=== PATIENT | female | born 1975 | race Caucasian/White ===

== ENCOUNTER 2023-05-18 08:47 | Outpatient (OUT) | payer BC, OTHER, SELFPAY ==
--- NOTE | 2023-05-18 08:54 | US_ITS ---
The [address] [address] Patient Name: LESA MCBRIDE MRN: [id number] date: 1975 Sex: F Assigned Patient Location: US Current Patient Location: US Accession/Order Number: [id number] Exam Date: 05/18/2023 08:54 Report Date: 05/18/2023 10:24 At the request of: CHI LYON Procedure: US renal bladder US renal bladder EXAM DATE: 05/18/2023 6:54 AM MDT COMPARISON: CT abdomen with contrast 06/03/2020. CT abdomen and pelvis without contrast 07/31/2020. INDICATION: Right flank pain x1 month. TECHNIQUE: Real-time ultrasound scanning of the kidneys and bladder was performed by the leather heel breaster. Account Resolution Analyst static images are submitted for review. FINDINGS: Right Kidney: The right kidney measures 8.9 x 3.6 x 4.9 cm and has a volume of 82 mL. Normal echogenicity. No hydronephrosis. No shadowing calculi. No obvious contour deforming lesion or solid renal mass. Renal cortex measures 0.8 cm. Left Kidney: The left kidney measures 9.5 x 4.6 x 4 cm and has a volume of 93 mL. Normal echogenicity. No hydronephrosis. No shadowing calculi. No obvious contour deforming lesion or solid renal mass. Renal cortex measures 1.5 cm. Bladder: Bladder volume measures up to 382 mL. No focal or diffuse bladder wall thickening noted. Bilateral ureteral jets are visualized. Heterogeneously echogenic right hepatic lobe lesion measures 2 x 2.4 x 1.6 cm. This finding correlates with previously demonstrated hemangioma. IMPRESSION: 1. No hydronephrosis. Bilateral ureteral jets are visualized. 2. Right hepatic lobe lesion is compatible with previously demonstrated hemangioma. Electronically authenticated by: IDALMIS FAJARDO Date: 05/18/2023 10:24
== END 2023-05-18 08:48 ==
LOC: US 08:49
PROVIDERS: PCP Family Medicine; Visit Provider Family Medicine
DX: R10.9 Unspecified abdominal pain (principal); K76.9 Liver disease, unspecified
CPT/HCPCS: 76770

== ENCOUNTER 2023-08-29 15:46 | Emergency (ER) | payer BC, SELFPAY ==
[2023-08-29 15:52] VITALS: BP 124/80; PULSE 69; RESP 18; TEMP 36.8; O2SAT 97; BMI 19.8
--- NOTE | 2023-08-29 15:55 | ED.HA1 ---
HPI - Headache General Chief Complaint: Headache Stated Complaint: MIGRAINE Time Seen by Provider: 08/29/23 15:50 History of Present Illness HPI Narrative: 47-year-old female presents for headache. She's had it for three days and it's her whole head. No trauma fever or stiff neck. She has a history of migraine headaches and she took some prescription medicine at home for it but it didn't help. Related Data Home Medications Medication Instructions Recorded Confirmed cetirizine 10 mg tablet 10 mg PO DAILY 08/29/23 08/29/23 fluticasone furoate 100 1 inh inhalation Q24H 08/29/23 08/29/23 mcg-vilanterol 25 mcg/dose inhalation powder levothyroxine 100 mcg tablet 50 mcg PO DAILY 08/29/23 08/29/23 liothyronine 5 mcg tablet 5 mcg PO DAILY 08/29/23 08/29/23 lubiprostone 8 mcg capsule 8 mcg PO BID 08/29/23 08/29/23 meloxicam 7.5 mg tablet 7.5 mg PO QAM 08/29/23 08/29/23 metoprolol tartrate 25 mg tablet 25 mg PO BID 08/29/23 08/29/23 pantoprazole 40 mg tablet,delayed 40 mg PO DAILY 08/29/23 08/29/23 release rizatriptan 10 mg disintegrating 10 mg PO Q2H PRN migraine headache 08/29/23 08/29/23 tablet venlafaxine 75 mg capsule,extended 75 mg PO DAILY 08/29/23 08/29/23 release 24 hr Previous Rx's Medication Instructions Recorded eptrrdwwzj-evjoyjnillfdi-vixprjts 1 cap PO Q6H PRN pain #20 caps 08/29/23 50 mg-300 mg-40 mg capsule (Fioricet) Allergies Allergy/AdvReac Type Severity Reaction Status Date / Time ciprofloxacin [From Cipro] Allergy Unknown Vomiting Verified 08/29/23 15:52 diphenhydramine Allergy Unknown Verified 08/29/23 15:52 [From Benadryl] Review of Systems ROS Narrative A ten point review of systems is negative except as noted above. Exam Narrative Exam Narrative: Nurses note and vital signs reviewed and patient is not hypoxic. General: The patient appears well and in no apparent distress. Patient is resting comfortably on cart. Skin: Warm, dry, no pallor noted. There is no rash noted. Head: Normocephalic, atraumatic, neck supple, no nuchal rigidity Eye: Normal conjunctiva, no drainage Ears, Nose, Mouth, and Throat: oral mucosa is moist. Nares patent. Cardiovascular: Regular Rate and Rhythm Respiratory: Patient is in no distress, no accessory muscle use, lungs are clear to auscultation, no wheezing, rales or rhonchi Back: non-tender GI: often nontender Musculoskeletal: The patient has no evidence of calf tenderness, no pitting edema, symmetrical pulses noted bilaterally Neurological: A&O, normal speech, upper and lower extremity strength intact and symmetric Psychiatric: Cooperative Constitutional Vital Signs, click to edit/add: Last Vital Signs Temp 98.3 F 08/29/23 15:52 Pulse 60 08/29/23 17:15 Resp 18 08/29/23 17:15 BP 102/68 08/29/23 17:15 Pulse Ox 100 08/29/23 17:15 O2 Del Method Room Air 08/29/23 15:52 Course Vital Signs Vital signs: Vital Signs Temperature 98.3 F 08/29/23 15:52 Pulse Rate 69 08/29/23 15:52 Respiratory Rate 18 08/29/23 15:52 Blood Pressure 124/80 08/29/23 15:52 Pulse Oximetry 97 08/29/23 15:52 Oxygen Delivery Method Room Air 08/29/23 15:52 Temperature 98.3 F 08/29/23 15:52 Pulse Rate 60 08/29/23 17:15 Respiratory Rate 18 08/29/23 17:15 Blood Pressure 102/68 08/29/23 17:15 Pulse Oximetry 100 08/29/23 17:15 Oxygen Delivery Method Room Air 08/29/23 15:52 MDM - Headache MDM Narrative Medical decision making narrative: the patient was medicated with Toradol, Zofran, and Solu-Medrol and feels improved. She is discharged home with a prescription for Fioricet. I've no clinical suspicion of acute intracranial pathology. Treatment diagnosis and follow-up were discussed with the patient. Differential Diagnosis Differential diagnosis: Likely migraine, tension headache, subarachnoid hemorrhage, headache, meningitis and sinusitis Discharge Plan Discharge Chief Complaint: Headache Clinical Impression: Headache Patient Disposition: Home, Self-Care Time of Disposition Decision: 17:24 Condition: Good Mode of Transportation: Private Vehicle Prescriptions / Home Meds: New kzvxohidxo-kkvhxwecndmub-xixw [Fioricet] 50-300-40 mg capsule 1 cap PO Q6H PRN (Reason: pain) Qty: 20 0RF No Action cetirizine 10 mg tablet 10 mg PO DAILY fluticasone furoate-vilanterol 100-25 mcg/dose blister with device 1 inh INHALATION Q24H levothyroxine 100 mcg tablet 50 mcg PO DAILY liothyronine 5 mcg tablet 5 mcg PO DAILY lubiprostone 8 mcg capsule 8 mcg PO BID meloxicam 7.5 mg tablet 7.5 mg PO QAM metoprolol tartrate 25 mg tablet 25 mg PO BID pantoprazole 40 mg tablet,delayed release (DR/EC) 40 mg PO DAILY venlafaxine 75 mg capsule,extended release 24hr 75 mg PO DAILY rizatriptan 10 mg tablet,disintegrating 10 mg PO Q2H PRN (Reason: migraine headache) Instructions: Acute Headache (ED), General Headache (ED) Stand Alone Forms: Portal Instructions Referrals: Luisito Potter MD [Primary Care Provider] - 1 week
[2023-08-29] MEDS: KETOROLAC TROMETHAMINE 60 MG/2 ML VIAL IM (16:28)
[2023-08-29] MEDS: ONDANSETRON 4 MG RAPDIS TABLET SL (16:29)
[2023-08-29] MEDS: METHYLPREDNISOLONE SOD SUCC PF 125 MG/2 ML VIAL IVP (16:29)
[2023-08-29 17:15] VITALS: BP 102/68; PULSE 60; RESP 18; O2SAT 100
== END 2023-08-29 17:44 | disposition home or self-care (01) ==
PROVIDERS: Emergency Provider Emergency Medicine; PCP Family Medicine
DX: R51.9 Headache, unspecified (principal); Z79.890 Hormone replacement therapy; Z79.899 Other long term (current) drug therapy
CPT/HCPCS: 96372; 96374; 99284; J2930

== ENCOUNTER 2024-01-24 13:19 | Outpatient (OUT) | payer BC, SELFPAY ==
--- NOTE | 2024-01-24 13:48 | MM_ITS ---
Patient Name: LESA MCBRIDE MR#: [id number] : 1975 Exam Date: 01/24/2024 Ordering Doctor: DR Luisito Potter . RADIOLOGY REPORT PROCEDURE: MM TOMOSYNTHESIS SCREENING BI COMPARISON: MG MAMM SCREEN GARY W CAD, 11/23/2019. INDICATIONS: Screening Calculator Name NCI Breast Cancer Risk Assessment Tool 5 Year Breast Cancer Risk 0.60% Lifetime Breast Cancer Risk 6.80% Personal Breast Cancer No Personal Ovarian Cancer No Treatments None Family Cancers Grandmother-maternal with pancreatic cancer at age 55. LOCATION: [facility] BREAST COMPOSITION: Extremely dense, which lowers the sensitivity of mammography. FINDINGS: DIAGNOSTIC CATEGORY 2--BENIGN FINDING: RIGHT BREAST: No significant suspicious finding. No significant change has occurred. LEFT BREAST: No significant suspicious finding. Stable lymph node versus circumscribed nodule within posterior upper inner quadrant. No significant change has occurred. RECOMMENDATIONS: ROUTINE MAMMOGRAM AND CLINICAL EVALUATION IN 12 MONTHS. PLEASE NOTE: A NORMAL MAMMOGRAM DOES NOT EXCLUDE THE POSSIBILITY OF BREAST CANCER. A CLINICALLY SUSPICIOUS PALPABLE LUMP SHOULD BE BIOPSIED. Dictated by: Umesh Strange M.D. on 01/24/2024 at 14:29 Approved by: Umesh Strange M.D. on 01/24/2024 at 14:34
[2024-01-24 14:05] LABS: Basophils Percent Auto 0.6 % (0.2-2.0); Eosinophils Absolute Auto 0.2 10^3/uL (0.0-0.7); Eosinophils Percent Auto 3.1 % (0.9-7.0); Hematocrit 34.1 % (36.0-48.0); Hemoglobin 11.1 g/dL (12.0-16.0); Immature Granulocytes Abs Auto 0.01 10^3/uL (0.00-0.03); Immature Granulocytes Pct Auto 0.1 % (0.0-0.5); Lymphocytes Absolute Auto 2.4 10^3/uL (1.2-3.8); Mean Corpuscular HGB Conc 32.6 g/dL (29.9-35.2); Mean Corpuscular Hemoglobin 31.4 pg (26.7-34.0); Mean Corpuscular Volume 96.6 fL (81.0-99.0); Mean Platelet Volume 10.9 fL (9.5-13.5); Monocytes Absolute Auto 0.6 10^3/uL (0.3-0.8); Monocytes Percent Auto 9.1 % (1.7-12.0); Neutrophils Absolute Auto 3.7 10^3/uL (1.4-6.5); Neutrophils Percent Auto 53.1 % (43.0-75.0); Platelet Count 184 10^3/uL (150-450); Red Blood Count 3.53 10^6/uL (4.20-5.40); Red Cell Distribution Width 12.1 % (11.0-15.0)
[2024-01-24 14:17] LABS: Estimated Average Glucose 97 mg/dL
[2024-01-24 14:54] LABS: Alanine Aminotransferase 9 U/L (14-59); Albumin Globulin Ratio 1.1; Albumin Level 3.8 g/dL (3.4-5.0); Alkaline Phosphatase 56 U/L (46-116); Anion Gap 12.8; Aspartate Amino Transferase 9 U/L (15-37); BUN Creatinine Ratio 19.2; Bilirubin Total 0.5 mg/dL (0.2-1.0); Calcium 9.3 mg/dL (8.5-10.1); Carbon Dioxide 26.4 mmol/L (21.0-32.0); Chloride 105 mmol/L (98-107); Chol HDL Ratio 2.7; Cholesterol 144 mg/dL (<=200); Estimated GFR (African America >60 (>=60); Estimated GFR (Non-African Ame >60 (>=60); Free T3 2.62 pg/mL (2.18-3.98); Globulin 3.6 g/dL; Glucose 75 mg/dL (74-106); HDL Cholesterol 53 mg/dL (40-60); LDL Cholesterol Calculated 70.4 mg/dL; Potassium 3.2 mmol/L (3.5-5.1); Sodium 141 mmol/L (136-145); Thyroid Stimulating Hormone 0.093 uIU/mL (0.358-3.740); Total Protein 7.4 g/dL (6.4-8.2); Triglycerides 103 mg/dL (<=150); VLDL CHOLESTEROL 20.6 mg/dL
== END 2024-01-24 13:20 | disposition home or self-care (01) ==
LOC: MAMMO 13:20 → LAB 13:23
PROVIDERS: PCP Family Medicine; Visit Provider Family Medicine
DX: Z00.00 Encounter for general adult medical examination without abnormal findings (principal); Z12.31 Encounter for screening mammogram for malignant neoplasm of breast; Z80.8 Family history of malignant neoplasm of other organs or systems
CPT/HCPCS: 36415; 77063; 77067; 80053; 80061; 82306; 83036; 83540; 84436; 84443; 84481; 85025

== ENCOUNTER 2024-01-29 18:00 | Outpatient (REF) | payer BC, SELFPAY ==
--- OUTSIDE RECORDS SUMMARY | 2024-01-30 16:48 | XMS_ITS | CCD ---
Author Name Unknown Address [address] [facility] [address] [place] [id number] Organization [facility] Care Team Providers Care Tail Board Man Name Role Phone Chi Potter Primary Care Physician [phone] EBRAHEIM, FELIZ Referring Unavailable EBRAHEIM, FELIZ Referring Unavailable EBRAHEIM, FELIZ Referring Unavailable EBRAHEIM, FELIZ Attending Unavailable EBRAHEIM, FELIZ Attending Unavailable SELF, REFERRED Referring Unavailable SONALI ., DR MIRELES Primary Care Unavailable HOY ., DR MIRELES Admitting Unavailable HOY ., DR MIRELES Attending Unavailable HOY ., DR MIRELES Consulting Unavailable ZIEBER, DR TIMOTHY Jay Consulting Unavailable TERE HART Attending Unavailable SHAUNAY ., DR MIRELES Primary Care Unavailable TERE HART Consulting Unavailable TERE HART Admitting Unavailable MISC, DR FARRELL Consulting Unavailable MISC, DR FARRELL Admitting Unavailable MISC, DR FARRELL Attending Unavailable SONALI ., DR MIRELES Primary Care Unavailable ZIEBER, DR TIMOTHY Jay Consulting Unavailable HOY ., DR MIRELES Primary Care Unavailable HOY ., DR MIRELES Admitting Unavailable HOY ., DR MIRELES Attending Unavailable HOY ., DR MIRELES Consulting Unavailable HOY ., DR MIRELES Primary Care Unavailable HOY ., DR MIRELES Admitting Unavailable HOY ., DR MIRELES Attending Unavailable HOY ., DR MIRELES Consulting Unavailable HOY ., DR MIRELES Admitting Unavailable HOY ., DR MIRELES Attending Unavailable HOY ., DR MIRELES Primary Care Unavailable TREY BRENNAN Attending Unavailable CINDY, DR NELLIE Cintron Consulting Unavailable SONALI ., DR MIRELES Primary Care Unavailable TREY BRNENAN Admitting Unavailable TREY BRENNAN Consulting Unavailable ZITA OCHOA Consulting Unavailable ZITA OCHOA Admitting Unavailable ZITA OCHOA Attending Unavailable SONALI .DR MIRELES Primary Care Unavailable KIMI WELSH Consulting Unavailable Nabil Caldera Attending Unavailable Lopez MARTÍNEZ Attending Unavailable Lopez MARTÍNEZ Attending Unavailable Chi Potter Referring Unavailable Lopez MARTÍNEZ Attending Unavailable Chi Potter Referring Unavailable Allergies Allergy Classification Reported Allergen(s) Allergy Type Date of Onset Reaction(s) Facility (4 sources) Ciprofloxacin; Translations: [ciprofloxacin] Drug Allergy 1 Vomiting (disorder) [facility] (1 source) diphenhydrAMINE; Translations: [DIPHENHYDRAMINE HCL] Drug Allergy 2 [facility] Repository (1 source) Ciprofloxacin Drug Allergy 6 [facility] Repository (1 source) diphenhydrAMINE Drug Allergy 2 [facility] Repository (2 sources) diphenhydrAMINE; Translations: [diphenhydramine] Drug Allergy 2 Unknown [facility] [place] Medications Current Medications Medication Drug Class(es) Dates Sig (Normalized) Sig (Original) cetirizine hydrochloride 10 mg oral tablet (1 source) Histamine-1 Receptor Antagonist Start: 04-01-2023 take 1 tablet by mouth once daily cetirizine 10 mg Tab 10 mg = 1 tab(s), Oral, Daily, Refills(s) 0 Start Date: 04/01/23 Status: Ordered doxepin hydrochloride 10 mg oral capsule (1 source) Tricyclic Antidepressant Start: 04-01-2023 take 1-2 capsules by mouth three times daily as needed for anxiety doxepin 10 mg Cap 1-2 caps, Oral, TID, PRN anxiety, Refills(s) 0 Start Date: 04/01/23 Status: Ordered fluticasone / vilanterol (1 source) Corticosteroid, beta2-Adrenergic Agonist Start: 04-01-2023 take 1 puff(s) by inhalation once daily Breo Ellipta 100 mcg-25 mcg inhalation powder 1 puff(s), Inhalation, Daily, 30 dose unit Start Date: 04/01/23 Status: Ordered levothyroxine sodium 0.1 mg oral tablet (1 source) l-Thyroxine Start: 04-01-2023 take 1 tablet by mouth once daily levothyroxine 100 mcg (0.1 mg) Tab 100 mcg = 1 tab(s), Oral, Daily, Refills(s) 0 Start Date: 04/01/23 Status: Ordered liothyronine sodium 0.005 mg oral tablet (1 source) l-Triiodothyronine Start: 04-01-2023 take 1 tablet by mouth once daily liothyronine 5 mcg Tab 5 mcg = 1 tab(s), Oral, Daily, Refills(s) 0 Start Date: 04/01/23 Status: Ordered lubiprostone 0.008 mg oral capsule (1 source) Chloride Channel Activator Start: 04-01-2023 take 1 capsule by mouth twice daily Amitiza 8 mcg Cap 8 mcg = 1 cap(s), Oral, BID, Refills(s) 0 Start Date: 04/01/23 Status: Ordered meloxicam 7.5 mg oral tablet (1 source) Nonsteroidal Anti-inflammatory Drug Start: 04-03-2023 take 1 tablet by mouth once daily meloxicam 7.5 mg Tab 7.5 mg = 1 tab(s), Oral, Daily, Refills(s) 0 Start Date: 04/03/23 Status: Ordered methocarbamol 750 mg oral tablet (1 source) Muscle Relaxant Start: 06-21-2022 End: 06-24-2022 take 1 tablet by mouth three times daily Robaxin-750 oral tablet 750 mg = 1 tab(s), Oral, TID, X 3 day(s), # 9 tab(s), Refills(s) 0, Pharmacy: [facility]/pharmacy #[id number], 155, cm, 06/21/22 15:51:00 EDT, Height/Length Dosing, 45, kg, 06/21/22 15:51:00 EDT, Weight Dosing Start Date: 06/21/22 Stop Date: 06/24/22 Status: Ordered metoprolol tartrate 25 mg oral tablet (1 source) beta-Adrenergic Reji Start: 04-01-2023 take 1 tablet by mouth twice daily Metoprolol tartrate 25 mg Tab 25 mg = 1 tab(s), Oral, BID, Refills(s) 0 Start Date: 04/01/23 Status: Ordered pantoprazole 40 mg delayed release oral tablet (1 source) Proton Pump Inhibitor Start: 04-01-2023 take 1 tablet by mouth twice daily Pantoprazole [address] Tab 40 mg = 1 tab(s), Oral, BID, Refills(s) 0 Start Date: 04/01/23 Status: Ordered rizatriptan 10 mg disintegrating oral tablet (1 source) Serotonin-1b and Serotonin-1d Receptor Agonist Start: 04-01-2023 take 1 tablet by mouth once Maxalt AUDIO VISUAL ENGINEER 10 mg Tab-Dis 10 mg = 1 tab(s), Oral, Once, Refills(s) 0 Start Date: 04/01/23 Status: Ordered Problems Active Problems Problem Classification Problem Date Documented Da te Episodic/Chronic Acute bronchitis (1 source) Acute bronchitis, unspecified; Translations: [ACUTE BRONCHITIS UNSPECIFIED] Onset: 3 Episodic Allergic reactions (1 source) Eczema 04-01-2023 Episodic Anxiety disorders (1 source) Anxiety disorder, unspecified; Translations: [ANXIETY DISORDER UNSPECIFIED] Onset: 2 Chronic Asthma (2 sources) Unspecified asthma, uncomplicated; Translations: [Asthma] Onset: 2 04-01-2023 Chronic Cardiac dysrhythmias (5 sources) Palpitations; Translations: [Sinus tachycardia] Onset: 2 Episodic Esophageal disorders (1 source) Gastroesophageal reflux disease 04-01-2023 Chronic Headache; including migraine (1 source) Migraine 04-01-2023 Chronic Mood disorders (1 source) Depressive disorder 04-01-2023 Chronic Neoplasms of unspecified nature or uncertain behavior (2 sources) Neoplasm of uncertain behavior of skin; Translations: [Neoplasm of uncertain behavior of skin] Onset: 3 Episodic Other connective tissue disease (2 sources) Other shoulder lesions, left shoulder; Translations: [Other shoulder lesions, left shoulder] Onset: 2 Episodic Other ear and sense organ disorders (1 source) Hearing loss 04-01-2023 Chronic Other gastrointestinal disorders (1 source) Irritable bowel syndrome characterized by constipation 04-01-2023 Chronic Other non-traumatic joint disorders (3 sources) Pain in left shoulder; Translations: [Pain in left shoulder] Onset: 2 Episodic Residual codes; unclassified (1 source) Insomnia 04-01-2023 Episodic Spondylosis; intervertebral disc disorders; other back problems (5 sources) Muscle spasm of back; Translations: [Low back pain] Onset: 2 Episodic Sprains and strains (5 sources) Injury of multiple muscles and tendons at shoulder and upper arm level; Translations: [Strain of other muscles, fascia and tendons at shoulder and upper arm level, left arm, initial encounter] Onset: 2 Episodic Superficial injury; contusion (1 source) Contusion of left shoulder, initial encounter; Translations: [CONTUSION LEFT SHOULDER INITIAL ENC] Onset: 3 Episodic Thyroid disorders (6 sources) Hypothyroidism, unspecified; Translations: [Hypothyroidism] Onset: 2 Chronic Unclassified (3 sources) CONTACT W/AND (SUSP) EXPOS COVID-19; Translations: [CONTACT W/AND (SUSP) EXPOS COVID-19] Onset: 3 Unclassified (1 source) Body mass index 20-24 - normal 04-03-2023 Past or Other Problems Problem Classification Problem Date Documented Da te Episodic/Chronic Abdominal pain (4 sources) Unspecified abdominal pain; Translations: [UNSPECIFIED ABDOMINAL PAIN] Onset: 07-31-2022 Episodic Other aftercare (1 source) Other detention (current) drug therapy; Translations: [OTH ASSISTED CURRENT DRUG THERAPY] Onset: 08-02-2022 Episodic Other connective tissue disease (4 sources) Impingement syndrome of left shoulder; Translations: [IMPINGEMENT SYNDROME LEFT SHOULDER] Onset: 08-29-2022 Episodic Other gastrointestinal disorders (1 source) Constipation, unspecified; Translations: [CONSTIPATION UNSPECIFIED] Onset: 08-02-2022 Episodic Residual codes; unclassified (1 source) Acquired absence of both cervix and uterus; Translations: [ACQUIRED ABSENCE BOTH CERVIX AND UTERUS] Onset: 09-24-2022 Episodic Unclassified (1 source) CONTACT W/AND (SUSP) EXPOS COVID-19; Translations: [CONTACT W/AND (SUSP) EXPOS COVID-19] Onset: 01-16-2023 Results Test Name Value Interpretation Reference Range Facility Facesheeton 04-04-2023 Facesheet [id number] 0CD:127 Normal [facility] Ambulatory Visit Summaryon 0 04-03-2023 Ambulatory Visit Summary STEPHANIE KHOURY :1975 Visit Date:04/03/2023 Ambulatory Visit Instructions Your Diagnosis Neoplasm of uncertain behavior of skin of back Your Care Team Attending Physician - MARY CANTU, Lopez Jay Primary Care Physician - Chi Potter MD Referring Physician - Chi Potter MD This Is Your Medications List Contact prescribing physician if questions or concerns cetirizine (cetirizine 10 mg Tab) doxepin (doxepin 10 mg Cap) fluticasone-vilanterol (Breo Ellipta 100 mcg-25 mcg inhalation powder) levothyroxine (levothyroxine 100 mcg (0.1 mg) Tab) liothyronine (liothyronine 5 mcg Tab) lubiprostone (Amitiza 8 mcg Cap) meloxicam (meloxicam 7.5 mg Tab) metoprolol (Metoprolol tartrate 25 mg Tab) pantoprazole (Pantoprazole [address] Tab) rizatriptan (Maxalt AUDIO VISUAL ENGINEER 10 mg Tab-Dis) Procedures Performed Abdominal hysterectomy, Tubal ligation. Discharge Vitals Heart Rate (Peripheral) 66 Respiratory Rate 16 Blood Pressure 104/66 Height 154.9 cm Height 61 in Weight 50.6 kg Weight 111.32 lb BMI 21.09 What to do next Scheduled Follow-Up Appointments Saturday. 2022 3:20 PM EDT With: Lopez MARTÍNEZ MD Where: General Surgery Mary/Nilson Dumont [facility] Physician Referralon 023 Physician Referral [id number] 0CD:127 Normal [facility] Physician Referralon 023 Physician Referral [id number] 0CD:127 Normal [facility] MRI SHOULDER LT WO CONon MRI SHOULDER LT WO CON EXAMINATION: MRI SHOULDER LT WO CON HISTORY: Strain of rotator cuff of shoulder ; chronic left shoulder pain after falling COMPARISON: MRI shoulder left 08/29/2022 TECHNIQUE: A variety of imaging planes and parameters were utilized for visualization of suspected pathology. Imaging was performed without contrast. FINDINGS: ROTATOR CUFF REGION CUFF TENDONS: Minimal increased signal intensity in the supraspinatus tendon indicates tendon degeneration and/or tendinitis. No molly tear is seen. CUFF MUSCLES: Normal appearing muscles. DELTOID: Normal. No significant atrophy or tear. LONG BICEPS TENDON: Normal. No abnormal signal, attrition, or tear. LABRUM/BICEPS ANCHOR SUPERIOR: Normal. No visible labral tear or biceps anchor pathology. ANTERIOR/INFERIOR: Normal. No visible tear or attrition. POSTERIOR: Normal. No posterior labrum abnormality. CAPSULE Normal. No visible capsular laxity or thickening. AC JOINT REGION AC JOINT: Mild osteoarthropathy with no significant narrowing of the underlying coracoacromial arch. AC LIGAMENTS: Normal acromioclavicular ligament. CC LIGAMENTS: Normal coracoclavicular ligaments. ACROMION: Mild lateral downsloping. SUBACROMIAL BURSA: Normal. No significant effusion. HYALINE CARTILAGE: Normal. No visible cartilage narrowing or focal defect. OTHER BONES: Normal proximal humerus, glenoid, and coracoid. OTHER OBSERVATIONS: Negative. No other significant findings or glenohumeral effusion. IMPRESSION: 1. Mild tendinopathy of the supraspinatus tendon which may account for patient's symptoms. 2. Mild degenerative changes of the acromioclavicular joint and slight developmental lateral downsloping acromion process. Electronically authenticated by: TIMOTHY BRAMBILA Date: 2023-02-26 22:11 Normal [facility]02 SARS-CoV-2 (COVID-19) RNA ALYX+probe Ql (Unsp spec) Not detected Normal NOT DETECTED [facility] Comment on above: Result Comment: When diagnostic testing is negative, the possibility of a false negative should be considered in the context of a patient's recent exposures and the presence of clinical signs and symptoms consistent with SARS-CoV-2. This test is not yet approved or cleared by the [place] FDA. When there are no FDA-approved or cleared tests available, and other criteria are met, FDA can make tests available under an emergency access mechanism called an Emergency Use Authorization (EUA). The EUA for this test is supported by the Information Consultant of Health and Human Service's declaration that circumstances exist to justify the emergency use of in vitro diagnostics for the detection and/or diagnosis of the virus that causes COVID-19. This EUA will remain in effect for the duration of the COVID-19 declaration justifying emergency of IVDs, unless it is terminated or revoked by the FDA (after which the test may no longer be used). Performed By: #### C VDTBH ####[facility] [address] [place], [place] [address]KvDr. Zaynab Wall FREE T3on 10-26-2022 FREE T3 2.94 pg/mlL Normal 2.18-3.98 [facility] Comment on above: Performed By: #### T SH, T4, FT3 #### [facility] [address] [place], [place] [address] Dr. Zaynab Wall T4on 10-26-2022 T4 [Mass/Vol] 6.40 ug/dL Normal 4.80-13.90 [facility] Comment on above: Performed By: #### T SH, T4, FT3 #### [facility] [address] [place], [place] [address] Dr. Zaynab Wall TSHon 10-26-2022 TSH 0.076 uIU/mL Critically low 0.358-3.740 [facility] Comment on above: Performed By: #### T SH, T4, FT3 #### [facility] [address] [place], [place] [address] Dr. Zaynab Wall Orders Onlyon 10-19-2022 Orders Only [id number] Peng,Huber e A 1975 F Date Provider Department Center 10/19/2022 WANG HEREDIA MP ORTHO MPORTHO Family History Family history unknown: Yes Normal [facility] Follow-Upon 10-17-2022 Follow-Up [id number] PengHuber e A 1975 F Date Provider Department Center 10/17/2022 Ruth-FELIZ PATTON MP MPORTHO Chart Close Cosign Required by: Feliz Patton MD[[id number]] Family History Family history unknown: Yes Level of Service:29442 [facility] OFFICE/OUTPATIENT ESTABLISHED LOW MDM 20-29 MIN (GC) Reason for Visit and Comments: Follow-up [633403] Normal [facility] CARDIAC ADRIANA ADMITon 10-21-2 022 CK [Catalytic activity/Vol] 40 U/L Normal 26-192 [facility] Comment on above: Performed By: #### C LIA JHA, TSH ####[facility] [address] [place] [address]Dr. Zaynab Wall CK.MB [Mass/Vol] 0.60 ng/mL Normal <=3.60 [facility] Comment on above: Performed By: #### C LAI JHA, TSH ####[facility] [address] [place] [address]Dr. Zaynab Wall HSTROP 5.2 pg/mL Normal 4.0-51.3 [facility] Comment on above: Result Comment: CUT- OFF POINTS HAVE BEEN ESTABLISHED BASED ON THE FOURTH UNIVERSAL DEFINITIONS OF MYOCARDIAL INFARCTION. THE UPPER REFERENCE LIMIT (URL) OF TROPONIN, DEFINED THE 99TH PERCENTILE OF cTnI DISTRIBUTION IN A REFERENCE POPULATION, HAS BEEN CONFIRMED THE DECISION THRESHOLD FOR [place] DIAGNOSIS. Performed By: #### C LIA JHA, TSH ####[facility] [address] [place] [address]Dr. Zaynab Wall VICK 33 ng/mL Normal 9-82 [facility] Comment on above: Performed By: #### C LAI JHA, TSH ####[facility] [address] [place], [place] [address]Dr. Zaynab Wall CBC AUTO DIFFon 09-21-2022 BASO # 0.0 103/ul Normal 0.0-0.1 [facility] Comment on above: Performed By: #### C BC ####[facility] [address] [place] [address]Dr. Zaynab Wall Basophils/100 WBC (Bld) 0.4 % Normal 0.2-2.0 [facility] Comment on above: Performed By: #### C BC ####[facility] [address] [place], [place] [address]DrRyann Wall EO # 0.0 103/ul Normal 0.0-0.7 [facility] Comment on above: Performed By: #### C BC ####[facility] [address] [place], [place] [address]DrRyann Wall Eosinophils/100 WBC (Bld) 0.5 % Critically low 0.9-7.0 [facility] Comment on above: Performed By: #### C BC ####[facility] [address] [place] [address]Dr. Zaynab Wall Erythrocyte distribution width (RBC) [Ratio] 12.4 % Normal 11.0-15.0 [facility] Comment on above: Performed By: #### C BC ####[facility] [address] [place], [place] [address]Dr. Zaynab Wall Hematocrit (Bld) [Volume fraction] 36.0 % Normal 36.0-48.0 [facility] Comment on above: Performed By: #### C BC ####[facility] [address] [place], [place] [address]Dr. Zaynab Wall Hemoglobin (Bld) [Mass/Vol] 11.5 g/dL Critically low 12.0-16.0 [facility] Comment on above: Performed By: #### C BC ####[facility] [address] [place], [place] [address]Dr. Zaynab Wall IG # 0.02 10e3/ul Normal 0.00-0.03 [facility] Comment on above: Performed By: #### C BC ####[facility] [address] [place], [place] [address]Dr. Zaynab Wall IG % 0.3 % Normal 0.0-0.5 [facility] Comment on above: Performed By: #### C BC ####[facility] [address] [place], [place] [address]Dr. Zaynab Wall LYMPH # 1.5 103/ul Normal 1.2-3.8 [facility] Comment on above: Performed By: #### C BC ####[facility] [address] [place], [place] [address]Dr. Zaynab Wall Lymphocytes/100 WBC (Bld) 19.6 % Critically low 20.5-60.0 [facility] Comment on above: Performed By: #### C BC ####[facility] [address] [place] [address]Dr. Zaynab Duke MANUAL DIFF REQ NO Normal The [facility] Comment on above: Performed By: #### C BC ####[facility] [address] [place] [address]Dr. Zaynab Wall MCH (RBC) [Entitic mass] 30.6 pg Normal 26.7-34.0 [facility] Comment on above: Performed By: #### C BC ####[facility] [address] [place], [place] [address]Dr. Zaynab Duke MCHC (RBC) [Mass/Vol] 31.9 g/dL Normal 29.9-35.2 [facility] Comment on above: Performed By: #### C BC ####[facility] [address] [place], [place] [address]Dr. Zaynab Duke MCV (RBC) [Entitic vol] 95.7 fL Normal 81.0-99.0 [facility] Comment on above: Performed By: #### C BC ####[facility] [address] [place], [place] [address]Dr. Zaynab Duke MONO # 0.6 103/ul Normal 0.3-0.8 [facility] Comment on above: Performed By: #### C BC ####[facility] [address] [place], [place] [address]Dr. Johannaermelinda Wall Monocytes/100 WBC (Bld) 7.7 % Normal 1.7-12.0 [facility] Comment on above: Performed By: #### C BC ####[facility] [address] [place], [place] [address]Dr. Johannaermelinda Duke NEUT # 5.5 103/ul Normal 1.4-6.5 [facility] Comment on above: Performed By: #### C BC ####[facility] [address] [place], [place] [address]Dr. Johannaermelinda Wall Neutrophils/100 WBC (Bld) 71.5 % Normal 43.0-75.0 [facility] Comment on above: Performed By: #### C BC ####[facility] [address] [place], [place] [address]Dr. Zaynab Wall Platelet mean volume (Bld) [Entitic vol] 11.4 fL Normal 9.5-13.5 [facility] Comment on above: Performed By: #### C BC ####[facility] [address] [place] [address]Dr. Zaynab Wall PLT 83 103/ul Critically low 150-450 [facility] Comment on above: Performed By: #### C BC ####[facility] [address] [place] [address]Dr. Zaynab Wall RBC 3.76 106/ul Critically low 4.20-5.40 [facility] Comment on above: Performed By: #### C BC ####[facility] [address] [place] [address]Dr. Zaynab Wall WBC 7.7 103/ul Normal 4.0-11.0 [facility] Comment on above: Performed By: #### C BC ####[facility] [address] [place] [address]DrRyann Wall ER URINE PROFILEon 2 Bilirubin Ql (U) Negative Normal NEGATIVE [facility] Comment on above: Performed By: #### E RUR #### [facility] [address] [place] [address] Dr. Zaynab Wall Clarity (U) CLEAR Normal CLEAR [facility] Comment on above: Performed By: #### E RUR #### [facility] [address] [place] [address] Dr. Zaynab Wall Color (U) LT. YELLOW Normal YELLOW [facility] Comment on above: Performed By: #### E RUR #### [facility] [address] [place] [address] [address] Zaynab KOWALSKI A micrscopic examination will be performed if indicated. Normal [facility] Comment on above: Performed By: #### E RUR #### [facility] [address] [place] [address] Dr. Zaynab Wall Glucose Ql (U) Negative Normal NEGATIVE [facility] Comment on above: Performed By: #### E RUR #### [facility] [address] [place] [address] Dr. Zaynab Wall Hemoglobin Ql (U) Negative Normal NEGATIVE [facility] Comment on above: Performed By: #### E RUR #### [facility] [address] [place] [address] Dr. Zaynab Wall Ketones Ql (U) Negative Normal NEGATIVE [facility] Comment on above: Performed By: #### E RUR #### [facility] [address] [place] [address] Dr. Zaynab Wall LEUKOCYTES Negative Normal NEGATIVE [facility] Comment on above: Performed By: #### E RUR #### [facility] [address] [place] [address] Dr. Zaynab Wall Nitrite Ql (U) Negative Normal NEGATIVE [facility] Comment on above: Performed By: #### E RUR #### [facility] [address] [place] [address] Dr. Zaynab Wall pH (U) 7.0 [pH] Normal 5-9 [facility] Comment on above: Performed By: #### E RUR #### [facility] [address] [place] [address] Dr. Zaynab Wall SPEC GRAVITY 1.015 Normal 1.005-<=1.025 [facility] Comment on above: Performed By: #### E RUR #### [facility] [address] [place] [address] Dr. Zaynab Wall UA PROTEIN Negative Normal NEGATIVE/ TRACE [facility] Comment on above: Performed By: #### E RUR #### [facility] [address] [place] [address] Dr. Zaynab Wall UR MICRO IND NOT INDICATED Normal [facility] Comment on above: Performed By: #### E RUR #### [facility] [address] [place] [address] Dr. Zaynab Wall Urobilinogen Qn (U) 1.0 {Jennifer'U}/dL Normal 0.2 - 1. 0 [facility] Comment on above: Performed By: #### E RUR #### [facility] [address] [address] [address] Zaynab Wall FREE T4on 09-21-2022 Free T4 [Mass/Vol] 0.92 ng/dL Normal 0.76-1.46 [facility] Comment on above: Performed By: #### F T4 ####[facility] [address] [address]DrRyann Wall PROF 14(COMP METB)on 022 Albumin [Mass/Vol] 3.7 g/dL Normal 3.4-5.0 [facility] Comment on above: Performed By: #### C LIA JHA, TSH ####[facility] [address] [address]DrRyann Wall Albumin/Globulin [Mass ratio] 1.2 {ratio} Normal [facility] Comment on above: Performed By: #### C LIA JHA, TSH ####[facility] [address] [address]Dr. Zaynab Wall ALP [Catalytic activity/Vol] 43 U/L Critically low 46-116 [facility] Comment on above: Performed By: #### C LIA JHA, TSH ####[facility] [address] [address]Dr. Zaynab Wall ALT [Catalytic activity/Vol] 14 U/L Normal 14-59 [facility] Comment on above: Performed By: #### C YUDELKA, ANADM, TSH ####[facility] [address] [address]Dr. Zaynab Wall Anion gap [Moles/Vol] 8.0 mmol/L Normal [facility] Comment on above: Performed By: #### C YUDELKA, LIA, TSH ####[facility] [address] [address]Dr. Zaynab Wall AST [Catalytic activity/Vol] 11 U/L Critically low 15-37 [facility] Comment on above: Performed By: #### C YUDELKA, CMADM, TSH ####[facility] [address] [address]Dr. Zaynab Wall Bilirubin [Mass/Vol] 0.5 mg/dL Normal 0.2-1.0 [facility] Comment on above: Performed By: #### C MP, CMADM, TSH ####[facility] [address] [address]Dr. Zaynab Wall Calcium [Mass/Vol] 9.0 mg/dL Normal 8.5-10.1 [facility] Comment on above: Performed By: #### C MP, CMADM, TSH ####[facility] [address] [address]Dr. Zaynab Wall Chloride [Moles/Vol] 104 mmol/L Normal 98-107 [facility] Comment on above: Performed By: #### C MP, CMADM, TSH ####[facility] [address] [address]Dr. Zaynab Wall CO2 [Moles/Vol] 30.8 mmol/L Normal 21.0-32.0 [facility] Comment on above: Performed By: #### C MP, CMADM, TSH ####[facility] [address] [address]Dr. Zaynab Wall Creatinine [Mass/Vol] 0.73 mg/dL Normal 0.55-1.02 [facility] Comment on above: Performed By: #### C MP, CMADM, TSH ####[facility] [address] [address]Dr. Zaynab Wall EGFR-AF SWEDISH >60 Normal >=60 [facility] Comment on above: Performed By: #### C MP, CMADM, TSH ####[facility] [address] [address]Dr. Zaynab Wall EGFR-NON AF SWEDISH >60 Normal >=60 [facility] Comment on above: Performed By: #### C MP, CMADM, TSH ####[facility] [address] [address]Dr. Zaynab Wall Globulin (S) [Mass/Vol] 3.0 g/dL Normal [facility] Comment on above: Performed By: #### C MP, CMADM, TSH ####[facility] [address] [address]Dr. Zaynab Wall Glucose [Mass/Vol] 88 mg/dL Normal 74-106 [facility] Comment on above: Performed By: #### C MP, CMADM, TSH ####[facility] [address] [address]Dr. Zaynab Wall Potassium [Moles/Vol] 4.8 mmol/L Normal 3.5-5.1 [facility] Comment on above: Performed By: #### C MP, CMADM, TSH ####[facility] [address] [address]Dr. Zaynab Wall Protein [Mass/Vol] 6.7 g/dL Normal 6.4-8.2 [facility] Comment on above: Performed By: #### C MP, CMADM, TSH ####[facility] [address] [address]Dr. Zaynab Wall Sodium [Moles/Vol] 138 mmol/L Normal 136-145 [facility] Comment on above: Performed By: #### C MP, CMADM, TSH ####[facility] [address] [address]Dr. Zaynab Wall Urea nitrogen [Mass/Vol] 10.0 mg/dL Normal 7.0-18.0 [facility] Comment on above: Performed By: #### C MP, CMADM, TSH ####[facility] [address] [address]Dr. Zaynab Wall Urea nitrogen/Creatinine [Mass ratio] 13.7 mg/mg Normal [facility] Comment on above: Performed By: #### C MP, CMADM, TSH ####[facility] [address] [address]Dr. Zaynab Wall TSHon 09-21-2022 TSH 0.033 uIU/mL Critically low 0.358-3.740 [facility] Comment on above: Performed By: #### C MP, CMADM, TSH ####[facility] [address] [place], [place] [address]Qn. Zaynab Wall XR CHEST 1 Von 09-21-2022 XR CHEST 1 V EXAMINATION: XR CHES T 1 V HISTORY: Palpitations COMPARISON: 07/31/2022 TECHNIQUE: AP portable erect FINDINGS: LUNGS: No significant pulmonary parenchymal abnormalities. VASCULATURE: No increased pulmonary vasculature. PLEURA: No pneumothorax, effusion, or pleural thickening. CARDIAC: No cardiomegaly or cardiac silhouette abnormality. MEDIASTINUM: No visible mass or adenopathy. BONES: No fracture or visible bone lesion. OTHER: Negative. IMPRESSION: No acute disease. Electronically authenticated by: NELLIE WHITE Date: 2022-09-21 10:31 Normal [facility] Office Visiton 09-05-2022 Follow-up visit [id number] Cecile Khoury 1975 F Date Provider Department Center 09/05/2022 FELIZ ISRAEL MP [facility] Chart Close Cosign Required by: Feliz Patton MD[[id number]] Family History Family history unknown: Yes Level of Service:72591 [facility]IENT [facility] LOW [facility] 30-44 MINUTES (GC) Reason for Visit and Comments: Pain [136] Normal [facility] MRI SHOULDER LT WO CONon MRI SHOULDER LT WO CON EXAMINATION: MRI SHOULDER LT WO CON HISTORY: Impingement syndrome of shoulder region COMPARISON: No relevant comparison available. TECHNIQUE: A variety of imaging planes and parameters were utilized for visualization of suspected pathology. Imaging was performed without contrast. FINDINGS: ROTATOR CUFF REGION CUFF TENDONS: No definite tear, with suspected disruption of the rotator cuff between the supraspinatus and subscapularis since there is direct fluid connection between the joint space and the subacromial/subdeltoid bursa. CUFF MUSCLES: Normal appearing muscles. DELTOID: No significant atrophy or tear. LONG BICEPS TENDON: Normal. No abnormal signal, attrition, or tear. LABRUM/BICEPS ANCHOR SUPERIOR: No visible labral tear or biceps anchor pathology. ANTERIOR/INFERIOR: No visible tear or attrition. POSTERIOR: No posterior labrum abnormality. CAPSULE No visible capsular laxity or thickening. AC JOINT REGION AC JOINT: Mild osteoarthropathy with no significant narrowing of the underlying coracoacromial arch. AC LIGAMENTS: Normal acromioclavicular ligament. CC LIGAMENTS: Normal coracoclavicular ligaments. ACROMION: Normal horizontal (Type I) configuration. SUBACROMIAL BURSA: Contrast injected into the joint space fills the subacromial-subdeltoid bursa indicating direct connection. HYALINE CARTILAGE: Normal. No visible cartilage narrowing or focal defect. OTHER BONES: Normal proximal humerus, glenoid, and coracoid. OTHER OBSERVATIONS: Negative. No other significant findings or glenohumeral effusion. IMPRESSION: 1. Suspect disruption of the anterior superior aspect of the rotator cuff between the supraspinatus and subscapularis. No appreciable direct tendon tear. 2. Mild degenerative changes of the acromioclavicular joint. Electronically authenticated by: TIMOTHY BRAMBILA Date: 2022-08-29 12:09 Normal [facility] XR ARTHRO SHOULDER LTon 08-03 XR ARTHRO SHOULDER LT EXAMINATION: XR ARTHRO SHOULDER LT HISTORY: Impingement syndrome of shoulder region COMPARISON: No relevant comparison available. TECHNIQUE: An arthrogram was performed under fluoroscopic guidance using non-ionic contrast material in the usual sterile manner after obtaining informed consent. Standard level fluoroscopic mode of operation utilized. FINDINGS: JOINT: Left shoulder NEEDLE: 25 gauge, 3.5 spinal needle. MEDICATION: Approximately 9 mL injected into joint space consisting of a mixture of 4 cc Omnipaque-240, 5 cc 1% Xylocaine and 0.2 cc Dotarem. TECHNIQUE: Anterior approach under fluoroscopic guidance. CLINICAL: Slight decrease in pain following the injection. COMPLICATIONS: None. BONES: No fracture, significant osseous degenerative changes, or visible bone lesion. BURSA: No visible extension of contrast into the subacromial-subdeltoid bursa at this time. OTHER: Negative. IMPRESSION: 1. Technically successful arthrogram without complication. 2. Please see separate MRI arthrogram report. Electronically authenticated by: TIMOTHY BRAMBILA Date: 2022-08-29 11:09 Normal [facility] CBC AUTO DIFFon 07-31-2022 BASO # 0.1 103/ul Normal 0.0-0.1 [facility] Comment on above: Performed By: #### C BC ####[facility] [address] [address]DrRyann Zaynab Duke Basophils/100 WBC (Bld) 0.5 % Normal 0.2-2.0 [facility] Comment on above: Performed By: #### C BC ####[facility] [address] [place], [place] [address]Dr. Zaynab Wall EO # 0.2 103/ul Normal 0.0-0.7 [facility] Comment on above: Performed By: #### C BC ####[facility] [address] [place], [place] [address]Dr. Zaynab Wall Eosinophils/100 WBC (Bld) 1.8 % Normal 0.9-7.0 [facility] Comment on above: Performed By: #### C BC ####[facility] [address] [place], [place] [address]Dr. Zaynab Wall Erythrocyte distribution width (RBC) [Ratio] 12.2 % Normal 11.0-15.0 [facility] Comment on above: Performed By: #### C BC ####[facility] [address] [place], [place] [address]Dr. Zaynab Wall Hematocrit (Bld) [Volume fraction] 39.8 % Normal 36.0-48.0 [facility] Comment on above: Performed By: #### C BC ####[facility] [address] [place], [place] [address]Dr. Zaynab Wall Hemoglobin (Bld) [Mass/Vol] 13.0 g/dL Normal 12.0-16.0 [facility] Comment on above: Performed By: #### C BC ####[facility] [address] [place], [place] [address]DrRyann Wall IG # 0.04 10e3/ul Critically high 0.00-0.03 [facility] Comment on above: Performed By: #### C BC ####[facility] [address] [place], [place] [address]Dr. Zaynab Wall IG % 0.4 % Normal 0.0-0.5 [facility] Comment on above: Performed By: #### C BC ####[facility] [address] [place], [place] [address]Dr. Zaynab Wall LYMPH # 2.8 103/ul Normal 1.2-3.8 [facility] Comment on above: Performed By: #### C BC ####[facility] [address] [address]Dr. Zaynab Wall Lymphocytes/100 WBC (Bld) 24.7 % Normal 20.5-60.0 [facility] Comment on above: Performed By: #### C BC ####[facility] [address] [address]Dr. Zaynab Wall MANUAL DIFF REQ NO Normal [facility] Comment on above: Performed By: #### C BC ####[facility] [address] [address]Dr. Zaynab Wall MCH (RBC) [Entitic mass] 31.1 pg Normal 26.7-34.0 [facility] Comment on above: Performed By: #### C BC ####[facility] [address] [place], [place] [address]Dr. Zaynab Wall MCHC (RBC) [Mass/Vol] 32.7 g/dL Normal 29.9-35.2 [facility] Comment on above: Performed By: #### C BC ####[facility] [address] [place], [place] [address]Dr. Zaynab Wall MCV (RBC) [Entitic vol] 95.2 fL Normal 81.0-99.0 [facility] Comment on above: Performed By: #### C BC ####[facility] [address] [place], [place] [address]Dr. Zaynab Wall MONO # 0.9 103/ul Critically high 0.3-0.8 [facility] Comment on above: Performed By: #### C BC ####[facility] [address] [place], [place] [address]Dr. Zaynab Wall Monocytes/100 WBC (Bld) 8.2 % Normal 1.7-12.0 [facility] Comment on above: Performed By: #### C BC ####[facility] [address] [place], [place] [address]Dr. Zaynab Wall NEUT # 7.3 103/ul Critically high 1.4-6.5 [facility] Comment on above: Performed By: #### C BC ####[facility] [address] [address]Dr. Zaynab Wall Neutrophils/100 WBC (Bld) 64.4 % Normal 43.0-75.0 [facility] Comment on above: Performed By: #### C BC ####[facility] [address] [id number]. Zaynab Wall Platelet mean volume (Bld) [Entitic vol] 10.5 fL Normal 9.5-13.5 [facility] Comment on above: Performed By: #### C BC ####[facility] [address] [id number]. Zaynab Wall PLT 237 103/ul Normal 150-450 [facility] Comment on above: Performed By: #### C BC ####[facility] [address] [id number]. Zaynab Wall RBC 4.18 106/ul Critically low 4.20-5.40 [facility] Comment on above: Performed By: #### C BC ####[facility] [address] [id number]. Zaynab Wall WBC 11.4 103/ul Critically high 4.0-11.0 [facility] Comment on above: Performed By: #### C BC ####[facility] [id number]. Zaynab Wall CT ABD/PELVIS WO CONon 07-31 CT ABD/PELVIS WO CON EXAMINATION: CT ABD/PELVIS WO CON, 07/31/2022 1:40 AM EDT HISTORY: CALCULUS OF KIDNEY COMPARISON: CT abdomen 06/03/2020 TECHNIQUE: CT scan of the abdomen and pelvis was performed without IV contrast. CT dose reduction technique was used, including Automated Exposure Control. FINDINGS: Visualized lung bases and cardiac apex are unremarkable. 1.4 cm hypodense right hepatic focus (image 18 series 3), corresponding to the previously seen hemangioma. Gallbladder, pancreas, spleen, adrenal glands, kidneys, urinary bladder, appendix, and other pelvic structures are unremarkable. Bilateral adnexal region clips. Multiple small subcentimeter right renal cysts. Large amount of stool within the right large bowel. No discrete bowel wall thickening or surrounding infarct or stranding/fluid. No evidence for small bowel obstruction, large ascites, or free air. No acute bony abnormality. IMPRESSION: No radiopaque renal or ureteral stone, hydronephrosis, or perinephric fluid collection. Large amount of stool within the right sided colon. No discrete bowel wall thickening or pericolonic inflammatory stranding/free fluid. Appendix is unremarkable. Right hepatic hemangioma, unchanged. Electronically authenticated by: KIMI WELSH Date: 2022-07-31 03:46 Normal [facility] ER URINE PROFILEon 2 Bilirubin Ql (U) Negative Normal NEGATIVE [facility] Comment on above: Performed By: #### E RUR #### [facility] [address] [place] [address] Dr. Zaynab Wall Clarity (U) CLEAR Normal CLEAR [facility] Comment on above: Performed By: #### E RUR #### [facility] [address] [place] [address] Dr. Zaynab Wall Color (U) LT. YELLOW Normal YELLOW [facility] Comment on above: Performed By: #### E RUR #### [facility] [address] [place] [address] Dr. Zaynab Wall ERUAHD A micrscopic examination will be performed if indicated. Normal [facility] Comment on above: Performed By: #### E RUR #### [facility] [address] [place] [address] Dr. Zaynab Wall Glucose Ql (U) Negative Normal NEGATIVE [facility] Comment on above: Performed By: #### E RUR #### [facility] [address] [place] [address] Dr. Zaynab Wall Hemoglobin Ql (U) Negative Normal NEGATIVE [facility] Comment on above: Performed By: #### E RUR #### [facility] [address] [place] [address] Dr. Zaynab Wall Ketones Ql (U) Negative Normal NEGATIVE [facility] Comment on above: Performed By: #### E RUR #### [facility] [address] [place] [address] Dr. Zaynab Wall LEUKOCYTES Negative Normal NEGATIVE [facility] Comment on above: Performed By: #### E RUR #### [facility] [address] [place] [address] Dr. Zaynab Wall Nitrite Ql (U) Negative Normal NEGATIVE [facility] Comment on above: Performed By: #### E RUR #### [facility] [address] [place] [address] Dr. Zaynab Wall pH (U) 6.0 [pH] Normal 5-9 [facility] Comment on above: Performed By: #### E RUR #### [facility] [address] [place] [address] Dr. Zaynab Wall SPEC GRAVITY 1.015 Normal 1.005-<=1.025 [facility] Comment on above: Performed By: #### E RUR #### [facility] [address] [place] [address] Dr. Zaynab Wall UA PROTEIN Negative Normal NEGATIVE/ TRACE [facility] Comment on above: Performed By: #### E RUR #### [facility] [address] [place] [address] Dr. Zaynab Wall UR MICRO IND NOT INDICATED Normal [facility] Comment on above: Performed By: #### E RUR #### [facility] [address] [place] [address] Dr. Zaynab Wall Urobilinogen Qn (U) 0.2 {Jennifer'U}/dL Normal 0.2 - 1. 0 [facility] Comment on above: Performed By: #### E RUR #### [facility] [address] [place] [address] Dr. Zaynab Wall PROF CHEM 8 (BAS METB)on Anion gap [Moles/Vol] 8.2 mmol/L Normal [facility] Comment on above: Performed By: #### B MP #### [facility] [address] [place] [address] Dr. Zaynab Wall Calcium [Mass/Vol] 9.1 mg/dL Normal 8.5-10.1 [facility] Comment on above: Performed By: #### B MP #### [facility] [address] [address] [address] Zaynab Wall Chloride [Moles/Vol] 102 mmol/L Normal 98-107 [facility] Comment on above: Performed By: #### B MP #### [facility] [address] [address] [address] Zaynab Wall CO2 [Moles/Vol] 31.6 mmol/L Normal 21.0-32.0 [facility] Comment on above: Performed By: #### B MP #### [facility] [address] [place] [address] Dr. Zaynab Wall Creatinine [Mass/Vol] 0.84 mg/dL Normal 0.55-1.02 [facility] Comment on above: Performed By: #### B MP #### [facility] [address] [address] [address] Zaynab Wall EGFR-AF SWEDISH >60 Normal >=60 [facility] Comment on above: Performed By: #### B MP #### [facility] [address] [place] [address] Dr. Zaynab Wall EGFR-NON AF SWEDISH >60 Normal >=60 [facility] Comment on above: Performed By: #### B MP #### [facility] [address] [address] [address] Zaynab Wall Glucose [Mass/Vol] 106 mg/dL Normal 74-106 [facility] Comment on above: Performed By: #### B MP #### [facility] [address] [address] [address] Zaynab Wall Potassium [Moles/Vol] 3.8 mmol/L Normal 3.5-5.1 [facility] Comment on above: Performed By: #### B MP #### [facility] [address] [place] [address] Dr. Zaynab Wall Sodium [Moles/Vol] 138 mmol/L Normal 136-145 [facility] Comment on above: Performed By: #### B MP #### [facility] [address] [place], [place] [address] Dr. Zaynab Wall Urea nitrogen [Mass/Vol] 15.0 mg/dL Normal 7.0-18.0 [facility] Comment on above: Performed By: #### B MP #### [facility] [address] [place], [place] [address] Dr. Zaynab Wall Urea nitrogen/Creatinine [Mass ratio] 17.9 mg/mg Normal [facility] Comment on above: Performed By: #### B MP #### [facility] [address] [place], [place] [address] Dr. Zaynab Wall XR CHEST 2 Von 07-31-2022 XR CHEST 2 V EXAM: XR CHEST 2 V HISTORY: Pain COMPARISON: Chest x-ray 07/10/2021 TECHNIQUE: 2 view chest x-ray frontal and lateral FINDINGS: No lobar consolidation, large pleural effusions, pneumothorax, or acute bony abnormality. Cardiac size unremarkable. IMPRESSION: No radiographic evidence for acute chest abnormality. Electronically authenticated by: KIMI WELSH Date: 2022-07-31 03:36 Normal [facility] ED Note-Physicianon 06-23-20 ED Note-Physician Basic Information Time Seen: Robyn [place], Tayla Putnam 06/21/2022 15:54 Chief Complaint Pt presents to ED with complaints of left shoulder pain onset last week, worsens with movement or carrying a backpack . History of Present Illness 46-year-old female presents with left shoulder pain for the past 1.5 weeks without injury. Hurts to move shoulder around. She tried oyme-srm-dmaqawl medications without relief. Denies swelling, temperature or sensation changes. Denies cough. Review of Systems Review of systems negative unless otherwise stated in HPI Physical Exam Vitals & Measurements T: 36.6 ?C(Oral) HR: 80(Peripheral) RR: 18 BP: 138/91 SpO2: 98% HT: 155 cm HT: 155.0 cm WT: 45 kg WT: 45.0 kg BMI: 18.73 PHYSICAL EXAM: GENERAL: ALERT, NO ACUTE DISTRESS SKIN: WARM, DRY, INTACT; NO CYANOSIS, NO RASH, NO ECCHYMOSIS HEAD: NORMOCEPHALIC, ATRAUMATIC NECK: SUPPLE, TRACHEA MIDLINE, FROM CARDIOVASCULAR: RRR, NO MURMUR, +S1, +S2 RESPIRATORY: NON-LABORED RESPIRATIONS, SYMMETRICAL EXPANSION EXTREMITIES: Tender to left trapezius, NO CYANOSIS, NO EDEMA, FROM ALL EXTREMITIES X 4, PULSES INTACT, NORMAL STRENGTH, NO DEFORMITY, CAPILLARY REFILL INTACT NEUROLOGICAL: A&OX3, SENSORY INTACT PSYCHIATRIC: COOPERATIVE, APPROPRIATE MOOD AND AFFECT Medical Decision Making Patient medicated with Toradol. No acute findings on preliminary shoulder x-ray. She will be given a dose of Decadron and prescribed Robaxin and follow-up the family doctor. Afebrile, not tachycardic, tolerating p.o. and ambulating at baseline and hemodynamically stable to be discharged home. Educated side effect of medications. Answered all questions. Patient in agreement with treatment. Assessment/Plan 1. Strain of left trapezius muscle (S46.812A: Strain of other muscles, fascia and tendons at shoulder and upper arm level, left arm, initial encounter) Ordered: methocarbamol, 750 mg = 1 tab(s), Oral, TID, X 3 day(s), # 9 tab(s), Refills(s) 0, Pharmacy: [facility]acy #[id number], 155, cm, 06/21/22 15:51:00 EDT, Height/Length Dosing, 45, kg, 06/21/22 15:51:00 EDT, Weight Dosing Orders: dexamethasone, 10 mg = 2.5 mL, Injection, Oral, Once, Stop date 06/21/22 16:29:00 EDT, STAT, Start date 06/21/22 16:29:00 EDT, 06/21/22 16:29:00 EDT ketorolac, 30 mg = 1 mL, Injection, IntraMuscular, Once, Stop date 06/21/22 16:02:00 EDT, STAT, Start date 06/21/22 16:02:00 EDT, 06/21/22 16:02:00 EDT XR Shoulder Complete Left Medications Administered Given ketorolac 30 mg/mL Inj 1 mL, 30 mg, IntraMuscular Disposition Plan Patient Discharge Condition Stable Discharge Disposition Home Discharge Prescription List Prescriptions Robaxin-750 oral tablet, 750 mg= 1 tab(s), Oral, TID Follow-up With When Contact Information AKIRA ACUNA CNP Within 1 to 2 days [address] [place] [address] Additional Instructions: Patient Education Muscle Strain, Dqvb-kk-Tywz Attestation This visit was performed by both the physician and an APC. I performed all aspects of the MDM as documented. Problem List/Past Medical History Ongoing No qualifying data Historical No qualifying data Medications Inpatient dexamethasone 4 mg/mL Inj 1 mL, 10 mg= 2.5 mL, Oral, Once Home Robaxin-750 oral tablet, 750 mg= 1 tab(s), Oral, TID Allergies ciprofloxacin (Vomiting) Social History Alcohol - Denies Alcohol Use, 06/21/2022 Substance Abuse - Denies Substance Abuse, 06/21/2022 Tobacco - Denies Tobacco Use, 06/21/2022 Lab Results No qualifying data available. Diagnostic Results XR Shoulder Complete Left * Preliminary * 06/21/22 16:29:08 : No fracture, dislocation or other acute abnormality Read By: Tayla Carlson PA-C [facility] Comment on above: Result Comment: Elec tronically Signed By: Tayla Carlson PA-C\.br\Date and Time Signed: 06/21/22 16:34 EDT\.br\Electronically Co-Signed By: Nabil Caldera MD\.br\Date and Time Co-Signed: 06/23/22 07:27 EDT Coding Summary.on 06-22-2022 Coding Summary. CD:[id number] Gh 0bWw+PGhlYWQ+DI2QERGtE 31ukFMnrR3FV2oHFH5ZOXG LARGNKG0YAQ6ljBS7LLajN 2VybiAv IiqqrMMzWK42SGs2KSZ7vJ orUAkjvA5xfYEkG3j7OsKo XF85xE29SZxmQTGvMtG8Ll ZpbjsgbWFy E7nxSaFwjXSsIcb+PHRhYm xlIHdpZHRoPScxMDAlJyBz rRmvBN0mTf2aVEFsFBOruJ xhcHNlOiBj j4saVEWoFUjwUS9zgTqeP6 QvmTG6BKNic8w5Qx76qFE+ ASPzTJW1tAwsPCetz549Ts Cfb5evRUK9 kIWmHNcyQTC2D45bi1V3WY EyYTYmLZT8xPJ4jX0wwXsg ebisU7CmiRMvTxR4VAZ5gX ZwpD2grZqf rowbtH2nHxx+E29WEJ8SMU TYHM3WCjg3Z5PtPwrdsFA+ RZ90GGWeBW97aDEplQYhw6 osmZp0OrAm BFAtAXS2gOosACkhg0ZsBV PwL03bcTJfl0S8ACMlfLob ePIcTqCjsLD6fU5bWGrmvj lgw1lfabgz Adrjl8vpuh16jI28F64mCP maCOGlRIJ2MGKlUGKfuMbb hr3piD9tEq2+MDjva4dga9 egoHc6BbLl FHSzjvHzbXeyQIA3a7PmUj 70F1OkqRzoy5PcNzf1gm81 bRYrk6Y0zUV2MWakMWYzxE 7lHYjkDxR2 MAGvYtVilV95hTNoFYxuWw 2xsBmjzMjhVR3nEZPppgnr AFCctO4pLHNonIWkzBygZR 4wNTBpbjtm e855NkTqEVP4ZNPpoAUzB7 JcqJ6oSlEiRIWlFKHoF0Nd bSSxCUcuR874JSfsTiD4TA SahvNtM9Yn FPAdjAvmOcA2j2L8Gd4Bu0 QkchepLWI3RWtmEIE4IhYn GhVrSyG6Y9CyKcs8BSPehM bxVJ2iQ3Aj EVVdwomihnjpnKF9TBQrSH BjyH25oBOmEHsoIv7dz3N3 z355RMAcSGIjxK02Lk0thS ogMTBwdCBU vE4lnfvrq0yiywviJxBlFX MhBNe2EDl2LBKfyDoiDqAi DMY3IaB8JNT6bMZebW5qeF ryhfqppE8e Oyc+W52zfS6cPGY9HOS4ou riTYWlmdEbFL21LY56Y5Md PjwvdGFibGU+PGRpdiBzdH mtNA2pUnCx p5sla5MyREumB4LjWEOkTL isHno9LNNeLWG9rEW5rE0f LILpGWpkv6Q9xBM6C1Rofe Xnfm8sb7mr RGTpJNoqH01zzPWao8D6PV WbdAY8FXTddGjtQtNtzG68 Oyc+QBBxvUcjw2CbGhbdg8 awp1fxqZw8 AnWrUNYbqsOxpDfnRQN9k3 DlVb64W79vEDhcGWPdOIYq IAQbVPFrqWiqwb0ibW0kBr 8+PGNvbCB3 wJM5yJ9fYNLrGjU2XLbyA3 63EeXboZQeQymlu4gtz2ew lLd2LsFzWVBpybYadOuhXM O3k1CsKq90 A92zEJcvFEDsVAZzVGQxNN GqnAyxsc3ruK2hDh1+PC9j j3mpxf18aX43dER+PHRkIH E5bPbbHYuw CNUfmA7fZYgyYbU4ARJsYy OqqE66fRDjMPgfZy4znVff iVrxZP9mWVNkhllog765Sd Ekv4epSOYx oJZzXFrzSSP0S44pu5B0YN HyBUMsTCL8xDR3cF5cuEsp bjogbGVmdDsgdmVydGljYW kbKRxoQ911 IHRvcDsnPlBhdGllbnQgTm AuKSr1Y5CrNvq6TTIqpSwj NW0dpLNuPIphCh6vuMfjuK vpKD5sGGHi iibbz788BvRxf7yzKDOokZ VlCPrgRAQ4C85tt0O7ZBDz TZSzGVX0bQP7yX1ncQrpee ogbGVmdDsg cuAqpMmlWYuyEGioL731QI RvcDsnPkJpcnRoIERhdGU6 TO47NB92jBBce7I2vDC9Z8 BhZGRpbmct cigxnKY5ZAFxLMDqeW66Hg 1urLpkWe1gHAPxJUR3HRUt cCKqG5EhcM0yVcEgTRYwGF TiE7JbpKNo DSfbL628PIhoUqC1LZQoae ZeR4VoAEHmlSojDsR4j4T1 El7ND3K9HM00YJ69qQHrt1 R7aKG4X5On NQEcdbjisfnleTW4OGGeUQ EqsO16Gi1vyRoaYa2qTUUh PEM5EHXqvLVpY1GqpB2qGf AjMDAwMDAw V9SywNOiLNvoF635XEkdYi J7KPVhhlWhB3QfAEGddXib WzP9k2X7Oo4FCPq1RR89GS 63tJEwm8Q2 hER1C2JdIKKywmlfqkrgjU R9DMAeGGJafH38Rj9cpXvj Ba3eRGFoWIO0YNUwlMYkR3 AhpZ9hDkJo GHIcSGCjJ5VvkGGlSScoJ7 55NJamRmL1ZNNlfrZfL5Mn DLYxcIssNiB5i0B8Zk8DDA WeVT13LHV9 tQS8AF79AP18W5DiOahqjQ FibGU+PHRhYmxlIHdpZHRo WAdvDAXxZqOrrGvzVL7qOc 9yZGVyLWNv uZfmbDYuSgXyp3xaJKWtZJ ctPD2zrWlgT0YvkFS2OMKi q6e1Wp93Q66oT8BclCG+PG KkrLT5hOT2 bI4yIzBzWpB8QRdoB497Wx WglGHyAjyor5xzs0pslKj8 VbN8LJZsdrMgkSbtDPX9k8 RmRv14G85m IHdpZHRoPSIxNSUiIHZhbG asfo3hzS0yJt1+PGNvbCB3 nEJ3vR7bCuUaSbW5XIpzH0 49InRvcCIv Zafer5jyh6fhdPi6AlZzHJ BzezSdlZrbJQV5u4KiSf05 S2YasTobg0CfEdn7lx23sS Bsd9C6xIC7 Q7CpQPUcxsyuiJGdlAupEG 3rEWLitrzmWBCseZ1mFDTt G7g5CgGhPqK6CDtqE3Zeag O6XWZlhDOa TCraLUM0T44sv2X5UFIcVA BcJOP6nNR3rP8tmTfisodx bGVmdDsgdmVydGljYWwtYW rrT154UAMh eCliVOUhpB9rWFXcpIGjiF eiVQ3pXKVefsuiKt9GEAZM Z3ULKQHYHRNyQQsfoEF+PH RkKCU0rBsn NPsxJOLemY3wNSKiI7y6Tg NkDhE7NDkeG2JcPRGkpzwz Ql78hC8oWySqSgU9ZFwpF9 HiwgE8OZYq lDGqAYcjPJZ6F93nk7H2SG OgLSImWAQ2gAY5dI9zfRio bjogbGVmdDsgdmVydGljYW sfIIqkK564 ROEkpUroWfHtTqYkAcI1Iy b2I9QaMiv4JKQldIhuRQ5c gGOxEMttVe2ghKlmhTilPY 4wNTBpbjtw RJIvrO5zQQBicYMvbHmtPZ 5yXNOittwhc535KbSaBEY0 BZYuvBPyS6CjaL5gRwJaZX GdRHWmX7Aw eCHyRQonE894FUpmUoJ8EZ GfznZnL9CwQLSyvKaoEdD5 v9W9Dd45IQHXWNOlbfeopZ Q+PHRkIHN0 pWlcSErgJYQjwB5xZBQlD9 u4LqCuMqK9DPzhG5QmBFRh vdqzFk23lL4lJzRbShL5ZW tgF3UlrhD0 JERmkGMpQCeeJSI2A60sw9 B2GKQaFBLrVWP6rCU0dX3y bGlnbjogbGVmdDsgdmVydG ljYWwtYWxp Q206QDXfvGplCnWibSRoGZ wvdGQ+FYOjMHV8mLztWJru QOPunN8jVHYiQ4g4EzPzEd U9DZxjD2Lv WXCugeqoJo60eT6tAhBvGq W9ZLliB2XzfpM2PAPpfBGh IDtjZGE8L92gf4B6URBjCV QaLEP3xBT1 uG2bcNiwvitctYDfqGmfrz HjdUsnRHevZKzcV082ELEe zCqdPkQsVBVzRW9uxPfjdJ Q+OX05rd92 X8VpDsmcPpv2NVRiGHL9pR I4dI7dJNZhMZdrl6P7pXC2 J6ExtxMdgp7hg3qmQECpOR hgI56mxHFr d2A8VSTmqLK8UGVveNnrPc TnpO97Qgb+KHZniExhy0Cn Pmovg5wtm9qzxVn4OpRpRU IgdmFsaWdu CZG5g4NjDb26Z33bZBypUR YmVXTgNFQjVSKmiShskb9f cH1qAj2+SZHwhOF3gJP8uT 6iVhGdSbB8 VWnbP877WxBtxRClVqyaa0 rmw1xkoMu6NjXvAEWpzyTv bNizAQE9o2EuXo31T7RgxK yrx0JjAqt1 my27aYHpe8J2hBF2G2PrVM RfkyacxECqxCuzVX5vXBMl nhalWBOvfV4tACAqG4m3Qf UwDgQ0VNyb Y2AjlvV5JQKzcSMoXQYlmY JQhJ7mlqwfv7hztfgrEnPl GIImIEu2CHk4OVMgpOwcXr UrUEL2EvU8 ZIO8nOCtrZ5qyFtblhsrvH 9wOyc+FGe8w2byaXMeXZ5w sCP3NQ72HF52iTZae4D2kD A3V5ScTLSp ogqxxzjdeLC1KEEjJNYkrD 71Zz7cwOraMh9jLIMoLIK1 DKLjdAToV8YqcX5vDuZwTH AdTYShA1Jg bHSeQAsgF014TBzcNlT7KC EfnlFaK6FtBLLhtKvaBlX1 z8J8Dk4EDY33TX77JJ18zW Qci1K3jTD4 V1ZeXRQfvmgarpynvFG5TD JoDTNrxH38Hk4yyNedVr2q KOOeIDT2OJPotWUwM8ZfeG 9yOiAjMDAw JLPwP1EivBZrEPtcO988OV cpDqN9PXTcndMhY4GoQONi kSusKmO8x7O1Qg6ELh04VF 90QO45kRXi v7O2gSL1O1YbBNDkxmjjso zlxWI8VPXqESAmgI65Xs9f lDrwFu7bJHXfPDX9SSRkzX IcB0BygR7l HnSlLQCoYJBnH9DrjJRiBN owU671OUwtHhN7MHDlqrVf V5OzQFExgHstAvT3v8R9Xt 8NNAizbyh9 E7YzXqyyaJI+IC80BMPkSN 37dKFzdTEjc8qqeFw3PwSe YLAkRSE8wOndDTwud3GhUC HfF33mdIHv c2U6 (more content not included)... [facility] Consent for Treatmenton 06-02 Consent for Treatment [id number] 0CD:127 [facility] Discharge Instructionson Discharge Instructions [id number] 0CD:127 [facility] ED Clinical Summaryon 2021 ED Clinical Summary [address] [address] ED Clinical Summary Person Information Name: STEPHANIE KHOURY/New_Asael Age: 46 Years : 1975 Sex: Female Language: Latvian PCP: Chi Potter MD Marital Status: Single Phone: [phone] Visit Id: Visit Reason: Shoulder pain-swelling; LEFT SHOULDER PAIN Speciality: Acuity: 4 Enc Type: Emergency Med Service: Emergency Arrival: 06/21/2022 15:32:04 Discharge: 06/21/2022 17:01:14 LOS: 000 01:29 Checkin: 06/21/2022 15:32:04 Checkout: 06/21/2022 17:01:14 Dispo Type: Home (Routine DC) EVENTS: Event Name Event Status Request Date/Time Start Date/Time Complete Date/Time Arrive Complete 06/21/2022 15:32:04 06/21/2022 15:32:04 06/21/2022 15:32:04 Document Home Meds Request 06/21/2022 15:32:04 Triage Complete 06/21/2022 15:32:04 06/21/2022 15:51:44 06/21/2022 15:51:44 Bed Assign Complete 06/21/2022 15:51:51 06/21/2022 15:51:51 06/21/2022 15:51:51 Dr Exam Complete 06/21/2022 15:51:51 06/21/2022 15:54:27 06/21/2022 15:54:27 RN Exam Complete 06/21/2022 15:51:51 06/21/2022 15:54:26 06/21/2022 15:54:26 Registration Complete 06/21/2022 15:54:27 06/21/2022 16:41:13 06/21/2022 16:41:13 X-Ray Complete 06/21/2022 16:01:07 06/21/2022 16:14:05 06/21/2022 16:26:20 Meds Admin Complete 06/21/2022 16:02:17 06/21/2022 16:19:17 Wet Read Request 06/21/2022 16:26:20 Meds Admin Complete 06/21/2022 16:30:04 06/21/2022 16:58:11 Discharge Complete 06/21/2022 16:34:00 06/21/2022 17:01:21 06/21/2022 17:01:21 Reg Complete Request 06/21/2022 16:41:13 Reg Bed Request Complete 06/21/2022 16:41:13 06/21/2022 16:41:13 06/21/2022 16:41:13 Transfer Complete 06/21/2022 17:01:21 06/21/2022 17:01:21 06/21/2022 17:01:21 ADDRESS: [address] [place] [phone] PHYS DOC NOTES: MEDICAL INFORMATION: Prescriptions Given: New Medications [id number], [address], [place] [phone], [phone] methocarbamol (Robaxin-750 oral tablet) 1 Tablets By Mouth 3 times a day for 3 Days. Refills: 0. PATIENT EDUCATION INFORMATION: Instructions: Muscle Strain, Cwvk-sx-Dicl Follow up: With: Address: When: AKIRA ACUNA CNP [address] [place], [place] [id number] Within 1 to 2 days DIAGNOSIS: 1:Strain of left trapezius muscle [facility] ED Patient Education Noteon 06-21-2022 ED Patient Education Note Orthopedics Muscle Strain A muscle strain is an injury that happens when a muscle is stretched longer than normal. This can happen during a fall, sports, or lifting. This can tear some muscle fibers. Usually, recovery from muscle strain takes 1?2 weeks. Complete healing normally takes 5?6 weeks. This condition is first treated with BENAVIDEZ therapy. This involves: ? Protecting your muscle from being injured again. ? Resting your injured muscle. ? Icing your injured muscle. ? Applying pressure (compression) to your injured muscle. This may be done with a splint or elastic bandage. ? Raising (elevating) your injured muscle. Your doctor may also recommend medicine for pain. Follow these instructions at home: If you have a splint: ? Wear the splint as told by your doctor. Take it off only as told by your doctor. ? Loosen the splint if your fingers or toes tingle, get numb, or turn cold and blue. ? Keep the splint clean. ? If the splint is not waterproof: ? Do not let it get wet. ? Cover it with a watertight covering when you take a bath or a shower. Managing pain, stiffness, and swelling ? If directed, put ice on your injured area. ? If you have a removable splint, take it off as told by your doctor. ? Put ice in a plastic bag. ? Place a towel between your skin and the bag. ? Leave the ice on for 20 minutes, 2?3 times a day. ? Move your fingers or toes often. This helps to avoid stiffness and lessen swelling. ? Raise your injured area above the level of your heart while you are sitting or lying down. ? Wear an elastic bandage as told by your doctor. Make sure it is not too tight. General instructions ? Take wrby-mgy-ignswby and prescription medicines only as told by your doctor. ? Limit your activity. Rest your injured muscle as told by your doctor. Your doctor may say that gentle movements are okay. ? If physical therapy was prescribed, do exercises as told by your doctor. ? Do not put pressure on any part of the splint until it is fully hardened. This may take many hours. ? Do not use any products that contain nicotine or tobacco, such as cigarettes and e-cigarettes. These can delay bone healing. If you need help quitting, ask your doctor. ? Warm up before you exercise. This helps to prevent more muscle strains. ? Ask your doctor when it is safe to drive if you have a splint. ? Keep all follow-up visits as told by your doctor. This is important. Contact a doctor if: ? You have more pain or swelling in your injured area. Get help right away if: ? You have any of these problems in your injured area: ? You have numbness. ? You have tingling. ? You lose a lot of strength. Summary ? A muscle strain is an injury that happens when a muscle is stretched longer than normal. ? This condition is first treated with BENAVIDEZ therapy. This includes protecting, resting, icing, adding pressure, and raising your injury. ? Limit your activity. Rest your injured muscle as told by your doctor. Your doctor may say that gentle movements are okay. ? Warm up before you exercise. This helps to prevent more muscle strains. This information is not intended to replace advice given to you by your health care provider. Make sure you discuss any questions you have with your health care provider. Document Released: 08/27/2009 Document Revised: 01/14/2020 Document Reviewed: 12/25/2017 Elsevier Patient Education ? 2019 [employer] [facility] ED Patient Summaryon 022 ED Patient Summary [address] [address] Patient Discharge Instructions Person Information Name: STEPHANIE KHOURY Age: 46 Years Arrival Date: 06/21/2022 15:32:04 Discharge Diagnosis: 1:Strain of left trapezius muscle Primary Care Physician: Chi Potter MD Provider Information Primary Provider: Advanced [employer] Powder Mixer:None The exam and treatment you received in the Emergency Department were for an urgent problem and are not intended as complete care. It is important that you follow up with a doctor, nurse practitioner, or physician?s medical support assistant for ongoing care. If your symptoms become worse or you do not improve as expected and you are unable to reach your usual health care provider, you should return to the Emergency Department. We are available 24 hours a day. STEPHANIE KHOURY has been given the following list of patient education materials, prescriptions and follow-up instructions: Follow-up Instructions: With: Address: When: AKIRA ACUNA CNP [facility], [facility] [address] [place], [place] [id number] Within 1 to 2 days In the event that this physician does not participate in your insurance network, please consult with your insurance company to find a nearby participating provider. Patient Education Materials: Muscle Strain, Bpzk-ww-Nfgz A MESSAGE TO ALL PATIENTS REGARDING OPIOIDS PRESCRIPTION OPIOIDS: WHAT YOU NEED TO KNOW Prescription opioids can be used to help relieve vbpjsbgo-gg-rglqix pain and are often prescribed following a surgery or injury, or for certain health conditions. These medications can be an important part of the treatment but also come with serious risks. It is important to work with your healthcare provider to make sure you are getting the safest, most effective care. WHAT ARE THE RISKS AND SIDE EFFECTS OF OPIOID USE? Prescription opioids carry serious risks of addiction and overdose, especially with prolonged use. An opioid overdose, often marked by slowed breathing, can cause sudden . The use of prescription opioids can have a number of side effects as well, even when taken as directed: ? Tolerance?meaning you might need to take more of the medication for the same pain relief ? Physical dependence?meaning you have symptoms of withdrawal when a medication is stopped ? Increased sensitivity to pain ? Constipation ? Nausea, vomiting, and dry mouth ? Sleepiness and dizziness ? Confusion ? Depression ? Low levels of testosterone that can result in lower sex drive, energy, and strength ? Itching and sweating RISKS ARE GREATER WITH: ? History of drug misuse, substance use disorder, or overdose ? Mental health conditions (such as depression or anxiety) ? Sleep apnea ? Older age (65 years and older) ? Avoid alcohol while taking prescription opioids. Also, unless specifically advised by your health care provider, medications to avoid include: ? Benzodiazepines (such as Xanax or Valium) ? Muscle relaxants (such as Soma or Flexeril) ? Hypnotics (such as Ambien or Lunesta) ? Other prescription opioids KNOW YOUR OPTIONS Talk to your health care provider about ways to manage your pain that don?t involve prescription opioids. Some of these options may actually work better and have fewer risks and side effects. Options may include: ? Pain relievers such as acetaminophen, ibuprofen, and naproxen ? Some medication that are also used for depression or seizures ? Physical therapy and exercise ? Cognitive behavioral therapy, a psychological, goal-directed approach, in which patients learn how to modify physical, behavioral, and emotional triggers of pain and stress. IF YOU ARE PRESCRIBED OPIOIDS FOR PAIN: ? Never take opioids in greater amounts or more often than prescribed. ? Follow up with your primary health care provider. o Work together to create a plan on how to manage your pain. o Talk about ways to help manage your pain that don?t involve prescription opioids. o Talk about any and all concerns and side effects. ? Help prevent misuse and abuse o Never sell or share prescription opioids. o Never use another person?s prescription opioids. ? Store prescription opioids in a secure place and out of reach of others (this may include visitors, children, friends, and family). ? Safely dispose of unused prescription opioids: Find your community drug take-back program or your pharmacy mail-back program, or flush them down the toilet, following guidance from the Food and Drug Administration (www.fda.gov/Drugs/Res ourcesForYou). ? Visit www.cdc.gov/drugoverdo se to learn about the risks of opioids abuse and overdose. ? If you believe you may be struggling with addiction, tell your health spiritual care coordinator and ask for guidance or call [facility]?S National Helpline at 6-742-314-AZNO. i Source: [facility]/[place] (more content not included)... [facility] XR Shoulder Complete Lefton 06-21-2022 XR Shoulder Complete Left Exam Date/Time: 06/21/2022 16:26 EDT Reason for Exam: Pain, Non Traumatic Report IMPRESSION: No acute findings. EXAMINATION/TECHNIQUE: XR Shoulder Complete Left HISTORY: Left shoulder pain. COMPARISON: None RESULT: No acute fracture or dislocation. Glenohumeral joint space maintained. Acromiohumeral interval maintained. Acromioclavicular joint space maintained. No acute rib fracture. Visualized lung clear. No other significant abnormality. FINAL REPORT Dictated: 06/21/2022 4:49 pm Nik Worthy MD Signed (Electronic Signature): 06/21/2022 4:49 pm Signed by: Nik Worthy MD Transcribed by: TIMOTHY Technologist: WADE [facility] PAP ACOG PANEL 3: 30 to 65on 04-26-2022 . . [facility] Comment on above: Result Comment: Perf ormed at: WB Performed By: #### [id number] ####[facility] [id number] [place] [address]Dr. Zaynab Wall Age Gdln ACOG Testing 30-65 [facility] Comment on above: Performed By: #### [id number] ####[facility] [address] [place] [address]DrRyann Wall Chlamydia, Nuc. Acid Amp Negative Normal Negative [facility] Comment on above: Result Comment: Perf ormed at: =G Performed By: #### [id number] ####[facility] [address] [place] [address]Dr. Zaynab Wall DIAGNOSIS: Comment [facility] Comment on above: Result Comment: NEGA TIVE FOR INTRAEPITHELIAL LESION OR MALIGNANCY. Performed at: WB Performed By: #### [id number] ####[facility] [id number] [place] [address]Dr. Zaynab Wall Gonococcus, Nuc. Acid Amp Negative Normal Negative [facility] Comment on above: Result Comment: Perf ormed at: =G Performed By: #### [id number] ####[facility] [address] [place] [address]Dr. Zaynab Wall HPV Aptima Negative Normal Negative [facility] Comment on above: Result Comment: This nucleic acid amplification test detects fourteen high-risk HPV types (16,18,31,33,35,39,45,51,52,56,58,59,66,68) without differentiation. Performed at: =G Performed By: #### [id number] ####[facility] [id number] [place], [place] [address]Dr. Zaynab Wall Methodology: CTIM Normal [facility] Comment on above: Result Comment: The Thin Prep(R) Drum Cleaner was unable to read this specimen. Therefore a manual review was performed. Performed at: WB Performed By: #### [id number] ####[facility] [id number] [place] [address]Dr. Zaynab Wall Note: Comment Normal [facility] Comment on above: Result Comment: The Pap smear is a screening test designed to aid in the detection of premalignant and malignant conditions of the uterine cervix. It is not a diagnostic procedure and should not be used as the sole means of detecting cervical cancer. Both false-positive and false-negative reports do occur. . Performed at: WB Performed By: #### [id number] ####[facility] [id number] [place] [address]Dr. Zaynab Wall Performed by: Comment Normal [facility] Comment on above: Result Comment: Ashvin Beatty [employer] Equipment Mechanic (ASCP) Performed at: WB Performed By: #### [id number] ####[facility] [id number] [place], [place] [address]KdRyann Zaynab Duke Specimen adequacy: Comment Normal [facility] Comment on above: Result Comment: Sati sfactory for evaluation. No endocervical component is identified. Performed at: WB Performed By: #### [id number] ####[facility] [id number] [place] [id number]. Zaynab Duke Vital Signs Date Time Vital Sign Value Performing Clinician Marah cervantes 04-03-2023 15:39-0400 Blood Pressure Location Lopez LANGLEYL [facility] 04-03-2023 15:39-0400 Diastolic blood pressure 66 mm[Hg] Lopez LANGLEYL [facility] 04-03-2023 15:39-0400 Heart rate 66 /min Lopez LANGLEYL [facility] 04-03-2023 15:39-0400 Respiratory rate 16 /min Lopez LANGLEYL [facility] 04-03-2023 15:39-0400 Systolic blood pressure 104 mm[Hg] Lopez LANGLEYL [facility] 06-21-2022 15:49-0400 Body temperature 97.88 [degF] Nabil Caldera [facility] 06-21-2022 15:49-0400 Diastolic blood pressure 91 mm[Hg] Nabil Werner [facility] 06-21-2022 15:49-0400 Heart rate 80 /min Nabil Werner [facility] 06-21-2022 15:49-0400 Respiratory rate 18 /min Nabil Werner [facility] 06-21-2022 15:49-0400 SaO2% (BldA) [Mass fraction] 98 % Nabil Werner [facility] 06-21-2022 15:49-0400 Systolic blood pressure 138 mm[Hg] Nabil Werner [facility] Encounters Encounter Date Encounter Type Care Provider Facility Start: 04-17-2023 ambulatory Lopez R NILL Facility : [facility] Start: 04-03-2023 End: 04-04-2023 ambulatory Lopez R NILL Facility: [facility] Start: 04-03-2023 End: 04-03-2023 Patient encounter procedure Lopez R NILL General Surgery Nill[facility]Said [facility] Start: 03-26-2023 ambulatory Lopez R KORINL Facility : [facility] Start: 02-26-2023 End: 02-27-[address] DOCTOR SULLIVAN Facility:[facility] Start: 01-16-2023 End: 01-16-[address] CHI POTTER . Facility:[facility] Start: 10-26-2022 End: 10-27-[address] CHI POTTER . Facility:[facility] Start: 10-20-2022 End: 10-21-[address] [facility] Start: 10-19-2022 End: 10-20-[address] [facility] Start: 10-17-2022 End: 10-17-[address] [facility] Start: 09-21-2022 End: 09-21-2022 ambulatory TREY MACIEL . Facility:[facility] Start: 09-05-2022 End: 09-06-[address] [facility] Start: 08-29-2022 End: 08-29-[address] CHI POTTER . Facility:[facility] Start: 07-31-2022 End: 07-31-2022 ambulatory ZITA OCHOA Facility:[facility] Start: 07-04-2022 End: 07-28-[address] CHI POTTER . Facility:[facility] Start: 06-21-2022 End: 06-21-2022 Emergency department patient visit Nabil Caldera [place] [place]: 06-21-2022 End: 06-21-2022 Emergency department patient visit Nabil Caldera [facility] Start: 04-26-2022 Encounter for gynecological examination (general) (routine) without abnormal findings TERE HAILEY [facility] Start: 04-20-2022 End: 04-20-2022 ambulatory TERE HART Facility:[facility] Start: 04-20-2022 End: 04-20-2022 Encounter for gynecological examination (general) (routine) without abnormal findings TEREGRACIA STAUFFERMER Facility:[facility] Procedures Date Procedure Procedure Detail Performing Clinician Abdominal hysterectomy Jimmy romeo MARY Ligation of fallopian tube Jordan ferrera MARY Immunizations Immunization Date Immunization Notes Care Provider Fa [facility] 08-27-2022 influenza virus vaccine, unspecified formulation Lopez MARTÍNEZ [facility] 08-27-2022 SARS-CoV-2 (COVID-19 ) [id number] Lopez MARTÍNEZ [facility] 11-17-2021 SARS-CoV-2 (COVID-19 ) mRNA BNT-162b2 vax Lopez LANGLEYL [facility] [place] 03-23-2021 SARS-CoV-2 (COVID-19 ) mRNA BNT-162b2 vax Lopez LANGLEYL [facility] 03-02-2021 SARS-CoV-2 (COVID-19 ) mRNA BNT-162b2 vax Lopez LANGLEYFina [facility] Payers Date Payer Category Payer Unknown [id number] 1975 Unknown [id number] 2.16.84 [id number] 1975 Unknown [id number] 2.16.84 [id number] 1976 Unknown [id number] 2.16.84 [id number] 1976 Unknown [id number] 2.16.84 [id number] 1976 Unknown [id number] 2.16.84 [id number] 1976 Unknown [id number] 2.16.84 [id number] 1976 Unknown [id number] 2.16.84 [id number] 1976 Unknown [id number] 2.16.84 [id number] 1976 Unknown [id number] 2.16.8 [id number] 1976 Unknown [id number] 2.16.8 [id number] 1976 Unknown [id number] 2.16.8 [id number] 1976 Unknown [id number] 2.16.8 [id number] 1958 Medicaid [id number] 1958 Unknown [id number] Social History Date Type Detail Facility Tobacco smoking status No Smokin g Status Entered [facility] Sex Assigned At Female [facility] Start: 04-03-2023 Tobacco smoking status Never s moked tobacco (finding) [facility] Tobacco smoking status Never [facility] Functional Status Date Assessment Result Facility 04-03-2023 Functional Status N/A [facility] 06-21-2022 Functional Status N/A [facility] Clinical Note 04-03-2023 Note Date & Type Note Facility 04-03-2023 Note Chief Complaint consultation for nevus HPI Staff 47 year old female presents on consultation from Dr. Potter for nevus. Reports low back nevus. She is unsure of how long this has been present. One time episode of bleeding. She does not recall any trama at this time. She is unsure if this has changed in size, shape or color. History of Present Illness 47 yo female with h/o asthma, hypothyroidism, migraines, depression, eczema, GERD, referred for irregular nevus on lower back; noticed area several weeks ago do to bleeding, difficult for patient to see lesion, evaluated by Dr Potter; has h/o abnormal moles in past that were removed, no melanoma; on meloxicam daily, no asa; no tobacco use. Review of Systems PHQ Score Initial Depression Screen Score: 0 ROS - Provider Constitutional: no fever, no sweats, no weight loss. Eyes: no glasses, no blurred vision, no visual loss. ENMT: no dentures, no hoarseness, no swallowing difficulties, no hearing loss, no ear infection(s), no nose bleeds. Cardiovascular: normal blood pressure, no chest pain, regular heartbeat, no heart murmur. Respiratory: no shortness of breath, no cough, no asthma, no wheezing. Gastrointestinal: no nausea, no vomiting, no diarrhea, no constipation, no blood in stool, no change in bowel habits, no abdominal pain, no hepatitis. Genitourinary: no kidney stones, no urine infection, no dysuria. Musculoskeletal: no pain, no weakness. Skin: no changing moles, no rash, no skin lumps. Neurologic: no seizures, no epilepsy, no headache. Psychiatric: no emotional or psychiatric problem. Heme/Lymph: no bleeding problems, no anemia, no blood clots, no transfusions. Allergy/Immunologic: no swollen lymph nodes/glands, no IV drug abuse. Other: Additional ROS info: Except as noted in the above Review of Systems and in the History of Present Illness, all other systems have been reviewed and are negative or noncontributory. Physical Exam Vitals & Measurements HR: 66(Peripheral) RR: 16 BP: 104/66 HT: 61 in HT: 154.9 cm WT: 50.6 kg WT: 111.32 lb BMI: 21.09 HEENT: normal conjunctiva, sclera clear, no scleral icterus, EOM intact, PERRLA, oral mucosa moist without lesions. Neck: trachea midline, no mass, symmetric, no thyromegaly or nodules, no adenopathy Lymphatic: no cervical adenopathy, no supraclavicular adenopathy Musculoskeletal: normal gait, digits and nails without infection, nodes, cyanosis, clubbing. Skin: no rashes, lower mid back with 7 mm nevus with irregular border and irregular pigmentation, no ulceration or scab, no ulcers, no subcutaneous nodules, induration. Psychiatric/Neuro: oriented to time, place, person, judgement normal, affect appropriate for age, insight intact, no focal deficits. Tests: , review of old records completed, Discussed surgical options, risks, and possible complications with patient. Assessment/Plan 1. Neoplasm of uncertain behavior of skin of back (D48.5: Neoplasm of uncertain behavior of skin) plan excisional biopsy under local anesthesia in the office for definitive diagnosis and treatment; informed consent obtained. Follow-up No qualifying data available Problem List/Past Medical History Ongoing Asthma BMI 21.0-21.9, adult Depression Eczema GERD (gastroesophageal reflux disease) Hearing loss Hypothyroidism Insomnia Irritable bowel syndrome with constipation Low back pain syndrome Migraine Neoplasm of uncertain behavior of skin of back Sinus tachycardia Historical No qualifying data Procedure/Surgical History Abdominal hysterectomy, Tubal ligation. Medications Amitiza 8 mcg Cap, 8 mcg= 1 cap(s), Oral, BID Breo Ellipta 100 mcg-25 mcg inhalation powder, 1 puff(s), Inhalation, Daily cetirizine 10 mg Tab, 10 mg= 1 tab(s), Oral, Daily doxepin 10 mg Cap, 1-2 caps, Oral, TID, PRN levothyroxine 100 mcg (0.1 mg) Tab, 100 mcg= 1 tab(s), Oral, Daily liothyronine 5 mcg Tab, 5 mcg= 1 tab(s), Oral, Daily Maxalt [employer]UAL [employer]ER 10 mg Tab-Dis, 10 mg= 1 tab(s), Oral, Once meloxicam 7.5 mg Tab, 7.5 mg= 1 tab(s), Oral, Daily Metoprolol tartrate 25 mg Tab, 25 mg= 1 tab(s), Oral, BID Pantoprazole [address] Tab, 40 mg= 1 tab(s), Oral, BID Allergies ciprofloxacin (Vomiting) diphenhydrAMINE (Unknown) Social History Alcohol - Denies Alcohol Use, 06/21/2022 Substance Abuse - Denies Substance Abuse, 06/21/2022 Tobacco - Denies Tobacco Use, 06/21/2022 Never (less than 100 in lifetime) Tobacco Use:. Never Smokeless Tobacco Use:., 04/03/2023 Family History Hypertension: Mother. Immunizations Vaccine Date Status influenza virus vaccine, inactivated 08/27/2022 Recorded SARS-CoV-2 (COVID-19) [id number] 08/27/2022 Recorded SARS-CoV-2 (COVID-19) mRNA BNT-162b2 vax 11/17/2021 Recorded SARS-CoV-2 (COVID-19) mRNA BNT-162b2 vax 03/23/2021 Recorded SARS-CoV-2 (COVID-19) mRNA BNT-162b2 vax 03/02/2021 [address]ed [facility] Comment on above: Result Comment: Elec tronically Signed By: MARY CANTU, Lopez Ruiz\Date and Time Signed: 04/03/23 16:05 EDT Progress note 10-17-2022 Note Date & Type Note Facility 10-17-2022 Note -------- Attestation signed by Feliz Patton MD at 10/17/2022 12:39 PM I personally saw and examined the patient on the same date of service as resident. I discussed the findings and therapeutic plan with the resident. I agree with the documentation, except for any edits/updates below. Teaching Physician's Revisions: None -------- Orthopedic Surgery Subjective Follow-up of the Left Shoulder 10/17/22 Stephanie Khoury is a 46 y.o. year old female presenting for evaluation of L shoulder pain s/p CSI SAS on 09/06. At the time, she had 25% relief and now she states she has 50-100% relief. She states her pain is currently a 0/10, can range to 5/10. She has been taking ibuprofen occasionally for the pain. She denies numbness, tingling, weakness of LLE. She states slight decreased ROM of L shoulder. She is currently on work restrictions of no lifting greater than 5 lbs. She states her work is labor intensive in terms of motion. Patient History Past Surgical History: Procedure Laterality Date HYSTERECTOMY TUBAL LIGATION Past Medical History: Diagnosis Date Asthma Heart disease Osteopenia Thyroid condition Objective General: Body mass index is 18.84 kg/m???. No acute distress, comfortable Respiratory: Unlabored breathing with normal rate, no cough Cardiovascular: Warm well perfused extremities Psych: Appropriate mood behavior Left Shoulder: Inspection- no ecchymosis, no edema, no winging, no atrophy Tender to palpation over posterior shoulder Nontender to palpation over AC joint or biceps tendon Shoulder ROM: Flexion- 180??? Abduction- >90??? External Rotation- 80??? Internal Rotation- >T4 Strength: Flexion 5/5 Abduction 5/5 External Rotation 5/5 Internal Rotation 5/5 Sensation: intact from C4-T1 dermatomes Stability: Stable to anterior and posterior loading Shoulder Special Tests : Bharati's Empty Can - Negative, Internal Rotation Lag - Not Present, and External Rotation Lag - Not Present, Belly press - Negative, Lift off - negative Imaging personally viewed and our interpretation: MRI L shoulder shows partial thickness tear of supraspinatus and subscapularis. Assessment/Plan Stephanie Khoury is a 46 y.o. year old female with L shoulder pain. -MRI L shoulder shows partial thickness tear of supraspinatus and subscapularis. -Mobic 7.5mg for pain control. -WBAT LUE. -Follow up with Dr. Patton as needed. -Referral to PT for ROM and strength. Clovis Kruse MD Orthopaedic Surgery PGY-1 [facility] 10/17/22 10:07 AM [facility] Progress note 09-05-2022 Note Date & Type Note Facility 09-05-2022 Note -------- Attestation signed by Feliz Patton MD at 09/06/2022 9:29 AM I personally saw and examined the patient on the same date of service as resident. I discussed the findings and therapeutic plan with the resident. I agree with the documentation, except for any edits/updates below. Teaching Physician's Revisions: None I personally saw and examined the patient on the same date of service as resident. I discussed the findings and therapeutic plan with the resident. I agree with the documentation, except for any edits/updates below. Teaching Physician's Revisions: None I was present during the entire procedure. I agree with the resident documentation, except for any edits/updates below. -------- Orthopedic Surgery Subjective Chief complaint: Chief Complaint Patient presents with Left Shoulder - Pain 09/05/22 Stephanie Khoury is a 46 y.o. year old female presenting for evaluation of L shoulder pain as a new patient. This has been ongoing for approx 3-4 months. Only inciting trauma she can recall is 2 years ago in a fall. No recent inciting events. She is having difficulty with overhead activity at work as she is unable to forward flex beyond about 100 degrees. She has tried PT with some mild improvement. Had MRI completed at [place] which reportedly demonstrated possible partial thickness tear at the junction of supraspinatus and subscap. She does not have the disc today. Denies numbness, tingling, and weakness. Previous Treatments: physical therapy ROS: Denies fevers, chills, and other constitutional symptoms. Denies shortness of breath. Patient History Past Surgical History: Procedure Laterality Date HYSTERECTOMY TUBAL LIGATION Past Medical History: Diagnosis Date Asthma Osteopenia Thyroid condition Objective General: Body mass index is 19.57 kg/m???. There were no vitals filed for this visit. No acute distress, comfortable Respiratory: Unlabored breathing with normal rate, no cough Cardiovascular: Warm well perfused extremities Psych: Appropriate mood behavior Exam of L shoulder demonstrates TTP over the greater tuberosity and posterior capsule. Active ROM 100 deg FF, 50 deg ER, IR to L5. Passive ROM with FF to 170 deg. 5/5 rotator cuff strength but painful with resisted abduction and external rotation. Belly press test negative. NVI. Imaging: Radiographs of left shoulder taken today 09/05/22 demonstrate(s) no osseous abnormality Report of MRI of left shoulder taken on 08/29/22 reviewed stating possible disruption between subscap and supraspinatus tendons with no discrete tear. This was a MRA study. Assessment/Plan Stephanie Khoury is a 46 y.o. year old female with Rotator cuff tendinitis, left Left shoulder pain, unspecified chronicity Discussed the nature of the disease as well as treatment options including conservative vs surgical interventions -Mobic -Continue home exercise program -L shoulder SAS CSI -RTC 6 weeks w/ MRI on disc Patient ID: Stephanie Khoury is a 46 y.o. female. Large Joint: L subacromial bursa on 09/05/2022 9:42 AM Indications: pain Details: 22 G needle, posterior approach Medications: 5 mL lidocaine 10 mg/mL (1 %); 20 mg triamcinolone acetonide 10 mg/mL Outcome: tolerated well, no immediate complications Procedure Note Consent was obtained from the patient prior to beginning the procedure. The skin was prepped using beetadine, and a 22 gauge needle was then used to inject the SAS with the medications listed below. The needle was removed and a clean bandage was applied. Patient tolerated the procedure well and there were no complications. Procedure, treatment alternatives, risks and benefits explained, specific risks discussed. Consent was given by the patient. Immediately prior to procedure a time out was called to verify the correct patient, procedure, equipment, data support specialist and site/side marked as required. Patient was prepped and draped in the usual sterile fashion. Williams Kowalski MD Orthopedic Surgery, PGY-5 Pager: [phone] 09/05/22 9:33 AM By using the attestations below, the signing clinician agrees that I have read and verify that the documentation has been personally reviewed by me and ensure that the documentation accurately reflects the encounter. GC: I personally saw this patient on the day of the encounter, performed the andrade portion(s) of the service and participated in the management and confirm the resident's documentation. Please note there may be an additional personal documentation from me. [facility] Hospital Discharge instructions 06-21-2022 Note Date & Type Note Facility 06-21-2022 Hospital Discharg e instructions Patient Education 06/21/2022 16:30:19 Muscle Strain, [id number] Muscle Strain A muscle strain is an injury that happens when a muscle is stretched longer than normal. This can happen during a fall, sports, or lifting. This can tear some muscle fibers. Usually, recovery from muscle strain takes 1 2 weeks. Complete healing normally takes 5 6 weeks. This condition is first treated with BENAVIDEZ therapy. This involves: Protecting your muscle from being injured again. Resting your injured muscle. Icing your injured muscle. Applying pressure (compression) to your injured muscle. This may be done with a splint or elastic bandage. Raising (elevating) your injured muscle. Your doctor may also recommend medicine for pain. Follow these instructions at home: If you have a splint: Wear the splint as told by your doctor. Take it off only as told by your doctor. Loosen the splint if your fingers or toes tingle, get numb, or turn cold and blue. Keep the splint clean. If the splint is not waterproof: ?Do not let it get wet. ?Cover it with a watertight covering when you take a bath or a shower. Managing pain, stiffness, and swelling If directed, put ice on your injured area. ?If you have a removable splint, take it off as told by your doctor. ?Put ice in a plastic bag. ?Place a towel between your skin and the bag. ?Leave the ice on for 20 minutes, 2 3 times a day. Move your fingers or toes often. This helps to avoid stiffness and lessen swelling. Raise your injured area above the level of your heart while you are sitting or lying down. Wear an elastic bandage as told by your doctor. Make sure it is not too tight. General instructions Take ztne-[id number] and prescription medicines only as told by your doctor. Limit your activity. Rest your injured muscle as told by your doctor. Your doctor may say that gentle movements are okay. If physical therapy was prescribed, do exercises as told by your doctor. Do not put pressure on any part of the splint until it is fully hardened. This may take many hours. Do not use any products that contain nicotine or tobacco, such as cigarettes and e-cigarettes. These can delay bone healing. If you need help quitting, ask your doctor. Warm up before you exercise. This helps to prevent more muscle strains. Ask your doctor when it is safe to drive if you have a splint. Keep all follow-up visits as told by your doctor. This is important. Contact a doctor if: You have more pain or swelling in your injured area. Get help right away if: You have any of these problems in your injured area: ?You have numbness. ?You have tingling. ?You lose a lot of strength. Summary A muscle strain is an injury that happens when a muscle is stretched longer than normal. This condition is first treated with BENAVIDEZ therapy. This includes protecting, resting, icing, adding pressure, and raising your injury. Limit your activity. Rest your injured muscle as told by your doctor. Your doctor may say that gentle movements are okay. Warm up before you exercise. This helps to prevent more muscle strains. This information is not intended to replace advice given to you by your health care provider. Make sure you discuss any questions you have with your health care provider. Document Released: 08/27/2009 Document Revised: 01/14/2020 Document Reviewed: 12/25/2017 [employer] Patient Education 2020 [employer] Follow Up Care 06/21/2022 15:32:56 With:AKIRA ACUNA CNP Address: [address] [place] [address] [place] [id number] When:1 to 2 days [facility] Evaluation + Plan note Note Date & Type Note Facility Evaluation + Plan note No data available for this section [facility] Evaluation + Plan note Note Date & Type Note Facility Evaluation + Plan note Future Appointments Appointment Date:04/17/2023 03:20:00 PM Scheduled Provider:Lopez MARTÍNEZ MD Location:[facility] Appointment Type: Procedure 30 [facility] Discharge instructions Note Date & Type Note Facility Hospital Discharge instructions No data available for this section [facility] Progress note Note Date & Type Note Facility Progress note No data available for this section [facility] Summary Purpose Family History No Family History Records FoundNo Family History Records FoundNo Family History Records Found Advance Directives No Advanced Directives Records FoundNo Advanced Directives Records FoundNo Advanced Directives Records Found Additional Source Comments Care Team (unrecognized sect ion and content) Personnel Name: Chi Potter MD Address: [address] [place] [address] Personnel Name: Chi Potter MD Address: Address: [address] [place] [address] INFORMATION SOURCE (unrecogn ized section and content) DATE CREATED AUTHOR 10/21/2022 [facility] DATE CREATED AUTHOR AUTHOR'S ORGANIZ ATION 03/16/2023 [facility] DATE CREATED AUTHOR AUTHOR'S ORGANIZ ATION 04/11/2023 [facility] FOR RECORDS PERTAINING TO PATIENTS WHO ARE OR HAVE BEEN ENROLLED IN A CHEMICAL DEPENDENCY/SUBSTANCEABUSE PROGRAM, SOME INFORMATION MAY BE OMITTED. This clinical summary was aggregated from multiple sources. Caution should be exercised in using it in the provision of clinical care. This summary normalizes information from multiple sources, and as a consequence, information in this document may materially change the coding, format and clinical context of patient data. In addition, data may be omitted in some cases. CLINICAL DECISIONS SHOULD BE BASED ON THE PRIMARY CLINICAL RECORDS. [facility]. provides no warranty or guarantee of the accuracy or completeness of information in this document.
[2024-01-30 21:38] LABS: Occult Blood Negative
== END 2024-01-29 18:01 | disposition home or self-care (01) ==
LOC: LAB 18:00
PROVIDERS: PCP Family Medicine; Visit Provider Family Medicine
DX: D64.9 Anemia, unspecified (principal)
CPT/HCPCS: G0328

== ENCOUNTER 2024-02-16 10:12 | Emergency (ER) | payer BC, SELFPAY ==
[2024-02-16 10:15] VITALS: BP 133/80; PULSE 70; RESP 18; TEMP 36.5; O2SAT 98; BMI 20.1
--- NOTE | 2024-02-16 10:20 | ED.EYEPROB1 ---
HPI - Eye Problem General Chief complaint: Eye Problems Stated complaint: RIGHT EYE PAIN Time Seen by Provider: 02/16/24 10:14 Source: patient Mode of arrival: walk-in Limitations: no limitations History of Present Illness HPI Narrative: 48-year-old female presents for right eye itching and slight redness. It started this morning and she thinks she has pinkeye. No trauma or foreign body and no symptoms in the left eye. It has been continuous. Related Data Home Medications Medication Instructions Recorded Confirmed cetirizine 10 mg tablet 10 mg PO DAILY 08/29/23 08/29/23 fluticasone furoate 100 1 inh inhalation Q24H 08/29/23 08/29/23 mcg-vilanterol 25 mcg/dose inhalation powder levothyroxine 100 mcg tablet 50 mcg PO DAILY 08/29/23 08/29/23 liothyronine 5 mcg tablet 5 mcg PO DAILY 08/29/23 08/29/23 lubiprostone 8 mcg capsule 8 mcg PO BID 08/29/23 08/29/23 meloxicam 7.5 mg tablet 7.5 mg PO QAM 08/29/23 08/29/23 metoprolol tartrate 25 mg tablet 25 mg PO BID 08/29/23 08/29/23 pantoprazole 40 mg tablet,delayed 40 mg PO DAILY 08/29/23 08/29/23 release rizatriptan 10 mg disintegrating 10 mg PO Q2H PRN migraine headache 08/29/23 08/29/23 tablet venlafaxine 75 mg capsule,extended 75 mg PO DAILY 08/29/23 08/29/23 release 24 hr Previous Rx's Medication Instructions Recorded [id number]-zqimmjyaeudua-yubnhsbl 1 cap PO Q6H PRN pain #20 caps 08/29/23 50 mg-300 mg-40 mg capsule (Fioricet) sulfacetamide sodium 10 % eye drops 2 drp ophthalmic (eye) Q4H #15 mL 02/16/24 Allergies Allergy/AdvReac Type Severity Reaction Status Date / Time ciprofloxacin [From Cipro] Allergy Unknown Vomiting Verified 08/29/23 15:52 diphenhydramine Allergy Unknown Verified 08/29/23 15:52 [From Benadryl] Review of Systems ROS Narrative A ten point review of systems is negative except as noted above. Exam Narrative Exam Narrative: Nurses note and vital signs reviewed and patient is not hypoxic. General: The patient appears well and in no apparent distress. Patient is resting comfortably on cart. Skin: Warm, dry, no pallor noted. There is no rash noted. Head: Normocephalic, atraumatic Eye: Right conjunctiva is minimally injected. The left is not. No periorbital swelling or erythema Ears, Nose, Mouth, and Throat: oral mucosa is moist. Nares patent. Cardiovascular: Regular Rate and Rhythm Respiratory: Patient is in no distress, no accessory muscle use, lungs are clear to auscultation, no wheezing, rales or rhonchi Back: non-tender GI: Soft and nontender Musculoskeletal: The patient has no evidence of calf tenderness, no pitting edema, symmetrical pulses noted bilaterally Neurological: A&O, normal speech Psychiatric: Cooperative Constitutional Vital Signs, click to edit/add: Last Vital Signs Temp 97.7 F 02/16/24 10:15 Pulse 70 02/16/24 10:15 Resp 18 02/16/24 10:15 BP 133/80 02/16/24 10:15 Pulse Ox 98 02/16/24 10:15 O2 Del Method Room Air 02/16/24 10:15 Course Vital Signs Vital signs: Vital Signs Temperature 97.7 F 02/16/24 10:15 Pulse Rate 70 02/16/24 10:15 Respiratory Rate 18 02/16/24 10:15 Blood Pressure 133/80 02/16/24 10:15 Pulse Oximetry 98 02/16/24 10:15 Oxygen Delivery Method Room Air 02/16/24 10:15 Temperature 97.7 F 02/16/24 10:15 Pulse Rate 70 02/16/24 10:15 Respiratory Rate 18 02/16/24 10:15 Blood Pressure 133/80 02/16/24 10:15 Pulse Oximetry 98 02/16/24 10:15 Oxygen Delivery Method Room Air 02/16/24 10:15 MDM - Eye Problem MDM Narrative Medical decision making narrative: My clinical impression is that she has conjunctivitis. Treatment diagnosis and follow-up were discussed with the patient Differential Diagnosis Differential diagnosis: Likely corneal abrasion, conjunctivitis, periorbital cellulitis and subconjunctival hemorrhage Discharge Plan Discharge Stand Alone Forms: Portal Instructions Chief Complaint: Eye Problems Clinical Impression: Bacterial conjunctivitis Patient Disposition: Home, Self-Care Time of Disposition Decision: 10:19 Condition: Good Mode of Transportation: Private Vehicle Prescriptions / Home Meds: New sulfacetamide sodium 10 % drops 2 drp ophthalmic (eye) Q4H Qty: 15 0RF No Action cetirizine 10 mg tablet 10 mg PO DAILY fluticasone furoate-vilanterol 100-25 mcg/dose blister with device 1 inh INHALATION Q24H levothyroxine 100 mcg tablet 50 mcg PO DAILY liothyronine 5 mcg tablet 5 mcg PO DAILY lubiprostone 8 mcg capsule 8 mcg PO BID meloxicam 7.5 mg tablet 7.5 mg PO QAM metoprolol tartrate 25 mg tablet 25 mg PO BID pantoprazole 40 mg tablet,delayed release (DR/EC) 40 mg PO DAILY venlafaxine 75 mg capsule,extended release 24hr 75 mg PO DAILY rizatriptan 10 mg tablet,disintegrating 10 mg PO Q2H PRN (Reason: migraine headache) [id number] [Fioricet] 50-300-40 mg capsule 1 cap PO Q6H PRN (Reason: pain) Qty: 20 0RF Instructions: Conjunctivitis (ED) Referrals: Luisito Potter MD [Primary Care Provider] - 1 week
--- OUTSIDE RECORDS SUMMARY | 2024-02-16 10:26 | XMS_ITS | CCD ---
Author Name Unknown Address [address] [facility] [address] [place] [id number] Organization [facility] [place] Care Team Providers Care Financial Assistant Name Role Phone Chi Potter Primary Care Physician EBRAHEIM, FELIZ Referring Unavailable EBRAHEIM, FELIZ Referring [...] DR MIRELES Primary Care Unavailable TREY BRENNAN Admitting Unavailable TREY BRENNAN Consulting Unavailable ZITA [...] Translations: [ciprofloxacin] Drug Allergy 1 Vomiting (disorder) [facility] (1 source) diphenhydrAMINE; Translations: [DIPHENHYDRAMINE HCL] Drug Allergy 2 [facility] Repository (1 source) Ciprofloxacin Drug Allergy 6 [facility] Repository (1 source) diphenhydrAMINE Drug Allergy 2 [facility] Repository (2 sources) diphenhydrAMINE; Translations: [diphenhydramine] Drug Allergy 2 Unknown General Surgery [place] Medications Current Medications Medication Drug Class(es) Dates [...] day(s), # 9 tab(s), Refills(s) 0, Pharmacy: [facility]/pharmacy #[id number], 155, cm, 06/21/22 15:51:00 EDT, Height/Length [...] take 1 tablet by mouth once Maxalt TIMBER FALLER 10 mg Tab-Dis 10 mg = 1 [...] 07-31-2022 Episodic Other aftercare (1 source) 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 Discharge Vitals Heart Rate (Peripheral) 66 Respiratory Rate 16 Blood Pressure 104/66 Height 154.9 cm Height 61 in Weight 50.6 kg Weight 111.32 lb BMI 21.09 What to do next Scheduled Follow-Up Appointments Saturday. 2022 3:20 PM EDT With: Lopez MARTÍNEZ MD Where: General Surgery Mary/Nilson Dumont Normal [facility] Physician Referralon 023 Physician Referral [id number] 0CD:127 Normal [facility] Physician Referralon 023 Physician Referral [id number] 0CD:127 Normal [facility] MRI SHOULDER LT WO CONon MRI [...] TIMOTHY BRAMBILA Date: 2023-02-26 22:11 Normal [facility]-02 SARS-CoV-2 (COVID-19) RNA ALYX+probe Ql (Unsp spec) Not detected Normal NOT DETECTED [facility] Comment on above: Result Comment: When diagnostic [...] for this test is supported by the [place] of Health and Human Service's declaration that [...] be used). Performed By: #### C VDTBH ####[facility] [address] [place], [place] [address]VxDr. Zaynab Wall FREE T3on 10-26-2022 FREE T3 2.94 pg/mlL Normal 2.18-3.98 [facility] Comment on above: Performed By: #### T SH, T4, FT3 #### [facility] [address] [place], [place] [address] Dr. Zaynab Wall T4on 10-26-2022 T4 [Mass/Vol] 6.40 ug/dL Normal 4.80-13.90 [facility] Comment on above: Performed By: #### T SH, T4, FT3 #### [facility] [address] [place], [place] [address] Dr. Zaynab Wall TSHon 10-26-2022 TSH 0.076 uIU/mL Critically low 0.358-3.740 [facility] Comment on above: Performed By: #### T SH, T4, FT3 #### [facility] [address] [place], [place] [address] Dr. Zaynab Wall Orders Onlyon 10-19-2022 Orders Only [id number] Peng,Huber e A 1975 F Date Provider Department Center 10/19/2022 WANG HEREDIA MP ORTHO MPORTHO Family History Family history unknown: Yes Normal [facility] Follow-Upon 10-17-2022 Follow-Up [id number] PengHuber e A 1975 F Date Provider Department Center 10/17/2022 Ruth-FELIZ PATTON MP MPORTHO Chart Close Cosign Required by: Feliz Patton MD[[id number]] Family History Family history unknown: Yes Level of Service:46075 [place] OFFICE/OUTPATIENT ESTABLISHED LOW MDM 20-29 MIN (GC) Reason for Visit and Comments: Follow-up [327168] Normal [facility] CARDIAC ADRIANA ADMITon 10-21-2 022 CK [Catalytic activity/Vol] 40 U/L Normal 26-192 [facility] Comment on above: Performed By: #### C LIA JHA, TSH ####[facility] [address] [place] [address]Dr. Zaynab Wall CK.MB [Mass/Vol] 0.60 ng/mL Normal <=3.60 [facility] Comment on above: Performed By: #### C LIA JHA, TSH ####[facility] [address] [place] [address]Dr. Zaynab Wall HSTROP 5.2 pg/mL Normal 4.0-51.3 [facility] Comment on above: Result Comment: CUT- OFF POINTS HAVE BEEN ESTABLISHED BASED ON THE FOURTH UNIVERSAL DEFINITIONS OF MYOCARDIAL INFARCTION. THE UPPER REFERENCE LIMIT (URL) OF TROPONIN, DEFINED THE 99TH PERCENTILE OF cTnI DISTRIBUTION IN A REFERENCE POPULATION, HAS BEEN CONFIRMED THE DECISION THRESHOLD FOR [place] DIAGNOSIS. Performed By: #### C LIA JHA, TSH ####[facility] [address] [place] [address]Dr. Zaynab Wall VICK 33 ng/mL Normal 9-82 [facility] Comment on above: Performed By: #### C LIA JHA, TSH ####[facility] R[address]ve[address] [place], [place] [address]Dr. Zaynab Wall CBC AUTO DIFFon 09-21-2022 BASO # 0.0 103/ul Normal 0.0-0.1 [facility] Comment on above: Performed By: #### C BC ####[facility] [address] [place] [address]Dr. Zaynab Wall Basophils/100 WBC (Bld) 0.4 % Normal 0.2-2.0 [facility] Comment on above: Performed By: #### C BC ####[facility] Subnmw[address] [place], [place] [address]DrRyann Wall EO # 0.0 103/ul Normal 0.0-0.7 [facility] Comment on above: Performed By: #### C BC ####[facility] T[address] [place], [place] [address]DrRyann Wall Eosinophils/100 WBC (Bld) 0.5 % Critically low 0.9-7.0 [facility] Comment on above: Performed By: #### C BC ####[facility] [address] [place] [address]Dr. Zaynab Wall Erythrocyte distribution width (RBC) [Ratio] 12.4 % Normal 11.0-15.0 [facility] Comment on above: Performed By: #### C BC ####[facility] Dxuer[address] [place], [place] [address]Dr. Zaynab Wall Hematocrit (Bld) [Volume fraction] 36.0 % Normal 36.0-48.0 [facility] Comment on above: Performed By: #### C BC ####[facility] Wh[address]cp[address] [place], [place] [address]Dr. Zaynab Wall Hemoglobin (Bld) [Mass/Vol] 11.5 g/dL Critically low 12.0-16.0 [facility] Comment on above: Performed By: #### C BC ####[facility] Bvamti[address] [place], [place] [address]Dr. Zaynab Wall IG # 0.02 10e3/ul Normal 0.00-0.03 [facility] Comment on above: Performed By: #### C BC ####[facility] Gphyscvuds[address] [place], [place] [address]Dr. Zaynab Wall IG % 0.3 % Normal 0.0-0.5 [facility] Comment on above: Performed By: #### C BC ####[facility] Y[address] [place], [place] [address]Dr. Zaynab Wall LYMPH # 1.5 103/ul Normal 1.2-3.8 [facility] Comment on above: Performed By: #### C BC ####[facility] Swbftm[address]pj[address] [place], [place] [address]Dr. Zaynab Wall Lymphocytes/100 WBC (Bld) 19.6 % Critically low 20.5-60.0 [facility] Comment on above: Performed By: #### C BC ####[facility] [address] [place] [address]Dr. Zaynab Duke MANUAL DIFF REQ NO Normal [facility] Comment on above: Performed By: #### C BC ####[facility] [address] [place] [address]Dr. Zaynab Wall MCH (RBC) [Entitic mass] 30.6 pg Normal 26.7-34.0 [facility] Comment on above: Performed By: #### C BC ####[facility] Ribfxoevvc[address] [place], [place] [address]Dr. Zaynab Duke MCHC (RBC) [Mass/Vol] 31.9 g/dL Normal 29.9-35.2 [facility] Comment on above: Performed By: #### C BC ####[facility] V[address] [place], [place] [address]Dr. Zaynab Duke MCV (RBC) [Entitic vol] 95.7 fL Normal 81.0-99.0 [facility] Comment on above: Performed By: #### C BC ####[facility] Xm[address] [place], [place] [address]Dr. Zaynab Duke MONO # 0.6 103/ul Normal 0.3-0.8 [facility] Comment on above: Performed By: #### C BC ####[facility] Hmaedsq[address] [place], [place] [address]Dr. Johannaermelinda Wall Monocytes/100 WBC (Bld) 7.7 % Normal 1.7-12.0 [facility] Comment on above: Performed By: #### C BC ####[facility] Muolch[address] [place], [place] [address]Dr. Johannaermelinda Duke NEUT # 5.5 103/ul Normal 1.4-6.5 [facility] Comment on above: Performed By: #### C BC ####[facility] [address] [place], [place] [address]Dr. Johannaermelinda Wall Neutrophils/100 WBC (Bld) 71.5 % Normal 43.0-75.0 [facility] Comment on above: Performed By: #### C BC ####[facility] [address] [place], [place] [address]Dr. Zaynab Wall Platelet mean volume (Bld) [Entitic vol] 11.4 fL Normal 9.5-13.5 [facility] Comment on above: Performed By: #### C BC ####[facility] [address] [place] [address]Dr. Zaynab Wall PLT 83 103/ul Critically low 150-[address] [facility] Comment on above: Performed By: #### C BC ####[facility] [address] [place] [address]Dr. Zaynab Wall RBC 3.76 106/ul Critically low 4.20-5.40 [facility] Comment on above: Performed By: #### C BC ####[facility] [address] [place] [address]Dr. Zaynab Wall WBC 7.7 103/ul Normal 4.0-11.0 [facility] Comment on above: Performed By: #### C BC ####[facility] [address] [place] [address]DrRyann Wall ER URINE PROFILEon 2 Bilirubin Ql (U) Negative Normal NEGATIVE [facility] Comment on above: Performed By: #### E RUR #### [facility] [address] [place] [address] Dr. Zaynab Wall Clarity (U) CLEAR Normal CLEAR [facility] Comment on above: Performed By: #### E RUR #### [facility] [address] [place] [address] Dr. Zaynab Wall Color (U) LT. YELLOW Normal YELLOW [facility] Comment on above: Performed By: #### E RUR #### [facility] [address] [place] [address] [address] Zaynab KOWALSKI A micrscopic examination will be performed if indicated. Normal [facility] Comment on above: Performed By: #### E RUR #### [facility] [address] [place] [address] Dr. Zaynab Wall Glucose Ql (U) Negative Normal NEGATIVE [facility] Comment on above: Performed By: #### E RUR #### [facility] [address] [place] [address] Dr. Zaynab Wall Hemoglobin Ql (U) Negative Normal NEGATIVE [facility] Comment on above: Performed By: #### E RUR #### [facility] [address] [place] [address] Dr. Zaynab Wall Ketones Ql (U) Negative Normal NEGATIVE [facility] Comment on above: Performed By: #### E RUR #### [facility] [address] [place] [address] Dr. Zaynab Wall LEUKOCYTES Negative Normal NEGATIVE [facility] Comment on above: Performed By: #### E RUR #### [facility] [address] [place] [address] Dr. Zaynab Wall Nitrite Ql (U) Negative Normal NEGATIVE [facility] Comment on above: Performed By: #### E RUR #### [facility] [address] [place] [address] Dr. Zaynab Wall pH (U) 7.0 [pH] Normal 5-9 [facility] Comment on above: Performed By: #### E RUR #### [facility] [address] [place] [address] Dr. Zaynab Wall SPEC GRAVITY 1.015 Normal 1.005-<=1.025 [facility] Comment on above: Performed By: #### E RUR #### [facility] [address] [place] [address] Dr. Zaynab Wall UA PROTEIN Negative Normal NEGATIVE/ TRACE [facility] Comment on above: Performed By: #### E RUR #### [facility] [address] [place] [address] Dr. Zaynab Wall UR MICRO IND NOT INDICATED Normal [facility] Comment on above: Performed By: #### E RUR #### [facility] [address] [place] [address] Dr. Zaynab Wall Urobilinogen Qn (U) 1.0 {Jennifer'U}/dL Normal 0.2 - 1. 0 [facility] Comment on above: Performed By: #### E RUR #### [facility] [address] [place] [address] [address] Zaynab Wall FREE T4on 09-21-2022 Free T4 [Mass/Vol] 0.92 ng/dL Normal 0.76-1.46 [facility] Comment on above: Performed By: #### F T4 ####[facility] [address] [place] [address]DrRyann Wall PROF 14(COMP METB)on 022 Albumin [Mass/Vol] 3.7 g/dL Normal 3.4-5.0 [facility] Comment on above: Performed By: #### C LIA JHA, TSH ####[facility] [address] [place] [address]DrRyann Wall Albumin/Globulin [Mass ratio] 1.2 {ratio} Normal [facility] Comment on above: Performed By: #### C LIA JHA, TSH ####[facility] [address] [place] [address]Dr. Zaynab Wall ALP [Catalytic activity/Vol] 43 U/L Critically low 46-116 [facility] Comment on above: Performed By: #### C LIA JHA, TSH ####[facility] [address] [place] [address]Dr. Zaynab Wall ALT [Catalytic activity/Vol] 14 U/L Normal 14-59 [facility] Comment on above: Performed By: #### C YUDELKA, ANADM, TSH ####[facility] [address] [place] [address]Dr. Zaynab Wall Anion gap [Moles/Vol] 8.0 mmol/L Normal [facility] Comment on above: Performed By: #### C YUDELKA, LIA, TSH ####[facility] [address] [place] [address]Dr. Zaynab Wall AST [Catalytic activity/Vol] 11 U/L Critically low 15-37 [facility] Comment on above: Performed By: #### C YUDELKA, CMADM, TSH ####[facility] [address] [place] [address]Dr. Zaynab Wall Bilirubin [Mass/Vol] 0.5 mg/dL Normal 0.2-1.0 [facility] Comment on above: Performed By: #### C MP, CMADM, TSH ####[facility] [address] [place] [address]Dr. Zaynab Wall Calcium [Mass/Vol] 9.0 mg/dL Normal 8.5-10.1 [facility] Comment on above: Performed By: #### C MP, CMADM, TSH ####[facility] [address] [place] [address]Dr. Zaynab Wall Chloride [Moles/Vol] 104 mmol/L Normal 98-107 [facility] Comment on above: Performed By: #### C MP, CMADM, TSH ####[facility] [address] [place] [address]Dr. Zaynab Wall CO2 [Moles/Vol] 30.8 mmol/L Normal 21.0-32.0 [facility] Comment on above: Performed By: #### C MP, CMADM, TSH ####[facility] [address] [place] [address]Dr. Zaynab Wall Creatinine [Mass/Vol] 0.73 mg/dL Normal 0.55-1.02 [facility] Comment on above: Performed By: #### C MP, CMADM, TSH ####[facility] [address]mr[address] [place] [address]Dr. Zaynab Wall EGFR-AF ANGUILLAN >60 Normal >=60 [facility] Comment on above: Performed By: #### C MP, CMADM, TSH ####[facility] [address]rck[address] [place] [address]Dr. Zaynab Wall EGFR-NON AF ANGUILLAN >60 Normal >=60 [facility] Comment on above: Performed By: #### C MP, CMADM, TSH ####[facility] [address]uif[address] [place] [address]Dr. Zaynab Wall Globulin (S) [Mass/Vol] 3.0 g/dL Normal [facility] Comment on above: Performed By: #### C MP, CMADM, TSH ####[facility] [address]pchgrvnxs[address] [place] [address]Dr. Zaynab Wall Glucose [Mass/Vol] 88 mg/dL Normal 74-106 [facility] Comment on above: Performed By: #### C MP, CMADM, TSH ####[facility] [address] [place] [address]Dr. Zaynab Wall Potassium [Moles/Vol] 4.8 mmol/L Normal 3.5-5.1 [facility] Comment on above: Performed By: #### C MP, CMADM, TSH ####[facility] [address]hs[address] [place] [address]Dr. Zaynab Wall Protein [Mass/Vol] 6.7 g/dL Normal 6.4-8.2 [facility] Comment on above: Performed By: #### C MP, CMADM, TSH ####[facility] [address]ucks[address] [place] [address]Dr. Zaynab Wall Sodium [Moles/Vol] 138 mmol/L Normal 136-145 [facility] Comment on above: Performed By: #### C MP, CMADM, TSH ####[facility] [address]mfyp[address] [place] [address]Dr. Zaynab Wall Urea nitrogen [Mass/Vol] 10.0 mg/dL Normal 7.0-18.0 [facility] Comment on above: Performed By: #### C MP, CMADM, TSH ####[facility] [address]pfy[address] [place] [address]Dr. Zaynab Wall Urea nitrogen/Creatinine [Mass ratio] 13.7 mg/mg Normal [facility] Comment on above: Performed By: #### C MP, CMADM, TSH ####[facility] [address]iv[address] [place] [address]Dr. Zaynab Wall TSHon 09-21-2022 TSH 0.033 uIU/mL Critically low 0.358-3.740 [facility] Comment on above: Performed By: #### C MP, CMADM, TSH ####[facility] [address] [place], [place] [address]Xy. Zaynab Wall XR CHEST 1 Von 09-21-2022 [...] by: NELLIE WHITE Date: 2022-09-21 10:31 Normal [facility] Office Visiton 09-05-2022 Follow-up visit [id number] Cecile Khoury 1975 F Date Provider Department Center 09/05/2022 FELIZ ISRAEL [facility] Chart Close Cosign Required by: Feliz Patton MD[[id number]] Family History Family history unknown: Yes Level of Service:19601 [place] OFFICE/OUTPATIENT [facility] LOW [facility] 30-44 MINUTES (GC) Reason for Visit and Comments: Pain [136] Normal [facility] MRI SHOULDER LT WO CONon MRI SHOULDER [...] by: TIMOTHY BRAMBILA Date: 2022-08-29 12:09 Normal [facility] XR ARTHRO SHOULDER LTon 08-03 XR [...] by: TIMOTHY BRAMBILA Date: 2022-08-29 11:09 Normal [facility] CBC AUTO DIFFon 07-31-2022 BASO # 0.1 103/ul Normal 0.0-0.1 [facility] Comment on above: Performed By: #### C BC ####[facility] Dhbedixyku[address] [place] [address]DrRyann Zaynab Duke Basophils/100 WBC (Bld) 0.5 % Normal 0.2-2.0 [facility] Comment on above: Performed By: #### C BC ####[facility] [address] [place], [place] [address]Dr. Zaynab Wall EO # 0.2 103/ul Normal 0.0-0.7 [facility] Comment on above: Performed By: #### C BC ####[facility] Ox[address]my[address]ks[address] [place], [place] [address]Dr. Zaynab Wall Eosinophils/100 WBC (Bld) 1.8 % Normal 0.9-7.0 [facility] Comment on above: Performed By: #### C BC ####[facility] Ymcupzlhtb[address] [place], [place] [address]Dr. Zaynab Wall Erythrocyte distribution width (RBC) [Ratio] 12.2 % Normal 11.0-15.0 [facility] Comment on above: Performed By: #### C BC ####[facility] Dqrflkecip[address] [place], [place] [address]Dr. Zaynab Wall Hematocrit (Bld) [Volume fraction] 39.8 % Normal 36.0-48.0 [facility] Comment on above: Performed By: #### C BC ####[facility] Xvswe[address]ura[address] [place], [place] [address]Dr. Zaynab Wall Hemoglobin (Bld) [Mass/Vol] 13.0 g/dL Normal 12.0-16.0 [facility] Comment on above: Performed By: #### C BC ####[facility] I[address]cff[address]jm[address] [place], [place] [address]DrRyann Wall IG # 0.04 10e3/ul Critically high 0.00-0.03 [facility] Comment on above: Performed By: #### C BC ####[facility] Izojearogk[address] [place], [place] [address]Dr. Zaynab Wall IG % 0.4 % Normal 0.0-0.5 [facility] Comment on above: Performed By: #### C BC ####[facility] [address]ik[address] [place], [place] [address]Dr. Zaynab Wall LYMPH # 2.8 103/ul Normal 1.2-3.8 [facility] Comment on above: Performed By: #### C BC ####[facility] Reony[address]htzo[address] [place] [address]Dr. Zaynab Wall Lymphocytes/100 WBC (Bld) 24.7 % Normal 20.5-60.0 [facility] Comment on above: Performed By: #### C BC ####[facility] [address]of[address] [place] [address]Dr. Zaynab Wall MANUAL DIFF REQ NO Normal [facility] Comment on above: Performed By: #### C BC ####[facility] [address]uwm[address] [place] [address]Dr. Zaynab Wall MCH (RBC) [Entitic mass] 31.1 pg Normal 26.7-34.0 [facility] Comment on above: Performed By: #### C BC ####[facility] [address]ir[address] [place], [place] [address]Dr. Zaynab Wall MCHC (RBC) [Mass/Vol] 32.7 g/dL Normal 29.9-35.2 [facility] Comment on above: Performed By: #### C BC ####[facility] [address]zme[address]oz[address] [place], [place] [address]Dr. Zaynab Wall MCV (RBC) [Entitic vol] 95.2 fL Normal 81.0-99.0 [facility] Comment on above: Performed By: #### C BC ####[facility] [address]so[address] [place], [place] [address]Dr. Zaynab Wall MONO # 0.9 103/ul Critically high 0.3-0.8 [facility] Comment on above: Performed By: #### C BC ####[facility] [address]eklvdeun[address] [place], [place] [address]Dr. Zaynab Wall Monocytes/100 WBC (Bld) 8.2 % Normal 1.7-12.0 [facility] Comment on above: Performed By: #### C BC ####[facility] Rsntqkmamh[address] [place], [place] [address]Dr. Zaynab Wall NEUT # 7.3 103/ul Critically high 1.4-6.5 [facility] Comment on above: Performed By: #### C BC ####[facility] [address]air[address] [place] [address]Dr. Zaynab Wall Neutrophils/100 WBC (Bld) 64.4 % Normal 43.0-75.0 [facility] Comment on above: Performed By: #### C BC ####[facility] Rmgdujqwmv[address] [place] [id number]. Zaynab Wall Platelet mean volume (Bld) [Entitic vol] 10.5 fL Normal 9.5-13.5 [facility] Comment on above: Performed By: #### C BC ####[facility] [address]eejt[address] [place] [id number]. Zaynab Wall PLT 237 103/ul Normal 150-450 [facility] Comment on above: Performed By: #### C BC ####[facility] [address]wtgsg[address] [place] [id number]. Zaynab Wall RBC 4.18 106/ul Critically low 4.20-5.40 [facility] Comment on above: Performed By: #### C BC ####[facility] [address]qrevnzvuy[address] [place] [id number]. Zaynab Wall WBC 11.4 103/ul Critically high 4.0-11.0 [facility] Comment on above: Performed By: #### C BC ####[facility] Pbfexxpgcr[address] [place] [id number]. Zaynab Wall CT ABD/PELVIS WO CONon 07-31 [...] KIMI WELSH Date: 2022-07-31 03:46 Normal [facility] ER URINE PROFILEon 2 Bilirubin Ql (U) Negative Normal NEGATIVE [facility] Comment on above: Performed By: #### E RUR #### [facility] [address] [place] [address] Dr. Zaynab Wall Clarity (U) CLEAR Normal CLEAR [facility] Comment on above: Performed By: #### E RUR #### [facility] [address] [place] [address] Dr. Zaynab Wall Color (U) LT. YELLOW Normal YELLOW [facility] Comment on above: Performed By: #### E RUR #### [facility] [address] [place] [address] Dr. Zaynab Wall ERUAHD A micrscopic examination will be performed if indicated. Normal [facility] Comment on above: Performed By: #### E RUR #### [facility] [address] [place] [address] Dr. Zaynab Wall Glucose Ql (U) Negative Normal NEGATIVE The [facility] Comment on above: Performed By: #### E RUR #### [facility] [address] [place] [address] Dr. Zaynab Wall Hemoglobin Ql (U) Negative Normal NEGATIVE The [facility] Comment on above: Performed By: #### E RUR #### [facility] [address] [place] [address] Dr. Zaynab Wall Ketones Ql (U) Negative Normal NEGATIVE The [facility] Comment on above: Performed By: #### E RUR #### [facility] [address] [place] [address] Dr. Zaynab Wall LEUKOCYTES Negative Normal NEGATIVE [facility] Comment on above: Performed By: #### E RUR #### [facility] [address] [place] [address] Dr. Zaynab Wall Nitrite Ql (U) Negative Normal NEGATIVE [facility] Comment on above: Performed By: #### E RUR #### [facility] [address] [place] [address] Dr. Zaynab Wall pH (U) 6.0 [pH] Normal 5-9 [facility] Comment on above: Performed By: #### E RUR #### [facility] [address] [place] [address] Dr. Zaynab Wall SPEC GRAVITY 1.015 Normal 1.005-<=1.025 [facility] Comment on above: Performed By: #### E RUR #### [facility] [address] [place] [address] Dr. Zaynab Wall UA PROTEIN Negative Normal NEGATIVE/ TRACE [facility] Comment on above: Performed By: #### E RUR #### [facility] [address] [place] [address] Dr. Zaynab Wall UR MICRO IND NOT INDICATED Normal The [facility] Comment on above: Performed By: #### E RUR #### [facility] [address] [place] [address] Dr. Zaynab Wall Urobilinogen Qn (U) 0.2 {Jennifer'U}/dL Normal 0.2 - 1. 0 [facility] Comment on above: Performed By: #### E RUR #### [facility] [address] [place] [address] Dr. Zaynab Wall PROF CHEM 8 (BAS METB)on Anion gap [Moles/Vol] 8.2 mmol/L Normal [facility] Comment on above: Performed By: #### B MP #### [facility] [address] [place] [address] Dr. Zaynab Wall Calcium [Mass/Vol] 9.1 mg/dL Normal 8.5-10.1 [facility] Comment on above: Performed By: #### B MP #### [facility] [address] [address] [address] Zaynab Wall Chloride [Moles/Vol] 102 mmol/L Normal 98-107 [facility] Comment on above: Performed By: #### B MP #### [facility] [address] [address] [address] Zaynab Wall CO2 [Moles/Vol] 31.6 mmol/L Normal 21.0-32.0 [facility] Comment on above: Performed By: #### B MP #### [facility] [address] [place] [address] Dr. Zaynab Wall Creatinine [Mass/Vol] 0.84 mg/dL Normal 0.55-1.02 [facility] Comment on above: Performed By: #### B MP #### [facility] [address] [address] [address] Zaynab Wall EGFR-AF ANGUILLAN >60 Normal >=60 [facility] Comment on above: Performed By: #### B MP #### [facility] [address] [place] [address] Dr. Zaynab Wall EGFR-NON AF ANGUILLAN >60 Normal >=60 [facility] Comment on above: Performed By: #### B MP #### [facility] [address] [address] [address] Zaynab Wall Glucose [Mass/Vol] 106 mg/dL Normal 74-106 [facility] Comment on above: Performed By: #### B MP #### [facility] [address] [address] [address] Zaynab Wall Potassium [Moles/Vol] 3.8 mmol/L Normal 3.5-5.1 [facility] Comment on above: Performed By: #### B MP #### [facility] [address] [place] [address] Dr. Zaynab Wall Sodium [Moles/Vol] 138 mmol/L Normal 136-145 [facility] Comment on above: Performed By: #### B MP #### [facility] [address] [place], [place] [address] Dr. Zaynab Wall Urea nitrogen [Mass/Vol] 15.0 mg/dL Normal 7.0-18.0 [facility] Comment on above: Performed By: #### B MP #### [facility] [address] [place], [place] [address] Dr. Zaynab Wall Urea nitrogen/Creatinine [Mass ratio] 17.9 mg/mg Normal [facility] Comment on above: Performed By: #### B MP #### [facility] [address] [place], [place] [address] Dr. Zaynab Wall XR CHEST 2 Von 07-31-2022 XR CHEST 2 V EXAM: XR CHEST 2 V HISTORY: Pain COMPARISON: Chest x-ray 07/10/2021 TECHNIQUE: 2 view chest x-ray frontal and lateral FINDINGS: No lobar consolidation, large pleural effusions, pneumothorax, or acute bony abnormality. Cardiac size unremarkable. IMPRESSION: No radiographic evidence for acute chest abnormality. Electronically authenticated by: KIMI WELSH Date: 2022-07-31 03:36 Normal [facility] ED Note-Physicianon 06-23-20 ED Note-Physician Basic [...] Hurts to move shoulder around. She tried ccog-joe-yvewnzv medications without relief. Denies swelling, temperature or [...] day(s), # 9 tab(s), Refills(s) 0, Pharmacy: [facility]/pharmacy #[id number], 155, cm, 06/21/22 15:51:00 EDT, Height/Length [...] 2 days [address] [place] [address] Additional Instructions: Patient Education Muscle Strain, Ghvy-ju-Qjcd Attestation This visit was performed by both [...] acute abnormality Read By: Tayla Carlson PA-C [facility] Comment on above: Result Comment: Elec tronically Signed By: Tayla Carlson PA-C\.br\Date and Time Signed: 06/21/22 16:34 EDT\.br\Electronically Co-Signed By: Nabil Caldera MD\.br\Date and Time Co-Signed: 06/23/22 07:27 EDT Coding Summary.on 06-22-2022 Coding Summary. CD:[id number] Gh 0bWw+PGhlYWQ+YM3KLPNkL 68pcSBdxV0AX6kJAD5TANN BCPJJDC1UYO2luKT6CEegD 2VybiAv UvjpxAWhGX86VYr2WVC8cX heKYcuxM7mdWDdB4k4McWz BX08iO59AYqoPOWxFyO0Lp ZpbjsgbWFy Y3icAaJenWPcNiq+PHRhYm xlIHdpZHRoPScxMDAlJyBz pWzsGT7yMq0eTUReIXOptD xhcHNlOiBj c3nzEQNbTKzcNK7reOtiI4 OtgPY6QFZnm0k4Ty35pYZ+ JDCbTHD2iUwtADyto844Do Zit7atDES8 zPTgZAtfFDL8U00vr7T6VO SjCUPzBAM0rYK7rP4yeNsh wbxtL9TuaPTuDqI9SEF4hV TakS2oaQnd ufmehJ3eNli+X82WNZ6GJO PBIE6JFum9D6MkFdmkaTU+ WQ05QEYlVP99pVSauDAwt7 eqeRi9TaDa IQIgEDH0qBovDPzye0XiSW KdG61hkPSzy8Q3BZJiyPro qCUeOtDmdWD9iY3tBCfuxj fqa7iwypdl Oyrkc7yfnt78eP09W48uZA qiFFHnPXE7YLOrRQVdcDax qa0qgG8qOn7+NQdmh6pcg3 quqCc5FwSb THJwwkJxqXsnLEH4w4CwOc 30D1OzdBzkm5SsNxq7nb99 rTGsf6S1xFK6LCpjXKMknS 9fFMvvLvE8 SXKwFqKywE22aKNdBCmdZd 2cwGxjpPcwHH5dBLMjmzpk DIVwdN6dPEQzkWZojFuqHX 4wNTBpbjtm h382ErZhOXY4OOKrfJHoW1 WtcN2nKgAwUIXqEUSiY3Dl oNBqFMjjZ924TSakQjR0XA TitrRjT5Me CBPimYfyMbI7t5Q4Mn0He3 RclbmdJAM9VCkxUVR8ZbAw FiAfScI0V0JyOwr0UHAsvU vtGL4wN8Kx BYFmfcowedlxdDU9ZEGuNR BmwF44vRPaTTkfOd1zf4L5 o456CBGpVMQwbQ43Bh3iwN ogMTBwdCBU hZ0ucvocq2nmgjstLuZuGD LtTJa7IDv1MJWxwVtrIcNw JSA7OyC9YXB7hOFmvA4csP wbyvldjS7b Oyc+Y43jvC0dOFN5OMD5xn jcCIBxysKpGM61ZQ08D2Yg PjwvdGFibGU+PGRpdiBzdH voRY3zWiJu v3wxe5DrFJnoT9ZnYHStYR hhQbh9PNNhJVH2xMH6nB1t TKFjCRmsv7D7zBJ5O2Uswi Ohdy2yr5dq JPTtRKbaH48wjSVbv8D9CY RcxND2UWBrsImfHdHxcF97 Oyc+JDMjhPqzw0AkUojqx6 ivj9wjhCa4 FkPwEYSsrsBtpDgvQRE2f6 TsVb70T41vVAbrCRPgRCUt MHRwNVSvpXgycz6vaN5wWh 8+PGNvbCB3 wAL7kV0sDYEgBfH8PAjhN0 15VzNwgYEuLnlvr5rmz3cb eRj3IxXcUGDpldKhlSrvHD M0h9PiTt33 R44eDYphWOVkSBPgDTErQW MboFqdih0xzW4jEd3+PC9j r2epbb07dE45iGZ+PHRkIH J9gFlcYYgf JPCsqR2yTUpeZjO3BBDbQs NhlY47mBApBFyyAf7lqFvo yCyxCB4vVUMrgzswx403Gz Uhz3mfCFZq wNBbMFwbSSV7S48fy2M2NH PjUZWiHQK4zPX1uB3skKlf bjogbGVmdDsgdmVydGljYW dtBWxsF796 IHRvcDsnPlBhdGllbnQgTm KfSZb6U5CrUcj8ZMTlhXjx IH3doJFaWHxaPk0rsYmpcI xlHR0uYKQu obbiu904CzUom0vjVXEnoV YcEQcmMJQ7U55pf1E8PHDy KJTdPPH5fRM0qG8hgVuosc ogbGVmdDsg haLqoRakOSxlCOpyD943GM RvcDsnPkJpcnRoIERhdGU6 OK11DV56fBZlr5J0bIC5C0 BhZGRpbmct xbtpaIL7KTBbKZSrfV30Az 9xnAgoUg9vMLWzPBP6CGLs cZDsD6HvkM8gBnZpAACjQQ GdZ0KlwXDz XHrcB567RThdGtW4HZGjah OhZ5OuBWSjeKieQhV6p3K4 Ix5CW7L5II70IM93cPZcn7 L7zTI4B1Aq AUTnezaisvhtpPM5NOFiNH JhwW46Cp0njHmrEj9aJYHs ZPW8ECUeiBErH4IgzU6eBo AjMDAwMDAw K1PluIKxGKwnO454CLyeBm K6FRRjfbIeU6GqOEXslEnb YlV3n6X5Lb9LKOl7KB31QO 14iECtq3U0 xMQ5G0QwRSFrtwfvcyezyG I5PLHpDMQrlZ90Xj4ecHqj Cg6wCQMyHBC4SHOdqGEyR2 EknS2cVnZb HLXvCWClJ4GkaITkSPcvK1 60LAmtKoM4SYViyyZcJ8Cv CVTonVahUaW5y2C9Qf8ULB HjBE97RYJ9 sUC3ND41JC88C5OaRjmiiR FibGU+PHRhYmxlIHdpZHRo XScuGYHbVsKejRlwQX4lXr 9yZGVyLWNv lItswUYcMmZzy3jpAHQdJX gsSK2djDomZ0LcfRK7NMEt g2r5Cl93S87gN5ObuXY+PG GigWR4yUO0 oP7xVrFxLfB7AJnsR598Jb KeoSWiQfpvw6bqm1cytQr4 YhW7CUHjxbJfrSzcYKE6n7 PfSw16P04d IHdpZHRoPSIxNSUiIHZhbG khpx0hvD6oQr4+PGNvbCB3 zKZ0sZ8nCgXdHuB4MQxdL1 49InRvcCIv Iezvb5dxj4iqkEs6BhOnIL SnxaHwbKgvLNE7d9PcIj28 O9EfoOmuj2JtOjm3nx49xA Mzj3X8eVV9 I9VuFFNxtgxhhVOojXebLS 0jSCTelbbzEIEppM7cQIYx C2a6DmEfApG0YBalX6Dqgr B3CJBomDLk PKuvKUH9I71uw3C0KGIuMC EuRLN6nSE2wB4zuVajcxhd bGVmdDsgdmVydGljYWwtYW ecY996NGYn fZceMMMqfS6jALTzoUIioV mqBG9eSIYimilxKs8RWQAA U9PNZZZGMFDvYUytkIT+PH OlPRE9lTmq KNoyBINjxC2uPIHgP0h8Ic ZsBeL9JVedB4OuDFOfnxat Nc67vJ9jZxNkHaH8KKtyB1 OrqaP8QJBq sNBoNLlxGCC0Z11wj5J7MU CsDQDbQBT0nWB7eV3dkLgq bjogbGVmdDsgdmVydGljYW tgQIgbR731 DCTxySdbPrFrGiXlDcN6Ej g9Z5XiGzt6GMLdtEwmZV4y sXYhSLmsLs2giYeujCsiML 4wNTBpbjtw XKDnqG3jKMWpuJGfxFsjTB 4cMTIgedkou754EcIpFJT7 DBIwlEPiF4SkvW7zNmTkGD GzWTSxR3Ss qAKuECmhQ987PWyiFtA5WI KhdxHiV4BuYMHwzXzyKgS7 f1G1Ql87LNMQDTJpvjorrI Q+PHRkIHN0 lAepLRlcNEZmaP1iWAJkF5 d3RwBjChZ4TUyuN3XvQBIg hozzDv96eN2nAyLoZqO4IA xfN7EareX0 ZDGyaJPrMQebKDQ7M03ub7 V5YRYwJTTrSYW5yLO0yU9p bGlnbjogbGVmdDsgdmVydG ljYWwtYWxp X377DWWqdKkmMpKahICuPW wvdGQ+LJLvLCG0fRjdUHzd VUBdwU6sODBuJ2s4SvEtPj I1TVfdY6Jw CCZjrwggBd78hC6lEqGcOf K2OVodG5AfrpQ6KIMicJFx IJsrFOO1B24vt8J1LIXwTK GuLRL5wJU3 xM5xvJwaelrcrMZxpIywrb SgnDsvQIrlMWsnG624CIBt uIgdCxQsGBOmUC2ajTumoY Q+VX49rr64 G5KgPhnvLqa2WHCbDLZ9wZ X0bV2vAQUaSCknk2B4jWG4 C4HlcdCqqk6an1mtVLRuTF dtR29ocLBx k8R5WNGijAM5BRLnvYaaXk NgeO74Zsl+ZUHwzDxeo2Th Lschr1fnd2fzjMj3MjEfPO IgdmFsaWdu IDN8g7DhOr68C76pDIznZR WtJFDuUVHdVCPpxDeyyy6v mL2hTj3+MJEixYE3rUE3kC 4iQaKpEhT1 EOpiE590IhRkaYDhTygzn5 pjm1xezDa5OkXnJZOwwaNj pPslEYZ3s7KdKn02G1QmwH tbq5SsQhr1 bv37uURdt1K0oTH1C2XlTQ XlcvvaxYGzsWyuAL8aHRJi wtszRSLodZ0jOSIjA0l9Sp ViPjD2UIlf T2XrgqP3SXMzeCAmTFTaeZ MByK6ftgvek1aqmfxtGeVo ZNGfTYv0PRk7RMIwzIhcRx VqHKU2PlC8 WBO7mMEsqB9akDlnzpazrJ 9wOyc+HCh8d1jscSXkBD3o lNL3EH61VH24fHCzv5R3dM Y6U0QeINYr hubsbdfwsTH5JAOtZEVjeS 03Ti1heZkrVc4lJQLxZSN6 WJVjjQQjG5BdyU3rXwSqVH EgVLXpX6Wv tBKtPYnpY287ANurGiM5FO JnfpSwH8VvBAKmcIuvOpO2 c1S2Bo5DEE93RJ95BS68eM Ewg9Q2hLT1 K8AlISRnqywdleebcSE0XV WnLDXzaA45Ck0aeZofKy7u AOGsIBC6PNIzqJBlD6ZilN 9yOiAjMDAw PZPcU0GkzCZpDNxcR664BC dbIeC9UBOzcxDtV0FgBAYz dJeuPxL7b5G1Zz8VKf30DO 23RF56iBQp g1T6aWI1W4WkXECkskyjpn yqxHG0GUNwRTJdeA75Un8m nZpzQn3zHVRrGSA2WPYzjC AvZ0UwqP0h BzUvSACyAUAqA8TjeORbVQ lqI051AXzrMpP8NLBmjaJz Q7EtUBIlbIawHxC1n2S1Uv 8EUHiqfnf7 M3AwZvzfeXV+TZ81HAYuKU 91iXHmnSXjz0fmwAr0HvSw VIGzECX6uFfuSNewj5NfMM ShL91fyCEo c2U6 (more content not included)... [facility] Consent for Treatmenton 06-02 Consent for Treatment [id number] 0CD:127 [facility] Discharge Instructionson Discharge Instructions [id number] 0CD:127 [facility] ED Clinical Summaryon 2021 ED Clinical Summary [address] [address] ED Clinical Summary Person Information Name: STEPHANIE KHOURY/New_Asael Age: 46 Years : 1975 Sex: Female Language: Libyan PCP: Chi Potter MD Marital Status: Single Phone: [phone] Visit Id: Visit Reason: Shoulder pain-swelling; LEFT [...] 06/21/2022 17:01:21 06/21/2022 17:01:21 06/21/2022 17:01:21 ADDRESS: [address] [place] [phone] PHYS DOC NOTES: MEDICAL INFORMATION: Prescriptions Given: New Medications [id number], [address] [place], [place] [id number], [phone] methocarbamol (Robaxin-750 oral tablet) 1 Tablets By Mouth 3 times a day for 3 Days. Refills: 0. PATIENT EDUCATION INFORMATION: Instructions: Muscle Strain, Mjwy-yo-Lqpr Follow up: With: Address: When: AKIRA ACUNA CNP [address] [place], [place] [id number] Within 1 to 2 days DIAGNOSIS: 1:Strain of left trapezius muscle Normal [facility] ED Patient Education Noteon 06-21-2022 ED Patient Education Note Orthopedics Muscle Strain A muscle strain is an injury that happens when a muscle is stretched longer than normal. This can happen during a fall, sports, or lifting. This can tear some muscle fibers. Usually, recovery from muscle strain takes 1?2 weeks. Complete healing normally takes 5?6 weeks. This condition is first treated with BENVAIDEZ therapy. This involves: ? Protecting your muscle [...] not too tight. General instructions ? Take ftlf-tnf-jtvzzuo and prescription medicines only as told by [...] Reviewed: 12/25/2017 Elsevier Patient Education ? 2019 [employer] Normal [facility] ED Patient Summaryon 022 ED Patient Summary [address] [address] Patient Discharge Instructions Person Information Name: STEPHANIE KHOURY Age: 46 Years Arrival Date: 06/21/2022 15:32:04 Discharge Diagnosis: 1:Strain of left trapezius muscle Primary Care Physician: Chi Potter MD Provider Information Primary Provider: Advanced Photograph Retoucher:None The exam and treatment you received in the Emergency Department were for an urgent problem and are not intended as complete care. It is important that you follow up with a doctor, nurse practitioner, or physician?s assistant printer floor covering for ongoing care. If your symptoms become [...] Instructions: With: Address: When: AKIRA ACUNA CNP [facility] [place], [place] [id number] Within 1 to 2 days In the event that this physician does not participate in your insurance network, please consult with your insurance company to find a nearby participating provider. Patient Education Materials: Muscle Strain, Ybub-tn-Zyiq A MESSAGE TO ALL PATIENTS REGARDING OPIOIDS PRESCRIPTION OPIOIDS: WHAT YOU NEED TO KNOW Prescription opioids can be used to help relieve xtmkdkoa-qd-ttootf pain and are often prescribed following a [...] be struggling with addiction, tell your health health care marketing manager and ask for guidance or call [facility]?S National Helpline at 6-309-621-CIKC. g Source: [facility] (more content not included)... Normal [facility] XR Shoulder Complete Lefton 06-21-2022 XR Shoulder [...] MD Transcribed by: TIMOTHY Technologist: WADE Hernandez [facility] PAP ACOG PANEL 3: 30 to 65on 04-26-2022 . . Normal [facility] Comment on above: Result Comment: Perf ormed at: WB Performed By: #### [id number] ####[facility] [address] [address]Dr. Zaynab Wall Age Gdln ACOG Testing 30-65 Normal [facility] Comment on above: Performed By: #### 4 [id number] ####[facility] [address] [address]DrRyann Wall Chlamydia, Nuc. Acid Amp Negative Normal Negative [facility] Comment on above: Result Comment: Perf ormed at: =G Performed By: #### 4 [id number] ####[facility] [address] [address]Dr. Zaynab Wall DIAGNOSIS: Comment Normal [facility] Comment on above: Result Comment: NEGA TIVE FOR INTRAEPITHELIAL LESION OR MALIGNANCY. Performed at: WB Performed By: #### 4 [id number] ####[facility] [address] [address]Dr. Zaynab Wall Gonococcus, Nuc. Acid Amp Negative Normal Negative [facility] Comment on above: Result Comment: Perf ormed at: =G Performed By: #### 4 [id number] ####[facility] [address] [address]Dr. Zaynab Wall HPV Aptima Negative Normal Negative [facility] Comment on above: Result Comment: This nucleic acid amplification test detects fourteen high-risk HPV types (16,18,31,33,35,39,45,51,52,56,58,59,66,68) without differentiation. Performed at: =G Performed By: #### 4 [id number] ####[facility] [address] [place], [place] [address]Dr. Zaynab Wall Methodology: CTIM Normal [facility] Comment on above: Result Comment: The Thin Prep(R) Manager Primary was unable to read this specimen. Therefore a manual review was performed. Performed at: WB Performed By: #### 4 [id number] ####[facility] [address] [address]Dr. Zaynab Wall Note: Comment Normal [facility] Comment on above: Result Comment: The Pap smear is a screening test designed to aid in the detection of premalignant and malignant conditions of the uterine cervix. It is not a diagnostic procedure and should not be used as the sole means of detecting cervical cancer. Both false-positive and false-negative reports do occur. . Performed at: WB Performed By: #### 4 [id number] ####[facility] [address] [address]Dr. Zaynab Wall Performed by: Comment Normal [facility] Comment on above: Result Comment: Ashvin Beatty Sales Record Clerk (ASCP) Performed at: WB Performed By: #### 4 [id number] ####[facility] [address] [place], [place] [address]YjRyann Zaynab Duke Specimen adequacy: Comment Normal [facility] Comment on above: Result Comment: Sati sfactory for evaluation. No endocervical component is identified. Performed at: WB Performed By: #### 4 [id number] ####[facility] [address] [id number]. Zaynab Duke Vital Signs Date Time Vital Sign Value Performing Clinician Marah cervantes 04-03-2023 15:39-0400 Blood Pressure Location Lopez LANGLEYL [facility] 04-03-2023 15:39-0400 Diastolic blood pressure 66 mm[Hg] Lopez LANGLEYL [facility] 04-03-2023 15:39-0400 Heart rate 66 /min oLpez LANGLEYL [facility] 04-03-2023 15:39-0400 Respiratory rate 16 /min Lopez LANGLEYL [facility] 04-03-2023 15:39-0400 Systolic blood pressure 104 mm[Hg] Lopez LANGLEYL [facility] 06-21-2022 15:49-0400 Body temperature 97.88 [degF] Nabil Caldera [facility] 06-21-2022 15:49-0400 Diastolic blood pressure 91 mm[Hg] Nabil Werner [facility] 06-21-2022 15:49-0400 Heart rate 80 /min Nabil Werner [facility] 06-21-2022 15:49-0400 Respiratory rate 18 /min Nabil Werner [facility] 06-21-2022 15:49-0400 SaO2% (BldA) [Mass fraction] 98 % Nabil Werner [facility] 06-21-2022 15:49-0400 Systolic blood pressure 138 mm[Hg] Nabil Werner [facility] Encounters Encounter Date Encounter Type Care Provider Facility Start: 04-17-2023 ambulatory Lopez R NILL Facility : [facility] Start: 04-03-2023 End: 04-04-2023 ambulatory Lopez R NILL Facility: [facility] Start: 04-03-2023 End: 04-03-2023 Patient encounter procedure Lopez R NILL General Surgery Nill/Said [facility] Start: 03-26-2023 ambulatory Lopez R KORINL Facility : [facility] Start: 02-26-2023 End: 02-27-[address] DOCTOR SULLIVAN Facility:[facility] Start: 01-16-2023 End: 01-16-[address] CHI POTTER . Facility:[facility] Start: 10-26-2022 End: 10-27-[address] CIH POTTER . Facility:[facility] Start: 10-20-2022 End: 10-21-2022 ambulatory [facility] Start: 10-19-2022 End: 10-20-2022 ambulatory [facility] Start: 10-17-2022 End: 10-17-2022 ambulatory [facility] Start: 09-21-2022 End: 09-21-2022 ambulatory TREY MACIEL . Facility:[facility] Start: 09-05-2022 End: 09-06-2022 ambulatory [facility] Start: 08-29-2022 End: 08-29-[address] CHI POTTER . Facility:[facility] Start: 07-31-2022 End: 07-31-2022 ambulatory ZITA OCHOA Facility:[facility] Start: 07-04-2022 End: 07-28-[address] CHI POTTER . Facility:[facility] Start: 06-21-2022 End: 06-21-2022 Emergency department patient visit Nabil Caldera [place] [place]: 06-21-2022 End: 06-21-2022 Emergency department patient visit Nabil Caldera [facility] Start: 04-26-2022 Encounter for gynecological examination (general) (routine) without abnormal findings TERE HAILEY [facility] Start: 04-20-2022 End: 04-20-2022 ambulatory TERE HART Facility:[facility] Start: 04-20-2022 End: 04-20-2022 Encounter for gynecological examination (general) (routine) without abnormal findings TEREGRACIA STAUFFERMER Facility:[facility] Procedures Date Procedure Procedure Detail Performing Clinician Abdominal hysterectomy Jimmy romeo MARY Ligation of fallopian tube Jordan ferrera MARY Immunizations Immunization Date Immunization Notes Care Provider [facility] 08-27-2022 influenza virus vaccine, unspecified formulation Lopez MARTÍNEZ [facility] 08-27-2022 SARS-CoV-2 (COVID-19 ) mRNAMUL.ORD![id number] Lopez MARTÍNEZ [facility] 11-17-2021 SARS-CoV-2 (COVID-19 ) mRNA BNT-162b2 vax Lopez LANGLEYL [facility] 03-23-2021 SARS-CoV-2 (COVID-19 ) mRNA BNT-162b2 vax Lopez LANGLEYL [facility] 03-02-2021 SARS-CoV-2 (COVID-19 ) mRNA BNT-162b2 vax Lopez LANGLEYFina [facility] Payers Date Payer Category Payer Unknown [id number] 1975 Unknown [id number] 2.16.84 [id number] 1975 Unknown [id number] 2.16.84 0.1.348078.3.579.2.593 1976 Unknown [id number] 2.16.84 0.1.708921.3.579.2.593 1976 Unknown [id number] 2.16.84 0.1.723903.3.579.2.593 1976 Unknown [id number] 2.16.84 0.1.051310.3.579.2.593 1976 Unknown [id number] 2.16.84 0.1.172398.3.579.2.593 1976 Unknown [id number] 2.16.84 0.1.571886.3.579.2.593 1976 Unknown [id number] 2.16.84 0.1.837236.3.579.2.593 1976 Unknown [id number] 2.16.8 40.1.557948.3.579.2.727 1976 Unknown [id number] 2.16.8 40.1.340150.3.579.2.727 1976 Unknown [id number] 2.16.8 40.1.465522.3.579.2.727 1976 Unknown [id number] 2.16.8 40.1.366551.3.579.2.727 1958 Medicaid [id number] 1958 Unknown [id number] Social History Date Type Detail Facility Tobacco smoking status No Smokin g Status Entered [facility] Sex Assigned At Female [facility] Start: 04-03-2023 Tobacco smoking status Never s moked tobacco (finding) [facility] Tobacco smoking status Never Gener al [facility] Tim Functional Status Date Assessment Result Facility 04-03-2023 Functional Status N/A [facility] 06-21-2022 Functional Status N/A [facility] Clinical Note 04-03-2023 Note Date & Type [...] 5 mcg= 1 tab(s), Oral, Daily Maxalt TIMBER FALLER 10 mg Tab-Dis, 10 mg= 1 tab(s), [...] virus vaccine, inactivated 08/27/2022 Recorded SARS-CoV-2 (COVID-19) mRNAMUL.ORD![id number] 08/27/2022 Recorded SARS-CoV-2 (COVID-19) mRNA BNT-162b2 vax 11/17/2021 Recorded SARS-CoV-2 (COVID-19) mRNA BNT-162b2 vax 03/23/2021 Recorded SARS-CoV-2 (COVID-19) mRNA [id number] vax 03/02/2021 Recorded [facility] Comment on above: Result Comment: Elec [...] strength. Clovis Kruse MD Orthopaedic Surgery PGY-1 [facility] 10/17/22 10:07 AM [facility] Progress note 09-05-2022 Note Date & Type [...] some mild improvement. Had MRI completed at [facility] which reportedly demonstrated possible partial thickness tear [...] to verify the correct patient, procedure, equipment, technician support association and site/side marked as required. Patient was prepped and draped in the usual sterile fashion. Williams Kowalski MD Orthopedic Surgery, PGY-5 Pager: [phone] 09/05/22 9:33 AM By using the attestations [...] be an additional personal documentation from me. [facility] Hospital Discharge instructions 06-21-2022 Note Date & Type Note Facility 06-21-2022 Hospital Discharg e instructions Patient Education 06/21/2022 16:30:19 Muscle Strain, Zjan-sm-Repw Muscle Strain A muscle strain is an [...] is not too tight. General instructions Take xhgm-inu-wnmeuua and prescription medicines only as told by [...] 08/27/2009 Document Revised: 01/14/2020 Document Reviewed: 12/25/2017 [employer] Patient Education 2020 [employer] Follow Up Care 06/21/2022 15:32:56 With:AKIRA ACUNA CNP Address: [address] [place] [address] [place] [id number] When:1 to 2 days [facility] Evaluation + Plan note Note Date & Type Note Facility Evaluation + Plan note No data available for this section [facility] Evaluation + Plan note Note Date & Type Note Facility Evaluation + Plan note Future Appointments Appointment Date:04/17/2023 03:20:00 PM Scheduled Provider:Lopez MARTÍNEZ MD Location:[facility] Appointment Type: Procedure 30 [facility] Discharge instructions Note Date & Type Note Facility Hospital Discharge instructions No data available for this section [facility] note Note Date & Type Note Facility Progress note No data available for this section [facility] Summary Purpose Family History No Family History Records FoundNo Family History Records FoundNo Family History Records Found Advance Directives No Advanced Directives Records FoundNo Advanced Directives Records FoundNo Advanced Directives Records Found Additional Source Comments Care Team (unrecognized sect ion and content) Personnel Name: Chi Potter MD Address: [address] [place] [address] Personnel Name: Chi Potter MD Address: Address: [address] [place] [address] INFORMATION SOURCE (unrecogn ized section and content) DATE CREATED AUTHOR 10/21/2022 [facility] DATE CREATED AUTHOR AUTHOR'S ORGANIZ ATION 03/16/2023 [facility] DATE CREATED AUTHOR AUTHOR'S ORGANIZ ATION 04/11/2023 [facility] FOR RECORDS PERTAINING TO PATIENTS WHO [...] BE BASED ON THE PRIMARY CLINICAL RECORDS. [facility] Night Up [facility]. provides no warranty or guarantee of the accuracy or completeness of information in this document.
== END 2024-02-16 10:27 | disposition home or self-care (01) ==
LOC: ER 10:23
PROVIDERS: Emergency Provider Emergency Medicine; PCP Family Medicine
DX: H10.9 Unspecified conjunctivitis (principal); Z79.899 Other long term (current) drug therapy; Z79.890 Hormone replacement therapy
CPT/HCPCS: 99283

== ENCOUNTER 2024-07-01 13:49 | Outpatient (RCR) | payer BC, SELFPAY | END 2024-07-16 11:28 | disposition home or self-care (01) | LOC: PT 13:49 | PROVIDERS: PCP Family Medicine; Visit Provider Family Medicine | DX: R42 Dizziness and giddiness (principal) | CPT/HCPCS: 95992; 97161 ==

== ENCOUNTER 2024-11-14 20:26 | Emergency (ER) | payer BC, SELFPAY ==
--- OUTSIDE RECORDS SUMMARY | 2024-11-14 20:31 | XMS_ITS | CCD ---
Author Organization [facility] Care Team Providers Care Power Barker Name Role Phone Chi Potter Primary Care Physician EBRAHEIM, FELIZ Referring Unavailable EBRAHEIM, FELIZ Referring Unavailable EBRAHEIM, FELIZ Referring Unavailable EBRAHEIM, FELIZ Attending Unavailable EBRAHEIM, FELIZ Attending Unavailable SELF, REFERRED Referring Unavailable HOY ., DR MIRELES Primary Care Unavailable HOY ., DR MIRELES Admitting Unavailable HOY ., DR MIRELES Attending Unavailable HOY ., DR MIRELES Consulting Unavailable ZIEBER, DR TIMOTHY Jay Consulting Unavailable TERE HART Attending Unavailable HOY ., DR MIRELES Primary Care Unavailable TERE HART Consulting Unavailable TERE HART Admitting Unavailable MISC, DR FARRELL Consulting Unavailable MISC, DR FARRELL Admitting Unavailable MISC, DR FARRELL Attending Unavailable HOY ., DR MIRELES Primary Care Unavailable ZIEBER, [...] Unavailable CINDY, DR NELLIE Cintron Consulting Unavailable HOY ., DR MIRELES Primary Care Unavailable JANELL ., TREY Admitting Unavailable JANELL ., TREY Consulting Unavailable ZITA OCHOA Consulting Unavailable ZITA OCHOA Admitting Unavailable ZITA OCHOA Attending Unavailable HOY ., DR MIRELES Primary Care Unavailable KIMI WELSH Consulting Unavailable Nabil Caldera Attending Unavailable KORINLLopez Attending Unavailable NILLLopez Attending Unavailable HoyChi Referring Unavailable NILLLopez R Attending Unavailable Chi Potter Referring Unavailable MD Chi Potter Primary Care Provider [phone] DO Stanley Martinez Emergency Provider [phone] Chi Potter Primary Care Unavailable Stanley Martinez Attending Unavailable Stanley Martinez Admitting Unavailable Allergies Allergy Classification Reported Allergen(s) Allergy Type Date of Onset Reaction(s) Facility (5 sources) Ciprofloxacin; Translations: [ciprofloxacin] Drug Allergy 1 Vomiting (disorder) [facility] (1 source) diphenhydrAMINE; Translations: [DIPHENHYDRAMINE HCL] Drug Allergy 2 [facility] Repository (1 source) Ciprofloxacin Drug Allergy 6 [facility] Repository (1 source) diphenhydrAMINE Drug Allergy 2 [facility] Repository (2 sources) diphenhydrAMINE; Translations: [diphenhydramine] Drug Allergy 2 Unknown [facility] [place] (1 source) Ciprofloxacin Drug Allergy 4 [facility] Repository Medications Current Medications Medication Drug Class(es) Dates [...] day(s), # 9 tab(s), Refills(s) 0, Pharmacy: [facility]/pharmacy #[id number], 155, cm, 06/21/22 15:51:00 EDT, Height/Length [...] take 1 tablet by mouth once 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 10 mg Tab-Dis 10 mg = 1 [...] [Asthma] Onset: 2 04-01-2023 Chronic Cardiac dysrhythmias (6 sources) Palpitations; Translations: [Sinus tachycardia] Onset: 2 [...] 07-31-2022 Episodic Other aftercare (1 source) 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; 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 Rate : 73 BPM Atrial Rate : 73 BPM P-R Int : 140 ms QRS Dur : 82 ms QT Int : 390 ms P-R-T Axes : 65 93 10 degrees QTcB Int : 429 ms Normal sinus rhythm Rightward axis Nonspecific ST abnormality Abnormal ECG No previous ECGs available Confirmed by FAB PARK MD ([id number]) on 07/15/2024 12:25:41 AM Referred By: Electronically Signed By: FAB PARK MD Transcribed By: MUS Signed By Fab Park Jr, MD 0025 Normal [facility] Facesheeton 04-04-2023 Facesheet [id number] 0CD:127 Normal [facility] Ambulatory Visit Summaryon 0 04-03-2023 Ambulatory Visit Summary STEPHANIE KHOURY :1975 Visit Date:04/03/2023 Ambulatory Visit Instructions Your Diagnosis 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 Discharge Vitals Heart Rate (Peripheral) 66 Respiratory Rate 16 Blood Pressure 104/66 Height 154.9 cm Height 61 in Weight 50.6 kg Weight 111.32 lb BMI 21.09 What to do next Scheduled Follow-Up Appointments Saturday. 2022 3:20 PM EDT With: MARY CANTU, Lopez Jay Where: General Surgery Mary/Nilson Dumont Normal [facility] Physician Referralon 023 Physician Referral [id number] 0CD:127 Normal [facility] Physician Referralon 023 Physician Referral [id number]#[id number] 0CD:127 Normal [facility] MRI SHOULDER LT WO CONon MRI SHOULDER [...] TIMOTHY BRAMBILA Date: 2023-02-26 22:11 Normal [facility] SARS-CoV-2 (COVID-19) RNA ALYX+probe Ql (Unsp spec) Not detected Normal NOT DETECTED [facility] Comment on above: Result Comment: When diagnostic [...] for this test is supported by the [place] of [employer] and Human Service's declaration that [...] be used). Performed By: #### C VDTBH ####[facility] [address] [place], [place] [address]RwDr. Zaynab Wall FREE T3on 10-26-2022 FREE T3 2.94 pg/mlL Normal 2.18-3.98 [facility] Comment on above: Performed By: #### T SH, T4, FT3 #### [facility] Laboratory [address], [place] [address] Dr. Zaynab Wall T4on 10-26-2022 T4 [Mass/Vol] 6.40 ug/dL Normal 4.80-13.[address] [facility] Comment on above: Performed By: #### T MELODIE, T4, FT3 #### [facility] Laboratory [address], [place] [address] Dr. Zaynab Wall TSHon 10-26-2022 TSH 0.076 uIU/mL Critically low 0.358-3.740 [facility] Comment on above: Performed By: #### T SH, T4, FT3 #### [facility] Laboratory [address], [place] [address] Dr. Zaynab Wall Orders Onlyon 10-19-2022 Orders Only [id number] Peng,Huber e A 1975 F Date Provider Department Center 10/19/2022 WANG HEREDIA MP ORTHO MPORTHO Family History Family history unknown: Yes Normal [facility] Follow-Upon 10-17-2022 Follow-Up [id number] Peng,Huber e A 1975 F Date Provider Department Center 10/17/2022 FELIZ ISRAEL MP MPORTHO Chart Close Cosign Required by: Feliz Patton MD[[id number]] Family History Family history unknown: Yes Level of Service:57589 [place] OFFICE/OUTPATIENT ESTABLISHED LOW MDM 20-29 MIN () Reason for Visit and Comments: Follow-up [709499] Normal [facility] CARDIAC ADRIANA ADMITon 022 CK [Catalytic activity/Vol] 40 U/L Normal 26-192 [facility] Comment on above: Performed By: #### C MP, CMADM, TSH ####[facility] [address] [place], [place] [address]AgDr. Zaynab Wall CK.MB [Mass/Vol] 0.60 ng/mL Normal <=3.60 [facility] Comment on above: Performed By: #### C MP, CMADM, TSH ####[facility] [address] [place], [place] [address]CzDr. Zaynab Wall HSTROP 5.2 pg/mL Normal 4.0-51.3 [facility] Comment on above: Result Comment: CUT- OFF POINTS HAVE BEEN ESTABLISHED BASED ON THE FOURTH UNIVERSAL DEFINITIONS OF MYOCARDIAL INFARCTION. THE UPPER REFERENCE LIMIT (URL) OF TROPONIN, DEFINED THE 99TH PERCENTILE OF cTnI DISTRIBUTION IN A REFERENCE POPULATION, HAS BEEN CONFIRMED THE DECISION THRESHOLD FOR UT DIAGNOSIS. Performed By: #### C YUDELKA, LIA, TSH ####[facility] [address] [place] [address]Dr. Zaynab Wall VICK 33 ng/mL Normal 9-82 [facility] Comment on above: Performed By: #### C MP, CMADM, TSH ####[facility] [address] [place] [address]Dr. Zaynab Wall CBC AUTO DIFFon 09-21-2022 BASO # 0.0 103/ul Normal 0.0-0.1 [facility] Comment on above: Performed By: #### C BC ####[facility] [address] [place], [place] [address]Dr. Zaynab Wall Basophils/100 WBC (Bld) 0.4 % Normal 0.2-2.0 [facility] Comment on above: Performed By: #### C BC ####[facility] [address] [place], [place] [address]Dr. Zaynab Wall EO # 0.0 103/ul Normal 0.0-0.7 [facility] Comment on above: Performed By: #### C BC ####[facility] [address] [place], [place] [address]Dr. Zaynab Wall Eosinophils/100 WBC (Bld) 0.5 % Critically low 0.9-7.0 [facility] Comment on above: Performed By: #### C BC ####[facility] W[address] [place], [place] [address]Dr. Zaynab Wall Erythrocyte distribution width (RBC) [Ratio] 12.4 % Normal 11.0-15.0 [facility] Comment on above: Performed By: #### C BC ####[facility] [address] [place], [place] [address]DrRyann Wall Hematocrit (Bld) [Volume fraction] 36.0 % Normal 36.0-48.0 [facility] Comment on above: Performed By: #### C BC ####[facility] He[address] [place], [place] [address]DrRyann Wall Hemoglobin (Bld) [Mass/Vol] 11.5 g/dL Critically low 12.0-16.0 [facility] Comment on above: Performed By: #### C BC ####[facility] [address] [place] [address]DrRyann Wall IG # 0.02 10e3/ul Normal 0.00-0.03 [facility] Comment on above: Performed By: #### C BC ####[facility] [address] [place], [place] [address]Dr. Zaynab Wall IG % 0.3 % Normal 0.0-0.5 [facility] Comment on above: Performed By: #### C BC ####[facility] [address] [place], [place] [address]DrRyann Wall LYMPH # 1.5 103/ul Normal 1.2-3.8 [facility] Comment on above: Performed By: #### C BC ####[facility] Us[address] [place], [place] [address]DrRyann Wall Lymphocytes/100 WBC (Bld) 19.6 % Critically low 20.5-60.0 [facility] Comment on above: Performed By: #### C BC ####[facility] [address] [place], [place] [address]DrRyann Wall MANUAL DIFF REQ NO Normal [facility] Comment on above: Performed By: #### C BC ####[facility] [address]cc[address] [place], [place] [address]DrRyann Wall MCH (RBC) [Entitic mass] 30.6 pg Normal 26.7-34.0 [facility] Comment on above: Performed By: #### C BC ####[facility] [address] [place], [place] [address]DrRyann Wall MCHC (RBC) [Mass/Vol] 31.9 g/dL Normal 29.9-35.2 [facility] Comment on above: Performed By: #### C BC ####[facility] [address] [place], [place] [address]DrRyann Wall MCV (RBC) [Entitic vol] 95.7 fL Normal 81.0-99.0 [facility] Comment on above: Performed By: #### C BC ####[facility] [address] [place], [place] [address]DrRyann Wall MONO # 0.6 103/ul Normal 0.3-0.8 [facility] Comment on above: Performed By: #### C BC ####[facility] [address] [place], [place] [address]DrRyann Zaynab Wall Monocytes/100 WBC (Bld) 7.7 % Normal 1.7-12.0 [facility] Comment on above: Performed By: #### C BC ####[facility] [address] [place], [place] [address]DrRyann Zaynab Wall NEUT # 5.5 103/ul Normal 1.4-6.5 [facility] Comment on above: Performed By: #### C BC ####[facility] [address] [place], [place] [address]DrRyann Zaynab Wall Neutrophils/100 WBC (Bld) 71.5 % Normal 43.0-75.0 [facility] Comment on above: Performed By: #### C BC ####[facility] [address] [place], [place] [address]DrRyann Zaynab Wall Platelet mean volume (Bld) [Entitic vol] 11.4 fL Normal 9.5-13.5 [facility] Comment on above: Performed By: #### C BC ####[facility] [address] [place], [place] [address]DrRyann Zaynab Wall PLT 83 103/ul Critically low 150-450 [facility] Comment on above: Performed By: #### C BC ####[facility] [address] [place], [place] [address]DrRyann Zaynab Duke RBC 3.76 106/ul Critically low 4.20-5.40 [facility] Comment on above: Performed By: #### C BC ####[facility] [address] [place], [place] [address]DrRyann Wall WBC 7.7 103/ul Normal 4.0-11.0 [facility] Comment on above: Performed By: #### C BC ####[facility] [address] [place] [address]Dr. Zaynab Wall ER URINE PROFILEon 2 Bilirubin Ql (U) Negative Normal NEGATIVE The [facility] Comment on above: Performed By: #### E RUR #### [facility] Laboratory [address] [place] [address] Dr. Zaynab Wall Clarity (U) CLEAR Normal CLEAR [facility] Comment on above: Performed By: #### E RUR #### [facility] Laboratory [address] [place] [address] Dr. Zaynab Wall Color (U) LT. YELLOW Normal YELLOW [facility] Comment on above: Performed By: #### E RUR #### [facility] Laboratory [address] [place] [address] Dr. Zaynab KOWALSKI A micrscopic examination will be performed if indicated. Normal [facility] Comment on above: Performed By: #### E RUR #### [facility] Laboratory [address] [place] [address] Dr. Zaynab Wall Glucose Ql (U) Negative Normal NEGATIVE [facility] Comment on above: Performed By: #### E RUR #### [facility] Laboratory [address] [place] [address] Dr. Zaynab Wall Hemoglobin Ql (U) Negative Normal NEGATIVE [facility] Comment on above: Performed By: #### E RUR #### [facility] Laboratory [address] [place] [address] Dr. Zaynab Wall Ketones Ql (U) Negative Normal NEGATIVE [facility] Comment on above: Performed By: #### E RUR #### [facility] Laboratory [address] [place] [address] Dr. Zaynab Wall LEUKOCYTES Negative Normal NEGATIVE [facility] Comment on above: Performed By: #### E RUR #### [facility] Laboratory [address] [place] [address] Dr. Zaynab Wall Nitrite Ql (U) Negative Normal NEGATIVE [facility] Comment on above: Performed By: #### E RUR #### [facility] Laboratory [address] [place] [address] [address] Zaynab Wall pH (U) 7.0 [pH] Normal 5-9 [facility] Comment on above: Performed By: #### E RUR #### [facility] Laboratory [address] [place] [address] [address] Zaynab Wall SPEC GRAVITY 1.015 Normal 1.005-<=1.025 [facility] Comment on above: Performed By: #### E RUR #### [facility] Laboratory [address] [place] [address] Dr. Zaynab Wall UA PROTEIN Negative Normal NEGATIVE/ TRACE [facility] Comment on above: Performed By: #### E RUR #### [facility] Laboratory [address] [place] [address] Dr. Zaynab Wall UR MICRO IND NOT INDICATED Normal [facility] Comment on above: Performed By: #### E RUR #### [facility] Laboratory [address] [place] [address] Dr. Zaynab Wall Urobilinogen Qn (U) 1.0 {Jennifer'U}/dL Normal 0.2 - 1. 0 [facility] Comment on above: Performed By: #### E RUR #### [facility] Laboratory [address] [place] [address] Dr. Zaynab Wall FREE T4on 09-21-2022 Free T4 [Mass/Vol] 0.92 ng/dL Normal 0.76-1.46 [facility] Comment on above: Performed By: #### F T4 ####[facility] [address] [place] [address]Dr. Zaynab Wall PROF 14(COMP METB)on 022 Albumin [Mass/Vol] 3.7 g/dL Normal 3.4-5.0 [facility] Comment on above: Performed By: #### C MP, CMADM, TSH ####[facility] [address] [place] [address]Dr. Zaynab Wall Albumin/Globulin [Mass ratio] 1.2 {ratio} Normal [facility] Comment on above: Performed By: #### C MP, CMADM, TSH ####[facility] [address] [place] [address]Dr. Zaynab Wall ALP [Catalytic activity/Vol] 43 U/L Critically low 46-116 [facility] Comment on above: Performed By: #### C MP, CMADM, TSH ####[facility] [address] [place] [address]Dr. Johannaermelinda Duke ALT [Catalytic activity/Vol] 14 U/L Normal 14-59 [facility] Comment on above: Performed By: #### C YUDELKA, CMADM, TSH ####[facility] [address] [place] [address]Dr. Johannaermelinda Wall Anion gap [Moles/Vol] 8.0 mmol/L Normal [facility] Comment on above: Performed By: #### C YUDELKA, CMADM, TSH ####[facility] [address] [place], [place] [address]Dr. Zaynab Wall AST [Catalytic activity/Vol] 11 U/L Critically low 15-37 [facility] Comment on above: Performed By: #### C YUDEKLA CMADM, TSH ####[facility] [address] [place] [address]Dr. Zaynab Wall Bilirubin [Mass/Vol] 0.5 mg/dL Normal 0.2-1.0 [facility] Comment on above: Performed By: #### C YUDELKA, CMADM, TSH ####[facility] [address] [place] [address]Dr. Zaynab Wall Calcium [Mass/Vol] 9.0 mg/dL Normal 8.5-10.1 [facility] Comment on above: Performed By: #### C MP, CMADM, TSH ####[facility] [address] [place] [address]Dr. Zaynab Wall Chloride [Moles/Vol] 104 mmol/L Normal 98-107 [facility] Comment on above: Performed By: #### C MP, CMADM, TSH ####[facility] [address] [place] [address]Dr. Zaynab Wall CO2 [Moles/Vol] 30.8 mmol/L Normal 21.0-32.0 [facility] Comment on above: Performed By: #### C MP, CMADM, TSH ####[facility] [address] [place] [address]Dr. Zaynab Wall Creatinine [Mass/Vol] 0.73 mg/dL Normal 0.55-1.02 [facility] Comment on above: Performed By: #### C MP, CMADM, TSH ####[facility] [address] [place] [address]Dr. Zaynab Wall EGFR-AF EMIRATI >60 Normal >=60 [facility] Comment on above: Performed By: #### C MP, CMADM, TSH ####[facility] [address] [place] [address]Dr. Johannaermelinda Duke EGFR-NON AF EMIRATI >60 Normal >=60 [facility] Comment on above: Performed By: #### C MP, CMADM, TSH ####[facility] [address] [place] [address]Dr. Zaynab Wall Globulin (S) [Mass/Vol] 3.0 g/dL Normal [facility] Comment on above: Performed By: #### C MP, CMADM, TSH ####[facility] [address] [place] [address]Dr. Johannaermelinda Wall Glucose [Mass/Vol] 88 mg/dL Normal 74-106 [facility] Comment on above: Performed By: #### C MP, CMADM, TSH ####[facility] [address] [place] [address]Dr. Zaynab Wall Potassium [Moles/Vol] 4.8 mmol/L Normal 3.5-5.1 [facility] Comment on above: Performed By: #### C MP, CMADM, TSH ####[facility] [address] [place] [address]Dr. Johannaermelinda Wall Protein [Mass/Vol] 6.7 g/dL Normal 6.4-8.2 [facility] Comment on above: Performed By: #### C MP, CMADM, TSH ####[facility] [address] [place] [address]Dr. Zaynab Wall Sodium [Moles/Vol] 138 mmol/L Normal 136-145 [facility] Comment on above: Performed By: #### C MP, CMADM, TSH ####[facility] [address] [place] [address]Dr. Zaynab Wall Urea nitrogen [Mass/Vol] 10.0 mg/dL Normal 7.0-18.0 [facility] Comment on above: Performed By: #### C MP, CMADM, TSH ####[facility] [address] [place] [address]Dr. Zaynab Wall Urea nitrogen/Creatinine [Mass ratio] 13.7 mg/mg Normal [facility] Comment on above: Performed By: #### C MP, CMADM, TSH ####[facility] [address] [place] [address]Dr. Zaynab Wall TSHon 09-21-2022 TSH 0.033 uIU/mL Critically low 0.358-3.740 [facility] Comment on above: Performed By: #### C MP, CMADM, TSH ####[facility] [address] [place] [address]Dr. Zaynab Wall XR CHEST 1 Von 09-21-2022 [...] by: NELLIE WHITE Date: 2022-09-21 10:31 Normal [facility] Office Visiton 09-05-2022 Follow-up visit [id number] Cecile Khoury 1975 F Date Provider Department Center 09/05/2022 FELIZ ISRAEL MP [facility] Chart Close Cosign Required by: Feliz Patton MD[[id number]] Family History Family history unknown: Yes Level of Service:16648 AR OFFICE/OUTPATIENT [facility] 30-44 MINUTES (GC) Reason for Visit and Comments: Pain [136] Normal [facility] MRI SHOULDER LT WO CONon MRI [...] by: TIMOTHY BRAMBILA Date: 2022-08-29 12:09 Normal [facility] XR ARTHRO SHOULDER LTon 08-03 XR ARTHRO [...] by: TIMOTHY BRAMBILA Date: 2022-08-29 11:09 Normal [facility] CBC AUTO DIFFon 07-31-2022 BASO # 0.1 103/ul Normal 0.0-0.1 [facility] Comment on above: Performed By: #### C BC ####[facility] [address] [place] [address]Dr. Zaynab Wall Basophils/100 WBC (Bld) 0.5 % Normal 0.2-2.0 [facility] Comment on above: Performed By: #### C BC ####[facility] [address] [place] [address]Dr. Zaynab Wall EO # 0.2 103/ul Normal 0.0-0.7 [facility] Comment on above: Performed By: #### C BC ####[facility] [address] [place] [id number] Wall Eosinophils/100 WBC (Bld) 1.8 % Normal 0.9-7.0 [facility] Comment on above: Performed By: #### C BC ####[facility] [address] [place] [id number] Wall Erythrocyte distribution width (RBC) [Ratio] 12.2 % Normal 11.0-15.0 [facility] Comment on above: Performed By: #### C BC ####[facility] [address] [place] [address]Dr. Zaynab Wall Hematocrit (Bld) [Volume fraction] 39.8 % Normal 36.0-48.0 [facility] Comment on above: Performed By: #### C BC ####[facility] [address] [place] [address]Dr. Johannaermelinda Duke Hemoglobin (Bld) [Mass/Vol] 13.0 g/dL Normal 12.0-16.0 [facility] Comment on above: Performed By: #### C BC ####[facility] [address] [place], [place] [address]Dr. Zaynab Wall IG # 0.04 10e3/ul Critically high 0.00-0.03 [facility] Comment on above: Performed By: #### C BC ####[facility] [address] [place], [place] [address]Dr. Zaynab Wall IG % 0.4 % Normal 0.0-0.5 [facility] Comment on above: Performed By: #### C BC ####[facility] Z[address] [place], [place] [address]Dr. Zaynab Wall LYMPH # 2.8 103/ul Normal 1.2-3.8 [facility] Comment on above: Performed By: #### C BC ####[facility] [address] [place], [place] [address]Dr. Zaynab Wall Lymphocytes/100 WBC (Bld) 24.7 % Normal 20.5-60.0 [facility] Comment on above: Performed By: #### C BC ####[facility] Nszuebeg[address] [place], [place] [address]Dr. Zaynab Wall MANUAL DIFF REQ NO Normal [facility] Comment on above: Performed By: #### C BC ####[facility] [address] [place] [address]Dr. Zaynab Wall MCH (RBC) [Entitic mass] 31.1 pg Normal 26.7-34.0 [facility] Comment on above: Performed By: #### C BC ####[facility] [address] [place] [id number]. Zaynab Duke MCHC (RBC) [Mass/Vol] 32.7 g/dL Normal 29.9-35.2 [facility] Comment on above: Performed By: #### C BC ####[facility] [address] [place] [address]Dr. Zaynab Wall MCV (RBC) [Entitic vol] 95.2 fL Normal 81.0-99.0 [facility] Comment on above: Performed By: #### C BC ####[facility] [address] [place] [address]DrRyann Wall MONO # 0.9 103/ul Critically high 0.3-0.8 [facility] Comment on above: Performed By: #### C BC ####[facility] Q[address]slbov[address] [place], [place] [address]Dr. Zaynab Wall Monocytes/100 WBC (Bld) 8.2 % Normal 1.7-12.0 [facility] Comment on above: Performed By: #### C BC ####[facility] D[address]ldplxflo[address] [place], [place] [address]Dr. Zaynab Wall NEUT # 7.3 103/ul Critically high 1.4-6.5 [facility] Comment on above: Performed By: #### C BC ####[facility] [address]kb[address] [place], [place] [address]Dr. Zaynab Wall Neutrophils/100 WBC (Bld) 64.4 % Normal 43.0-75.0 [facility] Comment on above: Performed By: #### C BC ####[facility] [address]isd[address]lbk[address] [place], [place] [address]Dr. Zaynab Wall Platelet mean volume (Bld) [Entitic vol] 10.5 fL Normal 9.5-13.5 [facility] Comment on above: Performed By: #### C BC ####[facility] Hbkwmv[address]hs[address] [place], [place] [address]Dr. Zaynab Wall PLT 237 103/ul Normal 150-450 [facility] Comment on above: Performed By: #### C BC ####[facility] [address] [place], [place] [address]Zs. Zaynab Wall RBC 4.18 106/ul Critically low 4.20-5.40 [facility] Comment on above: Performed By: #### C BC ####[facility] [address] [place], [place] [address]Wu. Zaynab Wall WBC 11.4 103/ul Critically high 4.0-11.0 The [facility] Comment on above: Performed By: #### C BC ####[facility] [address] [place], [place] [address]Cw. Z[address] Wall CT ABD/PELVIS WO CONon 07-31 [...] KIMI WELSH Date: 2022-07-31 03:46 Normal [facility] ER URINE PROFILEon 2 Bilirubin Ql (U) Negative Normal NEGATIVE The [facility] Comment on above: Performed By: #### E RUR #### [facility] Laboratory [address] [place] [address] Dr. Zaynab Wall Clarity (U) CLEAR Normal CLEAR [facility] Comment on above: Performed By: #### E RUR #### [facility] Laboratory [address] [place] [address] Dr. Zaynab Wall Color (U) LT. YELLOW Normal YELLOW [facility] Comment on above: Performed By: #### E RUR #### [facility] Laboratory [address] [place] [address] Dr. Zaynab Wall ERUAHKirill A micrscopic examination will be performed if indicated. Normal [facility] Comment on above: Performed By: #### E RUR #### [facility] Laboratory [address] [place] [address] Dr. Zaynab Wall Glucose Ql (U) Negative Normal NEGATIVE [facility] Comment on above: Performed By: #### E RUR #### [facility] Laboratory [address] [place] [address] Dr. Zaynab Wall Hemoglobin Ql (U) Negative Normal NEGATIVE [facility] Comment on above: Performed By: #### E RUR #### [facility] Laboratory [address] [place] [address] Dr. Zaynab Wall Ketones Ql (U) Negative Normal NEGATIVE [facility] Comment on above: Performed By: #### E RUR #### [facility] Laboratory [address] [place] [address] Dr. Zaynab Wall LEUKOCYTES Negative Normal NEGATIVE [facility] Comment on above: Performed By: #### E RUR #### [facility] Laboratory [address] [place] [address] Dr. aZynab Wall Nitrite Ql (U) Negative Normal NEGATIVE [facility] Comment on above: Performed By: #### E RUR #### [facility] [address] [place] [address] Dr. Zaynab Wall pH (U) 6.0 [pH] Normal 5-9 [facility] Comment on above: Performed By: #### E RUR #### [facility] Laboratory [address] [place] [address] Dr. Zaynab Wall SPEC GRAVITY 1.015 Normal 1.005-<=1.025 [facility] Comment on above: Performed By: #### E RUR #### [facility] Laboratory [address] [place] [address] Dr. Zaynab Wall UA PROTEIN Negative Normal NEGATIVE/ TRACE [facility] Comment on above: Performed By: #### E RUR #### [facility] Laboratory [address] [place] [address] Dr. Zaynab Wall UR MICRO IND NOT INDICATED Normal [facility] Comment on above: Performed By: #### E RUR #### [facility] Laboratory [address] [place] [address] Dr. Zaynab Wall Urobilinogen Qn (U) 0.2 {Jennifer'U}/dL Normal 0.2 - 1. 0 [facility] Comment on above: Performed By: #### E RUR #### [facility] Laboratory [address] [place] [address] Dr. Zaynab Wall PROF CHEM 8 (BAS METB)on Anion gap [Moles/Vol] 8.2 mmol/L Normal [facility] Comment on above: Performed By: #### B MP #### [facility] Laboratory [address] [place] [address] Dr. Zaynab Wall Calcium [Mass/Vol] 9.1 mg/dL Normal 8.5-10.1 [facility] Comment on above: Performed By: #### B MP #### [facility] Laboratory [address] [place] [address] Dr. Zaynab Wall Chloride [Moles/Vol] 102 mmol/L Normal 98-107 [facility] Comment on above: Performed By: #### B MP #### [facility] [address] [place] [address] Dr. Zaynab Wall CO2 [Moles/Vol] 31.6 mmol/L Normal 21.0-32.0 [facility] Comment on above: Performed By: #### B MP #### [facility] Laboratory [address] [place] [address] Dr. Zaynab Wall Creatinine [Mass/Vol] 0.84 mg/dL Normal 0.55-1.02 [facility] Comment on above: Performed By: #### B MP #### [facility] Laboratory [address] [address] [address] Zaynab Wall EGFR-AF EMIRATI >60 Normal >=60 [facility] Comment on above: Performed By: #### B MP #### [facility] Laboratory [address] [address] [address] Zaynab Wall EGFR-NON AF EMIRATI >60 Normal >=60 [facility] Comment on above: Performed By: #### B MP #### [facility] Laboratory [address] [place] [address] [address] Zaynab Wall Glucose [Mass/Vol] 106 mg/dL Normal 74-106 [facility] Comment on above: Performed By: #### B MP #### [facility] Laboratory [address] [place] [address] Dr. Zaynab Wall Potassium [Moles/Vol] 3.8 mmol/L Normal 3.5-5.1 [facility] Comment on above: Performed By: #### B MP #### [facility] Laboratory [address] [address] [address] Zaynab Wall Sodium [Moles/Vol] 138 mmol/L Normal 136-145 [facility] Comment on above: Performed By: #### B MP #### [facility] Laboratory [address] [address] [address] Zaynab Wall Urea nitrogen [Mass/Vol] 15.0 mg/dL Normal 7.0-18.0 [facility] Comment on above: Performed By: #### B MP #### [facility] Laboratory [address] [address] [address] Zaynab Wall Urea nitrogen/Creatinine [Mass ratio] 17.9 mg/mg Normal [facility] Comment on above: Performed By: #### B MP #### [facility] Laboratory [address] [address] [address] Zaynab Wall XR CHEST 2 Von 07-31-2022 XR CHEST 2 V EXAM: XR CHEST 2 V HISTORY: Pain COMPARISON: Chest x-ray 07/10/2021 TECHNIQUE: 2 view chest x-ray frontal and lateral FINDINGS: No lobar consolidation, large pleural effusions, pneumothorax, or acute bony abnormality. Cardiac size unremarkable. IMPRESSION: No radiographic evidence for acute chest abnormality. Electronically authenticated by: KIMI WELSH Date: 2022-07-31 03:36 Normal [facility] ED Note-Physicianon 06-23-20 ED Note-Physician Basic Information Time Seen: Tayla Carlson PA-C 06/21/2022 15:54 Chief Complaint Pt presents to ED with complaints of left shoulder pain onset last week, worsens with movement or carrying a backpack . History of Present Illness 46-year-old female presents with left shoulder pain for the past 1.5 weeks without injury. Hurts to move shoulder around. She tried nzwn-xvv-yhlkvaf medications without relief. Denies swelling, temperature or [...] day(s), # 9 tab(s), Refills(s) 0, Pharmacy: [facility]/pharmacy #[id number], 155, cm, 06/21/22 15:51:00 EDT, Height/Length [...] 2 days [address] [place] [address] Additional Instructions: Patient Education Muscle Strain, Ovpo-ld-Ntba Attestation This visit was performed by both [...] acute abnormality Read By: Tayla Carlson PA-C [facility] Comment on above: Result Comment: Elec tronically Signed By: Tayla Carlson PA-C\.br\Date and Time Signed: 06/21/22 16:34 EDT\.br\Electronically Co-Signed By: Nabil Caldera MD\.br\Date and Time Co-Signed: 06/23/22 07:27 EDT Coding Summary.on 06-22-2022 Coding Summary. CD:[id number] Gh 0bWw+PGhlYWQ+ZR6GJATuS 97jkMRibJ3RG2rSZB6WKZU KKLUIVL7TFD8qrSD7RXfnV 2VybiAv GgonjNQgLU69URe2SBO0qD wcGIzqaY3rhKPrH4m3BvWs SW64dT69PDnyREPbTpX1Wo ZpbjsgbWFy D6inWnLtlRBqLgb+PHRhYm xlIHdpZHRoPScxMDAlJyBz hHmjZG1yOo3yPGRzXNTdvC xhcHNlOiBj q3ndDYAfUPdbZV6kkXidB3 QbqEW2SHGxb4l8Hk42qDG+ BWSsQIH3cBpnYJwsq708Fl Zar0dbENH6 uSRuBEosOJR3Q56ax5A8OQ IwUDVlHNT0xJX4lJ8lvCrs ugxoS4WdaIAeTcQ5NFB3nR KyiP2mrCit abpjmE7sJjm+N73VSL1FMG KBGD0DGsb4J2ToHhugpBU+ LA48XHKyUW42qMFbiDHip4 hccOs1OiKk GWNvWLS5dHjjJTmft9JnMI StN52psJMxw6X0YFHjpInb nVGbDcMfkYE5yJ5tIUilnl mtv2gbmkwx Pcttj5rasg45rQ99V41yVM arBRGeSTT7TISgNVQlzDxv tc4gaJ5uLt6+UOzgr2vwd4 vxvJm9ZdAc MUEtkiIeqXrvDET8q4LkEp 38I3PskHbfp2WrWdh2yx55 yLGrq1K6dFX5HArgVZOrgR 0mNLihZfT2 HLQmLsSenM12gIKzECzgOz 4ktXvypGktCC6sVYKnttdl XLRzhR5tMFVnmSCkgOmeUR 4wNTBpbjtm m332DnQpJGO2VHPybFTpM3 CsdP1hBpJtKCFwVCXlC8Bu eJZkSAdhG499TNthOiU3LP VswvRtK9Jc FTOllJotEsP2q3B5Cj0Lv0 KbskukPMC1XGamUDO8DjMg ToNwSzN9V9RlNxx0GEZuyK qoYW9qY4Ji LKDyjbkrcfxzrWG0JLWhKC EjuH60pPKxFGskGl9ct1N8 i815NWXqJYUflN66Vx1mmO ogMTBwdCBU rU8sbkkxw5ltuevhCtGvTU BcGLl7BOr3HXVgfSxnVmSh ISJ6AzW0XVD4wKLyxX1mzW lzycfnbK6g Oyc+Y48yhW7kKFV4JOQ5hd rpAWJroqQtPX32JE17B7Oo PjwvdGFibGU+PGRpdiBzdH omUK3lSbCq a6fer8IgQLyeN6TlDHDkBJ gtIww6XEFlLLN3nPC5qE3a PAQkWNgxt4L2nNF4B4Kldq Iclq8wl8fz EBIcSLcvD24ssMWnt8S0VJ IgjDS6TVBcyQlkAtNofA24 Oyc+VTNxfNbiu6ZrMcweq1 chf4lfcIn3 LsWlUUJhsfQndLvdOCZ8v5 LsRm92N72sBHvyUFAkWEGv VFQeQDKayPfbxk7uiY6lFw 8+PGNvbCB3 sSE0rB6zGRNtYyJ5LTyaS4 99GcZpzEYrSulxf2ges2nt mHv8WpJgZLVdjdJjlLcpPX T4u9PtTf48 A01bJZsqNEWrBWYcTJLuIP JkiJipsy2uuW8aKi8+PC9j c2fysu73zF90jLO+PHRkIH X9uRtrNNgz KSQfiZ8aMIyjQgV6YEYxGl YleF60yMAuURjfSx3euGuh xDgkEE3vZXZcjzrtv893Eq Icl0owFKMf rQVkUPkhBXZ5N55hp3A3PK OyVGLxXZB1eAX6dO6nmWdz bjogbGVmdDsgdmVydGljYW qyCTlgN714 IHRvcDsnPlBhdGllbnQgTm IyQGv2K7AuWbr6SOKbwXem CQ7xiLJiRYjwEl3znYfafO pvYV0zNDQs xlohp979ViFhh2dtLNRhbY UwUXmtKAA1U82yo5E6FIVc PHKdEKT6cYK7wJ5mqWtoyd ogbGVmdDsg zrVruZxgLFgzCOdbC261IA RvcDsnPkJpcnRoIERhdGU6 KM96RR99tZKrj2L6qFF1D5 BhZGRpbmct ytgjkXK7XMTjQPFleG78Jy 8nwRghEf4nCUBmUWU8VWHi wKMrJ1AhqU3fMeXdLRRmBB HpZ4WnsBVo IGjiJ902BLzzZiW4PSKjhw VlD9UxXWCgbYshVmZ2t1E1 Nf1CY7P9LI42WR40fKNhl8 P2gLG4F7Mf KZJdyaklocqpaVC7OEEaPC KlfG51Tg2hzOnfVz2wVDKq UTF5WVTpaIAjW6CxiI6dAh AjMDAwMDAw A7EscIKzHOlaP561BDbcTx H0SRFgraMtP9GcHEWifYzj RuE7d0X8Eh7DCMd4JU21EW 75kLZzv6Y8 uFZ6H5RxDMRuonvksgckrG U7IJCxBNRstJ91Pu4mcLsi Oc5bPBToYVY7IQAfhHDrB9 UgwM9iMpLy NGEnAWDnD7GmrNXzEBzxR9 51UPerCxC5FDOxknTxH5Xk JMZzbHouThY4i9A7Jf5LIF YxBO73FND2 vEE0FC53ZP89S0SbJmihoL FibGU+PHRhYmxlIHdpZHRo ETedETTgNiFptNozZS9gYl 9yZGVyLWNv oSixgPBpWbQak8xxFGGzNS otSK1ohVdtM7BswWK3KMEl y5k6Ys31K72hU4RtbVT+PG KydTN2vBJ5 cB3pCeWyVzI2HRmcB878To QvpOZdJvoef6eqb3yanJn4 FlN5XLEugnWpqXqqAED9x1 MkDz02D87a IHdpZHRoPSIxNSUiIHZhbG bjjn5ncH8cXg9+PGNvbCB3 gXV3pB6rAdViUkW1LOjsB9 49InRvcCIv Afqvj4wbr8mcvAm2IgRjDG EygcRtpLyxCNV5q8BvXt90 J6OceZgxe7QgMki3mt57cP Eiz8T6eMO0 P7NyAKGbsuuylQJkyNphTS 1pESDxekveVRDriC6tQOQb O0r6MfHiHqN9GFhhG5Nyyl X7EVUlcVQp MOouNSM3V73gq7M7KNVoRQ UcENJ3kBT4iH9vnPlgxryw bGVmdDsgdmVydGljYWwtYW xkJ167SMQg zJlqFJXyiX8tSLOggKRpxX osKM4lOLAhokykTc2ATQVC S0XFVXJNNRLkHNedlRS+PH TxEKJ1zLhe QOxgKWVdnD5fTLJqA2g0Hz XiWoP4XQjdY9ZbLMYlvtnf Hl49jH0nAtQpZzI0VGkoD2 VmvxS6LEEl gWNkEGomCGG2X26fq2B7PP EhWUAoVOT3jUJ5gK9hdTiy bjogbGVmdDsgdmVydGljYW xnFVqaN349 TZCinFztSaNpJfXkXnO9Zj b8S5AzRlp5BTMitVhpVO1e rTHjQWcjVi1suVrjbCwuKV 4wNTBpbjtw FXWllL2qUOLqnTPbkOfsFO 0dOTElpjsdf563DtOiAUC0 FHWxsNRcD2WwpN2pZiWhBO WhWSBuP3Fk bQSeFQhmQ208FDgoSxF7ST UhstTiF7HdVRKmyVnlPxU9 v9Q2Vk52SIADHDWylaugeP Q+PHRkIHN0 eXkcPNfeWGOfpH2yDLApQ0 z7HvEbBsE1ITcrL9MmDLAo gbmuBg00oJ2zHmIbCxI6OV pgQ1WihrN3 FFUjlKUhPMrpGMU7N38kv6 A4SUXaNHRbRII3oKH6tG5v bGlnbjogbGVmdDsgdmVydG ljYWwtYWxp P438GYWbqRwbKoJetLEnFZ wvdGQ+BNLsGLT6zZwaVMzg BMTnkR7bCPFoZ8b7AvVzRr E2ZRpxS9Ir EJIueywcRs17vI4fCiYgTp D0GFkgS5TflaB4OFRriHSm KKjhVGA5X21js3Y4KNPeFZ NmVAZ1fII2 pI4hbXxvylqhrHEpfTtcjv CucAwhOUldFCrtF088CZUr nQcpHwGjZPHvJJ5xgTrvyG Q+LC09ls66 E2KxCxsgKbs0QUHdVUJ9xG N2cW3vGHSaWJyms5T9yNG1 R0HknnBwbg5ux9xyDOUkRC hbR41ujKDb r6N0PSPgzIM1EKJqwIlyAj EhiL10Wfn+ULNnvMhlp1Me Tbjna8xyx9pcfHw2UjSmKJ IgdmFsaWdu OUB3z6DlRc02D80pLBglGW GkJIAlUTXrUMKliZlwfo3j tN6bCk9+IPLydJB8vOI2hS 9bCtHhApF5 BPqkG096UrEdkXKsDhraq6 mtw6lqwEg4EoXrDAOaboEc dCnyYNF8b3CnCz86H5FsrK ycq3VrSfy3 jz07gEKze4S8nDE9E8YwIE RusshkyUPmyYwdTA4mJUNq akayMQYgiV1yHNRiI2q5Mv QzWxU9KCix A6EadeO5ZRKaiJOoGJUcpQ BMrU1kveaay4mizsayLgYa ETHaZTm5BTl0USCknSnsGh ZoLJA3GfB5 DGI9hMGctA8zrQuccrkdfX 9wOyc+ZUw1x2upbUHwOO6e oQE5IT23QW66bXWbr5Z9tL Y7N3IcNOXw oqkollawmRJ7UPWlYFSyvR 41Yh5hbDimEb7kEVJzPZZ6 KMKsbHPwM9TloO7fQeJtJS XtNTBzI0Zx bWGiJKlrH704CLdrQsU1EZ LvmqBqO5MyPZJroNqeNbU6 j5B4Dm7PVC33BO41LF22gG Zwc9S9kEX1 O0JkKKCldntimitefAY6JW RdGNUopB50Kf8yyVvwBu1p XGFvDAD0KIOxiNFmE5QtsV 9yOiAjMDAw OLEhG1BacBXyMSjpG751XA xtOoD7HGEudaDfS3QpPFDd uQksFbB9q6V2Xm8TLu06FB 88BB42oQJh w1P2wHY5X3KdBRIauxatcm ogbFI3QRGhLGKsyR37Sz7h hKqxEd0uBBTgACK1OZJwkB AdJ5UoeM7t MwAkVNQbFSEuZ3OdcQKgPQ psK022WIgmGgC2QTXpovTn S8IpPZGhkMmsWrZ5k2I7Xf 4DDNnfspd8 C1FfFlyskRN+EO25SZFwTA 02uUXyvJSfz2zkmZb5UjMf ELLoCBU6cDmhEFgpz6IiRA DgM70jmGRi c2U6 (more content not included)... Normal [facility] Consent for Treatmenton 06-02 Consent for Treatment [id number] 0CD:127 Normal [facility] Discharge Instructionson Discharge Instructions [id number] 0CD:127 Normal [facility] ED Clinical Summaryon 2021 ED Clinical Summary [place] [id number] ED Clinical Summary Person Information Name: STEPHANIE KHOURY [facility] Age: 46 Years : 1975 Sex: Female Language: Kinyarwanda PCP: Chi Potter MD Marital Status: Single Phone: [phone] Visit Id: Visit Reason: Shoulder pain-swelling; LEFT [...] 06/21/2022 17:01:21 06/21/2022 17:01:21 06/21/2022 17:01:21 ADDRESS: [address] [place] [id number] [facility] DOC NOTES: MEDICAL INFORMATION: Prescriptions Given: New Medications [id number], [address], [place] [id number], [phone] methocarbamol (Robaxin-750 oral tablet) 1 Tablets By Mouth 3 times a day for 3 Days. Refills: 0. PATIENT EDUCATION INFORMATION: Instructions: Muscle Strain, Fgdu-oc-Vwaa Follow up: With: Address: When: AKIRA ACUNA CNP [address] [place], [place] [id number] Within 1 to 2 days DIAGNOSIS: 1:Strain of left trapezius muscle Normal [facility] ED Patient Education Noteon 06-21-2022 ED Patient [...] not too tight. General instructions ? Take nqrj-myd-zkaxtbp and prescription medicines only as told by [...] Reviewed: 12/25/2017 Elsevier Patient Education ? 2019 [employer] Normal [facility] ED Patient Summaryon 022 ED Patient Summary [address] [address] Patient Discharge Instructions Person Information Name: STEPHANIE KHOURY Age: 46 Years Arrival Date: 06/21/2022 15:32:04 Discharge Diagnosis: 1:Strain of left trapezius muscle Primary Care Physician: Chi Potter MD Provider Information Primary Provider: Advanced Speech Teacher:None The exam and treatment you received in the Emergency Department were for an urgent problem and are not intended as complete care. It is important that you follow up with a doctor, nurse practitioner, or physician?s assistant merchandise manager for ongoing care. If your symptoms become worse or you do not improve as expected and you are unable to reach your usual health care provider, you should return to the Emergency Department. We are available 24 hours a day. PENG STEPHANIE Larkin has been given the following list of patient education materials, prescriptions and follow-up instructions: Follow-up Instructions: With: Address: When: AKIRA ACUNA CNP [address] [place], [place] [id number] Within 1 to 2 days In the event that this physician does not participate in your insurance network, please consult with your insurance company to find a nearby participating provider. Patient Education Materials: Muscle Strain, Lwne-rz-Hvxt A MESSAGE TO ALL PATIENTS REGARDING OPIOIDS PRESCRIPTION OPIOIDS: WHAT YOU NEED TO KNOW Prescription opioids can be used to help relieve uosvtyqr-pl-axnexz pain and are often prescribed following a [...] be struggling with addiction, tell your health healthcare administration intern and ask for guidance or call [employer]?S National Helpline at 8-470-720-ECVK. k Source: [place] Department of Health and Human Services/[place] (more content not included)... Normal [facility] XR Shoulder Complete Lefton 06-21-2022 XR Shoulder [...] MD Transcribed by: TIMOTHY Technologist: WADE Hernandez [facility] PAP ACOG PANEL 3: 30 to 65on 04-26-2022 . . Normal [facility] Comment on above: Result Comment: Perf ormed at: WB Performed By: #### [id number] ####[facility] [address] [place] [address]Dr. Zaynab Wall Age Gdln ACOG Testing 30-65 Normal [facility] Comment on above: Performed By: #### [id number] ####[facility] [address] [place] [address]Dr. Zaynab Wall Chlamydia, Nuc. Acid Amp Negative Normal Negative [facility] Comment on above: Result Comment: Perf ormed at: =G Performed By: #### [id number] ####[facility] [address] [place] [address]Dr. Zaynab Wall DIAGNOSIS: Comment Normal [facility] Comment on above: Result Comment: NEGA TIVE FOR INTRAEPITHELIAL LESION OR MALIGNANCY. Performed at: WB Performed By: #### [id number] ####[facility] [address] [place] [address]Dr. Zaynab Wall Gonococcus, Nuc. Acid Amp Negative Normal Negative [facility] Comment on above: Result Comment: Perf ormed at: =G Performed By: #### [id number] ####[facility] [address] [place] [address]Dr. Zaynab Wall HPV Aptima Negative Normal Negative [facility] Comment on above: Result Comment: This nucleic acid amplification test detects fourteen high-risk HPV types (16,18,31,33,35,39,45,51,52,56,58,59,66,68) without differentiation. Performed at: =G Performed By: #### [id number] ####[facility] [address] [place] [address]DrRyann Wall Methodology: CTIM Normal [facility] Comment on above: Result Comment: The Thin Prep(R) Business Advisor was unable to read this specimen. Therefore a manual review was performed. Performed at: WB Performed By: #### [id number] ####[facility] [address] [place], [place] [address]DrRyann Wall Note: Comment Normal [facility] Comment on above: Result Comment: The Pap smear is a screening test designed to aid in the detection of premalignant and malignant conditions of the uterine cervix. It is not a diagnostic procedure and should not be used as the sole means of detecting cervical cancer. Both false-positive and false-negative reports do occur. . Performed at: WB Performed By: #### [id number] ####[facility] [address] [place], [place] [address]DrRyann Wall Performed by: Comment Normal [facility] Comment on above: Result Comment: Ashvin Beatty Spin Tank Tender (ASCP) Performed at: WB Performed By: #### [id number] ####[facility] [id number] [place], [place] [address]DrRyann Wall Specimen adequacy: Comment Normal [facility] Comment on above: Result Comment: Sati sfactory for evaluation. No endocervical component is identified. Performed at: [facility] Performed By: #### [id number] ####[facility] [id number] [place], [place] [address]DrRyann Wall Vital Signs Date Time Vital Sign Value Performing Clinician Facility 07-13-2024 23:40-0400 Body height 157.48 cm MD Chi Potter Work Phone: [facility] 07-13-2024 23:40-0400 Body temperature 97.7 [degF] MD Chi Potter Work Phone: [facility] 07-13-2024 23:40-0400 Body weight 49.1 kg MD Chi Potter Work Phone: [facility] 07-13-2024 23:40-0400 Diastolic blood pressure 75 mm[Hg] MD Chi Potter Work Phone: [facility] 07-13-2024 23:40-0400 Heart rate 81 /min MD Chi Potter Work Phone: [facility] 07-13-2024 23:40-0400 Respiratory rate 16 /min MD Chi Potter Work Phone: [facility] 07-13-2024 23:40-0400 SaO2% (BldA) [Mass fraction] 100 % MD Chi Potter Work Phone: [facility] 07-13-2024 23:40-0400 Systolic blood pressure 134 mm[Hg] MD Chi Potter Work Phone: [facility] 04-03-2023 15:39-0400 Blood Pressure Location Lopez LANGLEYL [facility] [place] 04-03-2023 15:39-0400 Diastolic blood pressure 66 mm[Hg] Lopez LANGLEYL [facility] [place] 04-03-2023 15:39-0400 Heart rate 66 /min Lopez NILL [facility] [place] 04-03-2023 15:39-0400 Respiratory rate 16 /min Lopez NILL [facility] [place] 04-03-2023 15:39-0400 Systolic blood pressure 104 mm[Hg] Lopez NILL [facility] [place] 06-21-2022 15:49-0400 Body temperature 97.88 [degF] Nabil Caldera [facility] 06-21-2022 15:49-0400 Diastolic blood pressure 91 mm[Hg] Nabil Caldera [facility] 06-21-2022 15:49-0400 Heart rate 80 /min Nabil Caldera [facility] 06-21-2022 15:49-0400 Respiratory rate 18 /min Nabil Caldera [facility] 06-21-2022 15:49-0400 SaO2% (BldA) [Mass fraction] 98 % Nabil Caldera [facility] 06-21-2022 15:49-0400 Systolic blood pressure 138 mm[Hg] Nabil Caldera [facility] Encounters Encounter Date Encounter Type Care Provider Facility Start: 07-13-2024 End: 07-14-2024 Emergency department patient visit MD Chi Potter Work Phone: [facility] Work Phone: Start: 04-17-2023 ambulatory Lopez R KORINL Facility : [facility] Start: 04-03-2023 End: 04-04-2023 ambulatory Lopez R MARY Facility: [facility] Start: 04-03-2023 End: 04-03-2023 Patient encounter procedure Lopez R KORINL [facility]aid [facility] Start: 03-26-2023 ambulatory Lopez R KORINL Facility : [facility] Start: 02-26-2023 End: 02-27-[address] DOCTOR SULLIVAN Facility:[facility] Start: 01-16-2023 End: 01-16-[address] CHI POTTER . Facility:[facility] Start: 10-26-2022 End: 10-27-[address] CHI POTTER . Facility:[facility] Start: 10-20-2022 End: 10-21-2022 ambulatory [facility] Start: 10-19-2022 End: 10-20-2022 ambulatory [facility] Start: 10-17-2022 End: 10-17-2022 ambulatory [facility] Start: 09-21-2022 End: 09-21-2022 ambulatory TREY MACIEL . Facility:[facility] Start: 09-05-2022 End: 09-06-2022 ambulatory FELIZ [facility] Start: 08-29-2022 End: 08-29-[address] CHI POTTER . Facility:[facility] Start: 07-31-2022 End: 07-31-2022 ambulatory ZITA OCHOA Facility:[facility] Start: 07-04-2022 End: 07-28-[address] CHI POTTER . Facility: Start: 06-21-2022 End: 06-21-2022 Emergency department patient visit Nabil Caldera Facility:[facility] Start: 06-21-2022 End: 06-21-2022 Emergency department patient visit Nabil Caldera [facility] Start: 04-26-2022 Encounter for gynecological examination (general) (routine) without abnormal findings TERE HART [facility] Start: 04-20-2022 End: 04-20-2022 ambulatory TERE HART Facility:[facility] Start: 04-20-2022 End: 04-20-2022 Encounter for gynecological examination (general) (routine) without abnormal findings TERE HART Facility: Procedures Date Procedure Procedure Detail Performing Clinician Abdominal hysterectomy Jimmy MARTÍNEZ Ligation of fallopian tube Jordan iban MARTÍNEZ Plan of Treatment Date Care Activity Detail Author Start: 07-13-2024 [facility] Albumin/Globulin ratio [facility] Anion gap measurement [facility] Basophils [#/volume] in Blood by Automated count [facility] Basophils/100 leukoc ytes in Blood by Automated count [facility] Eosinophils/100 leuk ocytes in Blood by Automated count [facility] Erythrocyte distribu tion width [Ratio] by Automated count [facility] Erythrocytes [#/volume] in Blood [facility] Globulin [Mass/volume] in Serum [facility] Hematocrit [Volume F raction] of Blood [facility] Hemoglobin [Mass/vol ume] in Blood [facility] Leukocytes [#/volume ] corrected for nucleated erythrocytes in Blood by Automated coun [facility] Leukocytes [#/volume] in Blood [facility] Lymphocytes [#/volum e] in Blood by Automated count [facility] Lymphocytes/100 leuk ocytes in Blood by Automated count [facility] MCH [Entitic mass] b y Automated count [facility] MCHC [Mass/volume] b y Automated count [facility] MCV [Entitic volume] by Automated count [facility] Monocytes [#/volume] in Blood by Automated count [facility] Monocytes/100 leukoc ytes in Blood by Automated count [facility] Neutrophils [#/volum e] in Blood by Automated count [facility] Neutrophils/100 leuk ocytes in Blood by Automated count [facility] Nucleated erythrocyt es [Presence] in Blood by Automated count [facility] Patient referral [facility] Work Phone: Platelet mean volume [Entitic volume] in Blood by Automated count [facility] Platelets [#/volume] in Blood [facility] Immunizations Immunization Date Immunization Notes Care Provider [facility] 08-27-2022 influenza virus vaccine, unspecified formulation Lopez MARTÍNEZ [facility] [place] 08-27-2022 SARS-CoV-2 (COVID-19 ) [id number] Lopez MARTÍNEZ [facility] [place] 11-17-2021 SARS-CoV-2 (COVID-19 ) mRNA BNT-162b2 vax Lopez MARTÍNEZ [facility] [place] 03-23-2021 SARS-CoV-2 (COVID-19 ) mRNA BNT-162b2 vax Lopez MARTÍNEZ [facility] [place] 03-02-2021 SARS-CoV-2 (COVID-19 ) mRNA BNT-162b2 vax Lopez MARTÍNEZ [facility] Payers Date Payer Category Payer Self-pay 2023 Unknown [id number] 1975 Unknown [id number] 2.16.84 [id number] 1975 Unknown [id number] 2.16.84 [id number] 1975 Unknown [id number] 2.16.84 [id number] 1975 Unknown [id number] 2.16.84 [id number] 1975 Unknown [id number] 2.16.84 [id number] 1975 Unknown [id number] 2.16.84 [id number] 1975 Unknown [id number] 2.16.84 [id number] 1975 Unknown [id number] 2.16.84 [id number] 1975 Unknown [id number] 2.16.8 [id number] 1975 Unknown [id number] 2.16.8 [id number] 1975 Unknown [id number] 2.16.8 [id number] 1975 Unknown [id number] 2.16.8 [id number] 1958 Medicaid [id number] 1958 Unknown [id number] Unknown [employer] [id number] Unknown [id number] 2.16.8 [id number] Social History Date Type Detail Facility Tobacco smoking status No Smoking Status Entered [facility] Sex Assigned At Female [facility] Start: 04-03-2023 End: 07-13-2024 Tobacco smoking status Never smoked tobacco (finding) [facility] [place] Tobacco smoking status Never [facility] [place] Start: 1975 Sex Assigned At Female [facility] NEGATED: Highlighted row Fir [facility] Functional Status Date Assessment Result Facility 04-03-2023 Functional Status N/A [facility] 06-21-2022 Functional Status N/A [facility] Clinical Note 04-03-2023 Note Date & Type [...] 5 mcg= 1 tab(s), Oral, Daily 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 10 mg Tab-Dis, 10 mg= 1 tab(s), [...] virus vaccine, inactivated 08/27/2022 Recorded SARS-CoV-2 (COVID-19) [id number] 08/27/2022 Recorded SARS-CoV-2 (COVID-19) mRNA BNT-162b2 vax 11/17/2021 Recorded SARS-CoV-2 (COVID-19) mRNA BNT-162b2 vax 03/23/2021 Recorded SARS-CoV-2 (COVID-19) mRNA BNT-162b2 vax 03/02/2021 Recorded [facility] Comment on above: Result Comment: Elec tronically [...] strength. Clovis Kruse MD Orthopaedic Surgery PGY-1 [facility] 10/17/22 10:[address] [facility] Progress note 09-05-2022 Note Date & [...] some mild improvement. Had MRI completed at [place] which reportedly demonstrated possible partial thickness tear [...] -Mobic -Continue home exercise program -L shoulder [facility] CSI -RTC 6 weeks w/ MRI on [...] to verify the correct patient, procedure, equipment, windows desktop support and site/side marked as required. Patient was prepped and draped in the usual sterile fashion. Williams Kowalski MD Orthopedic Surgery, PGY-5 Pager: [phone] 09/05/22 9:33 AM By using the attestations [...] be an additional personal documentation from me. [facility] Hospital Discharge instructions 06-21-2022 Note Date & Type Note Facility 06-21-2022 Hospital Discharg e instructions Patient Education 06/21/2022 16:30:19 Muscle Strain, [id number]-Nmjp Muscle Strain A muscle strain is an [...] is not too tight. General instructions Take ncvp-dge-xwbxgxa and prescription medicines only as told by [...] 01/14/2020 Document Reviewed: 12/25/2017 Elsevier Patient Education 2020 [employer] Follow Up Care 06/21/2022 15:32:56 With:KALPANA BELLAKIRA Address: [address] [place] [address] When:1 to 2 days [facility] Evaluation + Plan note Note Date & Type Note Facility Evaluation + Plan note No data available for this section [facility] Evaluation + Plan note Note Date & Type Note Facility Evaluation + Plan note Future Appointments Appointment Date:04/17/2023 03:20:00 PM Scheduled Provider:Lopez MARTÍNEZ MD Location:[facility] Appointment Type: Procedure 30 [facility] [place] Evaluation note Note Date & Type Note Facility Evaluation note No [facility] Hospital Discharge instructions Note Date & Type Note Facility Hospital Discharge instructions No data available for this section [facility] [place] Progress note Note Date & Type Note Facility Progress note No data available for this section [facility] Summary Purpose Family History No Family History Records Found Relationship Condition Age at Onset Recorded Date/T sania family member Unknown mother Hypertension Unknown Advance Directives No Advanced Directives Records Found Advance Directive Response Recorded Date/ Time Advance Directives No July 14, 2024 1:38am Chief Complaint and Reason for Visit Chief Complaint palpitations; weak Additional Source Comments Care Team (unrecognized sect ion and content) Team Status: Active Member Role Status Dates Chi Potter MD Primary Care Provider Active Team Status: Inactive Member Role Status Dates Chi Potter MD Primary Care Provider Active Start: July 13, 2024 End: July 14, 2024 Stanley Martinez DO Emergency Provider Active St art: July 13, 2024 End: July 14, 2024 INFORMATION SOURCE (unrecogn ized section and content) DATE CREATED AUTHOR 10/21/2022 [facility] DATE CREATED AUTHOR AUTHOR'S ORGANIZ ATION 03/16/2023 [facility] DATE CREATED AUTHOR AUTHOR'S ORGANIZ ATION 04/11/2023 [facility] DATE CREATED AUTHOR AUTHOR'S ORGANIZ ATION 08/18/2024 [facility] Goals (unrecognized section and content) Goals may be documented in a n alternate section FOR RECORDS PERTAINING TO PATIENTS WHO ARE [...] BE BASED ON THE PRIMARY CLINICAL RECORDS. [facility] [employer] [facility]. provides no warranty or guarantee of the accuracy or completeness of information in this document.
[2024-11-14 21:33] VITALS: BP 104/69; PULSE 67; TEMP 36.6; O2SAT 99; BMI 19.2
--- NOTE | 2024-11-14 21:45 | ECG_ITS ---
[facility] Test Date: 2024-11-14 Pat Name: LESA MCBRIDE Department: Room: - Gender: Female [employer]: : 1975 Requested By: CHI LYON Order Number: [id number] Reading MD: CHI LYON Measurements Intervals Wister Rate: 63 P: 74 SD: 150 QRS: 88 QRSD: 82 T: 59 QT: 388 QTc: 396 Interpretive Statements 1100 Sinus rhythm 9110 normal ECG Compared to ECG 09/21/2022 09:24:54 No significant changes Electronically Signed On 11-17-2024 6:58:02 EST by CHI LYON
--- NOTE | 2024-11-14 21:45 | XR_ITS ---
[address] [address] Patient Name: LESA MCBRIDE MRN: [id number] date: 1975 Sex: F Assigned Patient Location: ER Current Patient Location: Accession/Order Number: [id number] Exam Date: 11/14/2024 22:56 Report Date: 11/15/2024 01:28 At the request of: NAVNEET MORRISSEY Procedure: XR chest 1V EXAMINATION: XR chest 1V, , 11/14/2024 10:56 PM EST INDICATION: cp HISTORY: Ordering Provider Reason for Exam: cp Technologist Note: Additional: COMPARISON: None. TECHNIQUE: Chest x-ray: One view. FINDINGS: No pneumothorax, pleural effusion or focal airspace consolidation. Heart is normal in size. Bony thorax is unremarkable. XR/XR chest 1V IMPRESSION: No acute cardiopulmonary process. Electronically authenticated by: TRACE SIMPSON Date: 11/15/2024 01:28
[2024-11-14 22:21] LABS: Basophils Absolute Auto 0.1 10^3/uL (0.0-0.1); Basophils Percent Auto 0.8 % (0.2-2.0); Eosinophils Absolute Auto 0.1 10^3/uL (0.0-0.7); Eosinophils Percent Auto 1.4 % (0.9-7.0); Hematocrit 40.9 % (36.0-48.0); Hemoglobin 13.3 g/dL (12.0-16.0); Lymphocytes Absolute Auto 2.5 10^3/uL (1.2-3.8); Mean Corpuscular HGB Conc 32.5 g/dL (29.9-35.2); Mean Corpuscular Hemoglobin 31.9 pg (26.7-34.0); Mean Corpuscular Volume 98.1 fL (81.0-99.0); Mean Platelet Volume 11.2 fL (9.5-13.5); Monocytes Absolute Auto 0.7 10^3/uL (0.3-0.8); Monocytes Percent Auto 9.7 % (1.7-12.0); Neutrophils Percent Auto 54.1 % (43.0-75.0); Platelet Count 193 10^3/uL (150-450); Red Blood Count 4.17 10^6/uL (4.20-5.40); Red Cell Distribution Width 11.9 % (11.0-15.0); White Blood Count 7.3 10^3/uL (4.0-11.0)
[2024-11-14 22:26] LABS: HCG Qualitative NEGATIVE (NEGATIVE); Internal Control Within Normal Limits
[2024-11-14 22:37] LABS: Alanine Aminotransferase 17 U/L (14-59); Albumin Level 4.3 g/dL (3.4-5.0); Alkaline Phosphatase 59 U/L (46-116); Anion Gap 8.1; Aspartate Amino Transferase 12 U/L (15-37); BUN Creatinine Ratio 12.9; Bilirubin Total 0.3 mg/dL (0.2-1.0); Calcium 9.8 mg/dL (8.5-10.1); Carbon Dioxide 31.9 mmol/L (21.0-32.0); Chloride 105 mmol/L (98-107); Estimated GFR (African America >60 (>=60 mL/min/1.73m^2); Estimated GFR (Non-African Ame 59 (>=60 mL/min/1.73m^2); Globulin 3.4 g/dL; Glucose 90 mg/dL (74-106); Sodium 141 mmol/L (136-145); Total Protein 7.7 g/dL (6.4-8.2); Troponin I High Sensitivity <4.0 pg/mL (4.0-51.3)
[2024-11-14 22:38] LABS: Albumin Globulin Ratio 1.3
[2024-11-14 23:55] LABS: Troponin I High Sensitivity <4.0 pg/mL (4.0-51.3)
[2024-11-15 00:28] VITALS: BP 104/65; PULSE 63; O2SAT 99
--- NOTE | 2024-11-15 01:46 | ED.CHESTPAI1 ---
HPI - Chest Pain General Chief Complaint: Chest Pain Stated Complaint: Back Pain Time Seen by Provider: 11/14/24 21:44 Source: patient Mode of arrival: walk-in Limitations: no limitations History of Present Illness HPI narrative: The patient is coming to us with left-sided chest pain mostly at the left midaxillary line, the patient mentioned that the pain goes to her back although she mentioned that this pain only was there for few seconds when she was doing some physical work at her job. The patient mentioned that there was nothing that she did today was out of her ordinary work She was not carrying anything heavy The patient does not have any pain at the moment the pain was disappeared before the patient arrival There was no difficulty breathing or any sweating with the pain there was no nausea vomiting or any dizziness The pain only came upon movement at that time Patient is not a smoker of cigarettes Related Data Home Medications ?Medication ?Instructions ?Recorded ?Confirmed cetirizine 10 mg tablet 10 mg PO DAILY 08/29/23 11/14/24 fluticasone furoate 100 1 inh inhalation Q24H 08/29/23 11/14/24 mcg-vilanterol 25 mcg/dose inhalation powder levothyroxine 100 mcg tablet 50 mcg PO DAILY 08/29/23 11/14/24 liothyronine 5 mcg tablet 5 mcg PO DAILY 08/29/23 11/14/24 lubiprostone 8 mcg capsule 8 mcg PO BID 08/29/23 08/29/23 metoprolol tartrate 25 mg tablet 25 mg PO BID 08/29/23 11/14/24 pantoprazole 40 mg tablet,delayed 40 mg PO DAILY 08/29/23 11/14/24 release rizatriptan 10 mg disintegrating 10 mg PO Q2H PRN migraine headache 08/29/23 11/14/24 tablet venlafaxine 75 mg capsule,extended 75 mg PO DAILY 08/29/23 08/29/23 release 24 hr albuterol 90 mcg/actuation aerosol mcg inhalation 11/14/24 inhaler Previous Rx's ?Medication ?Instructions ?Recorded uyotwsohbl-klucyijppwfhc-izyupnhp 1 cap PO Q6H PRN pain #20 caps 08/29/23 50 mg-300 mg-40 mg capsule (Fioricet) sulfacetamide sodium 10 % eye drops 2 drp ophthalmic (eye) Q4H #15 mL 02/16/24 Allergies Allergy/AdvReac Type Severity Reaction Status Date / Time ciprofloxacin (From Cipro) Allergy Unknown Vomiting Verified 11/14/24 21:36 diphenhydramine (From AdvReac Unknown Drowsy Verified 11/14/24 21:36 Benadryl) Review of Systems ROS Status of ROS 10 or more systems reviewed and unremarkable except as noted in history and below PFSH PFSH Social History Little interest or pleasure in doing things: not at all Feeling down, depressed, or hopeless: not at all Exam Narrative Exam Narrative: Nurses notes and vital signs reviewed and patient is not hypoxic. General: Well-appearing and in no apparent distress. Skin: Warm, dry, no pallor noted. No rash. Head: Normocephalic, atraumatic. Neck: Supple, non-tender. Eye: Pupils are equal, round and EOMI. No scleral icterus. Ears, Nose, Mouth, and Throat: TM are clear, no nasal mucosal hypertrophy. Oral mucosa is moist, no posterior oropharynx erythema, uvula is mid-line Cardiovascular: Regular Rate and Rhythm without murmur, gallop or rub. Respiratory: No accessory muscle use or respiratory distress. Lungs are clear to auscultation, no wheezing, rales or rhonchi Chest Wall: no tenderness Back: No midline thoracic or lumbar vertebral tenderness. No CVA tenderness Musculoskeletal: normal ROM, no calf or popliteal tenderness, no lower extremity edema/swelling GI: Abdomen is soft, non-distended. Normal bowel sounds. No masses appreciated. No tenderness to palpation. No rebound, guarding, or rigidity noted. Neurological: A&O x4. No cranial nerve dysfunction observed. No truncal ataxia. Moves all extremities. Sensation intact. Psychiatric: Cooperative and interactive. Normal mood and affect. Constitutional Vital Signs, click to edit/add: Last Vital Signs Temp 98 F 11/14/24 21:33 Pulse 63 11/15/24 00:28 Resp 17 11/15/24 00:28 BP 104/65 11/15/24 00:28 Pulse Ox 99 11/15/24 00:28 O2 Del Method Room Air 11/15/24 00:28 Course Vital Signs Vital signs: Vital Signs Temperature 98 F 11/14/24 21:33 Pulse Rate 67 11/14/24 21:33 Respiratory Rate 16 11/14/24 21:33 Blood Pressure 104/69 11/14/24 21:33 Pulse Oximetry 99 11/14/24 21:33 Oxygen Delivery Method Room Air 11/14/24 21:33 Temperature 98 F 11/14/24 21:33 Pulse Rate 63 11/15/24 00:28 Respiratory Rate 17 11/15/24 00:28 Blood Pressure 104/65 11/15/24 00:28 Pulse Oximetry 99 11/15/24 00:28 Oxygen Delivery Method Room Air 11/15/24 00:28 MDM - Chest Pain MDM Narrative Medical decision making narrative: The patient EKG showing sinus rhythm with a heart rate of [address] elevation or depression The patient CBC and chemistry showed no acute pathology Troponin was repeated twice showing no acute pathology as well with a negative chest x-ray The patient presenting to us with possibly atypical chest pain mostly that resolved before arrival The patient does not have any risk factor for coronary artery disease but at this moment the patient was instructed to rest The patient is to follow up with primary care physician in next 2-3 days or to return to the emergency department should any of the signs or symptoms worsen or new symptoms develop. The patient agrees with the following Diagnosis and Treatment plan and the patient will be discharged home. Lab Data Labs: Lab Results 11/14/24 11/14/24 Range/Units 22:10 23:22 WBC 7.3 (4.0-11.0) 10^3/uL RBC 4.17 L (4.20-5.40) 10^6/uL Hgb 13.3 (12.0-16.0) g/dL Hct 40.9 (36.0-48.0) % MCV 98.1 (81.0-99.0) fL MCH 31.9 (26.7-34.0) pg MCHC 32.5 (29.9-35.2) g/dL RDW 11.9 (11.0-15.0) % Plt Count 193 (150-450) 10^3/uL MPV 11.2 (9.5-13.5) fL Neut % (Auto) 54.1 (43.0-75.0) % Lymph % (Auto) 34.0 (20.5-60.0) % [place] % (Auto) 9.7 (1.7-12.0) % Eos % (Auto) 1.4 (0.9-7.0) % Baso % (Auto) 0.8 (0.2-2.0) % Neut # (Auto) 4.0 (1.4-6.5) 10^3/uL Lymph # (Auto) 2.5 (1.2-3.8) 10^3/uL [place] # (Auto) 0.7 (0.3-0.8) 10^3/uL Eos # (Auto) 0.1 (0.0-0.7) 10^3/uL Baso # (Auto) 0.1 (0.0-0.1) 10^3/uL Abs Immat Gran (auto) 0.00 (0.00-0.03) 10^3/uL Imm/Tot Granulo (auto) 0.0 (0.0-0.5) % Sodium 141 (136-145) mmol/L Potassium 4.0 (3.5-5.1) mmol/L Chloride 105 (98-107) mmol/L Carbon Dioxide 31.9 (21.0-32.0) mmol/L Anion Gap 8.1 BUN 13.0 (7.0-18.0) mg/dL Creatinine 1.01 (0.55-1.02) mg/dL Est GFR ( Amer) >60 (>=60 mL/min/1.73m^2) Est GFR (Non-Af Amer) 59 L (>=60 mL/min/1.73m^2) BUN/Creatinine Ratio 12.9 Glucose 90 (74-106) mg/dL Calcium 9.8 (8.5-10.1) mg/dL Total Bilirubin 0.3 (0.2-1.0) mg/dL AST 12 L (15-37) U/L ALT 17 (14-59) U/L Alkaline Phosphatase 59 (46-116) U/L Troponin I High Sens <4.0 L <4.0 L (4.0-51.3) pg/mL Total Protein 7.7 (6.4-8.2) g/dL Albumin 4.3 (3.4-5.0) g/dL Globulin 3.4 g/dL Albumin/Globulin Ratio 1.3 Serum HCG, Qual Negative (NEGATIVE) Discharge Plan Discharge Chief Complaint: Chest Pain Clinical Impression: Chest pain Patient Disposition: Home, Self-Care Time of Disposition Decision: 00:19 Condition: Good Prescriptions / Home Meds: No Action cetirizine 10 mg tablet 10 mg PO DAILY fluticasone furoate-vilanterol 100-25 mcg/dose blister with device 1 inh INHALATION Q24H levothyroxine 100 mcg tablet 50 mcg PO DAILY liothyronine 5 mcg tablet 5 mcg PO DAILY lubiprostone 8 mcg capsule 8 mcg PO BID metoprolol tartrate 25 mg tablet 25 mg PO BID pantoprazole 40 mg tablet,delayed release (DR/EC) 40 mg PO DAILY venlafaxine 75 mg capsule,extended release 24hr 75 mg PO DAILY rizatriptan 10 mg tablet,disintegrating 10 mg PO Q2H PRN (Reason: migraine headache) tokyhdwyoc-smjetaonjwwlh-jahz [Fioricet] 50-300-40 mg capsule 1 cap PO Q6H PRN (Reason: pain) Qty: 20 0RF albuterol 90 mcg/actuation aerosol inhalation sulfacetamide sodium 10 % drops 2 drp ophthalmic (eye) Q4H Qty: 15 0RF Print Language: Turkmen Instructions: Chest Pain (DC) Referrals: Luisito Potter MD [Primary Care Provider] - 1 week Discharge Date/Time: 11/15/24 00:31
== END 2024-11-15 00:31 | disposition home or self-care (01) ==
PROVIDERS: Emergency Provider Emergency Medicine; PCP Family Medicine
DX: R07.9 Chest pain, unspecified (principal)
CPT/HCPCS: 36415; 71045; 80053; 84484; 84703; 85025; 93005; 99285

== ENCOUNTER 2025-07-21 15:06 | Outpatient (OUT) | payer BC, SELFPAY ==
--- OUTSIDE RECORDS SUMMARY | 2025-01-26 04:30 | XMS_ITS ---
Author Organization The [facility] in [place] Address [address] [place] [address] Care Team Providers Care Gusset Stitcher Name Role Phone Flaco Potter Primary Care Provider Allergies Allergen (clinical drug ingredient) Drug/Non Drug Allergy documented on EMR Reaction Allergy Type Onset Date Status diphenhydramine Benadryl excessive sleepiness Drug Allergy Active ciprofloxacin Cipro nausea Drug Allergy Act eleni REASON FOR VISIT sweet taste in mouth, migraine started last night Medications Medication SIG (Take, Route, Frequency, Duration) Notes Start Date End Date Status Pantoprazole Sodium 40 MG take 1 tablet by mouth twice a day for 30 Active tiZANidine HCl 4 MG 2 tablets Orally at bedtime 10/09/2023 Active Metoprolol Tartrate 25 MG 1 tablet with food Orally Twice a day for 30 days Active Diclofenac Sodium 75 MG 1 tablet as need ed Orally Twice a day 02/19/2024 Active Iron (Ferrous Sulfate) 325 (65 Fe) MG 1 tablet Orally bid for 30 days 01/27/2024 Active Levothyroxine Sodium 100 MCG 1/2 tablet in the morning on an empty stomach Orally Once a day for 30 days Active Liothyronine Sodium 5 MCG TAKE ONE TABLE T BY MOUTH DAILY ON AN EMPTY STOMACH for 30 Active Maxalt-WELDER REPAIR 10 MG 1 tablet Orally Once a day for 30 days PRN Active Albuterol Sulfate HFA 108 (90 Base) MCG/ACT 1 puff as needed Inhalation every 4 hrs PRN Active Breo Ellipta 100-25 MCG/ACT 1 puff Inhal ation Once a day Active Hjgladqibd-CTAP-Syveelxd 50-300-40 MG 1 capsule as needed Orally every 6 hrs for 30 days PRN Active Nystatin 671994 UNIT/ML 5 ml Mouth/Throa t Four times a day for 14 days 01/26/2025 Active Cetirizine HCl 10 MG 1 tablet Orally Onc e a day for 90 days Active Social History Tobacco Use: Social History Observation Description Date Details (start date - stop date) Never Smoker NA - NA Tobacco Use/Smoking Question Answer Notes Patient is a nonsmoker AUDIT-C (Standard) Question Answer Notes Did you have a drink containing alcohol in the p ast year? No Points 0 Interpretation Negative Problems Problem Type SNOMED Code ICD Code Onset Dates Problem Status W/U Status Risk Notes Problem Thrush (53720166) Thrush (B37.0) Active confirmed Vital Signs Weight 103.8 lbs 01/26/2025 Height 61 in 01/26/2025 Blood pressure systolic 118 mm Hg 01/26/20 25 Blood pressure diastolic 70 mm Hg 025 BMI 19.61 kg/m2 01/26/2025 Encounters Encounter Location Date Provider Diagnosis [facility] [address] [place] [address] 01/26/2025 Flaco Hoy Migraine G43.909 and Thrush B37.0 Assessments Encounter Date Diagnosis (ICD Code) Assessment Notes Treatment Notes Treatment Clinical Notes Section Notes 01/26/2025 Migraine (ICD-10 - G43.909) injections -off work today 01/26/2025 Thrush (ICD-10 - B37.0) nystatin Plan Of Treatment Medication Medication Name Sig Start Date Stop Date Notes Nystatin 301321 UNIT/ML 5 ml Mouth/Throa t Four times a day for 14 days 01/26/2025 Treatment Notes Assessment Notes Migraine injections -off work today Thrush nystatin Medications Administered Medication Instructions Date of Administration Dosage Notes Ketorolac Tromethamine 01/26/2025 60 mg Phenergan 01/26/2025 25 mg Progress Notes * Stephanie KHOURY ADOB: 7 (49 yo F)Acc No.[id number]:01/26/2025 Progress Note Patient: Stephanie GLEZ Provider: Kirill Potter ([facility])MD :1975 A ge:49 Y S ex:Female Date:01/26/2025 Address:[place], [id number] Check In:08:18 AM ESTCheck O ut:09:04 AM EST Subjective: * Chief Complaints: * S weet taste in mouthMigraine started last night * HPI: G eneral: migine acting up - needs to got o work. D epression Screening: PHQ-2 (2015 Edition) L ittle interest or pleasure in doing things??Not at all F eeling down, depressed, or hopeless? N ot at all T otal Score 0 * ROS: E ENT: hearing changes d enies. v isual changes d enies.?non-healing mouth sores d enies. s wollen glands or neck lumps d enies. h oarseness d enies. s ore throat d enies. d ifficulty swallowing d enies. n ose bleeds d enies. n pedro congestion d enies. e ar ache d enies. e ar discharge?denies. r inging in ears d enies. l ight sensitivity d enies. e ye pain d enies. b lurring d enies. e ye irritation d enies. d ouble vision d enies.?vision loss d enies. G eneral/Constitutional: Sweats: D enies. F atigue d enies. S leep problems d enies. A norexia d enies. M alaise d enies. W eight loss d enies.?Fatigue or Weakness d enies. F ever or Chills d enies. C ardiovascular: Shortness of Breath w/lying flat d enies. L ightheadedness/dizziness d enies. C hest tightness/ heavy pressure d enies. S welling of legs, ankles, or feet d enies. W aking up with shortness of breath d enies. C hest pain denies. P alpitations d enies. W eight gain d enies. R espiratory: Chronic or frequent cough d enies. C oughing up blood?denies. D ifficulty breathing d enies. P roductive cough d enies. S noring?denies. S hortness of breath that awakens from sleep (PND) d enies. C hest pain d enies. S putum production d enies. W heezing d enies. M usculoskeletal: Joint pain d enies. J oint Fluid d enies. B ack pain d enies. K nee pain d enies. N velia pain d enies. J oint Stiffness d enies. M uscle cramps d enies. W eakness of muscles d enies. A rthritis d enies. M uscle aches d enies. P ain in shoulder(s) d enies. S wollen joints d enies. * Active Problem List J01.11 Acute recurrent fron mini sinusitis Modified On:03/22/2023 Status:confirmed R00.2 Palpitations Modified On:03/22/2023 Status:confirmed R19.01 Right upper quadrant abdominal swelling, mass and lump Modified On:03/22/2023 Status:confirmed J45.909 Asthma Modified On:03/22/2023 Status:confirmed E03.9 Hypothyroidism Modified On:03/22/2023 Status:confirmed F41.9 Anxiety Modified On:03/22/2023 Status:confirmed F32.9 Depression Modified On:03/22/2023 Status:confirmed G47.00 Insomnia Modified On:03/22/2023 Status:confirmed L30.9 Eczema Modified On:03/22/2023 Status:confirmed G43.909 Migraine Modified On:09/06/2023 Status:confirmed R00.0 Sinus tachycardia Modified On:03/22/2023 Status:confirmed H91.90 Hearing loss Modified On:03/22/2023 Status:confirmed K59.00 Constipation Modified On:03/22/2023 Status:confirmed J02.9 Acute pharyngitis Modified On:03/22/2023 Status:confirmed M75.91 Supraspinatus tendin itis, right Modified On:03/22/2023 Status:confirmed R13.10 Dysphagia Modified On:03/22/2023 Status:confirmed M62.830 Back muscle spasm Modified On:03/22/2023 Status:confirmed M70.60 Trochanteric bursiti s Modified On:03/22/2023 Status:confirmed M77.40 Metatarsalgia Modified On:03/22/2023 Status:confirmed B02.9 Herpes zoster Modified On:03/22/2023 Status:confirmed Z01.419 Encounter for gyneco logical examination Modified On:03/22/2023 Status:confirmed M75.40 Shoulder impingement syndrome Modified On:03/22/2023 Status:confirmed K58.1 Irritable bowel synd linwood with constipation Modified On:03/22/2023 Status:confirmed M54.50 Low back pain, unspe cified Modified On:03/22/2023 Status:confirmed D22.9 Melanocytic nevi, un specified Modified On:03/25/2023 Status:confirmed K21.9 Gastro-esophageal re flux disease without esophagitis Modified On:03/25/2023 Status:confirmed M67.814 Other specified diso rders of tendon, left shoulder Modified On:04/15/2023 Status:confirmed M47.812 Spondylosis without myelopathy or radiculopathy, cervical region Modified On:04/15/2023 Status:confirmed R10.9 Right flank discomfo rt Modified On:05/06/2023 Status:confirmed R20.2 Paresthesia of skin Modified On:08/01/2023 Status:confirmed M62.838 Trapezius muscle spa sm Modified On:10/09/2023 Status:confirmed 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, right shoulder Modified On:12/16/2023 Status:confirmed N39.0 Acute UTI Modified On:05/07/2024 Status:confirmed R42 Vertigo Modified On:06/25/2024 Status:confirmed B37.0 Thrush Modified On:01/26/2025 Status:confirmed * Medical History: * Surgical History: H ysterectomy/Tubal * Hospitalization/Major Diagno stic Procedure: s ee above * Family History: F ather: alive 78 yrs. M other: alive 70 yrs. B rother(s): alive 47 yrs. D aughter(s): attention deficit disorder, OCD. 1 brother(s) - healthy. 3 daughter(s) - healthy. . * Social History: T obacco Use: T obacco Use/Smoking P atient is a n onsmoker D rug/Alcohol: A MORA-C (Standard) D id you have a drink containing alcohol in the past year? N o P oints 0 I nterpretation N egative * Medications: T akingAlbuterol Sulfate HFA 108 (90 Base) MCG/ACT Aerosol Solution 1 puff as needed Inhalation every 4 hrs , Notes to Pharmacist: PRNBreo Ellipta(Fluticasone Furoate-Vilanterol) 100-25 MCG/ACT Aerosol Powder Breath Activated 1 puff Inhalation Once a day Kmqlfehryq-OBPS-Kledyeov 50-300-40 MG Capsule 1 capsule as needed Orally every 6 hrs , Notes to Pharmacist: PRNCetirizine HCl 10 MG Tablet 1 tablet Orally Once a day Diclofenac Sodium 75 MG Tablet Delayed Release 1 tablet as needed Orally Twice a day Iron (Ferrous Sulfate) 325 (65 Fe) MG Tablet 1 tablet Orally bid Levothyroxine Sodium 100 MCG Tablet 1/2 tablet in the morning on an empty stomach Orally Once a day Liothyronine Sodium 5 MCG Tablet TAKE ONE TABLET BY MOUTH DAILY ON AN EMPTY STOMACH Maxalt-WELDER REPAIR(Rizatriptan Benzoate) 10 MG Tablet Disintegrating 1 tablet Orally Once a day , Notes to Pharmacist: PRNMetoprolol Tartrate 25 MG Tablet 1 tablet with food Orally Twice a day Pantoprazole Sodium 40 MG Tablet Delayed Release take 1 tablet by mouth twice a day tiZANidine HCl 4 MG Tablet 2 tablets Orally at bedtime Taking Albuterol Sulfate HFA 108 (90 Base) MCG/ACT Aerosol Solution 1 puff as needed Inhalation every 4 hrs , Notes to Pharmacist: PRNTaking Breo Ellipta(Fluticasone Furoate-Vilanterol) 100-25 MCG/ACT Aerosol Powder Breath Activated 1 puff Inhalation Once a day Taking Pcbqinwzkp-QJBS-Vtrtcxin 50-300-40 MG Capsule 1 capsule as needed Orally every 6 hrs , Notes to Pharmacist: PRNTaking Cetirizine HCl 10 MG Tablet 1 tablet Orally Once a day Taking Diclofenac Sodium 75 MG Tablet Delayed Release 1 tablet as needed Orally Twice a day Taking Iron (Ferrous Sulfate) 325 (65 Fe) MG Tablet 1 tablet Orally bid Taking Levothyroxine Sodium 100 MCG Tablet 1/2 tablet in the morning on an empty stomach Orally Once a day Taking Liothyronine Sodium 5 MCG Tablet TAKE ONE TABLET BY MOUTH DAILY ON AN EMPTY STOMACH Taking Maxalt-WELDER REPAIR(Rizatriptan Benzoate) 10 MG Tablet Disintegrating 1 tablet Orally Once a day , Notes to Pharmacist: PRNTaking Metoprolol Tartrate 25 MG Tablet 1 tablet with food Orally Twice a day Taking Pantoprazole Sodium 40 MG Tablet Delayed Release take 1 tablet by mouth twice a day Taking tiZANidine HCl 4 MG Tablet 2 tablets Orally at bedtime DiscontinuedAzithromycin 250 MG Tablet 2 tabs today then 1 tab Orally daily Cefdinir 300 MG Capsule 2 capsule Orally once a day dexAMETHasone 6 MG Tablet 1 tablet Orally daily Paxlovid (300/100)(Nirmatrelvir&Ritonavir 300/100) 20 x 150 MG & 10 x 100MG Tablet Therapy Pack 3 tablets Orally Twice a day predniSONE 20 MG Tablet 2 tablet Orally Once a day Pyridium(Phenazopyridine HCl) 200 MG Tablet 1 tablet after meals Orally Three times a day Medication List reviewed and reconciled with the patientDiscontinued Azithromycin 250 MG Tablet 2 tabs today then 1 tab Orally daily Discontinued Cefdinir 300 MG Capsule 2 capsule Orally once a day Discontinued dexAMETHasone 6 MG Tablet 1 tablet Orally daily Discontinued Paxlovid (300/100)(Nirmatrelvir&Ritonavir 300/100) 20 x 150 MG & 10 x 100MG Tablet Therapy Pack 3 tablets Orally Twice a day Discontinued predniSONE 20 MG Tablet 2 tablet Orally Once a day Discontinued Pyridium(Phenazopyridine HCl) 200 MG Tablet 1 tablet after meals Orally Three times a day Medication List reviewed and reconciled with the patient * Allergies: B enadryl: excessive sleepiness - Side EffectsCipro: nausea - Criticality Highno[Allergies Verified] Objective: * Vitals: W t:103.8lbs, Ht: 61 in, BP:118/70mm Hg, BMI:19.61Index, Ht-cm: 154.94 cm, Wt-k.08 kg. * Examination: P hysical Exam: GENERAL: w ell developed, well nourished, in no acute distress. HEAD: n ormocephalic/atraumatic. EYES: p upils equal, round and reactive to light, conjunctivae and sclerae normal. EARS: n o deformity or lesion of external ear, canals and TM appear normal bilaterally, TM's intact, not inflamed with normal light reflex, hearing grossly normal to conversational speech. NOSE: n o deformity, discharge, inflammation, or lesions.? MOUTH: m ucous membranes moist, normal oropharynx and posterior pharynx without lesions or exudates, tongue normal, dentition normal. NECK: n velia supple, no masses or palpable cervical nodes, trachea midline, thyroid without nodules, masses, tenderness, or enlargement. CHEST: n o chest wall deformity, no chest wall tenderness.? LUNGS: n ormal respiratory effort and clear to auscultation, no wheezes, rales, or rhonchi, good air exchange. CARDIO: r egular rate and rhythm, normal S1 and S2, nor murmur, rub, or gallop. PULSES: n ormal capillary refill. ABDOMEN: s oft, non-distended, non-tender, no masses. MUSCULOSKELETAL: n o deformity or scoliosis noted, normal range of motion, joints normal, no erythema, edema, effusion, or ecchymosis. EXTREMITY: n o clubbing, cyanosis, edema, or deformity with normal ROM in both upper and lower bilateral extremities. NEUROLOGIC: g rossly normal. SKIN: n o rashes, ulcerations, or suspicious lesions. LYMPH NODES: n o cervical adenopathy, nodes normal. MENTAL STATUS: a lert and oriented x3, normal mood and affect. Assessment: * Assessment: 1. M igraine - G43.909 (Primary) 2 . T hrush - B37.0 Plan: * [facility]: [facility] * Therapeutic Injections: Phenergan 25mg : 25 mg (Route: Intramuscular) given by PARESH Scanlon on left gluteus (Migraine) Ketorolac Tromethamine : 60 mg (Route: Intramuscular) given by PARESH Scanlon on right gluteus (Migraine) * Procedure Codes: 9 6372 THERAP.INJ. OF MED. INTRAMUSCULAR OR [id number] TORADOL, PER 15 MG, Units: 4.00 J2550 PHENERGAN 25MG * * Sign off status: Completed Visit Status: C HK (Check Out) true * Provider: Kirill Potter ([facility])MD Date: 0 01/26/2025 Generated for Printi ng/Faxing/eTransmitting on: 0 07/21/2025 03:09 PM EDT History and Physical Notes * HPI (History of Present Illness) Category Sub-Category Detail Notes Category Not es General migine acting up - needs to got o work Depression Screening PHQ-2 (2015 Edition) Little interest or pleasure in doing things?: Not at all Feeling down, depressed, or hopeless?: N ot at all Total Score: 0 Examination Category Sub-Category Detail Notes Category Not es Physical Exam GENERAL: well developed, well nourished, in no acute distress HEAD: normocephalic/atraum atic EYES: pupils equal, round and reactive to light, conjunctivae and sclerae normal EARS: no deformity or lesi on of external ear, canals and TM appear normal bilaterally, TM's intact, not inflamed with normal light reflex, hearing grossly normal to conversational speech NOSE: no deformity, discha rge, inflammation, or lesions MOUTH: mucous membranes alfredo st, normal oropharynx and posterior pharynx without lesions or exudates, tongue normal, dentition normal NECK: neck supple, no mass es or palpable cervical nodes, trachea midline, thyroid without nodules, masses, tenderness, or enlargement CHEST: no chest wall deform ity, no chest wall tenderness LUNGS: normal respiratory e ffort and clear to auscultation, no wheezes, rales, or rhonchi, good air exchange CARDIO: regular rate and rhy thm, normal S1 and S2, nor murmur, rub, or gallop PULSES: normal capillary ref ill ABDOMEN: soft, non-distended, non-tender, no masses RECTAL: MUSCULOSKELETAL: no deformity or scol iosis noted, normal range of motion, joints normal, no erythema, edema, effusion, or ecchymosis EXTREMITY: no clubbing, cyanosi s, edema, or deformity with normal ROM in both upper and lower bilateral extremities NEUROLOGIC: grossly normal SKIN: no rashes, ulceratio ns, or suspicious lesions LYMPH NODES: no cervical adenopat hy, nodes normal MENTAL STATUS: alert and oriented x 3, normal mood and affect
--- OUTSIDE RECORDS SUMMARY | 2025-06-16 11:45 | XMS_ITS ---
Author Organization The [facility] in [place] Address [address] [place] [address] Care Team Providers Care Signals Intelligence Analysis Manager Name Role Phone Abbey Flaco Primary Care Provider [phone] Allergies Allergen (clinical drug ingredient) Drug/Non Drug Allergy documented on EMR Reaction Allergy Type Onset Date Status diphenhydramine Benadryl excessive sleepiness Drug Allergy Active ciprofloxacin Cipro nausea Drug Allergy Act eleni Reason For Referral Diagnosis 1 Nevus (D22.9) Referral Organization [facility] Medicine Referring Provider First Name Flaco Referring Provider Last Name Abbey Referring Provider Speciality Family Med gaudencio Referred Provider Lopez Hernandez Referred Provider Specialty General Surg cayden Referral Priority Routine REASON FOR VISIT Spot on Right Ankle- Needs looked at per patient and Migraine Medications Medication SIG (Take, Route, Frequency, Duration) Notes Start Date End Date Status Pantoprazole Sodium 40 mg TAKE ONE TABLE T BY MOUTH TWICE A DAY for 30 Active Nystatin 060398 UNIT/ML 5 ml Mouth/Throa t Four times a day for 14 days 01/26/2025 Active Metoprolol Tartrate 25 MG 1 tablet with food Orally Twice a day for 30 days Active Cephalexin 500 MG 2 tabs Orally bid fo r 10 days 06/16/2025 Active tiZANidine HCl 4 MG 2 tablets Orally at bedtime 10/09/2023 Active Diclofenac Sodium 75 MG 1 tablet as need ed Orally Twice a day 02/19/2024 Active Maxalt-DRY PAN FEEDER 10 MG 1 tablet Orally Once a day for 30 days PRN Active Liothyronine Sodium 5 MCG TAKE ONE TABLE T BY MOUTH DAILY ON AN EMPTY STOMACH for 30 Active Iron (Ferrous Sulfate) 325 (65 Fe) MG 1 tablet Orally bid for 30 days 01/27/2024 Active Levothyroxine Sodium 100 MCG 1/2 tablet in the morning on an empty stomach Orally Once a day for 30 days Active Cetirizine HCl 10 MG 1 tablet Orally Onc e a day for 90 days Active Breo Ellipta 100-25 MCG/ACT 1 puff Inhal ation Once a day Active Rlhmmotijb-GHZX-Ywwwsykr 50-300-40 MG 1 capsule as needed Orally every 6 hrs for 30 days PRN Active Albuterol Sulfate HFA 108 (90 Base) MCG/ACT INHALE 1 PUFF EVERY 4 HOURS NEEDED for 33 Active Social History Tobacco Use: Social History [...] Problem Status W/U Status Risk Notes Problem Nevus (0905640775) Nevus (D22.9) Active confirmed Vital Signs Weight 102 lbs 06/16/2025 Height 61 in 06/16/2025 Blood pressure systolic 110 mm Hg 06/16/20 25 Blood pressure diastolic 72 mm Hg 025 BMI 19.27 kg/m2 06/16/2025 Encounters Encounter Location Date Provider Diagnosis [facility] [address] [place] [address] 06/16/2025 Flaco Hoy Nevus D22.9 and Migraine G43.909 Assessments Encounter Date Diagnosis (ICD Code) Assessment Notes Treatment Notes Treatment Clinical Notes Section Notes 06/16/2025 Nevus (ICD-10 - D22.9) 06/16/2025 Migraine (ICD-10 - G43.909) jerrys sofie leo - Plan Of Treatment Medication Medication Name Sig Start Date Stop Date Notes Cephalexin 500 MG 2 tabs Orally bid for 10 days 06/16/2025 Treatment Notes Assessment Notes Migraine jerrys sofie zavalaal - Referrals Referral Date Details 06/16/2025 06/16/2025Lopez Medications Administered Medication Instructions Date of Administration Dosage Notes Promethazine 25mg 06/16/2025 25 mg Ketorolac Tromethamine 06/16/2025 60 mg Progress Notes * Stephanie KHOURY ADOB: 7 (49 yo F)Acc No.[id number]:06/16/2025 Progress Note Patient: Stephanie GLEZ Provider: Kirill Potter ([facility])MD :1975 A ge:49 Y S ex:Female Date:06/16/2025 Address:[address] [place] [address] [id number] Check In:03:35 PM ESTCheck O ut:04:12 PM EST Subjective: * Chief Complaints: * S pot on Right Ankle- Needs looked at per patient and Migraine * Active Problem List J01.11 Acute recurrent [...] Status:confirmed R10.9 Right flank discomfo rt Modified On:05/06/2023U Status:confirmed R20.2 Paresthesia of skin Modified On:08/01/2023U Status:confirmed M62.838 Trapezius muscle spa sm Modified On:10/09/2023 Status:confirmed 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, right shoulder Modified On:12/16/2023U Status:confirmed N39.0 Acute UTI Modified On:05/07/2024U Status:confirmed R42 Vertigo Modified On:06/25/2024U Status:confirmed B37.0 Thrush Modified On:02/25/2025W/U Status:confirmed D22.9 Nevus Modified On:06/16/2025W/U Status:confirmed * Medical History: * Surgical History: [...] HFA 108 (90 Base) MCG/ACT Aerosol Solution INHALE 1 PUFF EVERY 4 HOURS NEEDED Breo Ellipta(Fluticasone Furoate-Vilanterol) 100-25 MCG/ACT Aerosol Powder Breath Activated 1 puff Inhalation Once a day Ecbqfoilxw-RCLO-Ugrmqyia 50-300-40 MG Capsule 1 capsule as needed [...] BY MOUTH DAILY ON AN EMPTY STOMACH Maxalt-DRY PAN FEEDER(Rizatriptan Benzoate) 10 MG Tablet Disintegrating 1 tablet Orally Once a day , Notes to Pharmacist: PRNMetoprolol Tartrate 25 MG Tablet 1 tablet with food Orally Twice a day Nystatin 044692 UNIT/ML Suspension 5 ml Mouth/Throat Four times a day Pantoprazole Sodium 40 mg Tablet Delayed Release TAKE ONE TABLET BY MOUTH TWICE A DAY tiZANidine HCl 4 MG Tablet 2 tablets Orally at bedtime Medication List reviewed and reconciled with the patientTaking Albuterol Sulfate HFA 108 (90 Base) MCG/ACT Aerosol Solution INHALE 1 PUFF EVERY 4 HOURS NEEDED Taking Breo Ellipta(Fluticasone Furoate-Vilanterol) 100-25 MCG/ACT Aerosol Powder Breath Activated 1 puff Inhalation Once a day Taking Jpmuszepks-EAER-Xdqsqrzn 50-300-40 MG Capsule 1 capsule as needed [...] MOUTH DAILY ON AN EMPTY STOMACH Taking Maxalt-DRY PAN FEEDER(Rizatriptan Benzoate) 10 MG Tablet Disintegrating 1 tablet Orally Once a day , Notes to Pharmacist: PRNTaking Metoprolol Tartrate 25 MG Tablet 1 tablet with food Orally Twice a day Taking Nystatin 659911 UNIT/ML Suspension 5 ml Mouth/Throat Four times a day Taking Pantoprazole Sodium 40 mg Tablet Delayed Release TAKE ONE TABLET BY MOUTH TWICE A DAY Taking tiZANidine HCl 4 MG Tablet 2 tablets Orally at bedtime Medication List reviewed and reconciled with the patient * Allergies: B enadryl: excessive sleepiness - Side EffectsCipro: nausea - Criticality Highno[Allergies Verified] Objective: * Vitals: W t:102lbs, Ht: 61 in, BP:110/72mm Hg, BMI:19.27Index, Ht-cm: 154.94 cm, Wt-k.27 kg. * Examination: A bdomen Exam:: R ight lateral ankle - small rhiannon cyst vs basal cell. Assessment: * Assessment: 1. N evus - D22.9 (Primary) 2 . M igraine - G43.909 Plan: * Treatment: 2. M igraine Notes: jose leo - * Therapeutic Injections: Ketorolac Tromethamine : 60 mg (Route: Intramuscular) given by DAIANA Mckeon on left gluteus (Migraine) Promethazine 25mg : 25 mg (Route: Intramuscular) given by DAIANA Mckeon on right gluteus (Migraine) * Procedure Codes: 9 6372 THERAP.INJ. OF MED. INTRAMUSCULAR OR [id number] PHENERGAN [id number] TORADOL, PER 15 MG, Units: 4.00 * * Sign off status: Completed Visit Status: C HK (Check Out) true * Provider: Kirill Potter ([facility])MD Date: 0 06/16/2025 Generated for Printi ng/Fadagmarg/eTransmitting on: 0 07/21/2025 03:09 PM EDT History and Physical Notes * Examination Category Sub-Category Detail Notes Category Not es Abdomen Exam: Right lateral ankle - small rhiannon cyst vs basal cell Consultation Request Notes Referral Date Referring Provider Referred Provider Not es 06/16/2025 Flaco Potter Michael
--- OUTSIDE RECORDS SUMMARY | 2025-07-21 04:09 | XMS_ITS ---
Author Organization [facility] in [place] Address [address] [place] [address] Care Team Providers Care Bonderizer Operator Name Role Phone Flaco Potter Primary Care Provider [phone] REASON FOR VISIT yearly labs Encounters Encounter Location Date Provider Diagnosis [facility] [address] [place] [address] 07/21/2025 Flaco Potter Hypothyroidism E03.9 ; Fatigue R53.83 ; Screening for colon cancer Z12.11 and Wellness examination Z01.89 Assessments Encounter Date Diagnosis (ICD Code) Assessment Notes Treatment Notes Treatment Clinical Notes Section Notes 07/21/2025 Hypothyroidism (ICD-10 - E03.9) 07/21/2025 Fatigue (ICD-10 - R53.83) 07/21/2025 Screening for colon cancer (ICD-10 - Z12.11) 07/21/2025 Wellness examination (ICD-10 - Z01.89) Plan Of Treatment Pending Test Test Name Order Date FECAL OCCULT BLOOD 07/21/2025 CBC AUTO DIFF 07/21/2025 GLYCOHEMOGLOBIN A1C 07/21/2025 LIPID PROFILE 07/21/2025 PROF 14(COMP METB) 07/21/2025 THYROID PANEL (T4/TSH/FREE T3) Progress Notes * Stephanie KHOURY ADOB: 7 (49 yo F)Acc No.[id number]:07/21/2025 Patient: Jordan Stephanie CLEMENT :1975 A ge:49 Y S ex:Female Address:[address] [place] [address], [address] Subjective: * Chief Complaints: * Y early labs * Medical History: * Surgical History: * Hospitalization/Major Diagno stic Procedure: * Medications: Objective: * Vitals: * Physical Examination: Assessment: * Assessment: 1. H ypothyroidism - E03.9 (Primary) 2 . F atigue - R53.83 3 . S creening for colon cancer - Z12.11 4 . W ellness examination - Z01.89? Plan: * Treatment: 2. F atigue L AB: CBC AUTO DIFF L AB: PROF 14(COMP METB) 3. S creening for colon cancer L AB: FECAL OCCULT BLOOD 4. W ellness examination L AB: CBC AUTO DIFF L AB: GLYCOHEMOGLOBIN A1C L AB: LIPID PROFILE L AB: PROF 14(COMP METB) * Procedure Codes: * true * Date: Generated for Estela da silva/Kimberley/Audraitting on: 0 07/21/2025 03:10 PM EDT
--- OUTSIDE RECORDS SUMMARY | 2025-07-21 15:09 | XMS_ITS | Clinical Summary ---
Author Organization [facility] Address [address], [address] [place] [address] Care Team Providers Care Massage Coordinator Name Role Phone Unavailable Primary Care Provider Unavailabl e Allergies Active Allergy Reactions Criticality Noted Date Comments Ciprofloxacin 01/18/2021 Medications albuterol sulfate HFA (PROVENTIL;RAYMUNDO KARLOS;PROAIR) 108 (90 Base) MCG/ACT inhaler Inhale 2 puffs into the lungs every 6 hours as needed Active levothyroxine (SYNTHROID) 100 MCG tablet Take 1 tablet by mouth daily Active pantoprazole (PROTONIX) 40 MG tablet Take 1 tablet by mouth daily Active liothyronine (CYTOMEL) 5 MCG tablet Take 1 tablet by mouth daily Active cyclobenzaprine (FLEXERIL) 10 MG tablet Take 1 tablet by mouth 2 times daily as needed 02/12/2023 Active metoprolol tartrate (LOPRESSOR) 25 MG tablet Take 1 tablet by mouth 2 times daily Active cetirizine (ZYRTEC) 10 MG tablet Take 1 tablet by mouth daily Active Social History Tobacco Use Types Packs/Day Years Used Date Smoking Tobacco: Never Smokeless Tobacco: Never Tobacco Cessation:Counseling Given: Not Answered Alcohol Use Standard Drinks/Week Comments Not Currently 0 (1 standard drink = 0.6 oz pur e alcohol) Comments No Sex and Gender Information Value Date Recorded Sex Assigned at Not on file Legal Sex Female 9:01 AM EST Gender Identity Not on file Sexual Orientation Not on file Last Filed Vital Signs Vital Sign Reading Time Taken Comments Blood Pressure 120/71 04/22/2023 5:58 PM EDT Pulse 67 04/22/2023 5:00 PM EDT Temperature 36.6 C (97.9 F) 04/22/2023 5:00 PM EDT Respiratory Rate 18 04/22/2023 5:00 PM EDT Oxygen Saturation 100% 04/22/2023 5:58 PM EDT Inhaled Oxygen Concentration - - Weight - - Height - - Body Mass Index - - Plan of Treatment Health Maintenance Due Date Last Done Comments COVID-19 Vaccine ( season) 2024 08/27/2022, 11/17/2021, 03/23/2021, Additional history exists Flu vaccine (#1) 07/02/2025 08/27/2022 DTaP/Tdap/Td vaccine (2 - Td or Tdap) 01/18/2031 01/18/2021 Polio vaccine Aged Out No longer elig ible based on patient's age to complete this topic Insurance [facility]
--- OUTSIDE RECORDS SUMMARY | 2025-07-21 15:10 | XMS_ITS | Patient Health Record ---
Author Organization [facility] in [place] Address [address] [place] [address] Care Team Providers Care Ring Packer Name Role Phone Flaco Lyon Primary Care Provider Allergies Allergen (clinical drug ingredient) Drug/Non Drug Allergy documented on EMR Reaction Allergy Type Onset Date Status diphenhydramine Benadryl excessive sleepiness Drug Allergy Active ciprofloxacin Cipro nausea Drug Allergy Act eleni Results Component Value Reference Range Notes XR chest 1V Reviewed date:11/15/2024 08:11:50 PM Interpretation: Performing Lab: Notes/Report: Source Facility: [place] [address] XRay Report Signed Patient: STEPHANIE KHOURY MR#: [id number] : 1975 Acct:[id number] Age/Sex: 48 / F ADM Date: 11/14/24 Loc: ER Attending Dr: Ordering Physician: Anali Morrissey Date of Service: 11/14/24 Procedure(s): XR chest 1V Accession Number(s): [id number] cc: Chi Lyon M.D.; Anali Morrissey [place] [id number] Patient Name: STEPHANIE KHOURY MRN: [id number] date: 1975 Sex: F Assigned Patient Location: ER Current Patient Location: Accession/Order Number: [id number] Exam Date: 11/14/2024 22:56 Report Date: 11/15/2024 01:28 At the request of: ANALI MORRISSEY Procedure: XR chest 1V EXAMINATION: XR chest 1V, , 11/14/2024 10:56 PM EST INDICATION: cp HISTORY: Ordering Provider Reason for Exam: cp Technologist Note: Additional: COMPARISON: None. TECHNIQUE: Chest x-ray: One view. FINDINGS: No pneumothorax, pleural effusion or focal airspace consolidation. Heart is normal in size. Bony thorax is unremarkable. XR/XR chest 1V IMPRESSION: No acute cardiopulmonary process. Electronically authenticated by: TANIA WALSH Date: 11/15/2024 01:28 Dictated By: Tania Walsh M.D. Signed By: 11/15/241 DD/ 7 TD/TT: Hose Coupling Joiner: [place] [address] XRay Report Signed Patient: EDGAR KHOURY MR#: [id number] : 1975 Acct:[id number] Age/Sex: 48 / F ADM Date: 11/14/24 Loc: ER Attending Dr: Ordering Physician: Anali Morrissey Date of Service: 11/14/24 Procedure(s): XR chest 1V Accession Number(s): [id number] cc: Chi Lyon M.D. ; Anali Morrissey [address] [address] Patient Name: STEPHANIE KHOURY MRN: [id number] date: 1975 Sex: F Assigned Patient Loc ation: ER Current Patient Location: Accession/Order Numb er: [id number] Exam Date: 22:56 Report Date: 11/15/2024 01:28 At the request of: ANALI MORRISSEY Procedure: XR chest 1V EXAMINATION: XR ches t 1V, , 11/14/2024 10:56 PM EST INDICATION: cp HISTORY: Ordering Provider Re ason for Exam: cp Technologist Note: Additional: COMPARISON: None. TECHNIQUE: Chest x-r ay: One view. FINDINGS: No pneumothorax, ple ural effusion or focal airspace consolidation. Heart is normal in size. Bony thorax is unremarkable. X R/XR chest 1V IMPRESSION: No acute cardiopulmo nary process. Electronically authenticated by: TANIA WALSH Date: 11/15/2024 01:28 Dictated By: Tania Walsh M.D. Signed By: 11/15/24 0131 DD/ 0128 TD/TT: Hose Coupling Joiner: Troponin I High Sensitivity Reviewed date:11/15/2024 08:11:50 PM Interpretation: Performing Lab: Notes/Report: [facility] , Troponin I High Sensitivity <4.0 4.0-51.3 pg/mL USED IN ISOLATION BUT SHOULD BE INTERPRETED IN CONJUNCTION UNIVERSAL DEFINITION OF MYOCARDIAL INFARCTION. THE UPPER 99TH PERCENTILE = 51.4 PG/ML HAS BEEN CONFIRMED THE DECISION THRESHOLD FOR VT PERCENTILE OF cTnI DISTRIBUTION IN A REFERENCE POPULATION, NOTE: HIGH-SENSITIVITY TROPONIN ASSAY IS NOT INTENDED TO BE WITH OTHER DIAGNOSTIC AND CLINICAL INFORMATION. DIAGNOSIS. REFERENCE LIMIT (URL) OF TROPONIN, DEFINED THE 99TH CUT-OFF POINTS HAVE BEEN ESTABLISHED BASED ON THE FOURTH Performing Lab: see note ML - [facility] LB ECG 12 lead Reviewed date:11/17/2024 12:20:35 PM Interpretation: Performing Lab: Notes/Report: Source Facility: [facility]-[address] [place] [address] Electrocardiograph Report Signed Patient: STEPHANIE KHOURY MR#: [id number] : 1975 Acct:[id number] Age/Sex: 48 / F ADM Date: 11/14/24 Loc: ER Attending Dr: Ordering Physician: Anali Morrissey Date of Service: 11/14/24 Procedure(s): ECG 12 lead Accession Number(s): [id number] cc: [facility] Test Date: 2024-11-14 Pat Name: STEPHANIE KHOURY Department: Room: - Gender: Female Demand Manager: : 1975 Requested By: CHI LYON Order Number: [id number] Reading MD: CHI LYON Measurements Intervals [place] Rate: 63 P: 74 ID: 150 QRS: 88 QRSD: 82 T: 59 QT: 388 QTc: 396 Interpretive Statements 1100 Sinus rhythm 9110 normal ECG Compared to ECG 09/21/2022 09:24:54 No significant changes Electronically Signed On 11-17-2024 6:58:02 EST by CHI LYON Dictated By: Chi Lyon M.D. Signed By: 11/17/2458 DD/ 30 TD/TT: Hose Coupling Joiner: [place] [address] Electrocardiograph Report Signed Patient: EDGAR KHOURY MR#: [id number] : 1975 Acct:[id number] Age/Sex: 48 / F ADM Date: 11/14/24 Loc: ER Attending Dr: Ordering Physician: Anali Morrissey Date of Service: 11/14/24 Procedure(s): ECG 12 lead Accession Number(s): [id number] cc: [facility] Test Date: 2024-11-14 Pat Name: STEPHANIE GUERRERO Department: 99 Room: - Gender: Female Demand Manager: : 1975 Requ ested By: CHI LYON Order Number: [id number] Reading MD: CHI LYON Measurements Intervals [place] Rate: 63 P: 74 ID: 150 QRS: 88 QRSD: 82 T: 59 QT: 388 QTc: 396 Interpretive Statements 1100 Sinus rhythm 9110 normal ECG Compared to ECG 09/02 09:24:54 No significant changes Electronically Valorie d On 11-17-2024 6:58:02 EST by CHI LYON Dictated By: An Lyon M.D. Signed By: 11/17/2458 DD/ 30 TD/TT: Hose Coupling Joiner: HCG Qualitative* Reviewed date:11/15/2024 08:11:50 PM Interpretation: Performing Lab: Notes/Report: [facility] , HCG Qualitative NEGATIVE NEGATIVE Performing Lab: see note ML - [facility] LB Troponin I High Sensitivity Reviewed date:11/15/2024 08:11:50 PM Interpretation: Performing Lab: Notes/Report: [facility] , Troponin I High Sensitivity <4.0 4.0-51.3 pg/mL HAS BEEN CONFIRMED THE DECISION THRESHOLD FOR VT NOTE: HIGH-SENSITIVITY TROPONIN ASSAY IS NOT INTENDED TO BE 99TH PERCENTILE = 51.4 PG/ML USED IN ISOLATION BUT SHOULD BE INTERPRETED IN CONJUNCTION DIAGNOSIS. REFERENCE LIMIT (URL) OF TROPONIN, DEFINED THE 99TH PERCENTILE OF cTnI DISTRIBUTION IN A REFERENCE POPULATION, UNIVERSAL DEFINITION OF MYOCARDIAL INFARCTION. THE UPPER WITH OTHER DIAGNOSTIC AND CLINICAL INFORMATION. CUT-OFF POINTS HAVE BEEN ESTABLISHED BASED ON THE FOURTH Performing Lab: see note ML - [facility] LB PROF 14(COMP METB) Reviewed date:11/15/2024 08:11:50 PM Interpretation: Performing Lab: Notes/Report: [facility] , Sodium 141 136-145 mmol/L Potassium 4.0 3.5-5.1 mmol/L Chloride 105 98-107 mmol/L Carbon Dioxide 31.9 21.0-32.0 mmol/L Anion Gap 8.1 Glucose 90 74-106 mg/dL Blood Urea Nitrogen 13.0 7.0-18.0 mg/dL Creatinine 1.01 0.55-1.02 mg/dL Estimated GFR ( Yenny >60 >=60 mL/min/1.73m 2 Estimated GFR (Non- Tessa 59 >=60 mL/min/1.73m 2 BUN Creatinine Ratio 12.9 Calcium 9.8 8.5-10.1 mg/dL Bilirubin Total 0.3 0.2-1.0 mg/dL Aspartate Amino Transferase 12 15-37 U/L Alanine Aminotransferase 17 14-59 U/L Alkaline Phosphatase 59 46-116 U/L Total Protein 7.7 6.4-8.2 g/dL Albumin Level 4.3 3.4-5.0 g/dL Globulin 3.4 Albumin Globulin Ratio 1.3 Performing Lab: see note ML - [facility] LB CBC AUTO DIFF Reviewed date:11/15/2024 08:11:50 PM Interpretation: Performing Lab: Notes/Report: [facility] , White Blood Count 7.3 4.0-11.0 10 3/uL Red Blood Count 4.17 4.20-5.40 10 6/uL Hemoglobin 13.3 12.0-16.0 g/dL Hematocrit 40.9 36.0-48.0 % Mean Corpuscular Volume 98.1 81.0-99.0 fL Mean Corpuscular Hemoglobin 31.9 26.7-34.0 pg Mean Corpuscular HGB Conc 32.5 29.9-35.2 g/dL Red Cell Distribution Width 11.9 11.0-15.0 % Platelet Count 193 150-450 10 3/uL Mean Platelet Volume 11.2 9.5-13.5 fL Neutrophils Percent Auto 54.1 43.0-75.0 % Lymphocytes Percent Auto 34.0 20.5-60.0 % Monocytes Percent Auto 9.7 1.7-12.0 % Eosinophils Percent Auto 1.4 0.9-7.0 % Basophils Percent Auto 0.8 0.2-2.0 % Immature Granulocytes Pct Auto 0.0 0.0-0.5 % Neutrophils Absolute Auto 4.0 1.4-6.5 10 3/uL Lymphocytes Absolute Auto 2.5 1.2-3.8 10 3/uL Monocytes Absolute Auto 0.7 0.3-0.8 10 3/uL Eosinophils Absolute Auto 0.1 0.0-0.7 10 3/uL Basophils Absolute Auto 0.1 0.0-0.1 10 3/uL Immature Granulocytes Abs Auto 0.00 0.00-0.03 10 3/uL Performing Lab: see note ML - [facility] LB Reason For Referral Diagnosis 1 Nevus (D22.9) Referral Organization [facility] Referring Provider First Name Flaco Referring Provider Last Name Jorgekaron Referring Provider Speciality Family [facility] gaudencio Referred Provider Lopez Hernandez Referred Provider Specialty General Surg cayden Referral Priority Routine Medications Medication SIG (Take, Route, Frequency, Duration) Notes Start Date End Date Status Diclofenac Sodium 75 MG 1 tablet as need ed Orally Twice a day 02/19/2024 Active Cetirizine HCl 10 MG 1 tablet Orally Onc e a day for 90 days Active Pantoprazole Sodium 40 mg TAKE ONE TABLE T BY MOUTH TWICE A DAY for 30 Active Breo Ellipta 100-25 MCG/ACT 1 puff Inhal ation Once a day Active Jifjumjous-ULLA-Cokyytib 50-300-40 MG 1 capsule as needed Orally every 6 hrs for 30 days PRN Active Nystatin 592629 UNIT/ML 5 ml Mouth/Throa t Four times a day for 14 days 01/26/2025 Active Maxalt-MANAGER PLACEMENT 10 MG 1 tablet Orally Once a day for 30 days PRN Active Albuterol Sulfate HFA 108 (90 Base) MCG/ACT INHALE 1 PUFF EVERY 4 HOURS NEEDED for 33 Active Metoprolol Tartrate 25 MG 1 tablet with food Orally Twice a day for 30 days Active Levothyroxine Sodium 100 MCG TAKE 1/2 TA BLET BY MOUTH ONCE DAILY IN THE MORNING ON AN EMPTY STOMACH FOR 30 DAYS for 30 Active Liothyronine Sodium 5 MCG TAKE ONE TABLE T BY MOUTH DAILY ON AN EMPTY STOMACH for 30 Active Cephalexin 500 MG 2 tabs Orally bid fo r 10 days 06/16/2025 Active Iron (Ferrous Sulfate) 325 (65 Fe) MG 1 tablet Orally bid for 30 days 01/27/2024 Active tiZANidine HCl 4 MG 2 tablets Orally at bedtime 10/09/2023 Active Immunizations Vaccine Route Administration Date Status Comme nts Flu, Flucelvax (5196-0787) (86119) 6 mos +, single-dose syringe IM Intramuscular 09/06/2023 Administered Social History Tobacco Use: Social History Observation Description Date Details (start date - stop date) Never Smoker NA - NA Tobacco Use/Smoking Question Answer Notes Patient is a nonsmoker Alcohol Screen (Audit-C) Question Answer Notes Did you have a drink containing alcohol in the p ast year? No Points 0 Interpretation Negative AUDIT-C (Standard) Question Answer Notes Did you have a drink containing alcohol in the p ast year? No Points 0 Interpretation Negative Problems Problem Type SNOMED Code ICD Code Onset Dates Problem Status W/U Status Risk Notes Problem 382413565052940 Primary osteoarthritis, right shoulder (M19.011) Active confirmed Problem 861601587 Gastro-esophagea l reflux disease without esophagitis (K21.9) Active confirmed Problem 76860685 Melanocytic nevi , unspecified (D22.9) Active confirmed Problem Acute frontal sinusitis (21857692) Acute recurrent frontal sinusitis (J01.11) Active confirmed Problem 532517162 Spondylosis without myelopathy or radiculopathy, cervical region (M47.812) Active confirmed Problem 39940324 Other specified disorders of tendon, left shoulder (M67.814) Active confirmed Problem Palpitations (91987051) Palpitations (R00.2) Active confirmed Problem Right upper quadrant abdominal mass (29176217315257874) Right upper quadrant abdominal swelling, mass and lump (R19.01) Active confirmed Problem 58666245715975632 Paresthesia of skin (R20.2) Active confirmed Problem Asthma (642491349) Asthma (J45.909) Active conf irmed Problem Hypothyroidism (99286788) Hypothyroidism (E03.9) Active confirmed Problem Anxiety (15641884) Anxiety (F41.9) Active confi rmed Problem Depression (335382740) Depression (F32.9) Active confirmed Problem Vertigo (458613956) Vertigo (R42) Active confir med Problem Insomnia (392670408) Insomnia (G47.00) Active c onfirmed Problem Eczema (47411987) Eczema (L30.9) Active confirm ed Problem Migraine (78123485) Migraine (G43.909) Active confirmed Problem Sinus tachycardia (90330870) Sinus tachycardia (R00.0) Active confirmed Problem Hearing loss (28862880) Hearing loss (H91.90) Active confirmed Problem Constipation (71973020) Constipation (K59.00) Active confirmed Problem Acute pharyngitis (946960521) Acute pharyngitis (J02.9) Active confirmed Problem Supraspinatus tendinitis (493309128) Supraspinatus tendinitis, right (M75.91) Active confirmed Problem Dysphagia (50748225) Dysphagia (R13.10) Active confirmed Problem Spasm of back muscles (951186136) Back muscle spasm (M62.830) Active confirmed Problem Trochanteric bursitis (0944151) Trochanteric bursitis (M70.60) Active confirmed Problem Metatarsalgia (71093664) Metatarsalgia (M77.40) Active confirmed Problem Thrush (34516688) Thrush (B37.0) Active confirm ed Problem Herpes zoster (9051647) Herpes zoster (B02.9) Active confirmed Problem Gynecologic examination (76621378) Encounter for gynecological examination (Z01.419) Active confirmed Problem Nevus (6447649066) Nevus (D22.9) Active confirm ed Problem Abdominal pain (73208640) Right flank discomfort (R10.9) Active confirmed Problem Acute urinary tract infection (094831054) Acute UTI (N39.0) Active confirmed Problem Spasm (68027443) Trapezius muscl e spasm (M62.838) Active confirmed Problem Shoulder impingement syndrome (963242181) Shoulder impingement syndrome (M75.40) Active confirmed Problem Irritable bowel syndrome characterized by constipation (770127919) Irritable bowel syndrome with constipation (K58.1) Active confirmed Problem Low back pain (229198396) Low back pain, unspecified (M54.50) Active confirmed Vital Signs Blood pressure diastolic 72 mm Hg 06/16/2025 Height 61 in 06/16/2025 Blood pressure systolic 110 mm Hg 06/16/2025 Weight 102 lbs 06/16/2025 BMI 19.27 kg/m2 06/16/2025 Encounters Encounter Location Date Provider Diagnosis [facility] [address] [place] [address] 08/31/2024 [facility] [address] [place] [address] 09/09/[address] [address] 09/09/2024 [facility] [address] [place] [address] 10/02/[address] [address] 10/28/2024 Flaco [facility] [address] [place] [facility] [address] 11/27/2024 Flaco Hoy Migraine G43.[address] [address] 07/21/2025 Flaco Hoy Hypothyroidism E03.9 ; Fatigue R53.83 ; Screening for colon cancer Z12.11 and Wellness examination Z01.[address] [address] 09/09/2024 Flaco Hoy Acute bronchitis, unspecified organism J20.9 [address] [place] [address] 01/26/2025 Flaco Hoy Migraine G43.909 and Thrush B37.0 [facility] [address] [place] [address] 06/16/2025 Flaco Hoy Nevus D22.9 and Migr santos G43.909 Assessments Encounter Date Diagnosis (ICD Code) Assessment Notes Treatment Notes Treatment Clinical Notes Section Notes 09/09/2024 Acute bronchitis, unspecified organism (ICD-10 - J20.9) Rest and drink more liquids, especially water. You may use a humidifier or vaporizer to help keep the drainage moist. Asej-khc-fvtzglv Nasal Saline may help the stuffy and runny nose. Use Ibuprofen and or Tylenol as needed for fever, chills, body aches or pain. Children 5 years old should not be given udws-owz-gvfanbs cough and cold medications such as guaifenesin and dextromethorphan. If you're over age 5, you may try tjiy-ora-fpoajcv cold medications such as guaifenesin and dextromethorphan, or multi-symptom cold reliever such as Dayquil to help reduce the symptoms. Antibiotics have been prescribed. You should take these until completed and follow the directions. Antibiotics can sometimes cause upset stomach, and in rare cases, serious allergic reactions or serious gastrointestinal problems. If you start having severe abdominal pain, severe vomiting, or bloody diarrhea, you should be reevaluated by your physician or urgent care immediately. Follow up with your Primary Care Provider or return to clinic if symptoms do not improve within 3-5 days. If you develop severe symptoms such as shortness of breath, repeated vomiting, coughing up blood, or chest pain you should go to the emergency room or call 911 01/26/2025 Migraine (ICD-10 - G43.909) injections -off work today 01/26/2025 Thrush (ICD-10 - B37.0) nystatin 06/16/2025 Nevus (ICD-10 - D22.9) 06/16/2025 Migraine (ICD-10 - G43.909) feels lkie tyoical - 11/27/2024 Migraine (ICD-10 - G43.909) 07/21/2025 Hypothyroidism (ICD-10 - E03.9) 07/21/2025 Fatigue (ICD-10 - R53.83) 07/21/2025 Screening for colon cancer (ICD-10 - Z12.11) 07/21/2025 Wellness examination (ICD-10 - Z01.89) Plan Of Treatment Pending Test Test Name Order Date CMP (COMPLETE METABOLIC PANEL) 4 HEMOGLOBIN A1C (GLYCO) 01/16/2024 IRON, TOTAL 01/16/2024 LIPID PANEL (CHOL/TRIG/HDL/LDL) 01/16/20 24 CBC WITH DIFF 01/16/2024 VITAMIN D, 25 LEVEL (TOTAL) 01/16/2024 MAMM Mammograms CAD 01/16/2024 US Renals and Bladder 05/06/2023 FECAL OCCULT BLOOD 07/21/2025 CBC AUTO DIFF 07/21/2025 GLYCOHEMOGLOBIN A1C 07/21/2025 LIPID PROFILE 07/21/2025 PROF 14(COMP METB) 07/21/2025 THYROID PANEL (T4/TSH/FREE T3) 4 THYROID PANEL (T4/TSH/FREE T3) 5 OCCULT BLOOD X 1, STOOL 01/27/2024 Insurance Providers Payer Name Payer Address Payer Phone Subscriber Number Group Number Insured Name Patient Relationship to Insured Coverage Start Date Coverage End Date [employer] [address] [place] [address] [id number] Stephanie Khoury Self - patient is the insured Medications Administered Medication Instructions Date of Administration Dosage Notes Kenalog-40 06/25/2024 80 mg 80 Ketorolac Tromethamine 01/26/2025 60 mg Ketorolac Tromethamine 06/16/2025 60 mg Phenergan 01/26/2025 25 mg Promethazine 25mg 06/16/2025 25 mg Medical (General) History Medical History History ICD Code Supraspinatus tendinitis, right M75.91 Acute bronchitis J20.9 Irritable bowel syndrome with constipati on K58.1 Herpes zoster B02.9 Shoulder impingement syndrome M75.40 Constipation K59.00 Back muscle spasm M62.830 Eczema L30.9 Insomnia G47.00 Encounter for gynecological examination Z01.419 Palpitations R00.2 Acute pharyngitis J02.9 Trochanteric bursitis M70.60 Right upper quadrant abdominal swelling, mass and lump R19.01 Asthma J45.909 Acute recurrent frontal sinusitis J01.11 Migraine G43.909 Low back pain, unspecified M54.50 Depression F32.9 Sinus tachycardia R00.0 Metatarsalgia M77.40 Dysphagia R13.10 Hearing loss H91.90 Insomnia G47.00 Anxiety F41.9 Hypothyroidism E03.9 Surgical History Surgery Date(Month/Year) Hysterectomy/Tubal Hospitalization History Reason Date(Month/Year) see above
--- OUTSIDE RECORDS SUMMARY | 2025-07-21 15:10 | XMS_ITS | Clinical Summary ---
Author Organization [employer] tem Address [id number] [address] [place] [address] Care Team Providers Care Alternative Medicine Practitioner Name Role Phone Luisito Potter MD Primary Care Provider [phone] Allergies Active Allergy Reactions Criticality Noted Date Comments Ciprofloxacin 01/18/2021 Medications * This document contains information received from the source organization and may not represent a complete record from that organization. ALBUTEROL, BULK, MISC by miscellaneous route. Active levothyroxine (SYNTHROID, LEVOTHROID) 100 MCG tablet Take 100 mcg by mouth daily. Active liothyronine (CYTOMEL) 5 MCG tablet Take 10 mcg by mouth daily. Active pantoprazole (PROTONIX) 40 mg EC tablet Take 40 mg by mouth daily. Active albuterol (PROVENTIL HFA;VENTOLIN HFA) 90 mcg/actuation inhaler Inhale 2 puffs every 6 (six) hours as needed for wheezing. Active ibuprofen (MOTRIN) 800 mg tablet Take 1 tablet (800 mg total) by mouth 3 (three) times a day. 21 tablet 2 Active cyclobenzaprin e (FLEXERIL) 10 mg tablet Take 1 tablet (10 mg total) by mouth 2 (two) times a day as needed for muscle spasms. 10 tablet 3 Active Active Problems Problem Noted Date Diagnosed Date Major depressive disorder, single episode, mild 07/25/2017 Immunizations Immunization Administration Dates Next Due Tdap 01/18/2021 Family History Medical History Relation Name Comments Depression Mother Relation Name Status Comments Mother Social History Tobacco Use Types Packs/Day Years Used Date Smoking Tobacco: Never Smokeless Tobacco: Never Alcohol Use Standard Drinks/Week Comments No 0 (1 standard drink = 0.6 oz pur e alcohol) Childcare Answer Date Recorded Childcare Unknown 05/13/2019 Employment Answer Date Recorded Employment Unknown 05/13/2019 Hunger Screening Answer Date Recorded Within the past 12 months we worried whether our food would run out before we got money to buy more. Never True 11/11/2022 Within the past 12 months th e food we bought just didn't last and we didn't have money to get more. Never True 11/11/2022 Purpose - Life Answer Date Recorded Purpose and direction in life Unknown Comments No Sex and Gender Information Value Date Recorded Sex Assigned at Not on file Legal Sex Female 12:07 PM EDT Gender Identity Not on file Sexual Orientation Not on file Last Filed Vital Signs Vital Sign Reading Time Taken Comments Blood Pressure 102/64 02/12/2023 3:20 PM EDT Pulse 62 02/12/2023 3:20 PM EDT Temperature 36.9 C (98.4 F) 02/12/2023 1:57 PM EDT Respiratory Rate 18 02/12/2023 3:20 PM EDT Oxygen Saturation 98% 02/12/2023 3:20 PM EDT Inhaled Oxygen Concentration - - Weight 46.7 kg (103 lb) 02/12/2023 1:57 PM EDT Height 154.9 cm (5' 1 ) 02/12/2023 1:57 PM EDT Body Mass Index 19.46 02/12/2023 1:57 PM EDT Plan of Treatment Health Maintenance Due Date Last Done Comments Depression Screening 1988 Tobacco Screening 1988 Adult BMI Screening 02/13/2024 02/12/2023 COVID-19 Vaccine (5 - 2023-2 5 season) 2024 08/27/2022, 11/17/2021, 03/23/2021, Additional history exists Influenza Vaccine 08/02/2025 08/27/2022, , 09/28/2020, Additional history exists DTaP,Tdap and Td Vaccines (4 - Td or Tdap) 01/18/2031 01/18/2021, 08/11/2015, 07/01/2007 Medical Devices Not on file Insurance [employer] Care Teams Alternative Medicine Practitioner Relationship Specialty Start Date End Date Luisito Potter MD PCP - General 06/19/17
[2025-07-21 15:32] LABS: Hematocrit 38.1 % (36.0-48.0); Hemoglobin 12.8 g/dL (12.0-16.0); Immature Granulocytes Abs Auto 0.01 10^3/uL (0.00-0.03); Immature Granulocytes Pct Auto 0.2 % (0.0-0.5); Lymphocytes Absolute Auto 2.7 10^3/uL (1.2-3.8); Mean Corpuscular HGB Conc 33.6 g/dL (29.9-35.2); Mean Corpuscular Hemoglobin 30.9 pg (26.7-34.0); Mean Corpuscular Volume 92.0 fL (81.0-99.0); Platelet Count 210 10^3/uL (150-450); Red Blood Count 4.14 10^6/uL (4.20-5.40); White Blood Count 5.8 10^3/uL (4.0-11.0)
--- OUTSIDE RECORDS SUMMARY | 2025-07-21 15:53 | XMS_ITS | CCD ---
Author Organization [facility] Care Team Providers Care Hospice Clinical Manager Name Role Phone Chi Potter Primary Care [...] OCHOA Admitting Unavailable ZITA OCHOA Attending Unavailable ABBEY ., DR MIRELES Primary Care Unavailable KIMI WELSH Consulting Unavailable MD Chi Potter Primary Care Provider [phone] DO Stanley Martinez Emergency Provider Chi Potter Primary Care Unavailable Stanley Martinez Attending Unavailable Stanley Martinez Admitting Unavailable Lopez MARTÍNEZ Attending Unavailable Chi Potter Referring Unavailable Lopez MARTÍNEZ Attending Unavailable Allergies Allergy Classification Reported Allergen(s) Allergy Type Date of Onset Reaction(s) Facility (6 sources) Ciprofloxacin; Translations: [ciprofloxacin] Drug Allergy 1 Vomiting (disorder) [facility] (1 source) diphenhydrAMINE; Translations: [DIPHENHYDRAMINE HCL] Drug Allergy 2 [facility] Repository (1 source) Ciprofloxacin Drug Allergy 6 [facility] Repository (2 sources) diphenhydrAMINE; Translations: [Benadryl] Drug Allergy 2 [facility] Repository (3 sources) diphenhydrAMINE; Translations: [diphenhydramine] Drug Allergy 2 [facility] [place] (1 source) Ciprofloxacin Drug Allergy 4 [facility] Repository Medications Current Medications Medication Drug Class(es) Dates Sig (Normalized) Sig (Original) Fioricet (1 source) Barbiturate, Central Nervous System Stimulant, Methylxanthine Start: 06-21-2025 take 1 capsule by mouth every four hours Fioricet 1 cap(s), Oral, q4hr Migraine headache, Refill(s) 0 Start Date: 06/21/25 Status: Ordered Repeat number: 1 Albuterol (1 source) beta2-Adrenergic Agonist Start: 06-21-2025 take 1 puff(s) by inhalation every four hours Albuterol (Eqv-ProAir HFA) 1 puff, Inhalation, q4hr Shortness of breath or wheezing, Refill(s) 0 Start Date: 06/21/25 Status: Ordered Repeat number: 1 cetirizine hydrochloride 10 mg oral tablet (1 source) Histamine-1 Receptor Antagonist Start: 04-01-2023 take 1 tablet by mouth once daily cetirizine 10 mg Tab 10 mg = 1 tab(s), Oral, Daily, Refills(s) 0 Start Date: 04/01/23 Status: Ordered diclofenac sodium 75 mg delayed release oral tablet (1 source) Nonsteroidal Anti-inflammatory Drug Start: 06-21-2025 take 1 tablet by mouth twice daily as needed for pain diclofenac sodium 75 mg Oral EC Tab 75 mg = 1 tab(s), Oral, BID, PRN as needed for pain, Refills(s) 0 Start Date: 06/21/25 Status: Ordered Repeat number: 1 doxepin hydrochloride 10 mg oral capsule (1 source) Tricyclic Antidepressant Start: 04-01-2023 take 1-2 capsules by mouth three times daily as needed for anxiety doxepin 10 mg Cap 1-2 caps, Oral, TID, PRN anxiety, Refills(s) 0 Start Date: 04/01/23 Status: Ordered fluticasone / vilanterol (2 sources) Corticosteroid, beta2-Adrenergic Agonist Start: 04-01-2023 take 1 puff(s) by inhalation once daily Breo Ellipta 100 mcg-25 mcg inhalation powder 1 puff(s), Inhalation, Daily, 30 dose unit Start Date: 04/01/23 Status: Ordered Repeat number: 1 Start: 04-01-2023 take 1 puff(s) by in halation once daily Breo Ellipta 100 mcg-25 mcg inhalation powder 1 puff(s), Inhalation, Daily, 30 dose unit Start Date: 04/01/23 Status: Ordered levothyroxine sodium 0.1 mg oral tablet (2 sources) l-Thyroxine Start: 04-01-2023 take 1 tablet by mouth once daily levothyroxine 100 mcg (0.1 mg) Tab 50 mcg = 0.5 tab(s), Oral, Daily, Refills(s) 0 Start Date: 04/01/23 Status: Ordered Repeat number: 1 liothyronine sodium 0.005 mg oral tablet (2 sources) l-Triiodothyronine Start: 04-01-2023 take 1 tablet by mouth once daily liothyronine 5 mcg Tab 5 mcg = 1 tab(s), Oral, Daily, Refills(s) 0 Start Date: 04/01/23 Status: Ordered Repeat number: 1 lubiprostone 0.008 mg oral capsule (1 source) [...] day(s), # 9 tab(s), Refills(s) 0, Pharmacy: [facility]/pharmacy #[id number], 155, cm, 06/21/22 15:51:00 EDT, Height/Length Dosing, 45, kg, 06/21/22 15:51:00 EDT, Weight Dosing Start Date: 06/21/22 Stop Date: 06/24/22 Status: Ordered metoprolol tartrate 25 mg oral tablet (2 sources) beta-Adrenergic Reji Start: 04-01-2023 take 1 tablet by mouth twice daily Metoprolol tartrate 25 mg Tab 25 mg = 1 tab(s), Oral, BID, Refills(s) 0 Start Date: 04/01/23 Status: Ordered Repeat number: 1 pantoprazole 40 mg delayed release oral tablet (2 sources) Proton Pump Inhibitor Start: 04-01-2023 take 1 tablet by mouth twice daily Pantoprazole [address] Tab 40 mg = 1 tab(s), Oral, BID, Refills(s) 0 Start Date: 04/01/23 Status: Ordered Repeat number: 1 rizatriptan 10 mg disintegrating oral tablet (2 sources) Serotonin-1b and Serotonin-1d Receptor Agonist Start: 04-01-2023 take 1 tablet by mouth once Maxalt CURB BUILDER 10 mg Tab-Dis 10 mg = 1 tab(s), Oral, Once, Refills(s) 0 Start Date: 04/01/23 Status: Ordered Repeat number: 1 tiZANidine 4 mg oral tablet (1 source) Central alpha-2 Adrenergic Agonist Start: 06-21-2025 take 2 tablets by mouth at bedtime tiZANidine 4 mg Tab 8 mg = 2 tab(s), Oral, Bedtime, Refills(s) 0 Start Date: 06/21/25 Status: Ordered Repeat number: 1 Problems Active Problems Problem Classification Problem Date Documented Da te Episodic/Chronic Acute bronchitis (1 source) Acute bronchitis, unspecified; Translations: [ACUTE BRONCHITIS UNSPECIFIED] Onset: 3 Episodic Allergic reactions (2 sources) Eczema 04-01-2023 Episodic Anxiety disorders (2 sources) Anxiety disorder, unspecified; Translations: [Anxiety] Onset: 2 06-21-2025 Chronic Asthma (3 sources) Unspecified asthma, uncomplicated; Translations: [Asthma] Onset: 2 04-01-2023 Chronic Cardiac dysrhythmias (7 sources) Palpitations; Translations: [Sinus tachycardia] Onset: 2 Episodic Esophageal disorders (2 sources) Gastroesophageal reflux disease 04-01-2023 Chronic Headache; including migraine (2 sources) Migraine 04-01-2023 Chronic Mood disorders (2 sources) Depressive disorder 04-01-2023 Chronic Neoplasms of unspecified nature or uncertain behavior (4 sources) Neoplasm of uncertain behavior of skin; Translations: [Neoplasm of uncertain behavior of skin] Onset: 3 Episodic Other connective tissue disease (2 sources) Other shoulder lesions, left shoulder; Translations: [Other shoulder lesions, left shoulder] Onset: 2 Episodic Other ear and sense organ disorders (2 sources) Hearing loss 04-01-2023 Chronic Other gastrointestinal disorders (2 sources) Irritable bowel syndrome characterized by constipation 04-01-2023 Chronic Other non-traumatic joint disorders (3 sources) Pain in left shoulder; Translations: [Pain in left shoulder] Onset: 2 Episodic Residual codes; unclassified (1 source) Insomnia 04-01-2023 Episodic Spondylosis; intervertebral disc disorders; other back problems (6 sources) Muscle spasm of back; Translations: [Low [...] INITIAL ENC] Onset: 3 Episodic Thyroid disorders (7 sources) Hypothyroidism, unspecified; Translations: [Hypothyroidism] Onset: 2 [...] 07-31-2022 Episodic Other aftercare (1 source) Other half-way (current) drug therapy; Translations: [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 DRUG THERAPY] Onset: 08-02-2022 Episodic Other [...] Test Name Value Interpretation Reference Range Facility Ambulatory Visit Summaryon 0 06-30-2025 Ambulatory Visit Summary Ambulatory Visit Summary STEPHANIE KHOURY :1975 Visit Date:06/30/2025 Ambulatory Visit Instructions Your Care Team Attending Physician - TANYA CANTU, Lopez Jay Primary Care Physician - Abbey CANTU, Chi Referring Physician - Chi Potter MD This Is Your Medications List Contact prescribing physician if questions or concerns APAP/butalbital/caffei ne (Fioricet) albuterol (Albuterol (Eqv-ProAir HFA)) diclofenac (diclofenac sodium 75 mg Oral EC Tab) fluticasone-vilanterol (Breo Ellipta 100 mcg-25 mcg inhalation powder) levothyroxine (levothyroxine 100 mcg (0.1 mg) Tab) liothyronine (liothyronine 5 mcg Tab) metoprolol (Metoprolol tartrate 25 mg Tab) pantoprazole (Pantoprazole [address] Tab) rizatriptan (Maxalt CURB BUILDER 10 mg Tab-Dis) tizanidine (tiZANidine 4 mg Tab) Procedures Performed Excision of intradermal nevus (04/17/2023), Abdominal hysterectomy, Tubal ligation. Discharge Vitals Heart Rate (Peripheral) 72 Respiratory Rate 16 Blood Pressure 104/72 Height 154.9 cm Height 61 in Weight 46.8 kg Weight 103.176 lb BMI 19.5 Medications What How Much When Instructions Unchanged albuterol (Albuterol (Eqv-ProAir HFA)) 1 puff Inhalation Every 4 hours as needed for Shortness of breath or wheezing Contact prescribing physician if questions or concerns Unchanged APAP/ butalbital/ caffeine (Fioricet) 1 Capsules By Mouth Every 4 hours as needed for Migraine headache Contact prescribing physician if questions or concerns Unchanged diclofenac (diclofenac sodium 75 mg Oral EC Tab) 1 Tablets By Mouth 2 times a day as needed for as needed for pain Contact prescribing physician if questions or concerns Unchanged fluticasone-vilanterol (Breo Ellipta 100 mcg-25 mcg inhalation powder) 1 Puffs Inhalation Every day 30 dose unit Contact prescribing physician if questions or concerns Unchanged levothyroxine (levothyroxine 100 mcg (0.1 mg) Tab) 0.5 Tablets By Mouth Every day Contact prescribing physician if questions or concerns Unchanged liothyronine (liothyronine 5 mcg Tab) 1 Tablets By Mouth Every day Contact prescribing physician if questions or concerns Unchanged metoprolol (Metoprolol tartrate 25 mg Tab) 1 Tablets By Mouth 2 times a day Contact prescribing physician if questions or concerns Unchanged pantoprazole (Pantoprazole [address] Tab) 1 Tablets By Mouth 2 times a day Contact prescribing physician if questions or concerns Unchanged rizatriptan (Maxalt CURB BUILDER 10 mg Tab-Dis) 1 Tablets By Mouth Once Contact prescribing physician if questions or concerns Unchanged tizanidine (tiZANidine 4 mg Tab) 2 Tablets By Mouth At bedtime Contact prescribing physician if questions or concerns Allergies Benadryl (unknown) ciprofloxacin (Vomiting) Problems Ongoing - Any problem that you are currently receiving treatment for. Anxiety Asthma Depression Eczema GERD (gastroesophageal reflux disease) Hearing loss Hypothyroidism Irritable bowel syndrome with constipation Low back pain syndrome Migraine Sinus tachycardia Patient Survey You may receive a survey via text or e-mail asking about your office visit. Please share your experience with us by completing your survey. We appreciate your feedback and thank you for choosing us for your care. Patient Portal You may access all of your results and other medical record information on our secure patient portal. If you are not signed up for this yet, please contact [facility] at [phone] to get signed up today. Language Information Language assistance services are available as needed. Normal [facility] ECG 12 lead ECGon 07-13-2024 ECG 12 lead ECG [facility] [place] [address] [place] [address] Electrocardiograph Report Signed Patient: Stephanie Khoury MR#: [id number] : 1975 Acct:[id number] Age/Sex: 48 / F ADM Date: 07/13/24 Loc: ER Room: Type: [facility] ER Attending Dr: Ordering Provider: Stanley Martinez [...] ECGs available Confirmed by FAB PARK MD ([id number]) on 07/15/2024 12:25:41 AM Referred By: Electronically Signed By: FAB PARK MD Transcribed By: MUS Signed By Fab Park Jr, MD 0025 Normal [facility] MRI SHOULDER LT WO CONon MRI SHOULDER [...] TIMOTHY BRAMBILA Date: 2023-02-26 22:11 Normal [facility]-02 SARS-CoV-2 (COVID-19) RNA ALYX+probe Ql (Unsp spec) Not detected Normal NOT DETECTED [facility] Comment on above: Result Comment: When [...] for this test is supported by the Consulting Sales Manager of Health and Human Service's declaration that [...] be used). Performed By: #### C VDTBH ####[facility] [address] [place], [place] [address]TnDr. Zaynab Wall FREE T3on 10-26-2022 FREE T3 2.94 pg/mlL Normal 2.18-3.98 [facility] Comment on above: Performed By: #### T SH, T4, FT3 #### [facility] [address] [address] [address] Zaynab Wall T4on 10-26-2022 T4 [Mass/Vol] 6.40 ug/dL Normal 4.80-13.90 [facility] Comment on above: Performed By: #### T SH, T4, FT3 #### [facility] [address] [address] [address] Zaynab Wall TSHon 10-26-2022 TSH 0.076 uIU/mL Critically low 0.358-3.740 [facility] Comment on above: Performed By: #### T SH, T4, FT3 #### [facility] [address] [address] [address] Zaynab Wall Orders Onlyon 10-19-2022 Orders Only [id number] Cecile Khoury A 1975 Date Provider Department Center 10/19/2022 WANG HREEDIA MP ORTHO MPORTHO Family History Family history unknown: Yes Normal [facility] Follow-Upon 10-17-2022 Follow-Up [id number] Cecile Khoury A 1975 Date Provider Department Center 10/17/2022 FELIZ ISRAEL MP ORTHO MPORTHO Chart Close Cosign Required by: Feliz Patton MD[[id number]] Family History Family history unknown: Yes Level of Service:99450 DC OFFICE/OUTPATIENT ESTABLISHED LOW MDM 20-29 MIN (GC) Reason for Visit and Comments: Follow-up [995914] Normal [facility] CARDIAC ADRIANA ADMITon 022 CK [Catalytic activity/Vol] 40 U/L Normal 26-192 [facility] Comment on above: Performed By: #### C LIA JHA, TSH ####[facility] [address] [id number]. Zaynab Wall CK.MB [Mass/Vol] 0.60 ng/mL Normal <=3.60 [facility] Comment on above: Performed By: #### C LIA JHA, TSH ####[facility] [address] [address]Dr. Zaynab Wall HSTROP 5.2 pg/mL Normal 4.0-51.3 [facility] Comment on above: Result Comment: CUT- OFF POINTS HAVE BEEN ESTABLISHED BASED ON THE FOURTH UNIVERSAL DEFINITIONS OF MYOCARDIAL INFARCTION. THE UPPER REFERENCE LIMIT (URL) OF TROPONIN, DEFINED THE 99TH PERCENTILE OF cTnI DISTRIBUTION IN A REFERENCE POPULATION, HAS BEEN CONFIRMED THE DECISION THRESHOLD FOR [place] DIAGNOSIS. Performed By: #### C LIA JHA, TSH ####[facility] [address] [address]Dr. Zaynab Wall VICK 33 ng/mL Normal 9-82 [facility] Comment on above: Performed By: #### C LIA JHA, TSH ####[facility] [address] [id number]. Zaynab Wall CBC AUTO DIFFon 09-21-2022 BASO # 0.0 103/ul Normal 0.0-0.1 [facility] Comment on above: Performed By: #### C BC ####[facility] [address] [address]Dr. Zaynab Wall Basophils/100 WBC (Bld) 0.4 % Normal 0.2-2.0 [facility] Comment on above: Performed By: #### C BC ####[facility] [address] [address]Dr. Zaynab Wall EO # 0.0 103/ul Normal 0.0-0.7 [facility] Comment on above: Performed By: #### C BC ####[facility] [address] [address]Dr. Zaynab Wall Eosinophils/100 WBC (Bld) 0.5 % Critically low 0.9-7.0 [facility] Comment on above: Performed By: #### C BC ####[facility] [address] [place], [place] [address]Dr. Zaynab Wall Erythrocyte distribution width (RBC) [Ratio] 12.4 % Normal 11.0-15.0 [facility] Comment on above: Performed By: #### C BC ####[facility] [address] [place], [place] [address]Dr. Zaynab Wall Hematocrit (Bld) [Volume fraction] 36.0 % Normal 36.0-48.0 [facility] Comment on above: Performed By: #### C BC ####[facility] [address] [place], [place] [address]Dr. Zaynab Wall Hemoglobin (Bld) [Mass/Vol] 11.5 g/dL Critically low 12.0-16.0 [facility] Comment on above: Performed By: #### C BC ####[facility] [address] [place], [place] [address]Dr. Zaynab Wall IG # 0.02 10e3/ul Normal 0.00-0.03 [facility] Comment on above: Performed By: #### C BC ####[facility] [address] [place], [place] [address]Dr. Zaynab Wall IG % 0.3 % Normal 0.0-0.5 [facility] Comment on above: Performed By: #### C BC ####[facility] [address] [place], [place] [address]Dr. Zaynab Wall LYMPH # 1.5 103/ul Normal 1.2-3.8 [facility] Comment on above: Performed By: #### C BC ####[facility] [address] [place], [place] [address]Dr. Zaynab Wall Lymphocytes/100 WBC (Bld) 19.6 % Critically low 20.5-60.0 [facility] Comment on above: Performed By: #### C BC ####[facility] [address] [id number]. Zaynab Wall MANUAL DIFF REQ NO Normal [facility] Comment on above: Performed By: #### C BC ####[facility] [address] [address]Dr. Zaynab Wall MCH (RBC) [Entitic mass] 30.6 pg Normal 26.7-34.0 [facility] Comment on above: Performed By: #### C BC ####[facility] [address] [address]Dr. Zaynab Wall MCHC (RBC) [Mass/Vol] 31.9 g/dL Normal 29.9-35.2 [facility] Comment on above: Performed By: #### C BC ####[facility] [address] [place], [place] [address]Dr. Zaynab Wall MCV (RBC) [Entitic vol] 95.7 fL Normal 81.0-99.0 [facility] Comment on above: Performed By: #### C BC ####[facility] [address] [place], [place] [address]Dr. Zaynab Wall MONO # 0.6 103/ul Normal 0.3-0.8 [facility] Comment on above: Performed By: #### C BC ####[facility] [address] [place], [place] [address]Dr. Zaynab Wall Monocytes/100 WBC (Bld) 7.7 % Normal 1.7-12.0 [facility] Comment on above: Performed By: #### C BC ####[facility] [address] [place], [place] [address]Dr. Zaynab Wall NEUT # 5.5 103/ul Normal 1.4-6.5 [facility] Comment on above: Performed By: #### C BC ####[facility] [address] [place], [place] [address]Dr. Zaynab Wall Neutrophils/100 WBC (Bld) 71.5 % Normal 43.0-75.0 [facility] Comment on above: Performed By: #### C BC ####[facility] [address] [address]DrRyann Wall Platelet mean volume (Bld) [Entitic vol] 11.4 fL Normal 9.5-13.5 [facility] Comment on above: Performed By: #### C BC ####[facility] [address] [address]Dr. Zaynab Wall PLT 83 103/ul Critically low 150-450 [facility] Comment on above: Performed By: #### C BC ####[facility] [address] [address]Dr. Zaynab Wall RBC 3.76 106/ul Critically low 4.20-5.40 [facility] Comment on above: Performed By: #### C BC ####[facility] [address] [address]DrRyann Wall WBC 7.7 103/ul Normal 4.0-11.0 [facility] Comment on above: Performed By: #### C BC ####[facility] [address] [address]DrRyann Wall ER URINE PROFILEon 2 Bilirubin Ql (U) Negative Normal NEGATIVE [facility] Comment on above: Performed By: #### E RUR #### [facility] [address] [place] [address] Dr. Zaynab Wall Clarity (U) CLEAR Normal CLEAR [facility] Comment on above: Performed By: #### E RUR #### [facility] [address] [place] [address] Dr. Zaynab Wall Color (U) LT. YELLOW Normal YELLOW [facility] Comment on above: Performed By: #### E RUR #### [facility] [address] [place] [address] Dr. Zaynab KOWALSKI A micrscopic examination will be performed if indicated. Normal [facility] Comment on above: Performed By: #### E RUR #### [facility] [address] [place] [address] Dr. Zaynab Wall Glucose Ql (U) Negative Normal NEGATIVE [facility] Comment on above: Performed By: #### E RUR #### [facility] [address] [place] [address] Dr. Zaynab Wall Hemoglobin Ql (U) Negative Normal NEGATIVE [facility] Comment on above: Performed By: #### E RUR #### [facility] [address] [place] [address] Dr. Zaynab Wall Ketones Ql (U) Negative Normal NEGATIVE [facility] Comment on above: Performed By: #### E RUR #### [facility] [address] [place] [address] Dr. Zaynab Wall LEUKOCYTES Negative Normal NEGATIVE [facility] Comment on above: Performed By: #### E RUR #### [facility] [address] [place] [address] Dr. Zaynab Wall Nitrite Ql (U) Negative Normal NEGATIVE [facility] Comment on above: Performed By: #### E RUR #### [facility] [address] [place] [address] Dr. Zaynab Wall pH (U) 7.0 [pH] Normal 5-9 [facility] Comment on above: Performed By: #### E RUR #### [facility] [address] [place] [address] Dr. Zaynab Wall SPEC GRAVITY 1.015 Normal 1.005-<=1.025 [facility] Comment on above: Performed By: #### E RUR #### [facility] [address] [place] [address] Dr. Zaynab Wall UA PROTEIN Negative Normal NEGATIVE/ TRACE [facility] Comment on above: Performed By: #### E RUR #### [facility] [address] [place] [address] Dr. Zaynab Wall UR MICRO IND NOT INDICATED Normal [facility] Comment on above: Performed By: #### E RUR #### [facility] [address] [place] [address] Dr. Zaynab Wall Urobilinogen Qn (U) 1.0 {Jennifer'U}/dL Normal 0.2 - 1.0 [facility] Comment on above: Performed By: #### E RUR #### [facility] [address] [address] [address] Zaynab Wall FREE T4on 09-21-2022 Free T4 [Mass/Vol] 0.92 ng/dL Normal 0.76-1.46 [facility] Comment on above: Performed By: #### F T4 ####[facility] [address] [address]DrRyann Wall PROF 14(COMP METB)on 022 Albumin [Mass/Vol] 3.7 g/dL Normal 3.4-5.0 [facility] Comment on above: Performed By: #### C YUDELKA, CMADM, TSH ####[facility] [address] [address]Dr. Zaynab Wall Albumin/Globulin [Mass ratio] 1.2 {ratio} Normal [facility] Comment on above: Performed By: #### C YUDELKA, CMADM, TSH ####[facility] [address] [address]Dr. Zaynab Wall ALP [Catalytic activity/Vol] 43 U/L Critically low 46-116 [facility] Comment on above: Performed By: #### C YUDELKA, CMADM, TSH ####[facility] [address] [address]Dr. Zaynab Wall ALT [Catalytic activity/Vol] 14 U/L Normal 14-59 [facility] Comment on above: Performed By: #### C MP, CMADM, TSH ####[facility] [address] [address]Dr. Zaynab Wall Anion gap [Moles/Vol] 8.0 mmol/L Normal [facility] Comment on above: Performed By: #### C MP, CMADM, TSH ####[facility] [address] [address]Dr. Zaynab Wall AST [Catalytic activity/Vol] 11 U/L Critically low 15-37 [facility] Comment on above: Performed By: #### C MP, CMADM, TSH ####[facility] [address] [address]Dr. Zaynab Wall Bilirubin [Mass/Vol] 0.5 mg/dL Normal 0.2-1.0 [facility] Comment on above: Performed By: #### C MP, CMADM, TSH ####[facility] [address] [address]Dr. Zaynab Wall Calcium [Mass/Vol] 9.0 mg/dL Normal 8.5-10.1 [facility] Comment on above: Performed By: #### C MP, CMADM, TSH ####[facility] [address] [place] [address]Dr. Zaynab Wall Chloride [Moles/Vol] 104 mmol/L Normal 98-107 [facility] Comment on above: Performed By: #### C MP, CMADM, TSH ####[facility] Cl[address]orn[address] [place] [address]Dr. Zaynab Wall CO2 [Moles/Vol] 30.8 mmol/L Normal 21.0-32.0 [facility] Comment on above: Performed By: #### C MP, CMADM, TSH ####[facility] [address] [place], [place] [address]Dr. Zaynab Wall Creatinine [Mass/Vol] 0.73 mg/dL Normal 0.55-1.02 [facility] Comment on above: Performed By: #### C MP, CMADM, TSH ####[facility] [address] [place] [address]Dr. Zaynab Wall EGFR-AF SINGAPOREAN >60 Normal >=60 [facility] Comment on above: Performed By: #### C MP, CMADM, TSH ####[facility] [address] [place] [address]Dr. Zaynab Wall EGFR-NON AF SINGAPOREAN >60 Normal >=60 [facility] Comment on above: Performed By: #### C MP, CMADM, TSH ####[facility] [address] [place] [address]Dr. Zaynab Wall Globulin (S) [Mass/Vol] 3.0 g/dL Normal [facility] Comment on above: Performed By: #### C LIA JHA, TSH ####[facility] [address] [place] [address]Dr. Zaynab Wall Glucose [Mass/Vol] 88 mg/dL Normal 74-106 [facility] Comment on above: Performed By: #### C YUDELKA CMADM, TSH ####[facility] [address] [place] [address]Dr. Zaynab Wall Potassium [Moles/Vol] 4.8 mmol/L Normal 3.5-5.1 [facility] Comment on above: Performed By: #### C LIA JHA, TSH ####[facility] [address] [place] [address]Dr. Zaynab Wall Protein [Mass/Vol] 6.7 g/dL Normal 6.4-8.2 [facility] Comment on above: Performed By: #### C YUDELKA CMADM, TSH ####[facility] [address] [place] [address]Dr. Zaynab Wall Sodium [Moles/Vol] 138 mmol/L Normal 136-145 [facility] Comment on above: Performed By: #### C YUDELKA CMADM, TSH ####[facility] [address] [place] [address]Dr. Zaynab Wall Urea nitrogen [Mass/Vol] 10.0 mg/dL Normal 7.0-18.0 [facility] Comment on above: Performed By: #### C YUDELKA CMADM, TSH ####[facility] [address]ks[address] [place] [address]Dr. Zaynab Wall Urea nitrogen/Creatinin e [Mass ratio] 13.7 mg/mg Normal [facility] Comment on above: Performed By: #### C YUDELKA CMADM, TSH ####[facility] [address] [place] [address]Dr. Zaynab Wall TSHon 09-21-2022 TSH 0.033 uIU/mL Critically low 0.358-3.740 [facility] Comment on above: Performed By: #### C MP, CMADM, TSH ####[facility] [address] [place], [place] [address]QiRyann Wall XR CHEST 1 Von 09-21-2022 XR [...] by: NELLIE WHITE Date: 2022-09-21 10:31 Normal [facility] Office Visiton 09-05-2022 Follow-up visit [id number] Cecile Khoury Chaya 1975 F Date Provider Department Center 09/05/2022 FELIZ [place]RAEL [facility] [place] Close Cosign Required by: Feliz Patton MD[[id number]] Family History Family history unknown: Yes Level of Service:30489 DC OFFICE/OUTPATIENT NEW LOW [facility] 30-44 MINUTES (GC) Reason for Visit and Comments: Pain [136] Normal [facility] MRI SHOULDER LT WO CONon MRI SHOULDER [...] by: TIMOTHY BRAMBILA Date: 2022-08-29 12:09 Normal [facility] XR ARTHRO SHOULDER LTon 08-03 XR [...] by: TIMOTHY BRAMBILA Date: 2022-08-29 11:09 Normal [facility] CBC AUTO DIFFon 07-31-2022 BASO # 0.1 103/ul Normal 0.0-0.1 [facility] Comment on above: Performed By: #### C BC ####[facility] [address] [place] [phone]. Zaynab Wall Basophils/100 WBC (Bld) 0.5 % Normal 0.2-2.0 [facility] Comment on above: Performed By: #### C BC ####[facility] [address] [place] [address]Dr. Zaynab Wall EO # 0.2 103/ul Normal 0.0-0.7 [facility] Comment on above: Performed By: #### C BC ####[facility] [address] [place] [address]Dr. Zaynab Wall Eosinophils/100 WBC (Bld) 1.8 % Normal 0.9-7.0 [facility] Comment on above: Performed By: #### C BC ####[facility] [address] [place] [address]Dr. Zaynab Wall Erythrocyte distribution width (RBC) [Ratio] 12.2 % Normal 11.0-15.0 [facility] Comment on above: Performed By: #### C BC ####[facility] [address] [place] [address]Dr. Zaynab Wall Hematocrit (Bld) [Volume fraction] 39.8 % Normal 36.0-48.0 [facility] Comment on above: Performed By: #### C BC ####[facility] [address] [place] [address]Dr. Zaynab Wall Hemoglobin (Bld) [Mass/Vol] 13.0 g/dL Normal 12.0-16.0 [facility] Comment on above: Performed By: #### C BC ####[facility] [address] [place] [address]Dr. Zaynab Wall IG # 0.04 10e3/ul Critically high 0.00-0.03 [facility] Comment on above: Performed By: #### C BC ####[facility] [address] [place] [address]Dr. Zaynab Wall IG % 0.4 % Normal 0.0-0.5 [facility] Comment on above: Performed By: #### C BC ####[facility] [address] [place] [address]Dr. Zaynab Wall LYMPH # 2.8 103/ul Normal 1.2-3.8 [facility] Comment on above: Performed By: #### C BC ####[facility] [address] [place], [place] [address]Mz. Zaynab Wall Lymphocytes/100 WBC (Bld) 24.7 % Normal 20.5-60.0 [facility] Comment on above: Performed By: #### C BC ####[facility] [address] [place] [address]Dr. Zaynab Duke MANUAL DIFF REQ NO Normal [facility] Comment on above: Performed By: #### C BC ####[facility] [address] [place] [address]Dr. Zaynab Wall MCH (RBC) [Entitic mass] 31.1 pg Normal 26.7-34.0 [facility] Comment on above: Performed By: #### C BC ####[facility] [address] [place] [address]Dr. Zaynab Wall MCHC (RBC) [Mass/Vol] 32.7 g/dL Normal 29.9-35.2 [facility] Comment on above: Performed By: #### C BC ####[facility] [address] [place] [address]Dr. Zaynab Wall MCV (RBC) [Entitic vol] 95.2 fL Normal 81.0-99.0 [facility] Comment on above: Performed By: #### C BC ####[facility] [address] [place] [address]Dr. Zaynab Wall MONO # 0.9 103/ul Critically high 0.3-0.8 [facility] Comment on above: Performed By: #### C BC ####[facility] [address] [place] [address]Dr. Zaynab Duke Monocytes/100 WBC (Bld) 8.2 % Normal 1.7-12.0 [facility] Comment on above: Performed By: #### C BC ####[facility] [address]ush[address] [place], [place] [address]Ib. Zaynab Wall NEUT # 7.3 103/ul Critically high 1.4-6.5 [facility] Comment on above: Performed By: #### C BC ####[facility] [address] [place], [place] [address]Oc. Zaynab Wall Neutrophils/100 WBC (Bld) 64.4 % Normal 43.0-75.0 [facility] Comment on above: Performed By: #### C BC ####[facility] [address] [place], [place] [address]Go. Zaynab Wall Platelet mean volume (Bld) [Entitic vol] 10.5 fL Normal 9.5-13.5 [facility] Comment on above: Performed By: #### C BC ####[facility] [address] [place], [place] [address]Ru. Zaynab Wall PLT 237 103/ul Normal 150-450 [facility] Comment on above: Performed By: #### C BC ####[facility] [address]xslz32[address] [place], [place] [address]Rk. Zaynab Wall RBC 4.18 106/ul Critically low 4.20-5.40 [facility] Comment on above: Performed By: #### C BC ####[facility] [address] [place], [place] [address]Gr. Zaynab Wall WBC 11.4 103/ul Critically high 4.0-11.0 [facility] Comment on above: Performed By: #### C BC ####[facility] [address] [place] [phone]. Zaynab Wall CT ABD/PELVIS WO CONon 07-31 [...] KIMI WELSH Date: 2022-07-31 03:46 Normal [facility] ER URINE PROFILEon 2 Bilirubin Ql (U) Negative Normal NEGATIVE [facility] Comment on above: Performed By: #### E RUR #### [facility] [address] [place] [address] Dr. Zaynab Wall Clarity (U) CLEAR Normal CLEAR [facility] Comment on above: Performed By: #### E RUR #### [facility] [address] [place] [address] Dr. Zaynab Wall Color (U) LT. YELLOW Normal YELLOW [facility] Comment on above: Performed By: #### E RUR #### [facility] [address] [place] [address] Dr. Zaynab Wall ERUAHD A micrscopic examination will be performed if indicated. Normal [facility] Comment on above: Performed By: #### E RUR #### [facility] [address] [place] [address] Dr. Zaynab Wall Glucose Ql (U) Negative Normal NEGATIVE [facility] Comment on above: Performed By: #### E RUR #### [facility] [address] [place] [address] Dr. Zaynab Wall Hemoglobin Ql (U) Negative Normal NEGATIVE [facility] Comment on above: Performed By: #### E RUR #### [facility] [address] [place] [address] Dr. Zaynab Wall Ketones Ql (U) Negative Normal NEGATIVE [facility] Comment on above: Performed By: #### E RUR #### [facility] [address] [place] [address] Dr. Zaynab Wall LEUKOCYTES Negative Normal NEGATIVE [facility] Comment on above: Performed By: #### E RUR #### [facility] [address] [place] [address] Dr. Zaynab Wall Nitrite Ql (U) Negative Normal NEGATIVE [facility] Comment on above: Performed By: #### E RUR #### [facility] [address] [place] [address] Dr. Zaynab Wall pH (U) 6.0 [pH] Normal 5-9 [facility] Comment on above: Performed By: #### E RUR #### [facility] [address] [place] [address] Dr. Zaynab Wall SPEC GRAVITY 1.015 Normal 1.005-<=1.025 [facility] Comment on above: Performed By: #### E RUR #### [facility] [address] [place] [address] Dr. Zaynab Wall UA PROTEIN Negative Normal NEGATIVE/ TRACE [facility] Comment on above: Performed By: #### E RUR #### [facility] [address] [place] [address] Dr. Zaynab Wall UR MICRO IND NOT INDICATED Normal [facility] Comment on above: Performed By: #### E RUR #### [facility] [address] [place] [address] Dr. Zaynab Wall Urobilinogen Qn (U) 0.2 {Jennifer'U}/dL Normal 0.2 - 1.0 [facility] Comment on above: Performed By: #### E RUR #### [facility] [address] [place] [address] Dr. Zaynab Wall PROF CHEM 8 (BAS METB)on Anion gap [Moles/Vol] 8.2 mmol/L Normal [facility] Comment on above: Performed By: #### B MP #### [facility] [address] [place] [address] [address] Zaynab Wall Calcium [Mass/Vol] 9.1 mg/dL Normal 8.5-10.1 [facility] Comment on above: Performed By: #### B MP #### [facility] [address] [place] [address] [address] Zaynab Wall Chloride [Moles/Vol] 102 mmol/L Normal 98-107 [facility] Comment on above: Performed By: #### B MP #### [facility] [address] [place] [address] [address] Zaynab Wall CO2 [Moles/Vol] 31.6 mmol/L Normal 21.0-32.0 [facility] Comment on above: Performed By: #### B MP #### [facility] [address] [place] [address] [address] Zaynab Wall Creatinine [Mass/Vol] 0.84 mg/dL Normal 0.55-1.02 [facility] Comment on above: Performed By: #### B MP #### [facility] [address] [place] [address] [address] Zaynab Wall EGFR-AF SINGAPOREAN >60 Normal >=60 [facility] Comment on above: Performed By: #### B MP #### [facility] [address] [place] [address] [address] Zaynab Wall EGFR-NON AF SINGAPOREAN >60 Normal >=60 [facility] Comment on above: Performed By: #### B MP #### [facility] [address] [place] [address] [address] Zaynab Wall Glucose [Mass/Vol] 106 mg/dL Normal 74-106 [facility] Comment on above: Performed By: #### B MP #### [facility] [address] [address] [address] Zaynab Wall Potassium [Moles/Vol] 3.8 mmol/L Normal 3.5-5.1 [facility] Comment on above: Performed By: #### B MP #### [facility] [address] [address] [address] Zaynab Wall Sodium [Moles/Vol] 138 mmol/L Normal 136-145 [facility] Comment on above: Performed By: #### B MP #### [facility] [address] [address] [address] Zaynab Wall Urea nitrogen [Mass/Vol] 15.0 mg/dL Normal 7.0-18.0 [facility] Comment on above: Performed By: #### B MP #### [facility] [address] [address] [address] Zaynab Wall Urea nitrogen/Creatinin e [Mass ratio] 17.9 mg/mg Normal [facility] Comment on above: Performed By: #### B MP #### [facility] [address] [address] [address] Zaynab Wall XR CHEST 2 Von 07-31-2022 XR CHEST 2 V EXAM: XR CHEST 2 V HISTORY: Pain COMPARISON: Chest x-ray 07/10/2021 TECHNIQUE: 2 view chest x-ray frontal and lateral FINDINGS: No lobar consolidation, large pleural effusions, pneumothorax, or acute bony abnormality. Cardiac size unremarkable. IMPRESSION: No radiographic evidence for acute chest abnormality. Electronically authenticated by: KIMI WELSH Date: 2022-07-31 03:36 Normal [facility] PAP ACOG PANEL 3: 30 to 65on 04-26-2022 . . Normal [facility] Comment on above: Result Comment: Perf ormed at: WB Performed By: #### [id number] ####[facility] [address] [place] [address]Dr. Zaynab Wall Age Gdln ACOG Testing 30-65 Normal [facility] Comment on above: Performed By: #### 4 [id number] ####[facility] [address] [place] [address]Dr. Zaynab Wall Chlamydia, Nuc. Acid Amp Negative Normal Negative [facility] Comment on above: Result Comment: Perf ormed at: =G Performed By: #### 4 [id number] ####[facility] [address] [place] [address]Dr. Zaynab Wall DIAGNOSIS: Comment Normal [facility] Comment on above: Result Comment: NEGA TIVE FOR INTRAEPITHELIAL LESION OR MALIGNANCY. Performed at: WB Performed By: #### [id number] ####[facility] [address]us[address] [place] [address]DrRyann Wall Gonococcus, Nuc. Acid Amp Negative Normal Negative [facility] Comment on above: Result Comment: Perf ormed at: =G Performed By: #### [id number] ####[facility] [address] [place], [place] [address]DrRyann Wall HPV Aptima Negative Normal Negative [facility] Comment on above: Result Comment: This nucleic acid amplification test detects fourteen high-risk HPV types (16,18,31,33,35,39,45,51,52,56,58,59,66,68) without differentiation. Performed at: =G Performed By: #### [id number] ####[facility] [address] [place], [place] [address]DrRyann Wall Methodology: CTIM Normal [facility] Comment on above: Result Comment: The Thin Prep(R) Speech Language Assistant was unable to read this specimen. Therefore a manual review was performed. Performed at: WB Performed By: #### [id number] ####[facility] [address] [place], [place] [address]DrRyann Wall Note: Comment Normal [facility] Comment on above: Result Comment: The Pap smear is a screening test designed to aid in the detection of premalignant and malignant conditions of the uterine cervix. It is not a diagnostic procedure and should not be used as the sole means of detecting cervical cancer. Both false-positive and false-negative reports do occur. . Performed at: WB Performed By: #### [id number] ####[facility] [address] [place], [place] [address]DrRyann Wall Performed by: Comment Normal [facility] Comment on above: Result Comment: Ashvin Beatty Traffic Safety Administrator (ASCP) Performed at: WB Performed By: #### [id number] ####[facility] [address] [place], [place] [address]DrRyann Wall Specimen adequacy: Comment Normal [facility] Comment on above: Result Comment: Sati sfactory for evaluation. No endocervical component is identified. Performed at: WB Performed By: #### [id number] ####[facility] [address] [place], [place] [address]SmRyann Wall Vital Signs Date Time Vital Sign Value Performing Clinician Facility 07-13-2024 23:40-0400 Body height 157.48 cm MD Chi Potter Work Phone: [facility] 07-13-2024 23:40-0400 Body temperature 97.7 [degF] MD Chi Potter Work Phone: [facility] 07-13-2024 23:40-0400 Body weight 49.1 kg MD Chi Potter Work Phone: [facility] 07-13-2024 23:40-0400 Diastolic blood pressure 75 mm[Hg] MD Chi Potter Work Phone: [facility] 07-13-2024 23:40-0400 Heart rate 81 /min MD Chi Potter Work Phone: [facility] 07-13-2024 23:40-0400 Respiratory rate 16 /min MD Chi Potter Work Phone: [facility] 07-13-2024 23:40-0400 SaO2% (BldA) [Mass fraction] 100 % MD Chi Potter Work Phone: [facility] 07-13-2024 23:40-0400 Systolic blood pressure 134 mm[Hg] MD Chi Potter Work Phone: [facility] 04-03-2023 15:39-0400 Blood Pressure Location Lopez MARTÍNEZ [facility] 04-03-2023 15:39-0400 Diastolic blood pressure 66 mm[Hg] Lopez MARTÍNEZ [facility] 04-03-2023 15:39-0400 Heart rate 66 /min Lopez MARTÍNEZ [facility] 04-03-2023 15:39-0400 Respiratory rate 16 /min Lopez MARTÍNEZ [facility] [place] 04-03-2023 15:39-0400 Systolic blood pressure 104 mm[Hg] Lopez MARTÍNEZ [facility] [place] 06-21-2022 15:49-0400 Body temperature 97.88 [degF] Nabil Caldera [facility] 06-21-2022 15:49-0400 Diastolic blood pressure 91 mm[Hg] Nabil Caldera [facility] 06-21-2022 15:49-0400 Heart rate 80 /min Nabil Caldera [facility] 06-21-2022 15:49-0400 Respiratory rate 18 /min Nabil Caldera [facility] 06-21-2022 15:49-0400 SaO2% (BldA) [Mass fraction] 98 % Nabil Caldera [facility] 06-21-2022 15:49-0400 Systolic blood pressure 138 mm[Hg] Nabil Caldera [facility] Encounters Encounter Date Encounter Type Care Provider Facility Start: 07-28-2025 ambulatory Lopez MARTÍNEZ Facility :[facility] Start: 06-30-2025 End: 06-30-2025 ambulatory Chi Potter Facility:[facility] Start: 06-30-2025 End: 06-30-2025 Patient encounter procedure Lopez MARTÍNEZ [facility] [place] Start: 07-13-2024 End: 07-14-2024 Emergency department patient visit MD Chi Potter Work Phone: [facility] Work Phone: Start: 04-03-2023 End: 04-03-2023 Patient encounter procedure Lopez R NILL General Surgery Nill/S[facility] [place] Start: 02-26-2023 End: 02-27-[address] DOCTOR SULLIVAN Facility:[facility] Start: 01-16-2023 End: 01-16-[address] CHI POTTER . Facility:[facility] Start: 10-26-2022 End: 10-27-[address] CHI POTTER . Facility:[facility] Start: 10-20-2022 End: 10-21-2022 ambulatory [facility] Start: 10-19-2022 End: 10-20-2022 ambulatory [facility] Start: 10-17-2022 End: 10-17-2022 ambulatory [facility] Start: 09-21-2022 End: 09-21-2022 ambulatory TREY MACIEL . Facility:[facility] Start: 09-05-2022 End: 09-06-2022 ambulatory [facility] Start: 08-29-2022 End: 08-29-[address] CHI POTTER . Facility:[facility] Start: 07-31-2022 End: 07-31-2022 ambulatory ZITA OCHOA Facility:[facility] Start: 07-04-2022 End: 07-28-[address] CHI POTTER . Facility:[facility] Start: 06-21-2022 End: 06-21-2022 Emergency department patient visit Nabil Caldera [facility] Start: 04-26-2022 Encounter for gynecological examination (general) (routine) without abnormal findings TERE HART [facility] Start: 04-20-2022 End: 04-20-2022 ambulatory TERE HART Facility:[facility] Start: 04-20-2022 End: 04-20-2022 Encounter for gynecological examination (general) (routine) without abnormal findings TERE HART Facility:[facility] Procedures Date Procedure Procedure Detail Performing Clinician Start: 04-17-2023 Excision of intrader mal nevus Lopez MARTÍNEZ Abdominal hysterectomy Jimmy MARTÍNEZ Ligation of fallopian tube Jordan LANGLEYFina Plan of Treatment Date Care Activity Detail Author Start: 07-13-2024 [facility] Albumin/Globulin ratio [facility] Anion gap measurement [facility] Basophils [#/volume] in Blood by Automated count [facility] Basophils/100 leukoc ytes in Blood by Automated count [facility] Eosinophils/100 leuk ocytes in Blood by Automated count [facility] Erythrocyte distribu tion width [Ratio] by Automated count [facility] Erythrocytes [#/volume] in Blood [facility] Globulin [Mass/volume] in Serum [facility] Hematocrit [Volume F raction] of Blood [facility] Hemoglobin [Mass/vol ume] in Blood [facility] Leukocytes [#/volume ] corrected for nucleated erythrocytes in Blood by Automated coun [facility] Leukocytes [#/volume] in Blood [facility] Lymphocytes [#/volum e] in Blood by Automated count [facility] Lymphocytes/100 leuk ocytes in Blood by Automated count [facility] MCH [Entitic mass] b y Automated count [facility] MCHC [Mass/volume] b y Automated count [facility] MCV [Entitic volume] by Automated count [facility] Monocytes [#/volume] in Blood by Automated count [facility] Monocytes/100 leukoc ytes in Blood by Automated count [facility] Neutrophils [#/volum e] in Blood by Automated count [facility] Neutrophils/100 leuk ocytes in Blood by Automated count [facility] Nucleated erythrocyt es [Presence] in Blood by Automated count [facility] Patient referral [facility] Work Phone: Platelet mean volume [Entitic volume] in Blood by Automated count [facility] Platelets [#/volume] in Blood [facility] Immunizations Immunization Date Immunization Notes Care Provider Fa [facility] 08-27-2022 influenza virus vaccine, unspecified formulation Lopez MARTÍNEZ [facility] [place] 08-27-2022 SARS-CoV-2 (COVID-19 ) [id number] Lopez MARTÍNEZ [facility] [place] 11-17-2021 SARS-CoV-2 (COVID-19 ) mRNA BNT-162b2 vax Lopez LANGLEYL [facility] [place] 03-23-2021 SARS-CoV-2 (COVID-19 ) mRNA BNT-162b2 vax Lopez LANGLEYL [facility] [place] 03-02-2021 SARS-CoV-2 (COVID-19 ) mRNA BNT-162b2 vax Lopez LANGLEYL [facility] [place] Payers Date Payer Category Payer Private Health Insurance [id number] 2025 Unknown [id number] 2024 Self-pay 1976 Unknown [id number] 1976 Unknown [id number] 1976 Unknown [id number] 1976 Unknown [id number] 2.16.840.1.390470.3.579.2.593 1976 Unknown [id number] 2.16.840.1.749286.3.579.2.593 1976 Unknown [id number] 2.16.840.1.363519.3.579.2.593 1976 Unknown [id number] 2.16.840.1.856416.3.579.2.593 1976 Unknown [id number] 2.16.840.1.070927.3.579.2.593 1976 Unknown [id number] [id number] 1976 Unknown [id number] [id number] 1959 Medicaid [id number] 1959 Unknown [id number] Medicaid Medicaid [id number] Unknown [employer] [id number] Unknown [id number] Social History Date Type Detail Facility Tobacco smoking status No Smokin g Status Entered [facility] Sex Assigned At Female [facility] Start: 04-03-2023 End: 06-30-2025 Tobacco smoking status Never smoked tobacco (finding) [facility] [place] Tobacco smoking status Never [facility] [place] Start: 1975 Sex Assigned At Female [facility] Sexual Orientation [facility] [place] Start: 02-20-2019 Sex Female (finding) [facility] NEGATED: Highlighted row [facility] Functional Status Date Assessment Result Facility 04-03-2023 Functional Status N/A [facility] 06-21-2022 Functional Status N/A [facility] Clinical Note 06-30-2025 Note Date & Type Note Facility 06-30-2025 Note General Surgery Offi ce/Clinic Note Chief Complaint consultation for skin lesion HPI Staff 49 year old female presents on consultation from Dr. Potter for right lateral ankle nodule. Reports nodule has been present for several years. Recently the nodule changed from flesh colored to white. Denies change in size. Denies soreness. Denies this has ever drained. History of Present Illness 49 yo female with h/o hypothyroidism, migraines, asthma, depression/anxiety, low back pain, referred for skin lesion right lateral ankle; present for several years, no pain or bleeding, no increase in size; recent change in pigmentation, darker edge with white center; no h/o other similar lesions; on diclofenac daily, no asa; no tobacco use. Review of Systems PHQ Score Initial Depression Screen Score: 0 SCORE ROS - Provider Constitutional: no fever, no sweats, no weight loss. Eyes: yes glasses, no blurred vision, no visual loss. [...] noncontributory. Physical Exam Vitals & Measurements HR: 72(Peripheral) RR: 16 BP: 104/72 HT: 154.9 cm HT: 61 in WT: 46.8 kg WT: 103.176 lb BMI: 19.5 Musculoskeletal: normal gait, digits and nails without infection, nodes, cyanosis, clubbing. 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 Psychiatric/Neuro: oriented to time, place, person, judgement normal, affect appropriate for age, insight intact, no focal deficits. Tests: , review of old records completed , Discussed surgical options, risks, and possible complications with patient. Assessment/Plan 1. Neoplasm of uncertain behavior of skin of lower leg (D48.5: Neoplasm of uncertain behavior of skin) plan excisional biopsy under local anesthesia, in the office, for definitive diagnosis and treatment, informed consent obtained. Follow-up No qualifying data available Problem List/Past Medical History Ongoing Anxiety Asthma Depression Eczema GERD (gastroesophageal reflux disease) Hearing loss Hypothyroidism Irritable bowel syndrome with constipation Low back pain syndrome Migraine Neoplasm of uncertain behavior of skin of lower leg Sinus tachycardia Historical No qualifying data Procedure/Surgical History Excision of intradermal nevus (04/17/2023), Abdominal hysterectomy, Tubal ligation. Medications Albuterol (Eqv-ProAir HFA), 1 puff, Inhalation, q4hr, PRN Breo Ellipta 100 mcg-25 mcg inhalation powder, 1 puff(s), Inhalation, Daily diclofenac sodium 75 mg Oral EC Tab, 75 mg= 1 tab(s), Oral, BID, PRN Fioricet, 1 cap(s), Oral, q4hr, PRN levothyroxine 100 mcg (0.1 mg) Tab, 50 mcg= 0.5 tab(s), Oral, Daily liothyronine 5 mcg Tab, 5 mcg= 1 tab(s), Oral, Daily Maxalt [employer] 10 mg Tab-Dis, 10 mg= 1 tab(s), Oral, Once Metoprolol tartrate 25 mg Tab, 25 mg= 1 tab(s), Oral, BID Pantoprazole [address] Tab, 40 mg= 1 tab(s), Oral, BID tiZANidine 4 mg Tab, 8 mg= 2 tab(s), Oral, Bedtime Allergies Benadryl (unknown) ciprofloxacin (Vomiting) Social History Alcohol - Denies Alcohol Use, 06/21/2022 Never., 06/25/2025 Substance Abuse - Denies Substance Abuse, 06/21/2022 Never., 06/25/2025 Tobacco - Denies Tobacco Use, 06/21/2022 Never (less than 100 in lifetime) Tobacco Use:. Never Smokeless Tobacco Use:., 06/30/2025 Family History Hypertension: Mother. Immunizations Vaccine Date Status influenza virus vaccine, inactivated 08/27/2022 Recorded SARS-CoV-2 (COVID-19) [id number] 08/27/2022 Recorded SARS-CoV-2 (COVID-19) mRNA BNT-162b2 vax 11/17/2021 Recorded SARS-CoV-2 (COVID-19) mRNA BNT-162b2 vax 03/23/2021 Recorded SARS-CoV-2 (COVID-19) mRNA BNT-162b2 vax 03/02/[address] [facility] Comment on above: Result Comment: Elec jarek Signed By: TANYA CANTU, Lopez Ruiz\Date and Time Signed: 06/30/25 15:30 EDT Progress note 10-17-2022 Note Date & [...] strength. Clovis Kruse MD Orthopaedic Surgery PGY-1 [facility] 10/17/22 10:07 AM [facility] Progress note 09-05-2022 Note Date & Type [...] some mild improvement. Had MRI completed at [facility] which reportedly demonstrated possible partial thickness tear [...] to verify the correct patient, procedure, equipment, bioinformatics support specialist and site/side marked as required. Patient was prepped and draped in the usual sterile fashion. Williams Kowalski MD Orthopedic Surgery, PGY-5 Pager: [phone] 09/05/22 9:33 AM By using the attestations [...] be an additional personal documentation from me. [facility] Hospital Discharge instructions 06-21-2022 Note Date & Type Note Facility 06-21-2022 Hospital Discharg e instructions Patient Education 06/21/2022 16:30:19 Muscle Strain, Qgrb-qo-Wyrm Muscle Strain A muscle strain is an [...] is not too tight. General instructions Take novo-yfa-qrbgbhl and prescription medicines only as told by [...] 08/27/2009 Document Revised: 01/14/2020 Document Reviewed: 12/25/2017 [employer] Patient Education 2020 [employer]. Follow Up Care 06/21/2022 15:32:56 With:AKIRA ACUNA CNP Address: [address] [place] [phone] When:1 to 2 days [facility] Evaluation + Plan note Note Date & Type Note Facility Evaluation + Plan note No data available for this section [facility] Evaluation + Plan note Note Date & Type Note Facility Evaluation + Plan note Future Appointments Appointment Date:04/17/2023 03:20:00 PM Scheduled Provider:Lopez MARTÍNEZ MD Location:[facility] Appointment Type: Procedure 30 [facility] [place] Evaluation + Plan note Note Date & Type Note Facility Evaluation + Plan note Future Appointments Appointment Date:07/28/2025 03:20:00 PM Scheduled Provider:Lopez MARTÍNEZ MD Location:[facility] [place] Appointment Type: Procedure 30 [facility] [place] Evaluation note Note Date & Type Note Facility Evaluation note No assessment information availa [facility] Work Phone: Hospital Discharge instructions Note Date & Type Note Facility Hospital Discharge instructions No data available for this section [facility] [place] Progress note Note Date & Type Note Facility Progress note No data available for this section [facility] Summary Purpose Family History No Family History [...] section and content) DATE CREATED AUTHOR 10/21/2022 [facility] DATE CREATED AUTHOR AUTHOR'S ORGANIZ ATION 03/16/2023 [facility] [place] [facility] DATE CREATED AUTHOR AUTHOR'S ORGANIZ ATION 08/18/2024 [facility] DATE CREATED AUTHOR AUTHOR'S ORGANIZ ATION 07/02/2025 [facility] Goals (unrecognized section and content) Goals may [...] BE BASED ON THE PRIMARY CLINICAL RECORDS. [facility] [employer] provides no warranty or guarantee of the accuracy or completeness of information in this document.
[2025-07-21 16:28] LABS: Alanine Aminotransferase 37 U/L (14-59); Albumin Globulin Ratio 1.3; Albumin Level 4.4 g/dL (3.4-5.0); Alkaline Phosphatase 75 U/L (46-116); Anion Gap 14.0; Aspartate Amino Transferase 18 U/L (15-37); Blood Urea Nitrogen 6.0 mg/dL (7.0-18.0); Calcium 9.7 mg/dL (8.5-10.1); Carbon Dioxide 31.0 mmol/L (21.0-32.0); Chloride 103 mmol/L (98-107); Cholesterol 178 mg/dL (<=200); Estimated GFR (African America >60 (>=60 mL/min/1.73m^2); Estimated GFR (Non-African Ame >60 (>=60 mL/min/1.73m^2); Free T3 1.73 pg/mL (2.18-3.98); Globulin 3.4 g/dL; Glucose 88 mg/dL (74-106); HDL Cholesterol 60 mg/dL (40-60); Potassium 4.0 mmol/L (3.5-5.1); Sodium 144 mmol/L (136-145); Thyroid Stimulating Hormone 2.018 uIU/mL (0.358-3.740); Total Protein 7.8 g/dL (6.4-8.2); Triglycerides 116 mg/dL (<=150); VLDL CHOLESTEROL 23.2 mg/dL
== END 2025-07-21 15:07 | disposition home or self-care (01) ==
LOC: LAB 15:07
PROVIDERS: PCP Family Medicine; Visit Provider Family Medicine
DX: Z00.00 Encounter for general adult medical examination without abnormal findings (principal); R53.83 Other fatigue; Z12.11 Encounter for screening for malignant neoplasm of colon; E03.9 Hypothyroidism, unspecified
CPT/HCPCS: 36415; 80053; 80061; 83036; 84436; 84443; 84481; 85025

== ENCOUNTER 2025-07-26 19:40 | Outpatient (REF) | payer BC, SELFPAY ==
--- OUTSIDE RECORDS SUMMARY | 2025-07-26 19:46 | XMS_ITS | CCD ---
Author Organization [facility] Care Team Providers Care Registered Nurse Midwife Name Role Phone Chi Potter Primary Care [...] Unavailable MD Chi Potter Primary Care Provider [phone] DO Stanley Martinez Emergency Provider Chi Potter Primary Care Unavailable Stanley Martinez Attending Unavailable Stanley Martinez Admitting Unavailable Lopez MARTÍNEZ Attending Unavailable Chi Potter Referring Unavailable Lopez MARTÍNEZ Attending Unavailable Allergies Allergy Classification Reported Allergen(s) Allergy Type Date of Onset Reaction(s) Facility (6 sources) Ciprofloxacin; Translations: [ciprofloxacin] Drug Allergy 1 [facility]disorder[facility] (1 source) diphenhydrAMINE; Translations: [DIPHENHYDRAMINE HCL] Drug Allergy 2 [facility] Repository (1 source) Ciprofloxacin Drug Allergy 6 [facility] Repository (2 sources) diphenhydrAMINE; Translations: [Benadryl] Drug Allergy 2 [facility] Repository (3 sources) diphenhydrAMINE; Translations: [diphenhydramine] Drug Allergy 2 [facility] [place] (1 source) Ciprofloxacin Drug Allergy 4 [facility] Repository Medications Current Medications Medication Drug Class(es) [...] day(s), # 9 tab(s), Refills(s) 0, Pharmacy: [facility]/pharmacy #[id number], 155, cm, 06/21/22 15:51:00 EDT, Height/Length [...] take 1 tablet by mouth once 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 Language Information Language assistance services are available as needed. Normal [facility] ECG 12 lead ECGon 07-13-2024 ECG 12 lead ECG [facility] Main [place] [address] [place] [address] Electrocardiograph Report Signed Patient: Stephanie Khoury MR#: [id number] : 1975 Acct:[id number] Age/Sex: 48 / F ADM Date: 07/13/24 Loc: ER Room: Type: [facility] ER Attending Dr: Ordering Provider: Stanley Martinez [...] ECGs available Confirmed by FAB PARK MD ([id number]) on 07/15/2024 12:25:41 AM Referred By: Electronically Signed By: FAB PARK MD Transcribed By: MUS Signed By Fab Park Jr, MD [id number] Normal [facility] MRI SHOULDER LT WO CONon [...] Date: 2023-02-26 22:11 Normal [facility]-02 SARS-CoV-2 (COVID-19) RNA ALYX+probe Ql (Unsp spec) Not detected Normal NOT DETECTED [facility] Comment on above: Result Comment: When [...] for this test is supported by the Gasateria Attendant of Health and Human Service's declaration that [...] Performed By: #### C VDTBH ####[facility] Kyvy[address]crfp264[address] [place], [place] [address]ZeDr. Zaynab Wall FREE T3on 10-26-2022 FREE T3 2.94 pg/mlL Normal 2.18-3.98 [facility] Comment on above: Performed By: #### T SH, T4, FT3 #### [facility] [address] [address] [address] Zaynab Wall T4on 10-26-2022 T4 [Mass/Vol] 6.40 ug/dL Normal 4.80-13.90 [facility] Comment on above: Performed By: #### T SH, T4, FT3 #### [facility] [address] [address] [address] Zaynab Wall TSHon 10-26-2022 TSH 0.076 uIU/mL Critically low 0.358-3.740 [facility] Comment on above: Performed By: #### T SH, T4, FT3 #### [facility] [address] [address] [address] Zaynab Wall Orders Onlyon 10-19-2022 Orders Only [id number] Cecile Khoury A 1975 Date Provider Department Center 10/19/2022 WANG HEREDIA MP ORTHO MPORTHO Family History Family history unknown: Yes Normal [facility] Follow-Upon 10-17-2022 Follow-Up [id number] Cecile Khoury A 1975 Date Provider Department Center 10/17/2022 FELIZ ISRAEL MP ORTHO MPORTHO Chart Close Cosign Required by: Feliz Patton MD[[id number]] Family History Family history unknown: Yes Level of Service:37449 [place] OFFICE/OUTPATIENT ESTABLISHED LOW MDM 20-29 MIN (GC) Reason for Visit and Comments: Follow-up [456865] Normal [facility] CARDIAC ADRIANA ADMITon 022 CK [Catalytic activity/Vol] 40 U/L Normal 26-192 [facility] Comment on above: Performed By: #### C LIA JHA, TSH ####[facility] [address] [id number]. Zaynab Wall CK.MB [Mass/Vol] 0.60 ng/mL Normal <=3.60 [facility] Comment on above: Performed By: #### C LIA JHA, TSH ####[facility] [address] [address]Dr. Zaynab Wall HSTROP 5.2 pg/mL Normal 4.0-51.3 [facility] Comment on above: Result Comment: CUT- OFF POINTS HAVE BEEN ESTABLISHED BASED ON THE FOURTH UNIVERSAL DEFINITIONS OF MYOCARDIAL INFARCTION. THE UPPER REFERENCE LIMIT (URL) OF TROPONIN, DEFINED THE 99TH PERCENTILE OF cTnI DISTRIBUTION IN A REFERENCE POPULATION, HAS BEEN CONFIRMED THE DECISION THRESHOLD FOR PA DIAGNOSIS. Performed By: #### C LIA JHA, TSH ####[facility] [address] [address]Dr. Zaynab Wall VICK 33 ng/mL Normal 9-82 [facility] Comment on above: Performed By: #### C LAI JHA, TSH ####[facility] [address] [address]Dr. Zaynab Wall CBC AUTO DIFFon 09-21-2022 BASO # 0.0 103/ul Normal 0.0-0.1 [facility] Comment on above: Performed By: #### C BC ####[facility] [address] [address]Dr. Zaynab Wall Basophils/100 WBC (Bld) 0.4 % Normal 0.2-2.0 [facility] Comment on above: Performed By: #### C BC ####[facility] [address] [id number]. Zaynab Wall EO # 0.0 103/ul Normal 0.0-0.7 [facility] Comment on above: Performed By: #### C BC ####[facility] [address] [address]Dr. Zaynab Wall Eosinophils/100 WBC (Bld) 0.5 % Critically low 0.9-7.0 [facility] Comment on above: Performed By: #### C BC ####[facility] [address] [place], [place] [address]Dr. Zaynab Wall Erythrocyte distribution width (RBC) [Ratio] 12.4 % Normal 11.0-15.0 [facility] Comment on above: Performed By: #### C BC ####[facility] [address] [place], [place] [address]Dr. Zaynab Wall Hematocrit (Bld) [Volume fraction] 36.0 % Normal 36.0-48.0 [facility] Comment on above: Performed By: #### C BC ####[facility] [address] [place], [place] [address]Dr. Zaynab Wall Hemoglobin (Bld) [Mass/Vol] 11.5 g/dL Critically low 12.0-16.0 [facility] Comment on above: Performed By: #### C BC ####[facility] T[address]ogr[address] [place], [place] [address]Dr. Zaynab Wall IG # 0.02 10e3/ul Normal 0.00-0.03 [facility] Comment on above: Performed By: #### C BC ####[facility] Hbioltsq[address] [place], [place] [address]Dr. Zaynab Wall IG % 0.3 % Normal 0.0-0.5 [facility] Comment on above: Performed By: #### C BC ####[facility] I[address] [place], [place] [address]Dr. Zaynab Wall LYMPH # 1.5 103/ul Normal 1.2-3.8 [facility] Comment on above: Performed By: #### C BC ####[facility] [address] [place], [place] [address]Dr. Zaynab Wall Lymphocytes/100 WBC (Bld) 19.6 % Critically low 20.5-60.0 [facility] Comment on above: Performed By: #### C BC ####[facility] [address] [phone]. Zaynab Wall MANUAL DIFF REQ NO Normal [facility] Comment on above: Performed By: #### C BC ####[facility] [address] [phone]. Zaynab Wall MCH (RBC) [Entitic mass] 30.6 pg Normal 26.7-34.0 [facility] Comment on above: Performed By: #### C BC ####[facility] [address] [id number]. Zaynab Wall MCHC (RBC) [Mass/Vol] 31.9 g/dL Normal 29.9-35.2 [facility] Comment on above: Performed By: #### C BC ####[facility] [address] [place], [place] [address]Dr. Zaynab Wall MCV (RBC) [Entitic vol] 95.7 fL Normal 81.0-99.0 [facility] Comment on above: Performed By: #### C BC ####[facility] Wntwygfq[address] [place], [place] [address]Dr. Zaynab Wall MONO # 0.6 103/ul Normal 0.3-0.8 [facility] Comment on above: Performed By: #### C BC ####[facility] [address] [place], [place] [address]Dr. Zaynab Wall Monocytes/100 WBC (Bld) 7.7 % Normal 1.7-12.0 [facility] Comment on above: Performed By: #### C BC ####[facility] [address] [place], [place] [address]Dr. Zaynab Wall NEUT # 5.5 103/ul Normal 1.4-6.5 [facility] Comment on above: Performed By: #### C BC ####[facility] [address] [place], [place] [address]Dr. Zaynab Wall Neutrophils/100 WBC (Bld) 71.5 % Normal 43.0-75.0 [facility] Comment on above: Performed By: #### C BC ####[facility] [address] [address]DrRyann Wall Platelet mean volume (Bld) [Entitic vol] 11.4 fL Normal 9.5-13.5 [facility] Comment on above: Performed By: #### C BC ####[facility] [address] [address]Dr. Zaynab Wall PLT 83 103/ul Critically low 150-450 [facility] Comment on above: Performed By: #### C BC ####[facility] [address] [address]Dr. Zaynab Wall RBC 3.76 106/ul Critically low 4.20-5.40 [facility] Comment on above: Performed By: #### C BC ####[facility] [address] [address]DrRyann Wall WBC 7.7 103/ul Normal 4.0-11.0 [facility] Comment on above: Performed By: #### C BC ####[facility] [address] [address]DrRyann Wall ER URINE PROFILEon 2 Bilirubin Ql (U) Negative Normal NEGATIVE [facility] Comment on above: Performed By: #### E RUR #### [facility] [address] [place] [address] Dr. Zaynab Wall Clarity (U) CLEAR Normal CLEAR [facility] Comment on above: Performed By: #### E RUR #### [facility] [address] [place] [address] Dr. Zaynab Wall Color (U) LT. YELLOW Normal YELLOW [facility] Comment on above: Performed By: #### E RUR #### [facility] [address] [place] [address] Dr. Zaynab KOWALSKI A micrscopic examination will be performed if indicated. Normal [facility] Comment on above: Performed By: #### E RUR #### [facility] [address] [place] [address] Dr. Zaynab Wall Glucose Ql (U) Negative Normal NEGATIVE [facility] Comment on above: Performed By: #### E RUR #### [facility] [address] [place] [address] Dr. Zaynab Wall Hemoglobin Ql (U) Negative Normal NEGATIVE [facility] Comment on above: Performed By: #### E RUR #### [facility] [address] [place] [address] Dr. Zaynab Wall Ketones Ql (U) Negative Normal NEGATIVE [facility] Comment on above: Performed By: #### E RUR #### [facility] [address] [place] [address] Dr. Zaynab Wall LEUKOCYTES Negative Normal NEGATIVE [facility] Comment on above: Performed By: #### E RUR #### [facility] [address] [place] [address] Dr. Zaynab Wall Nitrite Ql (U) Negative Normal NEGATIVE [facility] Comment on above: Performed By: #### E RUR #### [facility] [address] [place] [address] Dr. Zaynab Wall pH (U) 7.0 [pH] Normal 5-9 [facility] Comment on above: Performed By: #### E RUR #### [facility] [address] [place] [address] Dr. Zaynab Wall SPEC GRAVITY 1.015 Normal 1.005-<=1.025 [facility] Comment on above: Performed By: #### E RUR #### [facility] [address] [place] [address] Dr. Zaynab Wall UA PROTEIN Negative Normal NEGATIVE/ TRACE [facility] Comment on above: Performed By: #### E RUR #### [facility] [address] [place] [address] Dr. Zaynab Wall UR MICRO IND NOT INDICATED Normal [facility] Comment on above: Performed By: #### E RUR #### [facility] [address] [place] [address] Dr. Zaynab Wall Urobilinogen Qn (U) 1.0 {Jennifer'U}/dL Normal 0.2 - 1.0 [facility] Comment on above: Performed By: #### E RUR #### [facility] [address] [address] [address] Zaynab Wall FREE T4on 09-21-2022 Free T4 [Mass/Vol] 0.92 ng/dL Normal 0.76-1.46 [facility] Comment on above: Performed By: #### F T4 ####[facility] [address] [address]DrRyann Wall PROF 14(COMP METB)on 022 Albumin [Mass/Vol] 3.7 g/dL Normal 3.4-5.0 [facility] Comment on above: Performed By: #### C YUDELKA, CMADM, TSH ####[facility] [address] [address]Dr. Zaynab Wall Albumin/Globulin [Mass ratio] 1.2 {ratio} Normal [facility] Comment on above: Performed By: #### C YUDELKA, CMADM, TSH ####[facility] [address] [address]Dr. Zaynab Wall ALP [Catalytic activity/Vol] 43 U/L Critically low 46-116 [facility] Comment on above: Performed By: #### C YUDELKA, CMADM, TSH ####[facility] [address] [address]Dr. Zaynab Wall ALT [Catalytic activity/Vol] 14 U/L Normal 14-59 [facility] Comment on above: Performed By: #### C MP, CMADM, TSH ####[facility] [address] [address]Dr. Zaynab Wall Anion gap [Moles/Vol] 8.0 mmol/L Normal [facility] Comment on above: Performed By: #### C MP, CMADM, TSH ####[facility] [address] [address]Dr. Zaynab Wall AST [Catalytic activity/Vol] 11 U/L Critically low 15-37 [facility] Comment on above: Performed By: #### C MP, CMADM, TSH ####[facility] [address] [address]Dr. Zaynab Wall Bilirubin [Mass/Vol] 0.5 mg/dL Normal 0.2-1.0 [facility] Comment on above: Performed By: #### C MP, CMADM, TSH ####[facility] [address] [address]Dr. Zaynab Wall Calcium [Mass/Vol] 9.0 mg/dL Normal 8.5-10.[address] [facility] Comment on above: Performed By: #### C MP, CMADM, TSH ####[facility] [address] [address]Dr. Zaynab Wall Chloride [Moles/Vol] 104 mmol/L Normal 98-107 [facility] Comment on above: Performed By: #### C MP, CMADM, TSH ####[facility] [address] [address]Dr. Zaynab Wall CO2 [Moles/Vol] 30.8 mmol/L Normal 21.0-32.0 [facility] Comment on above: Performed By: #### C MP, CMADM, TSH ####[facility] [address] [place], [place] [address]Dr. Zaynab Wall Creatinine [Mass/Vol] 0.73 mg/dL Normal 0.55-1.02 [facility] Comment on above: Performed By: #### C MP, CMADM, TSH ####[facility] [address] [address]Dr. Zaynab Wall EGFR-AF KENYAN >60 Normal >=60 [facility] Comment on above: Performed By: #### C MP, CMADM, TSH ####[facility] [address] [address]Dr. Zaynab Wall EGFR-NON AF KENYAN >60 Normal >=60 [facility] Comment on above: Performed By: #### C MP, CMADM, TSH ####[facility] [address] [address]Dr. Zaynab Wall Globulin (S) [Mass/Vol] 3.0 g/dL Normal [facility] Comment on above: Performed By: #### C LIA JAH, TSH ####[facility] [address] [address]Dr. Zaynab Wall Glucose [Mass/Vol] 88 mg/dL Normal 74-[address] [facility] Comment on above: Performed By: #### C YUDELKA CMADM, TSH ####[facility] [address] [address]Dr. Zaynab Wall Potassium [Moles/Vol] 4.8 mmol/L Normal 3.5-5.1 [facility] Comment on above: Performed By: #### C LIA JHA, TSH ####[facility] [address] [address]Dr. Zaynab Wall Protein [Mass/Vol] 6.7 g/dL Normal 6.4-8.2 [facility] Comment on above: Performed By: #### C YUDELKA CMADM, TSH ####[facility] [address] [address]Dr. Zaynab Wall Sodium [Moles/Vol] 138 mmol/L Normal 136-145 [facility] Comment on above: Performed By: #### C YUDELKA CMADM, TSH ####[facility] [address] [address]Dr. Zaynab Wall Urea nitrogen [Mass/Vol] 10.0 mg/dL Normal 7.0-18.0 [facility] Comment on above: Performed By: #### C YUDELKA CMADM, TSH ####[facility] [address] [address]Dr. Zaynab Wall Urea nitrogen/Creatinin e [Mass ratio] 13.7 mg/mg Normal [facility] Comment on above: Performed By: #### C YUDELKA CMADM, TSH ####[facility] [address] [address]Dr. Zaynab Wall TSHon 09-21-2022 TSH 0.033 uIU/mL Critically low 0.358-3.740 [facility] Comment on above: Performed By: #### C MP, CMADM, TSH ####[facility] [address] [place], [place] [address]HjRyann Wall XR CHEST 1 Von 09-21-2022 XR [...] by: NELLIE WHITE Date: 2022-09-21 10:31 Normal [facility] Office Visiton 09-05-2022 Follow-up visit [id number] Cecile Khoury hCaya 1975 F Date Provider Department Center 09/05/2022 FELIZ ISRAEL [facility] Chart Close Cosign Required by: Feliz Patton MD[[id number]] Family History Family history unknown: Yes Level of Service:85282 [place] OFFICE/OUTPATIENT NEW LOW [facility] 30-44 MINUTES (GC) Reason for Visit and Comments: Pain [136] Normal [facility] MRI SHOULDER LT WO CONon MRI SHOULDER [...] by: TIMOTHY BRAMBILA Date: 2022-08-29 12:09 Normal [facility] XR ARTHRO SHOULDER LTon 08-03 XR ARTHRO [...] by: TIMOTHY BRAMBILA Date: 2022-08-29 11:09 Normal [facility] CBC AUTO DIFFon 07-31-2022 BASO # 0.1 103/ul Normal 0.0-0.1 [facility] Comment on above: Performed By: #### C BC ####[facility] [address] [id number]. Zaynab Wall Basophils/100 WBC (Bld) 0.5 % Normal 0.2-2.0 [facility] Comment on above: Performed By: #### C BC ####[facility] [address] [id number]. Zaynab Wall EO # 0.2 103/ul Normal 0.0-0.7 [facility] Comment on above: Performed By: #### C BC ####[facility] [address] [address]Dr. Zaynab Wall Eosinophils/100 WBC (Bld) 1.8 % Normal 0.9-7.0 [facility] Comment on above: Performed By: #### C BC ####[facility] [address] [address]Dr. Zaynab Wall Erythrocyte distribution width (RBC) [Ratio] 12.2 % Normal 11.0-15.0 [facility] Comment on above: Performed By: #### C BC ####[facility] [address] [address]Dr. Zaynab Wall Hematocrit (Bld) [Volume fraction] 39.8 % Normal 36.0-48.0 [facility] Comment on above: Performed By: #### C BC ####[facility] [address] [address]Dr. Zaynab Wall Hemoglobin (Bld) [Mass/Vol] 13.0 g/dL Normal 12.0-16.0 [facility] Comment on above: Performed By: #### C BC ####[facility] [address] [address]Dr. Zaynab Wall IG # 0.04 10e3/ul Critically high 0.00-0.03 [facility] Comment on above: Performed By: #### C BC ####[facility] [address] [address]Dr. Zaynab Wall IG % 0.4 % Normal 0.0-0.5 [facility] Comment on above: Performed By: #### C BC ####[facility] [address] [address]Dr. Zaynab Wall LYMPH # 2.8 103/ul Normal 1.2-3.8 [facility] Comment on above: Performed By: #### C BC ####[facility] [address]xlka[address] [place], [place] [address]Ce. Zaynab Wall Lymphocytes/100 WBC (Bld) 24.7 % Normal 20.5-60.0 [facility] Comment on above: Performed By: #### C BC ####[facility] [address] [address]Dr. Zyanab Duke MANUAL DIFF REQ NO Normal [facility] Comment on above: Performed By: #### C BC ####[facility] [address] [address]Dr. Zaynab Wall MCH (RBC) [Entitic mass] 31.1 pg Normal 26.7-34.0 [facility] Comment on above: Performed By: #### C BC ####[facility] [address] [address]Dr. Zaynab Wall MCHC (RBC) [Mass/Vol] 32.7 g/dL Normal 29.9-35.2 [facility] Comment on above: Performed By: #### C BC ####[facility] [address] [address]Dr. Zaynab Wall MCV (RBC) [Entitic vol] 95.2 fL Normal 81.0-99.0 [facility] Comment on above: Performed By: #### C BC ####[facility] [address] [address]Dr. Zaynab Wall MONO # 0.9 103/ul Critically high 0.3-0.8 [facility] Comment on above: Performed By: #### C BC ####[facility] [address] [address]Dr. Zaynab Duke Monocytes/100 WBC (Bld) 8.2 % Normal 1.7-12.0 [facility] Comment on above: Performed By: #### C BC ####[facility] [address]vs[address] [place], [place] [address]Fg. Zaynab Wall NEUT # 7.3 103/ul Critically high 1.4-6.5 [facility] Comment on above: Performed By: #### C BC ####[facility] C[address]yg[address] [place], [place] [address]Zy. Zaynab Wall Neutrophils/100 WBC (Bld) 64.4 % Normal 43.0-75.0 [facility] Comment on above: Performed By: #### C BC ####[facility] [address]yrudc[address] [place], [place] [address]Vz. Zaynab Wall Platelet mean volume (Bld) [Entitic vol] 10.5 fL Normal 9.5-13.5 [facility] Comment on above: Performed By: #### C BC ####[facility] [address] [place], [place] [address]Hq. Zaynab Wall PLT 237 103/ul Normal 150-450 [facility] Comment on above: Performed By: #### C BC ####[facility] [address] [place], [place] [address]Fq. Zaynab Wall RBC 4.18 106/ul Critically low 4.20-5.40 [facility] Comment on above: Performed By: #### C BC ####[facility] [address] [place], [place] [address]Wu. Zaynab Wall WBC 11.4 103/ul Critically high 4.0-11.0 [facility] [place] [facility] Comment on above: Performed By: #### C BC ####[facility] [address] [place] [id number]. Zaynab Wall CT ABD/PELVIS WO CONon 07-31 [...] Date: 2022-07-31 03:46 Normal [facility] ER URINE PROFILEon 2 Bilirubin Ql (U) Negative Normal NEGATIVE [facility] [place] [facility] Comment on above: Performed By: #### E RUR #### [facility] [address] [place] [address] Dr. Zaynab Wall Clarity (U) CLEAR Normal CLEAR [facility] Comment on above: Performed By: #### E RUR #### [facility] [address] [place] [address] Dr. Zaynab Wall Color (U) LT. YELLOW Normal YELLOW [facility] Comment on above: Performed By: #### E RUR #### [facility] [address] [place] [address] Dr. Zaynab Wall ERUAHD A micrscopic examination will be performed if indicated. Normal [facility] Comment on above: Performed By: #### E RUR #### [facility] [address] [place] [address] Dr. Zaynab Wall Glucose Ql (U) Negative Normal NEGATIVE [facility] Comment on above: Performed By: #### E RUR #### [facility] [address] [place] [address] Dr. Zaynab Wall Hemoglobin Ql (U) Negative Normal NEGATIVE [facility] Comment on above: Performed By: #### E RUR #### [facility] [address] [place] [address] Dr. Zaynab Wall Ketones Ql (U) Negative Normal NEGATIVE [facility] Comment on above: Performed By: #### E RUR #### [facility] [address] [place] [address] Dr. Zaynab Wall LEUKOCYTES Negative Normal NEGATIVE [facility] Comment on above: Performed By: #### E RUR #### [facility] [address] [place] [address] Dr. Zaynab Wall Nitrite Ql (U) Negative Normal NEGATIVE [facility] Comment on above: Performed By: #### E RUR #### [facility] [address] [place] [address] Dr. Zaynab Wall pH (U) 6.0 [pH] Normal 5-9 [facility] Comment on above: Performed By: #### E RUR #### [facility] [address] [place] [address] Dr. Zaynab Wall SPEC GRAVITY 1.015 Normal 1.005-<=1.025 [facility] Comment on above: Performed By: #### E RUR #### [facility] [address] [place] [address] Dr. Zaynab Wall UA PROTEIN Negative Normal NEGATIVE/ TRACE [facility] Comment on above: Performed By: #### E RUR #### [facility] [address] [place] [address] Dr. Zaynab Wall UR MICRO IND NOT INDICATED Normal [facility] Comment on above: Performed By: #### E RUR #### [facility] [address] [place] [address] Dr. Zaynab Wall Urobilinogen Qn (U) 0.2 {Jennifer'U}/dL Normal 0.2 - 1.0 [facility] Comment on above: Performed By: #### E RUR #### [facility] [address] [place] [address] Dr. Zaynab Wall PROF CHEM 8 (BAS METB)on Anion gap [Moles/Vol] 8.2 mmol/L Normal [facility] Comment on above: Performed By: #### B MP #### [facility] [address] [address] [address] Zaynab Wall Calcium [Mass/Vol] 9.1 mg/dL Normal 8.5-10.1 [facility] Comment on above: Performed By: #### B MP #### [facility] [address] [address] [address] Zaynab Wall Chloride [Moles/Vol] 102 mmol/L Normal 98-107 [facility] Comment on above: Performed By: #### B MP #### [facility] [address] [address] [address] Zaynab Wall CO2 [Moles/Vol] 31.6 mmol/L Normal 21.0-32.0 [facility] [place] [facility] Comment on above: Performed By: #### B MP #### [facility] [address] [address] [address] Zaynab Wall Creatinine [Mass/Vol] 0.84 mg/dL Normal 0.55-1.02 [facility] Comment on above: Performed By: #### B MP #### [facility] [address] [place] [address] [address] Zaynab Wall EGFR-AF KENYAN >60 Normal >=60 [facility] Comment on above: Performed By: #### B MP #### [facility] [address] [place] [address] [address] Zaynab Wall EGFR-NON AF KENYAN >60 Normal >=60 [facility] Comment on above: Performed By: #### B MP #### [facility] [address] [address] [address] Zaynab Wall Glucose [Mass/Vol] 106 mg/dL Normal 74-106 The [facility] Comment on above: Performed By: #### B MP #### [facility] [address] [place] [address] [address] Zaynab Wall Potassium [Moles/Vol] 3.8 mmol/L Normal 3.5-5.1 [facility] Comment on above: Performed By: #### B MP #### [facility] [address] [place] [address] [address] Zaynab Wall Sodium [Moles/Vol] 138 mmol/L Normal 136-[address] [facility] Comment on above: Performed By: #### B MP #### [facility] [address] [address] [address] Zaynab Wall Urea nitrogen [Mass/Vol] 15.0 mg/dL Normal 7.0-18.0 [facility] Comment on above: Performed By: #### B MP #### [facility] [address] [place] [address] [address] Zaynab Wall Urea nitrogen/Creatinin e [Mass ratio] 17.9 mg/mg Normal [facility] Comment on above: Performed By: #### B MP #### [facility] [address] [place] [address] [address] Zaynab Wall XR CHEST 2 Von 07-31-2022 XR CHEST 2 V EXAM: XR CHEST 2 V HISTORY: Pain COMPARISON: Chest x-ray 07/10/2021 TECHNIQUE: 2 view chest x-ray frontal and lateral FINDINGS: No lobar consolidation, large pleural effusions, pneumothorax, or acute bony abnormality. Cardiac size unremarkable. IMPRESSION: No radiographic evidence for acute chest abnormality. Electronically authenticated by: KIMI WELSH Date: 2022-07-31 03:36 Normal [facility] PAP ACOG PANEL 3: 30 to 65on 04-26-2022 . . Normal [facility] Comment on above: Result Comment: Perf ormed at: WB Performed By: #### [id number] ####[facility] [address] [place] [address]Dr. Zaynab Wall Age Gdln ACOG Testing 30-65 Normal [facility] Comment on above: Performed By: #### 4 [id number] ####[facility] [address] [place] [id number]. Zaynab Wall Chlamydia, Nuc. Acid Amp Negative Normal Negative [facility] Comment on above: Result Comment: Perf ormed at: =G Performed By: #### [id number] ####[facility] [address] [place] [id number]. Zaynab Wall DIAGNOSIS: Comment Normal [facility] Comment on above: Result Comment: NEGA TIVE FOR INTRAEPITHELIAL LESION OR MALIGNANCY. Performed at: WB Performed By: #### [id number] ####[facility] [address] [place] [address]DrRyann Wall Gonococcus, Nuc. Acid Amp Negative Normal Negative [facility] Comment on above: Result Comment: Perf ormed at: =G Performed By: #### [id number] ####[facility] [address] [place], [place] [address]DrRyann Wall HPV Aptima Negative Normal Negative [facility] Comment on above: Result Comment: This nucleic acid amplification test detects fourteen high-risk HPV types (16,18,31,33,35,39,45,51,52,56,58,59,66,68) without differentiation. Performed at: =G Performed By: #### [id number] ####[facility] [address] [place], [place] [address]DrRyann Wall Methodology: CTIM Normal [facility] Comment on above: Result Comment: The Thin Prep(R) Driveway Sealer was unable to read this specimen. Therefore a manual review was performed. Performed at: WB Performed By: #### [id number] ####[facility] [address] [place], [place] [address]DrRyann Wall Note: Comment Normal [facility] Comment on above: Result Comment: The Pap smear is a screening test designed to aid in the detection of premalignant and malignant conditions of the uterine cervix. It is not a diagnostic procedure and should not be used as the sole means of detecting cervical cancer. Both false-positive and false-negative reports do occur. . Performed at: WB Performed By: #### [id number] ####[facility] [address] [place], [place] [address]DrRyann Wall Performed by: Comment Normal [facility] Comment on above: Result Comment: Ashvin Beatty Commercial Stripper (ASCP) Performed at: WB Performed By: #### [id number] ####[facility] [address] [place], [place] [address]DrRyann Wall Specimen adequacy: Comment Normal [facility] Comment on above: Result Comment: Sati sfactory for evaluation. No endocervical component is identified. Performed at: WB Performed By: #### [id number] ####[facility] [address] [place], [place] [address]ZbRyann Wall Vital Signs Date Time Vital Sign Value Performing Clinician Facility 07-13-2024 23:40-0400 Body height 157.48 cm MD Chi Potter Work Phone: [facility] 07-13-2024 23:40-0400 Body temperature 97.7 [degF] MD Chi Potter Work Phone: [facility] 07-13-2024 23:40-0400 Body weight 49.1 kg MD Chi Potter Work Phone: [facility] 07-13-2024 23:40-0400 Diastolic blood pressure 75 mm[Hg] MD Chi Potter Work Phone: [facility] 07-13-2024 23:40-0400 Heart rate 81 /min MD Chi Potter Work Phone: [facility] 07-13-2024 23:40-0400 Respiratory rate 16 /min MD Chi Potter Work Phone: [facility] 07-13-2024 23:40-0400 SaO2% (BldA) [Mass fraction] 100 % MD Chi Potter Work Phone: [facility] 07-13-2024 23:40-0400 Systolic blood pressure 134 mm[Hg] MD Chi Potter Work Phone: [facility] 04-03-2023 15:39-0400 Blood Pressure Location Lopez MARTÍNEZ [facility] 04-03-2023 15:39-0400 Diastolic blood pressure 66 mm[Hg] Lopez MARTÍNEZ [facility] 04-03-2023 15:39-0400 Heart rate 66 /min Lopez MARTÍNEZ [facility] 04-03-2023 15:39-0400 Respiratory rate 16 /min Lopez MARTÍNEZ [facility] [place] 04-03-2023 15:39-0400 Systolic blood pressure 104 mm[Hg] Lopez MARTÍNEZ [facility] [place] 06-21-2022 15:49-0400 Body temperature 97.88 [degF] [facility] 06-21-2022 15:49-0400 Diastolic blood pressure 91 mm[Hg] [facility] 06-21-2022 15:49-0400 Heart rate 80 /min [facility] 06-21-2022 15:49-0400 Respiratory rate 18 /min [facility] 06-21-2022 15:49-0400 SaO2% (BldA) [Mass fraction] 98 % [facility] 06-21-2022 15:49-0400 Systolic blood pressure 138 mm[Hg] [facility] Encounters Encounter Date Encounter Type Care Provider Facility Start: 07-28-2025 ambulatory Lopez MARTÍNEZ Facility :[facility] Start: 06-30-2025 End: 06-30-2025 ambulatory Chi Potter Facility:[facility] Start: 06-30-2025 End: 06-30-2025 Patient encounter procedure Lopez MARTÍNEZ [facility] [place] Start: 07-13-2024 End: 07-14-2024 Emergency department patient visit MD Chi Potter Work Phone: [facility] Work Phone: Start: 04-03-2023 End: 04-03-2023 Patient encounter procedure Lopez R NILL [facility] [place] Start: 02-26-2023 End: 02-27-[address] DOCTOR SULLIVAN Facility:[facility] Start: 01-16-2023 End: 01-16-[address] CHI POTTER . Facility:[facility] Start: 10-26-2022 End: 10-27-[address] CHI POTTER . Facility:[facility] Start: 10-20-2022 End: 10-21-2022 ambulatory [facility] Start: 10-19-2022 End: 10-20-2022 ambulatory [facility] Start: 10-17-2022 End: 10-17-2022 ambulatory [facility] Start: 09-21-2022 End: 09-21-2022 ambulatory TREY MACIEL . Facility:[facility] Start: 09-05-2022 End: 09-06-2022 ambulatory [facility] Start: 08-29-2022 End: 08-29-[address] CHI POTTER . Facility:[facility] Start: 07-31-2022 End: 07-31-2022 ambulatory ZITA OCHOA Facility:[facility] Start: 07-04-2022 End: 07-28-[address] CHI POTTER . Facility:[facility] Start: 06-21-2022 End: 06-21-2022 Emergency department patient visit [facility] Start: 04-26-2022 Encounter for gynecological examination (general) (routine) without abnormal findings TERE HART [facility] Start: 04-20-2022 End: 04-20-2022 ambulatory TERE HART Facility:[facility] Start: 04-20-2022 End: 04-20-2022 Encounter for gynecological examination (general) (routine) without abnormal findings TERE HART Facility:[facility] Procedures Date Procedure Procedure Detail Performing Clinician Start: 04-17-2023 Excision of intrader mal nevus Lopez MARTÍNEZ Abdominal hysterectomy Jimmy MARTÍNEZ Ligation of fallopian tube Jordan LANGLEYFina Plan of Treatment Date Care Activity Detail Author Start: 07-13-2024 [facility] Albumin/Globulin ratio [facility] Anion gap measurement [facility] Basophils [#/volume] in Blood by Automated count [facility] Basophils/100 leukoc ytes in Blood by Automated count [facility] Eosinophils/100 leuk ocytes in Blood by Automated count [facility] Erythrocyte distribu tion width [Ratio] by Automated count [facility] Erythrocytes [#/volume] in Blood [facility] Globulin [Mass/volume] in Serum [facility] Hematocrit [Volume F raction] of Blood [facility] Hemoglobin [Mass/vol ume] in Blood [facility] Leukocytes [#/volume ] corrected for nucleated erythrocytes in Blood by Automated coun [facility] Leukocytes [#/volume] in Blood [facility] Lymphocytes [#/volum e] in Blood by Automated count [facility] Lymphocytes/100 leuk ocytes in Blood by Automated count [facility] MCH [Entitic mass] b y Automated count [facility] MCHC [Mass/volume] b y Automated count [facility] MCV [Entitic volume] by Automated count [facility] Monocytes [#/volume] in Blood by Automated count [facility] Monocytes/100 leukoc ytes in Blood by Automated count [facility] Neutrophils [#/volum e] in Blood by Automated count [facility] Neutrophils/100 leuk ocytes in Blood by Automated count [facility] Nucleated erythrocyt es [Presence] in Blood by Automated count [facility] Patient referral [facility] Work Phone: Platelet mean volume [Entitic volume] in Blood by Automated count [facility] Platelets [#/volume] in Blood [facility] Immunizations Immunization Date Immunization Notes Care Provider [facility] 08-27-2022 influenza virus vaccine, unspecified formulation Lopez MARTÍNEZ [facility] 08-27-2022 SARS-CoV-2 (COVID-19 ) [id number] Lopez MARTÍNEZ [facility] [place] 11-17-2021 SARS-CoV-2 (COVID-19 ) mRNA BNT-162b2 vax Lopez LANGLEYL [facility] [place] 03-23-2021 SARS-CoV-2 (COVID-19 ) mRNA BNT-162b2 vax Lopez LANGLEYL [facility] [place] 03-02-2021 SARS-CoV-2 (COVID-19 ) mRNA BNT-162b2 vax Lopez LANGLEYL [facility] [place] Payers Date Payer Category Payer Private Health Insurance [id number] [id number] Unknown [id number] 2024 Self-pay 1976 Unknown [id number] 1976 Unknown [id number] 1976 Unknown [id number] 1976 Unknown [id number] 1976 Unknown [id number] 1976 Unknown [id number] [id number] 1976 Unknown [id number] 1976 Unknown [id number] [id number] 1976 Unknown [id number] 1976 Unknown [id number] 1958 Medicaid [id number] 1958 Unknown [id number] Medicaid Medicaid [id number] Unknown [employer] [id number] Unknown [id number] Social History Date Type Detail Facility Tobacco smoking status No Smokin g Status Entered [facility] Sex Assigned At Female [facility] Start: 04-03-2023 End: 06-30-2025 Tobacco smoking status Never smoked tobacco (finding) [facility] [place] Tobacco smoking status Never [facility] [place] Start: 1975 Sex Assigned At Female [facility] Sexual Orientation [facility] Start: 02-20-2019 Sex Female (finding) [facility] NEGATED: Highlighted row [facility] Functional Status Date Assessment Result Facility 04-03-2023 Functional Status N/A [facility] 06-21-2022 Functional Status N/A [facility] Clinical Note 06-30-2025 Note Date & Type [...] 5 mm raised, ugalde lesion with irregular cost control analyst surface, no ulceration or scab; nontender; no [...] 5 mcg= 1 tab(s), Oral, Daily Maxalt BOILER CONTROL TECHNICIAN 10 mg Tab-Dis, 10 mg= 1 [...] virus vaccine, inactivated 08/27/2022 Recorded SARS-CoV-2 (COVID-19) [id number] 08/27/2022 Recorded SARS-CoV-2 (COVID-19) mRNA BNT-162b2 vax 11/17/2021 Recorded SARS-CoV-2 (COVID-19) mRNA BNT-162b2 vax 03/23/2021 Recorded SARS-CoV-2 (COVID-19) mRNA BNT-162b2 vax 03/02/2021 Recorded [facility] Comment on above: Result Comment: Elec jarek [...] strength. Clovis Kruse MD Orthopaedic Surgery PGY-1 [facility] 10/17/22 10:07 AM [facility] Progress note 09-05-2022 Note Date & Type [...] some mild improvement. Had MRI completed at [place] which reportedly demonstrated possible partial thickness tear [...] to verify the correct patient, procedure, equipment, residential support specialist and site/side marked as required. Patient was prepped and draped in the usual sterile fashion. Williams Kowalski MD Orthopedic Surgery, PGY-5 Pager: [phone] 09/05/22 9:33 AM By using the attestations [...] be an additional personal documentation from me. [facility] Discharge instructions 06-21-2022 Note Date & Type Note Facility 06-21-2022 Hospital Discharg e instructions Patient Education 06/21/2022 16:30:19 Muscle Strain, Somp-ga-Aszr Muscle Strain A muscle strain is an [...] is not too tight. General instructions Take [id number] and prescription medicines only as told by [...] 08/27/2009 Document Revised: 01/14/2020 Document Reviewed: 12/25/2017 [employer] Patient Education 2020 [employer]. Follow Up Care 06/21/2022 15:32:56 With:AKIRA ACUNA CNP Address: [address] [place] [phone] When:1 to 2 days [facility] Evaluation + Plan note Note Date & Type Note Facility Evaluation + Plan note No data available for this section [facility] Evaluation + Plan note Note Date & Type Note Facility Evaluation + Plan note Future Appointments Appointment Date:04/17/2023 03:20:00 PM Scheduled Provider:Lopez MARTÍNEZ MD Location:[facility] Appointment Type: Procedure 30 [facility] [place] Evaluation + Plan note Note Date & Type Note Facility Evaluation + Plan note Future Appointments Appointment Date:07/28/2025 03:20:00 PM Scheduled Provider:Lopez MARTÍNEZ MD Location:[facility] [place] Appointment Type: Procedure [address] [facility] [place] Evaluation note Note Date & Type Note Facility Evaluation note No assessment information availa [facility] Work Phone: Hospital Discharge instructions Note Date & Type Note Facility Hospital Discharge instructions No data available for this section [facility] [place] Progress note Note Date & Type Note Facility Progress note No data available for this section [facility] Summary Purpose Family History No Family History [...] section and content) DATE CREATED AUTHOR 10/21/2022 [facility] DATE CREATED AUTHOR AUTHOR'S ORGANIZ ATION 03/16/2023 [facility] DATE CREATED AUTHOR AUTHOR'S ORGANIZ ATION 08/18/2024 [facility] DATE CREATED AUTHOR AUTHOR'S ORGANIZ ATION 07/24/2025 [facility] Goals (unrecognized section and content) Goals may [...] BE BASED ON THE PRIMARY CLINICAL RECORDS. [employer] provides no warranty or guarantee of the accuracy or completeness of information in this document.
== END 2025-07-26 19:41 | disposition home or self-care (01) ==
LOC: LAB 19:40
PROVIDERS: PCP Family Medicine; Visit Provider Family Medicine
DX: Z00.00 Encounter for general adult medical examination without abnormal findings (principal); R53.83 Other fatigue; Z12.11 Encounter for screening for malignant neoplasm of colon; E03.9 Hypothyroidism, unspecified
CPT/HCPCS: G0328

== ENCOUNTER 2025-08-18 15:11 | Outpatient (OUT) | payer BC, SELFPAY ==
--- OUTSIDE RECORDS SUMMARY | 2025-08-18 15:16 | XMS_ITS | Patient Health Record ---
Author Organization The [facility] [place] Address [address] [place] [address] Care Team Providers Care Acid Plant Helper Name Role Phone Flaco Lyon Primary Care Provider [phone] Allergies Allergen (clinical drug ingredient) Drug/Non Drug Allergy documented on EMR Reaction Allergy Type Onset Date Status diphenhydramine Benadryl excessive sleepiness Drug Allergy Active ciprofloxacin Cipro nausea Drug Allergy Act eleni Results Component Value Reference Range Notes CBC AUTO DIFF Reviewed date:07/21/2025 05:06:23 PM Interpretation: Performing Lab: Notes/Report: The [facility] , White Blood Count 5.8 4.0-11.0 10 3/uL Red Blood Count 4.14 4.20-5.40 10 6/uL Hemoglobin 12.8 12.0-16.0 g/dL Hematocrit 38.1 36.0-48.0 % Mean Corpuscular Volume 92.0 81.0-99.0 fL Mean Corpuscular Hemoglobin 30.9 26.7-34.0 pg Mean Corpuscular HGB Conc 33.6 29.9-35.2 g/dL Red Cell Distribution Width 11.9 11.0-15.0 % Platelet Count 210 150-450 10 3/uL Mean Platelet Volume 10.6 9.5-13.5 fL Neutrophils Percent Auto 43.6 43.0-75.0 % Lymphocytes Percent Auto 45.9 20.5-60.0 % Monocytes Percent Auto 7.2 1.7-12.0 % Eosinophils Percent Auto 2.2 0.9-7.0 % Basophils Percent Auto 0.9 0.2-2.0 % Immature Granulocytes Pct Auto 0.2 0.0-0.5 % Neutrophils Absolute Auto 2.6 1.4-6.5 10 3/uL Lymphocytes Absolute Auto 2.7 1.2-3.8 10 3/uL Monocytes Absolute Auto 0.4 0.3-0.8 10 3/uL Eosinophils Absolute Auto 0.1 0.0-0.7 10 3/uL Basophils Absolute Auto 0.1 0.0-0.1 10 3/uL Immature Granulocytes Abs Auto 0.01 0.00-0.03 10 3/uL Performing Lab: see note ML - [facility] LB GLYCOHEMOGLOBIN A1C Reviewed date:07/21/2025 05:06:23 PM Interpretation: Performing Lab: Notes/Report: [facility] , Glycohemoglobin A1C 5.1 4.5-6.2 % > 7.0 ADA THERAPEUTIC TARGET < 7.0 ACTION SUGGESTED ADA RECOMMENDED LIMIT 4.0 - 6.0 Estimated Average Glucose 100 Performing Lab: see note ML - [facility] LB LIPID PROFILE Reviewed date:07/21/2025 05:06:23 PM Interpretation: Performing Lab: Notes/Report: The [facility] , Triglycerides 116 <=150 mg/dL Cholesterol 178 <=200 mg/dL HDL Cholesterol 60 40-60 mg/dL > or =60 mg/dl - LOW CARDIOVASCULAR RISK <40 mg/dl - HIGH CARDIOVASCULAR RISK LDL Cholesterol Calculated 94.8 160-189 mg/dl HIGH >190 mg/dl VERY HIGH 100-129 mg/dl NEAR OR ABOVE OPTIMAL 130-159 mg/dl BORDERLINE HIGH <100 mg/dl OPTIMAL VLDL CHOLESTEROL 23.2 Chol HDL Ratio 3.0 3.3 - 4.4 LOW RISK >11.0 HIGH RISK 4.4 - 7.1 AVERAGE RISK 7.1 - 11.0 MODERATE RISK Performing Lab: see note - [facility] LB PROF 14(COMP METB) Reviewed date:07/21/2025 05:06:23 PM Interpretation: Performing Lab: Notes/Report: [facility] , Sodium 144 136-145 mmol/L Potassium 4.0 3.5-5.1 mmol/L Chloride 103 98-107 mmol/L Carbon Dioxide 31.0 21.0-32.0 mmol/L Anion Gap 14.0 Glucose 88 74-106 mg/dL Blood Urea Nitrogen 6.0 7.0-18.0 mg/dL Creatinine 0.76 0.55-1.02 mg/dL Estimated GFR ( Yenny >60 >=60 mL/min/1.73m 2 Estimated GFR (Non- Tessa >60 >=60 mL/min/1.73m 2 BUN Creatinine Ratio 7.9 Calcium 9.7 8.5-10.1 mg/dL Bilirubin Total 0.4 0.2-1.0 mg/dL Aspartate Amino Transferase 18 15-37 U/L Alanine Aminotransferase 37 14-59 U/L Alkaline Phosphatase 75 46-116 U/L Total Protein 7.8 6.4-8.2 g/dL Albumin Level 4.4 3.4-5.0 g/dL Globulin 3.4 Albumin Globulin Ratio 1.3 Performing Lab: see note ML - [facility] FREE T3 Reviewed date:07/21/2025 05:06:23 PM Interpretation: Performing Lab: Notes/Report: [facility] , Free T3 1.73 2.18-3.98 pg/mL Performing Lab: see note ML - [facility] LB T4 Reviewed date:07/21/2025 05:06:23 PM Interpretation: Performing Lab: Notes/Report: [facility] , T4 Thyroxine 5.20 4.80-13.90 ug/dL Performing Lab: see note ML - [facility] LB TSH Reviewed date:07/21/2025 05:06:23 PM Interpretation: Performing Lab: Notes/Report: [facility] , Thyroid Stimulating Hormone 2.018 0.358-3.740 u IU/mL Performing Lab: see note ML - [facility] LB Occult Blood* Reviewed date:07/27/2025 08:05:10 PM Interpretation: Performing Lab: Notes/Report: [facility] , Occult Blood Positive Performing Lab: see note - [facility] LB ECG 12 lead Reviewed date:11/17/2024 12:20:35 PM Interpretation: Performing Lab: Notes/Report: Source Facility: [facility] [place] [address] [place] [address] Electrocardiograph Report Signed Patient: STEPHANIE KHOURY MR#: [id number] : 1975 Acct:[id number] Age/Sex: 48 / F ADM Date: 11/14/24 Loc: ER Attending Dr: Ordering Physician: Anali Morrissey Date of Service: 11/14/24 Procedure(s): ECG 12 lead Accession Number(s): [id number] cc: The [facility] Test Date: 2024-11-14 Pat Name: STEPHANIE KHOURY Department: Room: - Gender: Female Salt Maker: : 1975 Requested By: CHI LYON Order Number: [id number] Reading MD: CHI LYON Measurements Intervals [place] Rate: 63 P: 74 AR: 150 QRS: 88 QRSD: 82 T: 59 QT: 388 QTc: 396 Interpretive Statements 1100 Sinus rhythm 9110 normal ECG Compared to ECG 09/21/2022 09:24:54 No significant changes Electronically Signed On 11-17-2024 6:58:02 EST by CHI LYON Dictated By: Chi Lyon M.D. Signed By: 11/17/24 0658 DD/ 30 TD/TT: Pipe Insulator: RADHA Qualitative* Reviewed date:11/15/2024 08:11:50 PM Interpretation: Performing Lab: Notes/Report: [facility] , HCG Qualitative NEGATIVE NEGATIVE Performing Lab: see note ML - [facility] LB Troponin I High Sensitivity Reviewed date:11/15/2024 08:11:50 PM Interpretation: Performing Lab: Notes/Report: The [facility] , Troponin I High Sensitivity <4.0 4.0-51.3 pg/m L HAS BEEN CONFIRMED THE DECISION THRESHOLD FOR RI NOTE: HIGH-SENSITIVITY TROPONIN ASSAY IS NOT INTENDED [...] FOURTH Performing Lab: see note ML - [facility] LB PROF 14(COMP METB) Reviewed date:11/15/2024 08:11:50 PM Interpretation: Performing Lab: Notes/Report: [facility] , Sodium 141 136-145 mmol/L Potassium [...] 1.3 Performing Lab: see note ML - [facility] LB CBC AUTO DIFF Reviewed date:11/15/2024 08:11:50 PM Interpretation: Performing Lab: Notes/Report: The [facility] , White Blood Count 7.3 4.0-11.0 [...] 3/uL Performing Lab: see note ML - [facility] LB XR chest 1V Reviewed date:11/15/2024 08:11:50 PM Interpretation: Performing Lab: Notes/Report: Source Facility: [place] [address] XRay Report Signed Patient: STEPHANIE KHOURY MR#: [id number] : 1975 Acct:[id number] Age/Sex: 48 / F ADM Date: 11/14/24 Loc: ER Attending Dr: Ordering Physician: Anali Morrissey Date of Service: 11/14/24 Procedure(s): XR chest 1V Accession Number(s): [id number] cc: Chi Lyon M.D.; Anali Morrissey [place] [address] Patient Name: STEPHANIE KHOURY MRN: [id number] date: 1975 Sex: F Assigned Patient Location: ER Current Patient Location: Accession/Order Number: [id number] Exam Date: 11/14/2024 22:56 Report Date: 11/15/2024 [...] Signed By: 11/15/24 0131 DD/ 0128 TD/TT: Pipe Insulator: Troponin I High Sensitivity Reviewed date:11/15/2024 08:11:50 PM Interpretation: Performing Lab: Notes/Report: [facility] , Troponin I High Sensitivity <4.0 4.0-51.3 pg/m L USED IN ISOLATION BUT SHOULD BE INTERPRETED IN CONJUNCTION UNIVERSAL DEFINITION OF MYOCARDIAL INFARCTION. THE UPPER 99TH PERCENTILE = 51.4 PG/ML HAS BEEN CONFIRMED THE DECISION THRESHOLD FOR RI PERCENTILE OF cTnI DISTRIBUTION IN A REFERENCE POPULATION, NOTE: HIGH-SENSITIVITY TROPONIN ASSAY IS NOT INTENDED TO BE WITH OTHER DIAGNOSTIC AND CLINICAL INFORMATION. DIAGNOSIS. REFERENCE LIMIT (URL) OF TROPONIN, DEFINED THE 99TH CUT-OFF POINTS HAVE BEEN ESTABLISHED BASED ON THE FOURTH Performing Lab: see note ML - [facility] LB Reason For Referral Diagnosis 1 Nevus (D22.9) Referral Organization [facility] Referring Provider First Name Flaco Referring Provider Last Name [facility] Referring Provider [facility] gaudencio Referred Provider Lopez Hernandez Referred Provider Specialty General Surg cayden Referral Priority Routine Diagnosis 1 Positive occult stoo l blood test (R19.5) Referral Organization [facility] Referring Provider First Name Flaco Referring Provider Last Name [facility] Referring Provider [facility] gaudencio Referred Provider Lopez Hernandez Referred Provider Specialty General Surg cayden Referral Priority Routine Medications Medication SIG (Take, Route, Frequency, Duration) Notes Start Date End Date Status Diclofenac Sodium 75 MG 1 tablet as need ed Orally Twice a day 02/19/2024 Active Cetirizine HCl 10 MG 1 tablet Orally Onc e a day; Duration: 90 days Active Pantoprazole Sodium 40 mg TAKE ONE TABLE T BY MOUTH TWICE A DAY; Duration: 30 Active Breo Ellipta 100-25 MCG/ACT 1 puff Inhal ation Once a day Active Hurpztkcji-IDXV-Yncukmfg 50-300-40 MG 1 capsule as needed Orally every 6 hrs; Duration: 30 days PRN Active Nystatin 935529 UNIT/ML 5 ml Mouth/Throa t Four times a day; Duration: 14 days 01/26/2025 Active Maxalt-SALES SERVICE PROFESSIONAL 10 MG 1 tablet Orally Once a day; Duration: 30 days PRN Active Albuterol Sulfate HFA 108 (90 Base) MCG/ACT INHALE 1 PUFF EVERY 4 HOURS NEEDED; Duration: 33 Active Metoprolol Tartrate 25 MG 1 tablet with food Orally Twice a day; Duration: 30 days Active Levothyroxine Sodium 100 MCG TAKE 1/2 TA BLET BY MOUTH ONCE DAILY IN THE MORNING ON AN EMPTY STOMACH FOR 30 DAYS; Duration: 30 Active Cephalexin 500 MG 2 tabs Orally bid; Duration: 10 days 06/16/2025 Active Iron (Ferrous Sulfate) 325 (65 Fe) MG 1 tablet Orally bid; Duration: 30 days 01/27/2024 Active tiZANidine HCl 4 MG 2 tablets Orally at bedtime 10/09/2023 Active Liothyronine Sodium 5 MCG TAKE THREE TAB LET BY MOUTH DAILY ON AN EMPTY STOMACH; Duration: 30 days Active Immunizations Vaccine Route Administration Date Status Comme nts Flu, Flucelvax (3904-4755) (24701) 6 mos +, single-dose syringe IM Intramuscular [...] Problem Status W/U Status Risk Notes Problem Localized, primary osteoarthritis of the shoulder region (190238690) Primary osteoarthritis, right shoulder (M19.011) Active confirmed Problem Gastro-esophageal reflux disease without esophagitis (847558317) Gastro-esophageal reflux disease without esophagitis (K21.9) Active confirmed Problem Eruptive melanocytic nevi (034565754) Melanocytic nevi, unspecified (D22.9) Active confirmed Problem Acute frontal sinusitis (56182610) Acute recurrent frontal sinusitis (J01.11) Active confirmed Problem Cervical spondylosis without myelopathy (367649419) Spondylosis without myelopathy or radiculopathy, cervical region (M47.812) Active confirmed Problem Disorder of tendon of left shoulder region (disorder) (0493628959151727 8) Other specified disorders of tendon, left shoulder (M67.814) Active confirmed Problem Palpitations (33008368) Palpitations (R00.2) Active confirmed Problem Right upper quadrant abdominal mass (8567984017853323 0) Right upper quadrant abdominal swelling, mass and lump (R19.01) Active confirmed Problem Paresthesia (finding) (20801704) Paresthesia of skin (R20.2) Active confirmed Problem Asthma (180279581) Asthma (J45.909) Active confirmed Problem Hypothyroidism (26233730) Hypothyroidism (E03.9) Active confirmed Problem Anxiety (83916194) Anxiety (F41.9) Active confirmed Problem Depression (488463286) Depression (F32.9) Active confirmed Problem Vertigo (399272527) Vertigo (R42) Active confirmed Problem Insomnia (125565029) Insomnia (G47.00) Active confirmed Problem Eczema (75979980) Eczema (L30.9) Active confirm ed Problem Migraine (66718082) Migraine (G43.909) Active confirmed Problem Sinus tachycardia (19513210) Sinus tachycardia (R00.0) Active confirmed Problem Hearing loss (44424105) Hearing loss (H91.90) Active confirmed Problem Constipation (57338742) Constipation (K59.00) Active confirmed Problem Acute pharyngitis (065303702) Acute pharyngitis (J02.9) Active confirmed Problem Supraspinatus tendinitis (711601013) Supraspinatus tendinitis, right (M75.91) Active confirmed Problem Dysphagia (12060137) Dysphagia (R13.10) Active confirmed Problem Spasm of back muscles (039753620) Back muscle spasm (M62.830) Active confirmed Problem Trochanteric bursitis (7273575) Trochanteric bursitis (M70.60) Active confirmed Problem Metatarsalgia (61109760) Metatarsalgia (M77.40) Active confirmed Problem Thrush (39301001) Thrush (B37.0) Active confirm ed Problem Herpes zoster (8954916) Herpes zoster (B02.9) Active confirmed Problem Gynecologic examination (02237173) Encounter for gynecological examination (Z01.419) Active confirmed Problem Nevus (5955244565) Nevus (D22.9) Active confirmed Problem Abdominal pain (95022394) Right flank discomfort (R10.9) Active confirmed Problem Acute urinary tract infection (829120582) Acute UTI (N39.0) Active confirmed Problem Spasm (43959468) Trapezius muscl e spasm (M62.838) Active confirmed Problem Shoulder impingement syndrome (177422492) Shoulder impingement syndrome (M75.40) Active confirmed Problem Irritable bowel syndrome characterized by constipation (058776599) Irritable bowel syndrome with constipation (K58.1) Active confirmed Problem Low back pain (876575462) Low back pain, unspecified (M54.50) Active confirmed Vital Signs Blood pressure diastolic 72 mm Hg 06/16/2025 Height 61 in 06/16/2025 Blood pressure systolic 110 mm Hg 06/16/2025 Weight 102 lbs 06/16/2025 BMI 19.27 kg/m2 06/16/2025 Encounters Encounter Location Date Provider Diagnosis [place] [address] [place] [address] 10/28/2024 Flaco Hoy [facility] [address] [place] [address] 11/27/2024 Flaco Hoy Migraine G43.909 [place] [place] [address] 07/21/2025 Flaco Hoy Hypothyroidism E03.9 ; Fatigue R53.83 ; Screening for colon cancer Z12.11 and Wellness examination Z01.89 [place] [address] [place] [address] 07/21/2025 Flaco Hoy Hypothyroidism E03.9 [address] [place] [place] [address] 07/27/2025 Flaco Hoy Positive occult stoo l blood test R19.5 [facility] [address] [place] [address] 08/31/2024 Flaco Hoy [facility] [address] [place] [address] 09/09/2024 Flaco Lyon [facility] [address] [place] [facility] [place] [address] 09/09/2024 Flaco Lyon [facility] [address] [place] [facility] [place] [address] 10/02/2024 Flaco Lyon [facility] [address] [place] [facility] [place] [address] 09/09/2024 Flaco Lyon Acute bronchitis, unspecified organism J20.9 [facility] [address] [place] [facility] [place] [address] 01/26/2025 Flaco Lyon Migraine G43.909 and Thrush B37.0 [facility] [address] [place] [facility] [place] [address] 06/16/2025 Flaco Lyon Nevus D22.9 and Migr santos G43.909 Assessments Encounter Date Diagnosis (ICD Code) Assessment Notes Treatment Notes Treatment Clinical Notes Section Notes 09/09/2024 Acute bronchitis, unspecified organism (ICD-10 - J20.9) Rest and drink more liquids, especially water. You may use a humidifier or vaporizer to help keep the drainage moist. Blml-gtx-ohfzmpa Nasal Saline may help the stuffy and runny nose. Use Ibuprofen and or Tylenol as needed for fever, chills, body aches or pain. Children 5 years old should not be given xkdr-edn-lhkvigy cough and cold medications such as guaifenesin and dextromethorphan. If you're over age 5, you may try yifj-duf-iukhplc cold medications such as guaifenesin and dextromethorphan, [...] E03.9) 07/21/2025 Fatigue (ICD-10 - R53.83) 07/21/2025 Hypothyroidism (ICD-10 - E03.9) 07/27/2025 Positive occult stool blood test (ICD-10 - R19.5) 07/21/2025 Screening for colon cancer (ICD-10 - Z12.11) 07/21/2025 Wellness examination (ICD-10 - Z01.89) Plan Of Treatment Pending Test Test Name Order Date CMP (COMPLETE METABOLIC PANEL) 4 HEMOGLOBIN A1C (GLYCO) 01/16/2024 IRON, TOTAL 01/16/2024 LIPID PANEL (CHOL/TRIG/HDL/LDL) 01/16/20 24 CBC WITH DIFF 01/16/2024 VITAMIN D, 25 LEVEL (TOTAL) 01/16/2024 MAMM Mammograms CAD 01/16/2024 US Renals and Bladder 05/06/2023 FECAL OCCULT BLOOD 07/21/2025 THYROID PANEL (T4/TSH/FREE T3) 5 THYROID PANEL (T4/TSH/FREE T3) 5 THYROID PANEL (T4/TSH/FREE T3) 4 OCCULT BLOOD X 1, STOOL 01/27/2024 Insurance Providers Payer Name Payer Address Payer Phone Subscriber Number Group Number Insured Name Patient Relationship to Insured Coverage Start Date Coverage End Date [employer]AG[employer] EGAN [address] [place] [address] [id number] Stephanie Khoury Self - patient is [...]
--- OUTSIDE RECORDS SUMMARY | 2025-08-18 15:16 | XMS_ITS | Clinical Summary ---
Author Organization [employer] [facility] Address [id number] [address] [place] [address] Care Team Providers Care Clearing Distribution Clerk Name Role Phone Luisito Potter MD Primary Care Provider +-2 Allergies Active Allergy Reactions Criticality Noted Date [...] BMI Screening 02/13/2024 02/12/2023 COVID-19 Vaccine (5 2024-2 6 season) 2025 08/27/2022, 11/17/2021, 03/23/2021, Additional history exists Influenza Vaccine 08/02/2025 08/27/2022, , 09/28/2020, Additional history exists DTaP,Tdap and Td Vaccines (4 - Td or Tdap) 01/18/2031 01/18/2021, 08/11/2015, 07/01/2007 Medical Devices Not on file Insurance [employer] Care Teams Clearing Distribution Clerk Relationship Specialty Start Date End Date Luisito Potter MD PCP - General 06/19/17
--- OUTSIDE RECORDS SUMMARY | 2025-08-18 15:16 | XMS_ITS | Clinical Summary ---
Author Organization [facility] Address [address] [place] [address] Care Team Providers Care Sharepoint Solutions Architect Name Role Phone Luisito Potter MD Primary Care Provider [phone] Allergies Active Allergy Reactions Criticality Noted Date Comments Diphenhydramine Hcl 09/05/2022 Ciprofloxacin Other 01/18/2021 Medications pantoprazole (ProtoNix) 40 mg EC tablet Take 40 mg by mouth in the morning. Active liothyronine (Cytomel) 5 mcg tablet Take 10 mcg by mouth in the morning. Active levothyroxine (Synthroid, Levoxyl) 100 mcg tablet Take 100 mcg by mouth in the morning. Active albuterol 90 mcg/actuation inhaler Inhale 2 puffs every 6 (six) hours if needed. Active ALBUTEROL SULFATE, BULK, MISC Active rizatriptan (Maxalt) 10 mg tablet Take 10 mg by mouth 1 (one) time if needed for migraine. May repeat in 2 hours if unresolved. Do not exceed 30 mg in 24 hours. Active metoprolol tartrate (Lopressor) 25 mg tablet 10/16/2022 Active Social History Tobacco Use Types Packs/Day Years Used Date Smoking Tobacco: Never Smokeless Tobacco: Never Tobacco Cessation:Counseling Given: Not Answered PHQ-2 Answer Date Recorded Patient Health Questionnaire-2 Score 0 10/17/2022 SC Safety & Environment Answer Date Rec orded Fear of Current or Ex-Partner Not on file Emotionally Abused Not on file 01/23/2024 Physically Abused Not on file 01/23/2024 Sexually Abused Not on file 01/23/2024 Physically or Sexually Abused Not on file Comments Unknown Sex and Gender Information Value Date Recorded Sex Assigned at Female 09/05/2022 8:18 AM EDT Legal Sex Female 11:52 PM EDT Gender Identity Female 09/05/2022 8:18 AM EDT Sexual Orientation Heterosexual or Straight 04/2022 8:18 AM EDT Last Filed Vital Signs Vital Sign Reading Time Taken Comments Blood Pressure - - Pulse - - Temperature - - Respiratory Rate - - Oxygen Saturation - - Inhaled Oxygen Concentration - - Weight 46.7 kg (103 lb) 10/17/2022 9:28 AM EST Height 157.5 cm (5' 2 ) 10/17/2022 9:28 AM EST Body Mass Index 18.84 10/17/2022 9:28 AM EST Plan of Treatment Health Maintenance Due Date Last Done Comments CT Colonography 1975 Colonoscopy 1975 Colorectal Cancer Screening 1975 FIT-DNA 1975 FIT 1975 FOBT 1975 Sigmoidoscopy 1975 Depression Screening 1988 Pneumococcal Vaccine: Pediatrics (0 to 5 Years) and At-Risk Patients (6 to 64 Years) (1 of 2 - PCV) 1995 Pap Smear 1997 Cervical Cancer Screening 2006 HPV/Cotest 2006 Mammogram 2016 COVID-19 Vaccine ( season) 2025 08/27/2022, 11/17/2021, 03/23/2021, Additional history exists Influenza Vaccine (#1) 2025 , 08/25/2021, 09/28/2020, Additional history exists Zoster Vaccines (1 of 2) 2026 Adult Tetanus 01/18/2031 01/18/2021, 08/02, 07/01/2007 Hepatitis B Vaccines Completed 01/29/2008, 09/26/2007, 07/01/2007 HIB Vaccines Aged Out No longer eligi ble based on patient's age to complete this topic HPV Vaccines Aged Out No longer eligi ble based on patient's age to complete this topic IPV Vaccines Aged Out No longer eligi ble based on patient's age to complete this topic Meningococcal B Vaccine Aged Out No l onger eligible based on patient's age to complete this topic Meningococcal Vaccine Aged Out No dl deepika eligible based on patient's age to complete this topic Rotavirus Vaccines Aged Out No longer eligible based on patient's age to complete this topic Insurance [facility] [employer] [place] Care Teams Sharepoint Solutions Architect Relationship Specialty Start Date End Date Luisito Potter MD [address] [facility] [place] [address] PCP - General 10/17/22
--- OUTSIDE RECORDS SUMMARY | 2025-08-18 15:16 | XMS_ITS | Clinical Summary ---
Author Organization [facility] Address [address], [address] [place] [address] Care Team Providers Care Entry Level Accountant Name Role Phone Unavailable Primary Care Provider [...] Health Maintenance Due Date Last Done Comments Flu vaccine (#1) 07/02/2025 08/27/2022 COVID-19 Vaccine ( - season) 2025 08/27/2022, 11/17/2021, 03/23/2021, Additional history exists DTaP/Tdap/Td vaccine (2 - Td or Tdap) 01/18/2031 01/18/2021 Polio vaccine Aged Out No longer elig ibedis based on patient's age to complete this topic Insurance [facility]
[2025-08-18 16:15] LABS: Free T3 4.36 pg/mL (2.18-3.98); Thyroid Stimulating Hormone 0.018 uIU/mL (0.358-3.740)
--- OUTSIDE RECORDS SUMMARY | 2025-08-18 16:44 | XMS_ITS | CCD ---
Author Organization [facility] Care Team Providers Care Hospitality Associate Name Role Phone Chi Potter Primary Care Physician [phone] EBRAHEIM, FELIZ Referring Unavailable EBRAHEIM, FELIZ Referring [...] TREY Consulting Unavailable ZITA OCHOA Consulting Unavailable ZIAT OCHOA Admitting Unavailable ZITA OCHOA Attending Unavailable ABBEY ., DR MIRELES Primary Care Unavailable KIMI WELSH Consulting Unavailable MD Chi Potter Primary Care Provider [phone] DO Stanley Martinez Emergency Provider Chi Potter Primary Care Unavailable Stanley Martinez Attending Unavailable Stanley Martinez Admitting Unavailable NILL, Lopez Jay Attending Unavailable Chi Potter Referring Unavailable NILL, Lopez Jay Attending Unavailable NILL, Lopez Jay Attending Unavailable NILL, Lopez Jay Admitting Unavailable NILL, Lopez Jay Attending Unavailable Allergies Allergy Classification Reported Allergen(s) Allergy Type Date of Onset Reaction(s) Facility (8 sources) Ciprofloxacin; Translations: [ciprofloxacin] Drug Allergy 1 Vomiting (disorder) [facility] (1 source) diphenhydrAMINE; Translations: [DIPHENHYDRAMINE HCL] Drug Allergy 2 [facility] Repository (1 source) Ciprofloxacin Drug Allergy 6 [facility] Repository (2 sources) diphenhydrAMINE; Translations: [Benadryl] Drug Allergy 2 [facility] Repository (5 sources) diphenhydrAMINE; Translations: [diphenhydramine] Drug Allergy 2 Unknown [facility] [place] (1 source) Ciprofloxacin Drug Allergy 4 [facility] Repository Medications Current Medications Medication Drug Class(es) Dates Sig (Normalized) Sig (Original) Fioricet (3 sources) Barbiturate, Central Nervous System Stimulant, Methylxanthine Start: 06-21-2025 take 1 capsule by mouth every four hours Fioricet 1 cap(s), Oral, q4hr Migraine headache, Refill(s) 0 Start Date: 06/21/25 Status: Ordered Repeat number: 1 Albuterol (3 sources) beta2-Adrenergic Agonist Start: 06-21-2025 take 1 puff(s) [...] sodium 75 mg delayed release oral tablet (3 sources) Nonsteroidal Anti-inflammatory Drug Start: 06-21-2025 take 1 [...] Date: 04/01/23 Status: Ordered fluticasone / vilanterol (4 sources) Corticosteroid, beta2-Adrenergic Agonist Start: 04-01-2023 take [...] Ordered levothyroxine sodium 0.1 mg oral tablet (4 sources) l-Thyroxine Start: 04-01-2023 take 1 tablet by mouth once daily levothyroxine 100 mcg (0.1 mg) Tab 50 mcg = 0.5 tab(s), Oral, Daily, Refills(s) 0 Start Date: 04/01/23 Status: Ordered Repeat number: 1 liothyronine sodium 0.005 mg oral tablet (4 sources) l-Triiodothyronine Start: 04-01-2023 take 1 tablet by mouth three times daily liothyronine 5 mcg Tab 5 mcg = 1 tab(s), Oral, TID, Refills(s) 0 Start Date: 04/01/23 Status: Ordered Repeat number: 1 Start: 04-01-2023 take 1 tablet by kristie once daily liothyronine 5 mcg Tab 5 [...] day(s), # 9 tab(s), Refills(s) 0, Pharmacy: [facility]/pharmacy #[id number], 155, cm, 06/21/22 15:51:00 EDT, Height/Length Dosing, 45, kg, 06/21/22 15:51:00 EDT, Weight Dosing Start Date: 06/21/22 Stop Date: 06/24/22 Status: Ordered metoprolol tartrate 25 mg oral tablet (4 sources) beta-Adrenergic Reji Start: 04-01-2023 take 1 tablet by mouth twice daily Metoprolol tartrate 25 mg Tab 25 mg = 1 tab(s), Oral, BID, Refills(s) 0 Start Date: 04/01/23 Status: Ordered Repeat number: 1 pantoprazole 40 mg delayed release oral tablet (4 sources) Proton Pump Inhibitor Start: 04-01-2023 take 1 tablet by mouth twice daily Pantoprazole [address] Tab 40 mg = 1 tab(s), Oral, BID, Refills(s) 0 Start Date: 04/01/23 Status: Ordered Repeat number: 1 rizatriptan 10 mg disintegrating oral tablet (4 sources) Serotonin-1b and Serotonin-1d Receptor Agonist Start: 04-01-2023 take 1 tablet by mouth once Maxalt INSURANCE EXAMINER 10 mg Tab-Dis 10 mg = 1 tab(s), Oral, Once, Refills(s) 0 Start Date: 04/01/23 Status: Ordered Repeat number: 1 tiZANidine 4 mg oral tablet (3 sources) Central alpha-2 Adrenergic Agonist Start: 06-21-2025 take 2 tablets by mouth at bedtime tiZANidine 4 mg Tab 8 mg = 2 tab(s), Oral, Bedtime, Refills(s) 0 Start Date: 06/21/25 Status: Ordered Repeat number: 1 Problems Active Problems Problem Classification Problem Date Documented Da te Episodic/Chronic Acute bronchitis (1 source) Acute bronchitis, unspecified; Translations: [ACUTE BRONCHITIS UNSPECIFIED] Onset: 3 Episodic Allergic reactions (4 sources) Eczema 04-01-2023 Episodic Anxiety disorders (4 sources) Anxiety disorder, unspecified; Translations: [Anxiety] Onset: 2 06-21-2025 Chronic Asthma (5 sources) Unspecified asthma, uncomplicated; Translations: [Asthma] Onset: 2 04-01-2023 Chronic Cardiac dysrhythmias (9 sources) Palpitations; Translations: [Sinus tachycardia] Onset: 2 Episodic Esophageal disorders (4 sources) Gastroesophageal reflux disease 04-01-2023 Chronic Headache; including migraine (4 sources) Migraine 04-01-2023 Chronic Mood disorders (4 sources) Depressive disorder 04-01-2023 Chronic Neoplasms of unspecified nature or uncertain behavior (7 sources) Neoplasm of uncertain behavior of skin; Translations: [Neoplasm of uncertain behavior of skin] Onset: 3 Episodic Other and unspecified benign neoplasm (1 source) Benign neoplasm of skin of lower limb; Translations: [Other benign neoplasm of skin of unspecified lower limb, including hip] Onset: 5 Episodic Other and unspecified benign neoplasm (1 source) Benign neoplasm of skin of ankle 08-11-2025 Episodic Other connective tissue disease (2 sources) Other shoulder lesions, left shoulder; Translations: [Other shoulder lesions, left shoulder] Onset: 2 Episodic Other ear and sense organ disorders (4 sources) Hearing loss 04-01-2023 Chronic Other gastrointestinal disorders (4 sources) Irritable bowel syndrome characterized by constipation 04-01-2023 Chronic Other gastrointestinal disorders (1 source) Abnormal feces; Translations: [Other fecal abnormalities] Onset: 5 Episodic Other gastrointestinal disorders (1 source) Occult blood in stools 08-11-2025 Episodic Other non-traumatic joint disorders (3 sources) Pain in left shoulder; Translations: [Pain in left shoulder] Onset: 2 Episodic Residual codes; unclassified (1 source) Insomnia 04-01-2023 Episodic Spondylosis; intervertebral disc disorders; other back problems (8 sources) Muscle spasm of back; Translations: [Low [...] INITIAL ENC] Onset: 3 Episodic Thyroid disorders (9 sources) Hypothyroidism, unspecified; Translations: [Hypothyroidism] Onset: 2 [...] 07-31-2022 Episodic Other aftercare (1 source) 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; Translations: [OTH LONGTERM CURRENT DRUG THERAPY] Onset: 08-02-2022 Episodic Other [...] Reference Range Facility Ambulatory Visit Summaryon 0 08-11-2025 Ambulatory Visit Summary Ambulatory Visit Summary STEPHANIE KHOURY :1975 Visit Date:08/11/2025 Ambulatory Visit Instructions Your Diagnosis Dermatofibroma of ankle Positive fecal occult blood test Your Care Team Attending Physician - TANYA CANTU, Lopez Jay Primary Care Physician - Abbey CANTU, Chi This Is Your Medications List Contact prescribing physician if questions or concerns APAP/butalbital/caffei ne (Fioricet) albuterol (Albuterol (Eqv-ProAir HFA)) diclofenac (diclofenac sodium 75 mg Oral EC Tab) fluticasone-vilanterol (Breo Ellipta 100 mcg-25 mcg inhalation powder) levothyroxine (levothyroxine 100 mcg (0.1 mg) Tab) liothyronine (liothyronine 5 mcg Tab) metoprolol (Metoprolol tartrate 25 mg Tab) pantoprazole (Pantoprazole [address] Tab) rizatriptan (Maxalt INSURANCE EXAMINER 10 mg Tab-Dis) tizanidine (tiZANidine 4 mg Tab) Procedures Performed Excision of intradermal nevus (04/17/2023), Abdominal hysterectomy, Tubal ligation. Discharge Vitals Heart Rate (Peripheral) 72 Respiratory Rate 16 Blood Pressure 102/74 Height 154.9 cm Height 61 in Weight 47.7 kg Weight 105.16 lb BMI 19.88 Medications What How Much When Instructions Unchanged [...] 5 mcg Tab) 1 Tablets By Mouth 3 times a day Contact prescribing physician if questions or concerns Unchanged metoprolol (Metoprolol tartrate 25 mg Tab) 1 Tablets By Mouth 2 times a day Contact prescribing physician if questions or concerns Unchanged pantoprazole (Pantoprazole [address] Tab) 1 Tablets By Mouth 2 times a day Contact prescribing physician if questions or concerns Unchanged rizatriptan (Maxalt INSURANCE EXAMINER 10 mg Tab-Dis) 1 Tablets By Mouth Once Contact prescribing physician if questions or concerns Unchanged tizanidine (tiZANidine 4 mg Tab) 2 Tablets By Mouth At bedtime Contact prescribing physician if questions or concerns Allergies Benadryl (unknown) ciprofloxacin (Vomiting) Problems Ongoing - Any problem that you are currently receiving treatment for. Anxiety Asthma Depression Dermatofibroma of ankle Eczema GERD (gastroesophageal reflux disease) Hearing loss Hypothyroidism Irritable bowel syndrome with constipation Low back pain syndrome Migraine Neoplasm of uncertain behavior of skin of lower leg Positive fecal occult blood test Sinus tachycardia Patient Survey You may receive [...] signed up for this yet, please contact [employer] at [phone] to get signed up today. Language Information Language assistance services are available as needed. [facility] Ambulatory Visit Summary Ambulatory Visit Summary STEPHANIE KHOURY :1975 Visit Date:08/11/2025 Ambulatory Visit Instructions Your Care Team Attending Physician - TANYA CANTU, Lopez Jay Primary Care Physician - Abbey CANTU, Chi This Is Your Medications List Contact prescribing physician if questions or concerns APAP/butalbital/caffei ne (Fioricet) albuterol (Albuterol (Eqv-ProAir HFA)) diclofenac (diclofenac sodium 75 mg Oral EC Tab) fluticasone-vilanterol (Breo Ellipta 100 mcg-25 mcg inhalation powder) levothyroxine (levothyroxine 100 mcg (0.1 mg) Tab) liothyronine (liothyronine 5 mcg Tab) metoprolol (Metoprolol tartrate 25 mg Tab) pantoprazole (Pantoprazole [address] Tab) rizatriptan (Maxalt INSURANCE EXAMINER 10 mg Tab-Dis) tizanidine (tiZANidine 4 mg Tab) Procedures Performed Excision of intradermal nevus (04/17/2023), Abdominal hysterectomy, Tubal ligation. Discharge Vitals Heart Rate (Peripheral) 72 Respiratory Rate 16 Blood Pressure 102/74 Height 154.9 cm Height 61 in Weight 47.7 kg Weight 105.16 lb BMI 19.88 Medications What How Much When Instructions Unchanged [...] 5 mcg Tab) 1 Tablets By Mouth 3 times a day Contact prescribing physician if questions or concerns Unchanged metoprolol (Metoprolol tartrate 25 mg Tab) 1 Tablets By Mouth 2 times a day Contact prescribing physician if questions or concerns Unchanged pantoprazole (Pantoprazole [address] Tab) 1 Tablets By Mouth 2 times a day Contact prescribing physician if questions or concerns Unchanged rizatriptan (Maxalt INSURANCE EXAMINER 10 mg Tab-Dis) 1 Tablets By Mouth [...] of skin of lower leg Sinus tachycardia Patient Survey You may receive [...] signed up for this yet, please contact [employer] at [phone] to get signed up today. Language Information Language assistance services are available as needed. [facility] General Surgery Office/Clini c Noteon 08-11-2025 General Surgery Office/Clinic Note General Surgery Office/Clinic Note Chief Complaint f/u in-office excisional biopsy discuss colonoscopy HPI Staff 14 day follow up post in-office excisional biopsy right ankle lesion. Denies discomfort, swelling, bleeding or drainage. Sutures intact. In addition, requires consultation for positive occult stool. Denies abdominal or rectal pain. No rectal bleeding or change in bowel habits. No nausea, vomiting or weight loss. Never had colonoscopy in the past. No known family history of colon cancer. History of Present Illness 2 weeks s/p excisional biopsy of right ankle lesion; pathology consistent with dermatofibroma; denies drainage, mild soreness; also here to discuss colonoscopy due to positive fecal occult blood test; no change in bms or gross blood in stools; abd operations significant for tubal ligation and hysterectomy; no previous colonoscopy; on Diclofenac daily, no asa or NSAID use; no tobacco use; no fmhx of GI malignancy or IBD. Review of Systems PHQ Score Initial Depression [...] & Measurements HR: 72(Peripheral) RR: 16 BP: 102/74 HT: 61 in HT: 154.9 cm WT: 105.16 lb WT: 47.7 kg BMI: 19.88 HEENT: normal conjunctiva, sclera clear, no scleral icterus, EOM intact, PERRLA, oral mucosa moist without lesions. Neck: trachea midline, no mass, symmetric, no thyromegaly or nodules, no adenopathy Respiratory: lungs CTA, respirations non labored. Cardiovascular: regular rate and rhythm, no murmur, no pedal edema or varicosities. Gastrointestinal: soft, non distended, no tenderness, no masses, no palpable hernias, diastasis recti no, no hepatosplenomegaly; normal bs Musculoskeletal: normal gait, digits and nails without infection, nodes, cyanosis, clubbing. Skin: no rashes, no lesions, no ulcers, no subcutaneous nodules, induration; incision healing well, sutures without erythema or drainage. Psychiatric/Neuro: oriented to time, place, person, judgement normal, affect appropriate for age, insight intact, no focal deficits. Tests: labs reviewed review of old records completed , Discussed surgical options, risks, and possible complications with patient. Assessment/Plan 1. Dermatofibroma of ankle (D23.70: Other benign neoplasm of skin of unspecified lower limb, including hip) healing well, sutures removed; call with problems/questions. 2. Positive fecal occult blood test (R19.5: Other fecal abnormalities) plan colonoscopy under anesthesia for further evaluation, informed consent obtained. 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 [facility] Comment on above: Result Comment: Elec tronically Signed By: TANYA CANTU, Lopez Jay\.br\Date and Time Signed: 08/11/25 15:43 EDT Surgical Pathology Reporton 08-09-2025 Surgical Pathology Report [facility] [address] [place] [address]- Surgical Pathology Report Collected Date/Time: 07/28/2025 15:57 EDT Pathologist: Duke CANTU PhD, Zaynab Harden Received Date/Time: 07/30/2025 07:11 EDT TANYA CANTU, Lopez MARTÍNEZ MD, Lopez R 07 Surgical Pathology Report - 08/09/2025 12:05 EDT - Auth (Verified) Final Diagnosis SKIN LESION, RIGHT LATERAL ANKLE, EXCISION: - DERMATOFIBROMA, EXTENDING TO DEEP MARGIN. (Electronic Signature) Zaynab Wall MD PhD 08/09/2025 12:05 Diagnosis Comment Immunostain CD68, S100 and smooth muscle actin reviewed, consistent with rendered diagnosis. Clinical Information changing skin lesion right ankle Pre-Op Diagnosis: neoplasm of uncertain behavior Procedure: excisional biopsy Post-Op Diagnosis: Neoplasm of uncertain behavior of skin of lower leg Specimen(s) Received right lateral ankle skin lesion Gross Description Received in formalin labeled with patient name, number, and right ankle is an ellipse of godwin skin and soft tissue measuring 0.8 x 0.5 cm and contains approximately 0.2 cm of underlying tissue. Situated on the skin is a raised nonpigmented lesion measuring 0.4 x 0.4 cm and is situated at the margin. Margins are inked blue. The specimen is serially sectioned and entirely submitted in one cassette, four pieces. (DC) DC:MCA Microscopic Description The use of one or more reagents in the above tests is regulated as an analyte specific reagent (ASR). The test or tests are ordered following initial H&E microscopic examination. The performance characteristics were determined by the [facility] Surgical Pathology. They have not been cleared or approved by the US Food and Drug Administration. The FDA has determined that such clearance or approval is not necessary. These tests are used for clinical purposes. They should not be regarded as investigational or for research. Appropriate positive and negative controls are performed and are acceptable. This report was transcribed using voice recognition technology and might contain unintended computerized distance learning unit leader errors. Microscopic examination performed unless gross only specified. Quality was accessed and acceptable. [facility] Comment on above: Performed By: #### [id number] #### [facility] [address] [place] [address] Ambulatory Visit Summaryon 0 07-28-2025 Ambulatory Visit Summary Ambulatory Visit Summary STEPHANIE KHOURY :1975 Visit Date:07/28/2025 Ambulatory Visit Instructions Your Diagnosis Neoplasm of uncertain behavior of skin of lower leg Your Care Team Attending Physician - TANYA CANTU, Lopez Jay Primary Care Physician - Chi Potter MD This Is Your Medications List APAP/butalbital/caffei ne (Fioricet) albuterol (Albuterol (Eqv-ProAir HFA)) diclofenac (diclofenac sodium 75 mg Oral EC Tab) fluticasone-vilanterol (Breo Ellipta 100 mcg-25 mcg inhalation powder) levothyroxine (levothyroxine 100 mcg (0.1 mg) Tab) liothyronine (liothyronine 5 mcg Tab) metoprolol (Metoprolol tartrate 25 mg Tab) pantoprazole (Pantoprazole [address] Tab) rizatriptan (Maxalt INSURANCE EXAMINER 10 mg Tab-Dis) tizanidine (tiZANidine 4 mg Tab) Procedures Performed Excision of intradermal nevus (04/17/2023), Abdominal hysterectomy, Tubal ligation. What to do next Scheduled Follow-Up Appointments Saturday 3:20 PM EDT With: Lopez MARTÍNEZ MD Where: [facility] General Surgery [address], [address], [address] You Need to Complete the Following Pathology Tissue Exam, 07/28/25, Collected, RT - Routine, Future Order, 07/28/25 15:21:00 EDT, TANYA CANTU, Lopez Jay, AP Specimen, right lateral ankle skin lesion, changing skin lesion right ankle, neoplasm of uncertain behavior, excisional biopsy, Print Label By Order Locatio... Medications What How Much When Instructions Unchanged albuterol (Albuterol (Eqv-ProAir HFA)) 1 puff Inhalation Every 4 hours as needed for Shortness of breath or wheezing Unchanged APAP/ butalbital/ caffeine (Fioricet) 1 Capsules By Mouth Every 4 hours as needed for Migraine headache Unchanged diclofenac (diclofenac sodium 75 mg Oral EC Tab) 1 Tablets By Mouth 2 times a day as needed for as needed for pain Unchanged fluticasone-vilanterol (Breo Ellipta 100 mcg-25 mcg inhalation powder) 1 Puffs Inhalation Every day 30 dose unit Unchanged levothyroxine (levothyroxine 100 mcg (0.1 mg) Tab) 0.5 Tablets By Mouth Every day Unchanged liothyronine (liothyronine 5 mcg Tab) 1 Tablets By Mouth Every day Unchanged metoprolol (Metoprolol tartrate 25 mg Tab) 1 Tablets By Mouth 2 times a day Unchanged pantoprazole (Pantoprazole [address] Tab) 1 Tablets By Mouth 2 times a day Unchanged rizatriptan (Maxalt INSURANCE EXAMINER 10 mg Tab-Dis) 1 Tablets By Mouth Once Unchanged tizanidine (tiZANidine 4 mg Tab) 2 Tablets By Mouth At bedtime Allergies Benadryl (unknown) ciprofloxacin (Vomiting) Problems Ongoing - Any problem that you are currently receiving treatment for. 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 Language Information Language assistance services are available as needed. [facility] General Surgery Office/Clini c Noteon 07-28-2025 General Surgery Office/Clinic Note General Surgery Office/Clinic Note Chief Complaint in-office excisional biopsy HPI Staff Presents for in-office excisional biopsy skin lesion right lateral ankle. History of Present Illness patient here for excisional biopsy of right lateral ankle skin lesion; no change since recent evaluation. Review of Systems PHQ Score Initial Depression [...] and are negative or noncontributory. Physical Exam skin: right lateral ankle 5 mm ugalde raised skin lesion with irregular surface, no scab or ulceration. Procedure patient brought to the procedure room, placed in left lateral decubitus position, area prepped and draped in sterile fashion; anesthetized with 1 % lidocaine, 1.5 ml; lesion excised in elliptical fashion down to subcutaneous fat; total length of incision 1.2 cm; closed with interrupted 4-0 nylon sutures; tolerated well; ebl < 3 ml; sterile dressing applied. Assessment/Plan 1. Neoplasm of uncertain behavior of skin of lower leg (D48.5: Neoplasm of uncertain behavior of skin) excised under local anesthesia, tolerated well; remove dressing tomorrow, then leave open to air; wash daily with soap and water; take ibuprofen or Tylenol as needed for pain; f/u in 10-14 days for suture removal; call sooner if problems/questions. Ordered: Pathology Tissue Exam Follow-up No qualifying data available Problem List/Past [...] 5 mcg= 1 tab(s), Oral, Daily Maxalt INSURANCE EXAMINER 10 mg Tab-Dis, 10 mg= 1 tab(s), [...] lifetime) Tobacco Use:. Never Smokeless Tobacco Use:., 07/28/2025 Family History Hypertension: Mother. Immunizations Vaccine Date Status influenza virus vaccine, inactivated 08/27/2022 Recorded SARS-CoV-2 (COVID-19) [id number] 08/27/2022 Recorded SARS-CoV-2 (COVID-19) mRNA BNT-162b2 vax 11/17/2021 Recorded SARS-CoV-2 (COVID-19) mRNA BNT-162b2 vax 03/23/2021 Recorded SARS-CoV-2 (COVID-19) mRNA BNT-162b2 vax 03/02/2021 Recorded [facility] Comment on above: Result Comment: Elec tronically Signed By: TANYA CANTU, Lopez Jay\.br\Date and Time Signed: 07/28/25 15:52 EDT Ambulatory Visit Summaryon 0 06-30-2025 Ambulatory Visit [...] (Pantoprazole [address] Tab) rizatriptan (Maxalt INSURANCE EXAMINER 10 mg Tab-Dis) tizanidine (tiZANidine 4 mg [...] if questions or concerns Unchanged rizatriptan (Maxalt INSURANCE EXAMINER 10 mg Tab-Dis) 1 Tablets By Mouth [...] signed up for this yet, please contact [employer] at [phone] to get signed up today. Language Information Language assistance services are available as needed. [facility] ECG 12 lead ECGon 07-13-2024 ECG 12 lead ECG [facility] [address] [place] [id number] Electrocardiograph Report Signed Patient: Stephanie Khoury MR#: [id number] : 1975 Acct:[id number] Age/Sex: 48 / F ADM Date: 07/13/24 Loc: ER Room: Type: [facility] ER Attending Dr: Ordering Provider: Stanley [...] ECGs available Confirmed by FAB PARK MD ([id number]) on 07/15/2024 12:25:41 AM Referred By: Electronically Signed By: FAB PARK MD Transcribed By: MUS Signed By Fab Park Jr, MD [id number] Normal [facility] MRI SHOULDER LT WO [...] TIMOTHY BRAMBILA Date: 2023-02-26 22:11 Normal [facility] Covid-19 PCR [facility]on 01-02 SARS-CoV-2 (COVID-19) RNA ALYX+probe Ql (Unsp spec) Not detected Normal NOT DETECTED [facility] Comment on above: Result Comment: When diagnostic [...] for this test is supported by the [place] of Health and Human Service's declaration that [...] be used). Performed By: #### C VDTBH ####[facility] [id number] [place], [place] [address]GhDr. Zaynab Wall FREE T3on 10-26-2022 FREE T3 2.94 pg/mlL Normal 2.18-3.98 [facility] Comment on above: Performed By: #### T SH, T4, FT3 #### [facility] [address] [place] [address] Dr. Zaynab Wall T4on 10-26-2022 T4 [Mass/Vol] 6.40 ug/dL Normal 4.80-13.90 [facility] Comment on above: Performed By: #### T SH, T4, FT3 #### [facility] [address] [address] [address] Zaynab Wall TSHon 10-26-2022 TSH 0.076 uIU/mL Critically low 0.358-3.740 [facility] Comment on above: Performed By: #### T SH, T4, FT3 #### [facility] [address] [address] [address] Zaynab Wall Orders Onlyon 10-19-2022 Orders Only [id number] PengHuber e A 1975 F Date Provider Department Center 10/19/2022 WANG HEREDIA MP ORTHO MPORTHO Family History Family history unknown: Yes Normal [facility] Follow-Upon 10-17-2022 Follow-Up [id number] PengHuber e A 1975 F Date Provider Department Center 10/17/2022 FELIZ ISRAEL MP ORTHO MPORTHO Chart Close Cosign Required by: Feliz Patton MD[[id number]] Family History Family history unknown: Yes Level of Service:31557 [place] OFFICE/OUTPATIENT ESTABLISHED LOW MDM 20-29 MIN (GC) Reason for Visit and Comments: Follow-up [596690] Normal [facility] CARDIAC ADRIANA ADMITon 022 CK [Catalytic activity/Vol] 40 U/L Normal 26-192 [facility] Comment on above: Performed By: #### C MP, CMADM, TSH ####[facility] [address] [place] [id number]. Zaynab Wall CK.MB [Mass/Vol] 0.60 ng/mL Normal <=3.60 [facility] Comment on above: Performed By: #### C MP, CMADM, TSH ####[facility] [address] [place] [address]Dr. Zaynab Wall HSTROP 5.2 pg/mL Normal 4.0-51.3 [facility] Comment on above: Result Comment: CUT- OFF POINTS HAVE BEEN ESTABLISHED BASED ON THE FOURTH UNIVERSAL DEFINITIONS OF MYOCARDIAL INFARCTION. THE UPPER REFERENCE LIMIT (URL) OF TROPONIN, DEFINED THE 99TH PERCENTILE OF cTnI DISTRIBUTION IN A REFERENCE POPULATION, HAS BEEN CONFIRMED THE DECISION THRESHOLD FOR HI DIAGNOSIS. Performed By: #### C MP, CMADM, TSH ####[facility] [address] [place] [address]Dr. Zaynab Wall VICK 33 ng/mL Normal 9-82 [facility] Comment on above: Performed By: #### C MP, CMADM, TSH ####[facility] [address] [place] [id number]. Zaynab Wall CBC AUTO DIFFon 09-21-2022 BASO # 0.0 103/ul Normal 0.0-0.1 [facility] Comment on above: Performed By: #### C BC ####[facility] [address] [place] [address]Dr. Zaynab Wall Basophils/100 WBC (Bld) 0.4 % Normal 0.2-2.0 [facility] Comment on above: Performed By: #### C BC ####[facility] [address] [place] [address]Dr. Zaynab Wall EO # 0.0 103/ul Normal 0.0-0.7 [facility] Comment on above: Performed By: #### C BC ####[facility] [address] [place], [place] [address]Dr. Zaynab Duke Eosinophils/100 WBC (Bld) 0.5 % Critically low 0.9-7.0 [facility] Comment on above: Performed By: #### C BC ####[facility] [address] [place], [place] [address]Dr. Johannaermelinda Duke Erythrocyte distribution width (RBC) [Ratio] 12.4 % Normal 11.0-15.0 [facility] Comment on above: Performed By: #### C BC ####[facility] Frunrarq[address] [place], [place] [address]Dr. Zaynab Wall Hematocrit (Bld) [Volume fraction] 36.0 % Normal 36.0-48.0 [facility] Comment on above: Performed By: #### C BC ####[facility] [address] [place], [place] [address]Dr. Zaynab Wall Hemoglobin (Bld) [Mass/Vol] 11.5 g/dL Critically low 12.0-16.0 [facility] Comment on above: Performed By: #### C BC ####[facility] Duugx[address] [place], [place] [address]Dr. Zaynab Wall IG # 0.02 10e3/ul Normal 0.00-0.03 [facility] Comment on above: Performed By: #### C BC ####[facility] [address]ev[address] [place], [place] [address]Dr. Zaynab Wall IG % 0.3 % Normal 0.0-0.5 [facility] Comment on above: Performed By: #### C BC ####[facility] [address] [place], [place] [address]Dr. Zaynab Wall LYMPH # 1.5 103/ul Normal 1.2-3.8 [facility] Comment on above: Performed By: #### C BC ####[facility] [address]qrx[address]ifs[address] [place], [place] [address]DrRyann Wall Lymphocytes/100 WBC (Bld) 19.6 % Critically low 20.5-60.0 [facility] Comment on above: Performed By: #### C BC ####[facility] [address] [place] [address]DrRyann Wall MANUAL DIFF REQ NO Normal [facility] Comment on above: Performed By: #### C BC ####[facility] [address] [place] [address]DrRyann Wall MCH (RBC) [Entitic mass] 30.6 pg Normal 26.7-34.0 [facility] Comment on above: Performed By: #### C BC ####[facility] [address]vim[address] [place], [place] [address]DrRyann Wall MCHC (RBC) [Mass/Vol] 31.9 g/dL Normal 29.9-35.2 [facility] Comment on above: Performed By: #### C BC ####[facility] [address] [place], [place] [address]DrRyann Wall MCV (RBC) [Entitic vol] 95.7 fL Normal 81.0-99.0 [facility] Comment on above: Performed By: #### C BC ####[facility] [address] [place], [place] [address]DrRyann Wall MONO # 0.6 103/ul Normal 0.3-0.8 [facility] Comment on above: Performed By: #### C BC ####[facility] [address] [place], [place] [address]DrRyann Wall Monocytes/100 WBC (Bld) 7.7 % Normal 1.7-12.0 [facility] Comment on above: Performed By: #### C BC ####[facility] Gip[address] [place], [place] [address]DrRyann Wall NEUT # 5.5 103/ul Normal 1.4-6.5 [facility] Comment on above: Performed By: #### C BC ####[facility] [address] [place], [place] [address]DrRyann Wall Neutrophils/100 WBC (Bld) 71.5 % Normal 43.0-75.0 [facility] Comment on above: Performed By: #### C BC ####[facility] [address] [place] [address]Dr. Zaynab Wall Platelet mean volume (Bld) [Entitic vol] 11.4 fL Normal 9.5-13.5 [facility] Comment on above: Performed By: #### C BC ####[facility] [address] [place] [address]Dr. Zaynab Wall PLT 83 103/ul Critically low 150-450 [facility] Comment on above: Performed By: #### C BC ####[facility] [address] [place] [address]Dr. Zaynab Wall RBC 3.76 106/ul Critically low 4.20-5.40 [facility] Comment on above: Performed By: #### C BC ####[facility] [address] [place], [place] [address]Dr. Zaynab Wall WBC 7.7 103/ul Normal 4.0-11.0 [facility] Comment on above: Performed By: #### C BC ####[facility] [address]aimv[address] [place], [place] [address]Dr. Zaynab Wall ER URINE PROFILEon 2 Bilirubin Ql (U) Negative Normal NEGATIVE [facility] Comment on above: Performed By: #### E RUR #### [facility] [address] [place] [address] Dr. Zaynab Wall Clarity (U) CLEAR Normal CLEAR [facility] Comment on above: Performed By: #### E RUR #### [facility] [address] [address] [address] Zaynab Wall Color (U) LT. YELLOW Normal YELLOW [facility] Comment on above: Performed By: #### E RUR #### [facility] [address] [place] [address] Dr. Zaynab Wall ERUJANKI A micrscopic examination will be performed if indicated. Normal [facility] Comment on above: Performed By: #### E RUR #### [facility] [address] [place] [address] Dr. Zaynab Wall Glucose Ql (U) Negative Normal NEGATIVE [facility] Comment on above: Performed By: #### E RUR #### [facility] [address] [place] [address] Dr. Zaynab Wall Hemoglobin Ql (U) Negative Normal NEGATIVE [facility] Comment on above: Performed By: #### E RUR #### [facility] [address] [place] [address] Dr. Zaynab Wall Ketones Ql (U) Negative Normal NEGATIVE [facility] Comment on above: Performed By: #### E RUR #### [facility] [address] [place] [address] Dr. Zaynab Wall LEUKOCYTES Negative Normal NEGATIVE [facility] Comment on above: Performed By: #### E RUR #### [facility] [address] [place] [address] Dr. Zaynab Wall Nitrite Ql (U) Negative Normal NEGATIVE [facility] Comment on above: Performed By: #### E RUR #### [facility] [address] [place] [address] Dr. Zaynab Wall pH (U) 7.0 [pH] Normal 5-9 [facility] Comment on above: Performed By: #### E RUR #### [facility] [address] [place] [address] Dr. Zaynab Wall SPEC GRAVITY 1.015 Normal 1.005-<=1.025 [facility] Comment on above: Performed By: #### E RUR #### [facility] [address] [place] [address] Dr. Zaynab Wall UA PROTEIN Negative Normal NEGATIVE/ TRACE [facility] Comment on above: Performed By: #### E RUR #### [facility] [address] [place] [address] Dr. Zaynab Wall UR MICRO IND NOT INDICATED Normal [facility] Comment on above: Performed By: #### E RUR #### [facility] [address] [place] [address] Dr. Zaynab Wall Urobilinogen Qn (U) 1.0 {Jennifer'U}/dL Normal 0.2 - 1.0 [facility] Comment on above: Performed By: #### E RUR #### [facility] [address] [address] [address] Zaynab Wall FREE T4on 09-21-2022 Free T4 [Mass/Vol] 0.92 ng/dL Normal 0.76-1.46 [facility] Comment on above: Performed By: #### F T4 ####[facility] [address] [place] [address]Dr. Zaynab Wall PROF 14(COMP METB)on 022 Albumin [Mass/Vol] 3.7 g/dL Normal 3.4-5.0 [facility] Comment on above: Performed By: #### C MP, CMADM, TSH ####[facility] [address] [place] [address]DrRyann Wall Albumin/Globulin [Mass ratio] 1.2 {ratio} Normal [facility] Comment on above: Performed By: #### C MP, CMADM, TSH ####[facility] [address] [place] [address]Dr. Zaynab Wall ALP [Catalytic activity/Vol] 43 U/L Critically low 46-116 [facility] Comment on above: Performed By: #### C MP, CMADM, TSH ####[facility] [address] [place] [address]Dr. Zaynab Wall ALT [Catalytic activity/Vol] 14 U/L Normal 14-59 [facility] Comment on above: Performed By: #### C MP, CMADM, TSH ####[facility] [address] [place] [address]Dr. Zaynab Wall Anion gap [Moles/Vol] 8.0 mmol/L Normal [facility] Comment on above: Performed By: #### C MP, CMADM, TSH ####[facility] [address] [place] [address]Dr. Zaynab Wall AST [Catalytic activity/Vol] 11 U/L Critically low 15-37 [facility] Comment on above: Performed By: #### C LIA JHA, TSH ####[facility] [address] [place] [address]Dr. Zaynab Wall Bilirubin [Mass/Vol] 0.5 mg/dL Normal 0.2-1.0 [facility] Comment on above: Performed By: #### C LIA JHA, TSH ####[facility] [address] [place] [address]Dr. Zaynab Wall Calcium [Mass/Vol] 9.0 mg/dL Normal 8.5-10.1 [facility] Comment on above: Performed By: #### C LIA JHA, TSH ####[facility] [address] [place] [address]Dr. Zaynab Wall Chloride [Moles/Vol] 104 mmol/L Normal 98-107 [facility] Comment on above: Performed By: #### C LIA JHA, TSH ####[facility] [address]vec[address] [place] [address]Dr. Zaynab Wall CO2 [Moles/Vol] 30.8 mmol/L Normal 21.0-32.0 [facility] Comment on above: Performed By: #### C LIA JHA, TSH ####[facility] [address] [place] [address]Dr. Zaynab Wall Creatinine [Mass/Vol] 0.73 mg/dL Normal 0.55-1.02 [facility] Comment on above: Performed By: #### C LIA JHA, TSH ####[facility] [address] [place] [address]Dr. Zaynab Wall EGFR-AF POLISH >60 Normal >=60 [facility] Comment on above: Performed By: #### C LIA JHA, TSH ####[facility] [address] [place] [address]Dr. Zaynab Wall EGFR-NON AF POLISH >60 Normal >=60 [facility] Comment on above: Performed By: #### C LIA JHA, TSH ####[facility] [address] [place] [address]Dr. Zaynab Wall Globulin (S) [Mass/Vol] 3.0 g/dL Normal [facility] Comment on above: Performed By: #### C MP, CMADM, TSH ####[facility] [address] [place] [address]Dr. Zaynab Wall Glucose [Mass/Vol] 88 mg/dL Normal 74-106 [facility] Comment on above: Performed By: #### C MP, CMADM, TSH ####[facility] [address]aw[address] [place] [address]Dr. Zaynab Wall Potassium [Moles/Vol] 4.8 mmol/L Normal 3.5-5.1 [facility] Comment on above: Performed By: #### C MP, CMADM, TSH ####[facility] [address] [place] [address]Dr. Zaynab Wall Protein [Mass/Vol] 6.7 g/dL Normal 6.4-8.2 [facility] Comment on above: Performed By: #### C MP, CMADM, TSH ####[facility] Labnjilwvs[address] [place] [address]Dr. Zaynab Wall Sodium [Moles/Vol] 138 mmol/L Normal 136-145 [facility] Comment on above: Performed By: #### C MP, CMADM, TSH ####[facility] [address]rpxhrx[address] [place] [address]Dr. Zaynab Wall Urea nitrogen [Mass/Vol] 10.0 mg/dL Normal 7.0-18.0 [facility] Comment on above: Performed By: #### C MP, CMADM, TSH ####[facility] [address] [place] [address]Dr. Zaynab Wall Urea nitrogen/Creatinin e [Mass ratio] 13.7 mg/mg Normal [facility] Comment on above: Performed By: #### C MP, CMADM, TSH ####[facility] [address]otsxhxl[address] [place] [address]Dr. Zaynab Wall TSHon 09-21-2022 TSH 0.033 uIU/mL Critically low 0.358-3.740 [facility] Comment on above: Performed By: #### C MP, CMADM, TSH ####[facility] [address] [place], [place] [address]FgRyann Wall XR CHEST 1 Von 09-21-2022 XR [...] by: NELLIE WHITE Date: 2022-09-21 10:31 Normal [facility] Office Visiton 09-05-2022 Follow-up visit [id number] Cecile Khoury 1975 F Date Provider Department Center 09/05/2022 FELIZ ISRAEL [facility] Chart Close Cosign Required by: Feliz Patton MD[[id number]] Family History Family history unknown: Yes Level of Service:35630 [place] OFFICE/OUTPATIENT NEW LOW MDM 30-44 MINUTES (GC) Reason for Visit and Comments: Pain [136] Normal [facility] MRI SHOULDER LT WO CONon MRI [...] by: TIMOTHY BRAMBILA Date: 2022-08-29 12:09 Normal [facility] XR ARTHRO SHOULDER LTon 08-03 [...] by: TIMOTHY BRAMBILA Date: 2022-08-29 11:09 Normal [facility] CBC AUTO DIFFon 07-31-2022 BASO # 0.1 103/ul Normal 0.0-0.1 [facility] Comment on above: Performed By: #### C BC ####[facility] [address] [place] [address]Dr. Zaynab Wall Basophils/100 WBC (Bld) 0.5 % Normal 0.2-2.0 [facility] Comment on above: Performed By: #### C BC ####[facility] [address] [place] [address]Dr. Zaynab Wall EO # 0.2 103/ul Normal 0.0-0.7 [facility] Comment on above: Performed By: #### C BC ####[facility] In[address] [place], [place] [address]Dr. Zaynab Wall Eosinophils/100 WBC (Bld) 1.8 % Normal 0.9-7.0 [facility] Comment on above: Performed By: #### C BC ####[facility] [address]yr[address]hll[address] [place], [place] [address]Dr. Zaynab Wall Erythrocyte distribution width (RBC) [Ratio] 12.2 % Normal 11.0-15.0 [facility] Comment on above: Performed By: #### C BC ####[facility] [address]soy[address] [place], [place] [address]Dr. Zaynab Wall Hematocrit (Bld) [Volume fraction] 39.8 % Normal 36.0-48.0 [facility] Comment on above: Performed By: #### C BC ####[facility] [address]peamcyr[address] [place], [place] [address]Dr. Zaynab Wall Hemoglobin (Bld) [Mass/Vol] 13.0 g/dL Normal 12.0-16.0 [facility] Comment on above: Performed By: #### C BC ####[facility] Tyl[address]akuys[address] [place], [place] [address]Dr. Zaynab Wall IG # 0.04 10e3/ul Critically high 0.00-0.03 [facility] Comment on above: Performed By: #### C BC ####[facility] [address] [place], [place] [address]Dr. Zaynab Wall IG % 0.4 % Normal 0.0-0.5 [facility] Comment on above: Performed By: #### C BC ####[facility] [address]wr[address] [place] [address]Dr. Zaynab Wall LYMPH # 2.8 103/ul Normal 1.2-3.8 [facility] Comment on above: Performed By: #### C BC ####[facility] [address]kxmejuz[address] [place] [id number]. Zaynab Wall Lymphocytes/100 WBC (Bld) 24.7 % Normal 20.5-60.0 [facility] Comment on above: Performed By: #### C BC ####[facility] [address] [place] [address]DrRyann Wall MANUAL DIFF REQ NO Normal [facility] Comment on above: Performed By: #### C BC ####[facility] [address]fht[address] [place] [address]Dr. Zaynab Wall MCH (RBC) [Entitic mass] 31.1 pg Normal 26.7-34.0 [facility] Comment on above: Performed By: #### C BC ####[facility] [address]iy[address] [place] [id number]. Zaynab Wall MCHC (RBC) [Mass/Vol] 32.7 g/dL Normal 29.9-35.2 [facility] Comment on above: Performed By: #### C BC ####[facility] [address] [place], [place] [address]DrRyann Wall MCV (RBC) [Entitic vol] 95.2 fL Normal 81.0-99.0 [facility] Comment on above: Performed By: #### C BC ####[facility] [address]fxvpx[address] [place] [id number] Wall MONO # 0.9 103/ul Critically high 0.3-0.8 [facility] Comment on above: Performed By: #### C BC ####[facility] [address]vst[address] [place] [phone] Wall Monocytes/100 WBC (Bld) 8.2 % Normal 1.7-12.0 [facility] Comment on above: Performed By: #### C BC ####[facility] Qdfwyddymz[address] [place] [phone]. Zaynab Wall NEUT # 7.3 103/ul Critically high 1.4-6.5 [facility] Comment on above: Performed By: #### C BC ####[facility] Xqwkdanxcd5[address] [place] [phone]. Zaynab Wall Neutrophils/100 WBC (Bld) 64.4 % Normal 43.0-75.0 [facility] Comment on above: Performed By: #### C BC ####[facility] [address]uz[address] [place] [address]Dr. Zaynab Wall Platelet mean volume (Bld) [Entitic vol] 10.5 fL Normal 9.5-13.5 [facility] Comment on above: Performed By: #### C BC ####[facility] [address] [place] [address]Dr. Zaynab Wall PLT 237 103/ul Normal 150-450 [facility] Comment on above: Performed By: #### C BC ####[facility] [address]ftmnbdvm6[address] [place] [phone]. Zaynab Wall RBC 4.18 106/ul Critically low 4.20-5.40 [facility] Comment on above: Performed By: #### C BC ####[facility] Osxfdevfkd[address] [place] [phone]. Zaynab Wall WBC 11.4 103/ul Critically high 4.0-11.0 [facility] Comment on above: Performed By: #### C BC ####[facility] [address]pep[address] [place] [phone]. Zaynab Wall CT ABD/PELVIS WO CONon 07-31 [...] KIMI WELSH Date: 2022-07-31 03:46 Normal [facility] ER URINE PROFILEon 2 Bilirubin Ql (U) Negative Normal NEGATIVE [facility] Comment on above: Performed By: #### E RUR #### [facility] [address] [place] [address] Dr. Zaynab Wall Clarity (U) CLEAR Normal CLEAR [facility] Comment on above: Performed By: #### E RUR #### [facility] [address] [place] [address] Dr. Zaynab Wall Color (U) LT. YELLOW Normal YELLOW [facility] Comment on above: Performed By: #### E RUR #### [facility] [address] [place] [address] Dr. Zaynab Wall ERUJANKI A micrscopic examination will be performed if indicated. Normal [facility] Comment on above: Performed By: #### E RUR #### [facility] [address] [place] [address] Dr. Zaynab Wall Glucose Ql (U) Negative Normal NEGATIVE [facility] Comment on above: Performed By: #### E RUR #### [facility] [address] [place] [address] Dr. Zaynab Wall Hemoglobin Ql (U) Negative Normal NEGATIVE [facility] Comment on above: Performed By: #### E RUR #### [facility] [address] [place] [address] Dr. Zaynab Wall Ketones Ql (U) Negative Normal NEGATIVE [facility] Comment on above: Performed By: #### E RUR #### [facility] [address] [place] [address] Dr. Zaynab Wall LEUKOCYTES Negative Normal NEGATIVE [facility] Comment on above: Performed By: #### E RUR #### [facility] [address] [place] [address] Dr. Zaynab Wall Nitrite Ql (U) Negative Normal NEGATIVE [facility] Comment on above: Performed By: #### E RUR #### [facility] [address] [place] [address] Dr. Zaynab Wall pH (U) 6.0 [pH] Normal 5-9 [facility] Comment on above: Performed By: #### E RUR #### [facility] [address] [place] [address] Dr. Zaynab Wall SPEC GRAVITY 1.015 Normal 1.005-<=1.025 [facility] Comment on above: Performed By: #### E RUR #### [facility] [address] [place] [address] Dr. Zaynab Wall UA PROTEIN Negative Normal NEGATIVE/ TRACE [facility] Comment on above: Performed By: #### E RUR #### [facility] [address] [place] [address] Dr. Zaynab Wall UR MICRO IND NOT INDICATED Normal [facility] Comment on above: Performed By: #### E RUR #### [facility] [address] [place] [address] Dr. Zaynab Wall Urobilinogen Qn (U) 0.2 {Jennifer'U}/dL Normal 0.2 - 1.0 [facility] Comment on above: Performed By: #### E RUR #### [facility] [address] [place] [address] Dr. Zaynab Wall PROF CHEM 8 (BAS METB)on 08- 30-2022 Anion gap [Moles/Vol] 8.2 mmol/L Normal [facility] Comment on above: Performed By: #### B MP #### [facility] [address] [place] [address] Dr. Zaynab Wall Calcium [Mass/Vol] 9.1 mg/dL Normal 8.5-10.1 [facility] Comment on above: Performed By: #### B MP #### [facility] [address] [place] [address] Dr. Zaynab Wall Chloride [Moles/Vol] 102 mmol/L Normal 98-107 [facility] Comment on above: Performed By: #### B MP #### [facility] [address] [place] [address] Dr. Zaynab Wall CO2 [Moles/Vol] 31.6 mmol/L Normal 21.0-32.0 [facility] Comment on above: Performed By: #### B MP #### [facility] [address] [place] [address] Dr. Zaynab Wall Creatinine [Mass/Vol] 0.84 mg/dL Normal 0.55-1.02 [facility] Comment on above: Performed By: #### B MP #### [facility] [address] [place] [address] Dr. Zaynab Wall EGFR-AF POLISH >60 Normal >=60 [facility] Comment on above: Performed By: #### B MP #### [facility] [address] [place] [address] Dr. Zaynab Wall EGFR-NON AF POLISH >60 Normal >=60 [facility] Comment on above: Performed By: #### B MP #### [facility] [address] [place] [address] Dr. Zaynab Wall Glucose [Mass/Vol] 106 mg/dL Normal 74-106 [facility] Comment on above: Performed By: #### B MP #### [facility] [address] [place] [address] Dr. Zaynab Wall Potassium [Moles/Vol] 3.8 mmol/L Normal 3.5-5.1 [facility] Comment on above: Performed By: #### B MP #### [facility] [address] [address] [address] Zaynab Wall Sodium [Moles/Vol] 138 mmol/L Normal 136-145 [facility] Comment on above: Performed By: #### B MP #### [facility] [address] [address] [address] Zaynab Wall Urea nitrogen [Mass/Vol] 15.0 mg/dL Normal 7.0-18.0 [facility] Comment on above: Performed By: #### B MP #### [facility] [address] [address] [address] Zaynab Wall Urea nitrogen/Creatinin e [Mass ratio] 17.9 mg/mg Normal [facility] Comment on above: Performed By: #### B MP #### [facility] [address] [address] [address] Zaynab Wall XR CHEST 2 Von [...] KIMI WELSH Date: 2022-07-31 03:36 Normal [facility] PAP ACOG PANEL 3: 30 to 65on 04-26-2022 . . Normal [facility] Comment on above: Result Comment: Perf ormed at: WB Performed By: #### [id number] ####[facility] [address] [address]DrRyann Wall Age Gdln ACOG Testing 30-65 Normal [facility] Comment on above: Performed By: #### 4 [id number] ####[facility] [address] [address]Dr. Zaynab Wall Chlamydia, Nuc. Acid Amp Negative Normal Negative [facility] Comment on above: Result Comment: Perf ormed at: =G Performed By: #### [id number] ####[facility] [address] [place], [place] [address]Dr. Zaynab Wall DIAGNOSIS: Comment Normal [facility] Comment on above: Result Comment: NEGA TIVE FOR INTRAEPITHELIAL LESION OR MALIGNANCY. Performed at: WB Performed By: #### [id number] ####[facility] [address] [address]Dr. Zaynab Wall Gonococcus, Nuc. Acid Amp Negative Normal Negative [facility] Comment on above: Result Comment: Perf ormed at: =G Performed By: #### 4 [id number] ####[facility] [address] [place], [place] [address]Dr. Zaynab Wall HPV Aptima Negative Normal Negative [facility] Comment on above: Result Comment: This nucleic acid amplification test detects fourteen high-risk HPV types (16,18,31,33,35,39,45,51,52,56,58,59,66,68) without differentiation. Performed at: =G Performed By: #### [id number] ####[facility] [address] [place], [place] [address]Dr. Zaynab Wall Methodology: CTIM Normal [facility] Comment on above: Result Comment: The Thin Prep(R) Marketing Research Analyst was unable to read this specimen. Therefore a manual review was performed. Performed at: WB Performed By: #### 4 [id number] ####[address] [address]DrRyann Wall Note: Comment Normal [facility] Comment on above: Result Comment: The Pap smear is a screening test designed to aid in the detection of premalignant and malignant conditions of the uterine cervix. It is not a diagnostic procedure and should not be used as the sole means of detecting cervical cancer. Both false-positive and false-negative reports do occur. . Performed at: WB Performed By: #### 4 [id number] ####[facility] [address] [place], [place] [address]Dr. Zaynab Wall Performed by: Comment Normal [facility] Comment on above: Result Comment: Ashvin Beatty Sound Tester (ASCP) Performed at: WB Performed By: #### [id number] ####[facility] [address] [place], [place] [address]AiRyann Wall Specimen adequacy: Comment Normal [facility] Comment on above: Result Comment: Sati sfactory for evaluation. No endocervical component is identified. Performed at: WB Performed By: #### 4 [id number] ####[facility] [address] [place], [place] [address]Xv. Zaynab Wall Vital Signs Date Time Vital Sign Value Performing Clinician Facility 07-13-2024 23:40-0400 Body height 157.48 cm MD Chi Potter Work Phone: [facility] 07-13-2024 23:40-0400 Body temperature 97.7 [degF] MD Chi Potter Work Phone: [facility] 07-13-2024 23:40-0400 Body weight 49.1 kg MD Chi Potter Work Phone: [facility] 07-13-2024 23:40-0400 Diastolic blood pressure 75 mm[Hg] MD Chi Potter Work Phone: [facility] 07-13-2024 23:40-0400 Heart rate 81 /min MD Chi Potter Work Phone: [facility] 07-13-2024 23:40-0400 Respiratory rate 16 /min MD Chi Potter Work Phone: [facility] 07-13-2024 23:40-0400 SaO2% (BldA) [Mass fraction] 100 % MD Chi Potter Work Phone: [facility] 07-13-2024 23:40-0400 Systolic blood pressure 134 mm[Hg] MD Chi Potter Work Phone: [facility] 04-03-2023 15:39-0400 Blood Pressure Location Lopez MARTÍNEZ [facility] 04-03-2023 15:39-0400 Diastolic blood pressure 66 mm[Hg] Lopez MARTÍNEZ [facility] [place] 04-03-2023 15:39-0400 Heart rate 66 /min Lopez NILL [facility] [place] 04-03-2023 15:39-0400 Respiratory rate 16 /min Lopez NILL [facility] [place] 04-03-2023 15:39-0400 Systolic blood pressure 104 mm[Hg] Lopez NILL [facility] [place] 06-21-2022 15:49-0400 Body temperature 97.88 [degF] Nabil Fab [facility] 06-21-2022 15:49-0400 Diastolic blood pressure 91 mm[Hg] Nabil Fab [facility] 06-21-2022 15:49-0400 Heart rate 80 /min Nabil Fab [facility] 06-21-2022 15:49-0400 Respiratory rate 18 /min Nabil Fab [facility] 06-21-2022 15:49-0400 SaO2% (BldA) [Mass fraction] 98 % Nabil Fab [facility] 06-21-2022 15:49-0400 Systolic blood pressure 138 mm[Hg] Nabil Caldera [facility] Encounters Encounter Date Encounter Type Care Provider Facility Start: 08-11-2025 End: 08-11-2025 ambulatory Lopez R NILL Facility:[facility] Start: 08-11-2025 End: 08-11-2025 Patient encounter procedure Lopez R NILL [facility] [place] Start: 07-28-2025 End: 07-28-2025 ambulatory Lopez R NILL Facility:[facility] Start: 07-28-2025 End: 07-28-2025 Patient encounter procedure Lopez R NILL [facility] [place] Start: 06-30-2025 End: 06-30-2025 ambulatory Lopez MARTÍNEZ Facility:[facility] Start: 06-30-2025 End: 06-30-2025 Patient encounter procedure Lopez MARTÍNEZ [facility] [place] Start: 07-13-2024 End: 07-14-2024 Emergency department patient visit MD Chi Potter Work Phone: [facility] Work Phone: Start: 04-03-2023 End: 04-03-2023 Patient encounter procedure Lopez MARTÍNEZ [facility] Start: 02-26-2023 End: 02-27-[address] DOCTOR SULLIVAN Facility:[facility] Start: 01-16-2023 End: 01-16-[address] CHI POTTER . Facility:[facility] Start: 10-26-2022 End: 10-27-[address] CHI POTTER . Facility:[facility] Start: 10-20-2022 End: 10-21-2022 ambulatory [facility] Start: 10-19-2022 End: 10-20-2022 ambulatory [facility] Start: 10-17-2022 End: 10-17-2022 ambulatory [facility] Start: 09-21-2022 End: 09-21-2022 ambulatory TREY MACIEL . Facility:[facility] Start: 09-05-2022 End: 09-06-2022 ambulatory [facility] Start: 08-29-2022 End: 08-29-[address] CHI POTTER . Facility:[facility] Start: 07-31-2022 End: 07-31-2022 ambulatory ZITA OCHOA Facility:[facility] Start: 07-04-2022 End: 07-28-[address] CHI POTTER . Facility:[facility] Start: 06-21-2022 End: 06-21-2022 Emergency department patient visit Nabil Caldera [facility] Start: 04-26-2022 Encounter for gynecological examination (general) (routine) without abnormal findings TERE HART [facility] Start: 04-20-2022 End: 04-20-2022 ambulatory TERE HART Facility:[facility] Start: 04-20-2022 End: 04-20-2022 Encounter for gynecological examination (general) (routine) without abnormal findings TERE HART Facility:[facility] Procedures Date Procedure Procedure Detail Performing Clinician Start: 04-17-2023 Excision of intrader mal nevus Lopez TANYA Abdominal hysterectomy Jimmy romeo TANYA Ligation of fallopian tube Jordan ferrera TANYA Plan of Treatment Date Care Activity Detail Author Start: 07-13-2024 [facility] Albumin/Globulin ratio [facility] Anion gap measurement [facility] Basophils [#/volume] in Blood by Automated count [facility] Basophils/100 leukoc ytes in Blood by Automated count [facility] Eosinophils/100 leuk ocytes in Blood by Automated count [facility] Erythrocyte distribu tion width [Ratio] by Automated count [facility] Erythrocytes [#/volume] in Blood [facility] Globulin [Mass/volume] in Serum [facility] Hematocrit [Volume F raction] of Blood [facility] Hemoglobin [Mass/vol ume] in Blood [facility] Leukocytes [#/volume ] corrected for nucleated erythrocytes in Blood by Automated coun [facility] Leukocytes [#/volume] in Blood [facility] Lymphocytes [#/volum e] in Blood by Automated count [facility] Lymphocytes/100 leuk ocytes in Blood by Automated count [facility] MCH [Entitic mass] b y Automated count [facility] MCHC [Mass/volume] b y Automated count [facility] MCV [Entitic volume] by Automated count [facility] Monocytes [#/volume] in Blood by Automated count [facility] Monocytes/100 leukoc ytes in Blood by Automated count [facility] Neutrophils [#/volum e] in Blood by Automated count [facility] Neutrophils/100 leuk ocytes in Blood by Automated count [facility] Nucleated erythrocyt es [Presence] in Blood by Automated count [facility] Patient referral [facility] Work Phone: Platelet mean volume [Entitic volume] in Blood by Automated count [facility] Platelets [#/volume] in Blood [facility] Immunizations Immunization Date Immunization Notes Care Provider Fa [facility] 08-27-2022 influenza virus vaccine, unspecified formulation Lopez LANGLEYL [facility] [place] 08-27-2022 SARS-CoV-2 (COVID-19 ) [id number] Lopez LANGLEYL [facility] [place] 11-17-2021 SARS-CoV-2 (COVID-19 ) mRNA BNT-162b2 vax Lopez LANGLEYL [facility] [place] 03-23-2021 SARS-CoV-2 (COVID-19 ) mRNA BNT-162b2 vax Lopez LANGLEYL [facility] [place] 03-02-2021 SARS-CoV-2 (COVID-19 ) mRNA BNT-162b2 vax Lopez L[facility]LEYL [facility] Payers Date Payer Category Payer Private Health Insurance [id number] 2025 Unknown [id number] 2024 Self-pay 1976 Unknown [id number] 1976 Unknown [id number] 1976 Unknown [id number] 1976 Unknown [id number] 1976 Unknown [id number] 1976 Unknown [id number] 1976 Unknown [id number] [id number] 1976 Unknown [id number] [id number] 1976 Unknown [id number] [id number] 1976 Unknown [id number] [id number] 1976 Unknown [id number] [id number] 1976 Unknown [id number] 1959 Medicaid [id number] 1959 Unknown [id number] Medicaid Medicaid [id number] Unknown [employer] [id number] Unknown [id number] Social History Date Type Detail Facility Tobacco smoking status No Smokin g Status Entered [facility] Sex Assigned At Female [facility] Start: 04-03-2023 End: 08-11-2025 Tobacco smoking status Never smoked tobacco (finding) [facility] Tobacco smoking status Never [facility] [place] Start: 1975 Sex Assigned At Female F [facility] Sexual Orientation [facility] [place] Start: 02-20-2019 Sex Female (finding) [facility] NEGATED: Highlighted row [facility] Functional Status Date Assessment Result Facility 04-03-2023 Functional Status N/A [facility] 06-21-2022 Functional Status N/A [facility] Clinical Notes 06-21-2022 to 06-30-2025 Note Date & Type Note Facility [...] 5 mm raised, ugalde lesion with irregular bar manager surface, no ulceration or scab; nontender; no [...] 5 mcg= 1 tab(s), Oral, Daily Maxalt INSURANCE EXAMINER 10 mg Tab-Dis, 10 mg= 1 tab(s), [...] virus vaccine, inactivated 08/27/2022 Recorded SARS-CoV-2 (COVID-19) [id number].[id number] 08/27/2022 Recorded SARS-CoV-2 (COVID-19) mRNA BNT-162b2 vax 11/17/2021 Recorded SARS-CoV-2 (COVID-19) mRNA BNT-162b2 vax 03/23/2021 Recorded SARS-CoV-2 (COVID-19) mRNA BNT-162b2 vax 03/02/2021 Recorded [facility] Comment on above: Result Comment: Elec tronically Signed By: TANYA CANTU, Lopez Ruiz\Date and Time Signed: 06/30/25 15:30 EDT 10-17-2022 Note Attestation signed by Feliz Patton MD at 10/17/2022 12:39 PM I personally saw and examined the patient on the same date of service as resident. I discussed the findings and therapeutic plan with the resident. I agree with the documentation, except for any edits/updates below. Teaching Physician's Revisions: None Orthopedic Surgery Subjective Follow-up of the Left [...] strength. Clovis Kruse MD Orthopaedic Surgery PGY-1 [facility] 10/17/22 10:07 AM [facility] 09-05-2022 Note Attestation signed by Feliz Patton MD at [...] resident documentation, except for any edits/updates below. Orthopedic Surgery Subjective Chief complaint: Chief Complaint [...] some mild improvement. Had MRI completed at [place] which reportedly demonstrated possible partial thickness tear [...] to verify the correct patient, procedure, equipment, rn support services and site/side marked as required. Patient was prepped and draped in the usual sterile fashion. Williams Kowalski MD Orthopedic Surgery, PGY-5 Pager: [phone] 09/05/22 9:33 AM By using the attestations [...] be an additional personal documentation from me. [facility] 06-21-2022 Hospital Discharg e instructions Patient Education 06/21/2022 16:30:19 Muscle Strain, Sbds-zc-Wlum Muscle Strain A muscle strain is an [...] is not too tight. General instructions Take onoy-hnu-twdkjzb and prescription medicines only as told by [...] 08/27/2009 Document Revised: 01/14/2020 Document Reviewed: 12/25/2017 [email or web address] Patient Education 2020 [email or web address] Follow Up Care 06/21/2022 15:32:56 With:AKIRA ACUNA CNP Address: [address] [place] [address] When:1 to 2 days [facility] Evaluation + Plan note No data available for this section [facility] Evaluation + Plan note Future Appointments Appointment Date:04/17/2023 03:20:00 PM Scheduled Provider:Lopez MARTÍNEZ MD Location:[facility] Appointment Type:GS Procedure 30 General Surgery [place] Evaluation + Plan note Future Appointments Appointment Date:07/28/2025 03:20:00 PM Scheduled Provider:Lopez MARTÍNEZ MD Location:[facility] Appointment Type:GS Procedure 30 [facility] [place] Evaluation + Plan note Future Appointments Appointment Date:08/11/2025 03:20:00 PM Scheduled Provider:Lopez MARTÍNEZ MD Location:[facility] Appointment Type:GS Established 15 [facility] General Surgery [place] Evaluation note No assessment inform ation available [facility] Work Phone: Hospital Discharge instructions No data available for this section General Surgery [place] Progress note No data available for this section [facility] Summary Purpose Family History No Family History [...] section and content) DATE CREATED AUTHOR 10/21/2022 [facility] DATE CREATED AUTHOR AUTHOR'S ORGANIZ ATION 03/16/2023 [facility] [place] [facility] DATE CREATED AUTHOR AUTHOR'S ORGANIZ ATION 08/18/[address] [facility] DATE CREATED AUTHOR AUTHOR'S ORGANIZ ATION 08/10/2025 [facility] DATE CREATED AUTHOR AUTHOR'S ORGANIZ ATION 08/14/2025 [facility] Goals (unrecognized section and content) Goals [...] BE BASED ON THE PRIMARY CLINICAL RECORDS. [facility] [employer] [facility]. provides no warranty or guarantee of the accuracy or completeness of information in this document.
== END 2025-08-18 15:12 | disposition home or self-care (01) ==
LOC: LAB 15:13
PROVIDERS: PCP Family Medicine; Visit Provider Family Medicine
DX: E03.9 Hypothyroidism, unspecified (principal)
CPT/HCPCS: 36415; 84436; 84443; 84481

== ENCOUNTER 2025-09-14 15:12 | Outpatient (OUT) | payer BC, SELFPAY ==
--- OUTSIDE RECORDS SUMMARY | 2025-09-09 06:15 | XMS_ITS ---
Author Organization [facility] [place] Address [address] [place] [address] Care Team Providers Care Coal Mill Operator Name Role Phone Flaco Potter Primary Care Provider Allergies Allergen (clinical drug ingredient) Drug/Non Drug Allergy documented on EMR Reaction Allergy Type Onset Date Status diphenhydramine Benadryl excessive sleepiness Drug Allergy Active ciprofloxacin Cipro nausea Drug Allergy Act eleni REASON FOR VISIT Nausea and dizzy started at work this AM, now diarrhea Medications Medication SIG (Take, Route, Frequency, Duration) Notes Start Date End Date Status Hyoscyamine Sulfate 0.125 MG 1-2 tabs SL SL every 4 hrs PRN abd pain 09/09/2025 Active tiZANidine HCl 4 MG 2 tablets Orally at bedtime 10/09/2023 Active Pantoprazole Sodium 40 mg TAKE ONE TABLE T BY MOUTH TWICE A DAY; Duration: 30 Active Metoprolol Tartrate 25 MG 1 tablet with food Orally Twice a day; Duration: 30 days Active Iron (Ferrous Sulfate) 325 (65 Fe) MG 1 tablet Orally bid; Duration: 30 days 01/27/2024 Active Diclofenac Sodium 75 MG 1 tablet as need ed Orally Twice a day 02/19/2024 Active Maxalt-GAS METER REPAIR SUPERVISOR 10 MG 1 tablet Orally Once a day; Duration: 30 days PRN Active Liothyronine Sodium 5 MCG 3 tablets Oral ly on odd days and 2 tablets on even days; Duration: 30 days Active Levothyroxine Sodium 100 MCG TAKE 1/2 TA BLET BY MOUTH ONCE DAILY IN THE MORNING ON AN EMPTY STOMACH FOR 30 DAYS; Duration: 30 Active Cetirizine HCl 10 MG 1 tablet Orally Onc e a day; Duration: 90 days Active Frpycefmoj-DMFC-Fajdaogx 50-300-40 MG 1 capsule as needed Orally every 6 hrs; Duration: 30 days PRN Active Breo Ellipta 100-25 MCG/ACT 1 puff Inhal ation Once a day Active Albuterol Sulfate HFA 108 (90 Base) MCG/ACT INHALE 1 PUFF EVERY 4 HOURS NEEDED; Duration: 33 Active Ondansetron 4 MG 1 tablet on the tong ue and allow to dissolve Orally qid 09/09/2025 Active Social History Tobacco Use: Social History Observation Description Date Details (start date - stop date) Never Smoker NA - NA Tobacco Use/Smoking Question Answer Notes Patient is a nonsmoker Vital Signs Weight 100.0 lbs 09/09/2025 Height 61 in 09/09/2025 Blood pressure systolic 130 mm Hg 09/09/20 25 Blood pressure diastolic 82 mm Hg 025 BMI 18.89 kg/m2 09/09/2025 Encounters Encounter Location Date Provider Diagnosis [facility] [address] [place] [address] 09/09/2025 Flaco Potter Gastroenteritis K52. 9 Assessments Encounter Date Diagnosis (ICD Code) Assessment Notes Treatment Notes Treatment Clinical Notes Section Notes 09/09/2025 Gastroenteritis (ICD-10 - K52.9) Get plenty of rest. Stay hydrated by sucking on ice chips or taking small sips of water. You can also try drinking clear soda, clear broths or noncaffeinated sports drinks. Stop eating solid foods for a few hours to let your stomach settle. East back into eating by eating bland, dgbw-qd-mafnfc foods like crackers, toast, gelatin, bananas, rice and chicken. Try to avoid foods/substances including dairy products, caffeine, alcohol, nicotine and fatty or highly seasoned foods. Medications such as ibuprofen or tylenol can make your stomach more upset, so use sparingly if at all. Also avoid pzkm-cdq-yngxowi anti-diarrheal medications because it can make it harder for your body to eliminate the virus. Plan Of Treatment Medication Medication Name Sig Start Date Stop Date Notes Hyoscyamine Sulfate 0.125 MG 1-2 tabs SL SL every 4 hrs PRN abd pain 09/09/2025 Ondansetron 4 MG 1 tablet on the tong ue and allow to dissolve Orally qid 09/09/2025 Treatment Notes Assessment Notes Gastroenteritis Get plenty of rest. Stay hydrated by sucking on ice chips or taking small sips of water. You can also try drinking clear soda, clear broths or noncaffeinated sports drinks. Stop eating solid foods for a few hours to let your stomach settle. East back into eating by eating bland, ttpc-qy-gsihas foods like crackers, toast, gelatin, bananas, rice and chicken. Try to avoid foods/substances including dairy products, caffeine, alcohol, nicotine and fatty or highly seasoned foods. Medications such as ibuprofen or tylenol can make your stomach more upset, so use sparingly if at all. Also avoid czkv-cwb-drrvuio anti-diarrheal medications because it can make it harder for your body to eliminate the virus. Medications Administered Medication Instructions Date of Administration Dosage Notes Promethazine 25mg 09/09/2025 25 mg Progress Notes * Stephanie KHOURY ADOB: [birth year] (49 yo F)Acc No.[id number]:09/09/2025 Progress Note Patient: Stephanie GLEZ Provider: Kirill Potter ([facility])MD :1975 A ge:49 Y S ex:Female Date:09/09/2025 Address:[address] [place], [place] [id number] Check In:10:10 AM ESTCheck O ut:11:10 AM EST Subjective: * Chief Complaints: * N ausea and dizzy started at work this AM, now diarrhea * HPI: G eneral: n/v/d - headache and vertigo all started this am. G astroenteritis: The patient complains of s ymptoms of the stomach flu. The symptoms have been present for 1 -2 days. The symptoms are m oderate. The patient h as not been exposed to sick contacts. Symptomatic treatment has included O TC medication. Associated symptoms include a bdominal pain, diarrhea, stomach cramps, nausea, vomiting, chills, fever. * ROS: G eneral/Constitutional: Recent Weight Gain d enies. S kin: Rash d enies. C ardiovascular: Edema d enies. P alpitations d enies. ? G astrointestinal: Comments S [facility] for details. * Active Problem List J01.11 Acute recurrent [...] Z01.419 Encounter for gyneco logical examination Modified On:03/22/2023U Status:confirmed M75.40 Shoulder impingement syndrome Modified On:03/22/2023U Status:confirmed K58.1 Irritable bowel synd linwood with constipation Modified On:03/22/2023U Status:confirmed M54.50 Low back pain, unspe cified Modified On:03/22/2023U Status:confirmed D22.9 Melanocytic nevi, un specified Modified On:03/25/2023 Status:confirmed K21.9 Gastro-esophageal re flux disease without esophagitis Modified On:03/25/2023U Status:confirmed M67.814 Other specified diso rders of tendon, left shoulder Modified On:04/15/2023U Status:confirmed M47.812 Spondylosis without myelopathy or radiculopathy, cervical region Modified On:04/15/2023 Status:confirmed R10.9 Right flank discomfo rt Modified On:05/06/2023U Status:confirmed R20.2 Paresthesia of skin Modified On:08/01/2023U Status:confirmed M62.838 Trapezius muscle spa sm Modified On:10/09/2023 Status:confirmed 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, right shoulder Modified On:12/16/2023U Status:confirmed N39.0 Acute UTI Modified On:05/07/2024U Status:confirmed R42 Vertigo Modified On:06/25/2024U Status:confirmed B37.0 Thrush Modified On:01/26/2025U Status:confirmed D22.9 Nevus Modified On:06/16/2025U Status:confirmed * Medical History: * Surgical History: [...] Use/Smoking P atient is a n onsmoker * Medications: T akingAlbuterol Sulfate HFA 108 (90 Base) MCG/ACT Aerosol Solution INHALE 1 PUFF EVERY 4 HOURS NEEDED Breo Ellipta(Fluticasone Furoate-Vilanterol) 100-25 MCG/ACT Aerosol Powder Breath Activated 1 puff Inhalation Once a day Uhasadxidj-MEXV-Keonaltu 50-300-40 MG Capsule 1 capsule as needed Orally every 6 hrs , Notes to Pharmacist: PRNCetirizine HCl 10 MG Tablet 1 tablet Orally Once a day Diclofenac Sodium 75 MG Tablet Delayed Release 1 tablet as needed Orally Twice a day Iron (Ferrous Sulfate) 325 (65 Fe) MG Tablet 1 tablet Orally bid Levothyroxine Sodium 100 MCG Tablet TAKE 1/2 TABLET BY MOUTH ONCE DAILY IN THE MORNING ON AN EMPTY STOMACH FOR 30 DAYS Liothyronine Sodium 5 MCG Tablet 3 tablets Orally on odd days and 2 tablets on even days Maxalt-GAS METER REPAIR SUPERVISOR(Rizatriptan Benzoate) 10 MG Tablet Disintegrating 1 tablet Orally Once a day , Notes to Pharmacist: PRNMetoprolol Tartrate 25 MG Tablet 1 tablet with food Orally Twice a day Pantoprazole Sodium 40 mg Tablet Delayed Release TAKE ONE TABLET BY MOUTH TWICE A DAY tiZANidine HCl 4 MG Tablet 2 tablets Orally at bedtime Taking Albuterol Sulfate HFA 108 (90 Base) MCG/ACT Aerosol Solution INHALE 1 PUFF EVERY 4 HOURS NEEDED Taking Breo Ellipta(Fluticasone Furoate-Vilanterol) 100- 25 MCG/ACT Aerosol Powder Breath Activated 1 puff Inhalation Once a day Taking Bvpuyszvda-ICNF-Gbbshocp 50-300-40 MG Capsule 1 capsule as needed Orally every 6 hrs , Notes to Pharmacist: PRNTaking Cetirizine HCl 10 MG Tablet 1 tablet Orally Once a day Taking Diclofenac Sodium 75 MG Tablet Delayed Release 1 tablet as needed Orally Twice a day Taking Iron (Ferrous Sulfate) 325 (65 Fe) MG Tablet 1 tablet Orally bid Taking Levothyroxine Sodium 100 MCG Tablet TAKE 1/2 TABLET BY MOUTH ONCE DAILY IN THE MORNING ON AN EMPTY STOMACH FOR 30 DAYS Taking Liothyronine Sodium 5 MCG Tablet 3 tablets Orally on odd days and 2 tablets on even days Taking Maxalt- GAS METER REPAIR SUPERVISOR(Rizatriptan Benzoate) 10 MG Tablet Disintegrating 1 tablet Orally Once a day , Notes to Pharmacist: PRNTaking Metoprolol Tartrate 25 MG Tablet 1 tablet with food Orally Twice a day Taking Pantoprazole Sodium 40 mg Tablet Delayed Release TAKE ONE TABLET BY MOUTH TWICE A DAY Taking tiZANidine HCl 4 MG Tablet 2 tablets Orally at bedtime DiscontinuedCephalexin 500 MG Tablet 2 tabs Orally bid Nystatin 619790 UNIT/ML Suspension 5 ml Mouth/Throat Four times a day Medication List reviewed and reconciled with the patientDiscontinued Cephalexin 500 MG Tablet 2 tabs Orally bid Discontinued Nystatin 436947 UNIT/ML Suspension 5 ml Mouth/Throat Four times a day Medication List reviewed and reconciled with the patient * Allergies: B enadryl: excessive sleepiness - Side EffectsCipro: nausea - Criticality Highno[Allergies Verified] Objective: * Vitals: W t:100.0lbs, Ht: 61 in, BP:130/82mm Hg, BMI:18.89Index, Ht-cm: 154.94 cm, Wt-k.36 kg. * Examination: G eneral Examination: GENERAL APPEARANCE: well developed, well nourished, in no acute distress. ENT: Normocephalic , Atraumatic. EYES: pupils equal, round, reactive to light and accomodations, sclera non-icteric. EARS: normal. ORAL CAVITY: mucosa moist. THROAT: clear. LUNGS: clear to auscultation bilaterally. CARDIO: regular rate and rhythm, S1, S2 normal, no murmurs. ABDOMEN: m ild diffuse tender - no rebounds. SKIN: warm and dry, no suspicious lesions. EXTREMITIES: no clubbing, cyanosis, or edema. NEUROLOGIC: nonfocal, motor strength of upper/lower extremities intact , sensory exam intact. NECK/THYROID: neck supple, full range of motion, no cervical lymphadenopathy. Assessment: * Assessment: 1. G astroenteritis - K52.9 (Primary) Plan: * Treatment: * Therapeutic Injections: Promethazine 25mg : 25 mg (Route: Intramuscular) given by Lidia Lopez SA on right gluteus (Gastroenteritis) * Procedure Codes: [id number] THERAP.INJ. OF MED. INTRAMUSCULAR OR [id number] PHENERGAN 25MG * * Sign off status: Completed Visit Status: C HK (Check Out) true * Provider: Kirill Potter ([facility])MD Date: Generated for Maria Guadalupei ng/Fadagmarg/eTransmitting on: 03:14 PM EDT History and Physical Notes * HPI (History of Present Illness) Category Sub-Category Detail Notes Category Not es General n/v/d - headache and vertigo all started this am Gastroenteritis The patient complain s of symptoms of the stomach flu The symptoms have been present for 1-2 d ays The symptoms are moderate The patient has not been exposed to sick contacts Symptomatic treatment has included OTC m edication Associated symptoms include abdominal pa in, diarrhea, stomach cramps, nausea, vomiting, chills, fever Examination Category Sub-Category Detail Notes Category Not es General Examination GENERAL APPEARANCE: well dev eloped, well nourished, in no acute distress ENT: Normocephalic , Atra umatic EYES: pupils equal, round, reactive to light and accomodations, sclera non-icteric EARS: normal THROAT: clear CARDIO: regular rate and rhy thm, S1, S2 normal, no murmurs LUNGS: clear to auscultatio n bilaterally ABDOMEN: mild diffuse tender - no rebounds NEUROLOGIC: nonfocal, motor stre ngth of upper/lower extremities intact , sensory exam intact SKIN: warm and dry, no liang picious lesions EXTREMITIES: no clubbing, cyanosi s, or edema ORAL CAVITY: mucosa moist NECK/THYROID: neck supple, full ra nge of motion, no cervical lymphadenopathy
--- OUTSIDE RECORDS SUMMARY | 2025-09-14 15:14 | XMS_ITS | Clinical Summary ---
Author Organization [facility] Address [id number] [address] [place] [address] Care Team Providers Care Offset Lithographic Press Operator Name Role Phone Luisito Potter MD Primary Care Provider +-[phone] Allergies Active Allergy Reactions Criticality Noted Date [...] ANTHEM [employer] MEDICAID [employer] Care Teams Offset Lithographic Press Operator Relationship Specialty Start Date End Date Luisito Potter MD PCP - General 06/19/17
--- OUTSIDE RECORDS SUMMARY | 2025-09-14 15:14 | XMS_ITS | Clinical Summary ---
Author Organization [facility] Address [address] [place] [address] Care Team Providers Care Trucking Manager Name Role Phone Luisito Potter MD Primary Care Provider [phone] Allergies Active Allergy Reactions Criticality Noted Date [...] Recorded Patient Health Questionnaire-2 Score 0 10/17/2022 [place] Safety & Environment Answer Date Rec orded [...] patient's age to complete this topic Insurance [facility] [employer] [place] MED[place] Care Teams Trucking Manager Relationship Specialty Start Date End Date Luisito Potter MD [address] [facility] [place] [address] PCP - General 10/17/22
--- OUTSIDE RECORDS SUMMARY | 2025-09-14 15:14 | XMS_ITS | Patient Health Record ---
Author Organization [facility] in [place] Address [address] [place] [address] Care Team Providers Care Fiscal Agent Name Role Phone Flaco Lyon Primary Care Provider [phone] Allergies Allergen (clinical drug ingredient) Drug/Non Drug Allergy documented on EMR Reaction Allergy Type Onset Date Status diphenhydramine Benadryl excessive sleepiness Drug Allergy Active ciprofloxacin Cipro nausea Drug Allergy Act eleni Results Component Value Reference Range Notes CBC AUTO DIFF Reviewed date:07/21/2025 05:06:23 PM Interpretation: Performing Lab: Notes/Report: [facility] , White Blood Count 5.8 4.0-11.0 10 [...] 3/uL Performing Lab: see note ML - [facility] LB GLYCOHEMOGLOBIN A1C Reviewed date:07/21/2025 05:06:23 PM Interpretation: Performing Lab: Notes/Report: [facility] , Glycohemoglobin A1C 5.1 4.5-6.2 % > 7.0 ADA THERAPEUTIC TARGET < 7.0 ACTION SUGGESTED ADA RECOMMENDED LIMIT 4.0 - 6.0 Estimated Average Glucose 100 Performing Lab: see note ML - [facility] LB LIPID PROFILE Reviewed date:07/21/2025 05:06:23 PM Interpretation: Performing Lab: Notes/Report: [facility] , Triglycerides 116 <=150 mg/dL Cholesterol 178 [...] MODERATE RISK Performing Lab: see note - [facility] LB PROF 14(COMP METB) Reviewed date:07/21/2025 05:06:23 PM Interpretation: Performing Lab: Notes/Report: [facility] , Sodium 144 136-145 mmol/L Potassium 4.0 [...] 1.3 Performing Lab: see note ML - [facility] FREE T3 Reviewed date:07/21/2025 05:06:23 PM Interpretation: Performing Lab: Notes/Report: [facility] , Free T3 1.73 2.18-3.98 pg/mL Performing Lab: see note ML - [facility] LB T4 Reviewed date:07/21/2025 05:06:23 PM Interpretation: Performing Lab: Notes/Report: [facility] , T4 Thyroxine 5.20 4.80-13.90 ug/dL Performing Lab: see note ML - [facility] LB TSH Reviewed date:07/21/2025 05:06:23 PM Interpretation: Performing Lab: Notes/Report: [facility] , Thyroid Stimulating Hormone 2.018 0.358-3.740 u IU/mL Performing Lab: see note ML - [facility] LB Occult Blood* Reviewed date:07/27/2025 08:05:10 PM Interpretation: Performing Lab: Notes/Report: [facility] , Occult Blood Positive Performing Lab: see note ML - [facility] FREE T3 Reviewed date:08/18/2025 05:58:38 PM Interpretation: Performing Lab: Notes/Report: [facility] , Free T3 4.36 2.18-3.98 pg/mL Performing Lab: see note ML - [facility] LB T4 Reviewed date:08/18/2025 05:58:38 PM Interpretation: Performing Lab: Notes/Report: [facility] , T4 Thyroxine 6.20 4.80-13.90 ug/dL Performing Lab: see note ML - [facility] LB TSH Reviewed date:08/18/2025 05:58:38 PM Interpretation: Performing Lab: Notes/Report: [facility] , Thyroid Stimulating Hormone 0.018 0.358-3.740 u IU/mL Performing Lab: see note ML - [facility] LB XR chest 1V Reviewed date:11/15/2024 08:11:50 PM Interpretation: Performing Lab: Notes/Report: Source Facility: [place] [address] [place] [address] XRay Report Signed Patient: STEPHANIE KHOURY MR#: [id number] : 1975 Acct:[id number] Age/Sex: 48 / F ADM Date: 11/14/24 Loc: ER Attending Dr: Ordering Physician: Anali Morrissey Date of Service: 11/14/24 Procedure(s): XR chest 1V Accession Number(s): [id number] cc: Chi Lyon M.D.; Anali Morrissey [place] [address] Patient Name: STEPHANIE KHOURY MRN: [id number] date: 1975 Sex: F Assigned Patient Location: ER Current Patient Location: Accession/Order Number: [id number] Exam Date: 11/14/2024 22:56 Report Date: 11/15/2024 [...] No acute cardiopulmonary process. Electronically authenticated by: TAINA WALSH Date: 11/15/2024 01:28 Dictated By: Tania Walsh M.D. Signed By: 11/15/24 0131 DD/ 0128 TD/TT: Application Support Analyst: Troponin I High Sensitivity Reviewed date:11/15/2024 08:11:50 PM Interpretation: Performing Lab: Notes/Report: [facility] , Troponin I High Sensitivity <4.0 4.0-51.3 pg/m L UNIVERSAL DEFINITION OF MYOCARDIAL INFARCTION. THE UPPER USED IN ISOLATION BUT SHOULD BE INTERPRETED IN CONJUNCTION 99TH PERCENTILE = 51.4 PG/ML HAS BEEN CONFIRMED THE DECISION THRESHOLD FOR ND PERCENTILE OF cTnI DISTRIBUTION IN A REFERENCE POPULATION, NOTE: HIGH-SENSITIVITY TROPONIN ASSAY IS NOT INTENDED TO BE WITH OTHER DIAGNOSTIC AND CLINICAL INFORMATION. DIAGNOSIS. REFERENCE LIMIT (URL) OF TROPONIN, DEFINED THE 99TH CUT-OFF POINTS HAVE BEEN ESTABLISHED BASED ON THE FOURTH Performing Lab: see note ML - [facility] LB ECG 12 lead Reviewed date:11/17/2024 12:20:35 PM Interpretation: Performing Lab: Notes/Report: Source Facility: [place] [address] Electrocardiograph Report Signed Patient: STEPHANIE KHOURY MR#: [id number] : 1975 Acct:[id number] Age/Sex: 48 / F ADM Date: 11/14/24 Loc: ER Attending Dr: Ordering Physician: Anali Morrissey Date of Service: 11/14/24 Procedure(s): ECG 12 lead Accession Number(s): [id number] cc: [facility] Test Date: 2024-11-14 Pat Name: STEPHANIE KHOURY Department: Room: - Gender: Female [employer] Roller: : 1975 Requested By: CHI LYON Order Number: [id number] Reading MD: CHI LYON Measurements Intervals [place] Rate: 63 P: 74 OR: 150 QRS: 88 QRSD: 82 T: 59 QT: 388 QTc: 396 Interpretive Statements 1100 Sinus rhythm 9110 normal ECG Compared to ECG 09/21/2022 09:24:54 No significant changes Electronically Signed On 12-17-2024 6:58:02 EST by CHI LYON Dictated By: Chi Lyon M.D. Signed By: 11/17/24 0658 DD/ TD/TT: Application Support Analyst: RADHA Qualitative* Reviewed date:11/15/2024 08:11:50 PM Interpretation: Performing Lab: Notes/Report: [facility] , HCG Qualitative NEGATIVE NEGATIVE Performing Lab: see note ML - [facility] LB Troponin I High Sensitivity Reviewed date:11/15/2024 08:11:50 PM Interpretation: Performing Lab: Notes/Report: [facility] , Troponin I High Sensitivity <4.0 4.0-51.3 pg/m L HAS BEEN CONFIRMED THE DECISION THRESHOLD FOR ND NOTE: HIGH-SENSITIVITY TROPONIN ASSAY IS NOT INTENDED TO BE 99TH PERCENTILE = 51.4 PG/ML USED IN ISOLATION BUT SHOULD BE INTERPRETED IN CONJUNCTION DIAGNOSIS. REFERENCE LIMIT (URL) OF TROPONIN, DEFINED THE 99TH PERCENTILE OF cTnI DISTRIBUTION IN A REFERENCE POPULATION, UNIVERSAL DEFINITION OF MYOCARDIAL INFARCTION. THE UPPER CUT-OFF POINTS HAVE BEEN ESTABLISHED BASED ON THE FOURTH WITH OTHER DIAGNOSTIC AND CLINICAL INFORMATION. Performing Lab: see note ML - [facility] LB PROF 14(COMP METB) Reviewed date:11/15/2024 08:11:50 PM Interpretation: Performing Lab: Notes/Report: [facility] , Sodium 141 136-145 mmol/L Potassium 4.0 [...] 1.3 Performing Lab: see note ML - [facility] LB CBC AUTO DIFF Reviewed date:11/15/2024 08:11:50 PM Interpretation: Performing Lab: Notes/Report: [facility] , White Blood Count 7.3 4.0-11.0 10 [...] 3/uL Performing Lab: see note ML - [facility] LB Reason For Referral Diagnosis 1 Nevus (D22.9) Referral Organization [facility] Referring Provider First Name Flaco Referring Provider Last Name Jorgekaron Referring Provider Speciality Family [facility] gaudencio Referred Provider Lopez Hernandez Referred Provider Specialty General Surg cayden Referral Priority Routine Diagnosis 1 Positive occult stoo l blood test (R19.5) Referral Organization [facility] Referring Provider First Name Flaco Referring Provider Last Name Abbey Referring Provider Speciality Family [facility] gaudencio Referred Provider Lopez Hernandez Referred Provider Specialty General Surg cayden Referral Priority Routine Medications Medication SIG (Take, Route, Frequency, Duration) Notes Start Date End Date Status Iron (Ferrous Sulfate) 325 (65 Fe) MG 1 tablet Orally bid; Duration: 30 days 01/27/2024 Active Diclofenac Sodium 75 MG 1 tablet as need ed Orally Twice a day 02/19/2024 Active Cetirizine HCl 10 MG 1 tablet Orally Onc e a day; Duration: 90 days Active Tfspwcwmfx-WMXJ-Dkyqormg 50-300-40 MG 1 capsule as needed Orally every 6 hrs; Duration: 30 days PRN Active Breo Ellipta 100-25 MCG/ACT 1 puff Inhal ation Once a day Active Albuterol Sulfate HFA 108 (90 Base) MCG/ACT INHALE 1 PUFF EVERY 4 HOURS NEEDED; Duration: 33 Active Hyoscyamine Sulfate 0.125 MG 1-2 tabs SL SL every 4 hrs PRN abd pain 09/09/2025 Active tiZANidine HCl 4 MG 2 tablets Orally at bedtime 10/09/2023 Active Ondansetron 4 MG 1 tablet on the tong ue and allow to dissolve Orally qid 09/09/2025 Active Pantoprazole Sodium 40 mg TAKE ONE TABLE T BY MOUTH TWICE A DAY; Duration: 30 Active Metoprolol Tartrate 25 MG 1 tablet with food Orally Twice a day; Duration: 30 days Active Maxalt-CONCEPT ARTIST 10 MG 1 tablet Orally Once a day; Duration: 30 days PRN Active Liothyronine Sodium 5 MCG 3 tablets Oral ly on odd days and 2 tablets on even days; Duration: 30 days Active Levothyroxine Sodium 100 MCG TAKE 1/2 TA BLET BY MOUTH ONCE DAILY IN THE MORNING ON AN EMPTY STOMACH FOR 30 DAYS; Duration: 30 Active Immunizations Vaccine Route Administration Date Status Comme nts Flu, Flucelvax (6163-4233) (21988) 6 mos +, single-dose syringe IM Intramuscular [...] Localized, primary osteoarthritis of the shoulder region (312356271) Primary osteoarthritis, right shoulder (M19.011) Active confirmed Problem Gastro-esophageal reflux disease without esophagitis (559489015) Gastro-esophageal reflux disease without esophagitis (K21.9) Active confirmed Problem Eruptive melanocytic nevi (517522003) Melanocytic nevi, unspecified (D22.9) Active confirmed Problem Acute frontal sinusitis (01302197) Acute recurrent frontal sinusitis (J01.11) Active confirmed Problem Cervical spondylosis without myelopathy (875851795) Spondylosis without myelopathy or radiculopathy, cervical region (M47.812) Active confirmed Problem Disorder of tendon of left shoulder region (disorder) (4411686004182918 8) Other specified disorders of tendon, left shoulder (M67.814) Active confirmed Problem Palpitations (09409841) Palpitations (R00.2) Active confirmed Problem Right upper quadrant abdominal mass (6294230302968357 0) Right upper quadrant abdominal swelling, mass and lump (R19.01) Active confirmed Problem Paresthesia (finding) (11635374) Paresthesia of skin (R20.2) Active confirmed Problem Asthma (151588178) Asthma (J45.909) Active confirmed Problem Hypothyroidism (00298691) Hypothyroidism (E03.9) Active confirmed Problem Anxiety (79312103) Anxiety (F41.9) Active confirmed Problem Depression (202884239) Depression (F32.9) Active confirmed Problem Vertigo (819657498) Vertigo (R42) Active confirmed Problem Insomnia (882706952) Insomnia (G47.00) Active confirmed Problem Eczema (56236296) Eczema (L30.9) Active confirm ed Problem Migraine (89266791) Migraine (G43.909) Active confirmed Problem Sinus tachycardia (92049693) Sinus tachycardia (R00.0) Active confirmed Problem Hearing loss (90956970) Hearing loss (H91.90) Active confirmed Problem Constipation (53652194) Constipation (K59.00) Active confirmed Problem Acute pharyngitis (962633676) Acute pharyngitis (J02.9) Active confirmed Problem Supraspinatus tendinitis (377297567) Supraspinatus tendinitis, right (M75.91) Active confirmed Problem Dysphagia (00452228) Dysphagia (R13.10) Active confirmed Problem Spasm of back muscles (456084671) Back muscle spasm (M62.830) Active confirmed Problem Trochanteric bursitis (4166860) Trochanteric bursitis (M70.60) Active confirmed Problem Metatarsalgia (79732463) Metatarsalgia (M77.40) Active confirmed Problem Thrush (03674813) Thrush (B37.0) Active confirm ed Problem Herpes zoster (6873604) Herpes zoster (B02.9) Active confirmed Problem Gynecologic examination (81280708) Encounter for gynecological examination (Z01.419) Active confirmed Problem Nevus (7630118886) Nevus (D22.9) Active confirmed Problem Abdominal pain (08454007) Right flank discomfort (R10.9) Active confirmed Problem Acute urinary tract infection (043055136) Acute UTI (N39.0) Active confirmed Problem Spasm (41828755) Trapezius muscl e spasm (M62.838) Active confirmed Problem Shoulder impingement syndrome (695410017) Shoulder impingement syndrome (M75.40) Active confirmed Problem Irritable bowel syndrome characterized by constipation (131789642) Irritable bowel syndrome with constipation (K58.1) Active confirmed Problem Low back pain (166931830) Low back pain, unspecified (M54.50) Active confirmed Vital Signs Blood pressure diastolic 82 mm Hg 09/09/2025 Height 61 in 09/09/2025 Blood pressure systolic 130 mm Hg 09/09/2025 Weight 100.0 lbs 09/09/2025 BMI 18.89 kg/m2 09/09/2025 Encounters Encounter Location Date Provider Diagnosis [facility] [address] [place] [address] 01/26/2025 Flaco Hoy Migraine G43.909 and Thrush B37.0 [facility] [address] [place] [address] 06/16/2025 Flaco Hoy Nevus D22.9 and Migr santos G43.909 [place] [place] [address] 09/09/2025 Flaco Hoy Gastroenteritis K52. 9 [facility] [address] [place] [address] 10/02/2024 Flaco Hoy [place] [address] [place] [address] 10/28/[address] [facility] [address] [place] [address] 11/27/2024 Flaco Hoy Migraine G43.909 [place] [address] [place] [address] 07/21/2025 Flaco Hoy Hypothyroidism E03.9 ; Fatigue R53.83 ; Screening for colon cancer Z12.11 and Wellness examination Z01.[address] [address] 07/21/2025 Flaco Hoy Hypothyroidism E03.[address] [address] 07/27/2025 Flaco Hoy Positive occult stoo l blood test R19.[address] [address] 08/18/2025 Flaco Hoy Hypothyroidism E03.9 Assessments Encounter Date Diagnosis (ICD Code) Assessment Notes Treatment Notes Treatment Clinical Notes Section Notes 01/26/2025 Migraine (ICD-10 - G43.909) injections -off work today 01/26/2025 Thrush (ICD-10 - B37.0) nystatin 06/16/2025 Migraine (ICD-10 - G43.909) feels lkie tyoical - 06/16/2025 Nevus (ICD-10 - D22.9) 09/09/2025 Gastroenteritis (ICD-10 - K52.9) Get plenty of rest. Stay hydrated by sucking on ice chips or taking small sips of water. You can also try drinking clear soda, clear broths or noncaffeinated sports drinks. Stop eating solid foods for a few hours to let your stomach settle. East back into eating by eating bland, fxmg-ht-ilfxgh foods like crackers, toast, gelatin, bananas, rice and chicken. Try to avoid foods/substances including dairy products, caffeine, alcohol, nicotine and fatty or highly seasoned foods. Medications such as ibuprofen or tylenol can make your stomach more upset, so use sparingly if at all. Also avoid xsem-iyn-vogchch anti-diarrheal medications because it can make it harder for your body to eliminate the virus. 11/27/2024 Migraine (ICD-10 - G43.909) 07/21/2025 Fatigue (ICD-10 - R53.83) 07/21/2025 Hypothyroidism (ICD-10 - E03.9) 07/21/2025 Hypothyroidism (ICD-10 - E03.9) 07/27/2025 Positive occult stool blood test (ICD-10 - R19.5) 08/18/2025 Hypothyroidism (ICD-10 - E03.9) 07/21/2025 Screening for colon cancer (ICD-10 - [...] Coverage End Date [employer] [address] [place] [address] [id number] Stephanie Khoury Self - patient is the insured Medications Administered Medication Instructions Date of Administration Dosage Notes Kenalog-40 06/25/2024 80 mg 80 Ketorolac Tromethamine 01/26/2025 60 mg Ketorolac Tromethamine 06/16/2025 60 mg Phenergan 01/26/2025 25 mg Promethazine 25mg 06/16/2025 25 mg Promethazine 25mg 09/09/2025 25 mg Medical (General) History Medical History [...]
--- OUTSIDE RECORDS SUMMARY | 2025-09-14 15:21 | XMS_ITS | CCD ---
Author Organization [facility] Team Providers Care Fisher Gill Net Name Role Phone Chi Potter Primary Care [...] OCHOA Admitting Unavailable ZITA OCHOA Attending Unavailable ABBYE ., DR MIRELES Primary Care Unavailable KIMI WELSH Consulting Unavailable MD Chi Potter Primary Care Provider [phone] DO Stanley Martinez Emergency Provider Chi [...] Translations: [ciprofloxacin] Drug Allergy 1 Vomiting (disorder) [facility] (1 source) diphenhydrAMINE; Translations: [DIPHENHYDRAMINE HCL] Drug Allergy 2 [facility] Repository (1 source) Ciprofloxacin Drug Allergy 6 [facility] Repository (2 sources) diphenhydrAMINE; Translations: [Benadryl] Drug Allergy 2 [facility] Repository (5 sources) diphenhydrAMINE; Translations: [diphenhydramine] Drug Allergy 2 Unknown [facility] [place] (1 source) Ciprofloxacin Drug Allergy 4 [facility] Repository Medications Current Medications Medication Drug [...] day(s), # 9 tab(s), Refills(s) 0, Pharmacy: [facility]/pharmacy #[id number], 155, cm, 06/21/22 15:51:00 EDT, Height/Length [...] take 1 tablet by mouth once [employer]ICATION[employer] PROGRAM[employer] 10 mg Tab-Dis 10 mg = 1 [...] Episodic Other aftercare (1 source) 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 Language Information Language assistance services are available as needed. David [facility] Ambulatory Visit Summary Ambulatory Visit Summary STEPHANIE [...] (Pantoprazole [address] Tab) rizatriptan ([employer]alt COMMUNICATIONS PROGRAMMER 10 mg Tab-Dis) tizanidine (tiZANidine 4 mg [...] if questions or concerns Unchanged rizatriptan ([employer]alt COMMUNICATIONS PROGRAMMER 10 mg Tab-Dis) 1 Tablets By Mouth [...] signed up for this yet, please contact [employer] at [phone] to get signed up today. Language Information Language assistance services are available as needed. David [facility] General Surgery Office/Clini c Noteon 08-11-2025 General [...] 5 mcg= 1 tab(s), Oral, TID [employer]alt [employer]ICATIONS PROGRAMMER 10 mg Tab-Dis, 10 mg= 1 tab(s), Oral, Once Metoprolol tartrate 25 mg Tab, 25 mg= 1 tab(s), Oral, BID Pantoprazole [address] Tab, 40 mg= 1 tab(s), Oral, BID tiZANidine 4 mg Tab, 8 mg= 2 tab(s), Oral, Bedtime Allergies Benadryl (unknown) ciprofloxacin (Vomiting) Social History Alcohol - Denies Alcohol Use, 06/21/2022 Ne (more content not included)... Normal [facility] Comment on above: Result Comment: Elec tronically Signed By: TANYA CANTU, Lopez Jay\.br\Date and Time Signed: 08/11/25 15:43 EDT Surgical Pathology Reporton 08-09-2025 Surgical Pathology Report [facility] [address] [place] [address]- Surgical Pathology Report Collected Date/Time: 07/28/2025 15:57 [...] characteristics were determined by the [facility] Surgical Pathology. They have not been [...] recognition technology and might contain unintended computerized seamer operator errors. Microscopic examination performed unless gross only specified. Quality was accessed and acceptable. Normal [facility] Comment on above: Performed By: #### 4 [id number] #### [facility] Laboratory [address] [place] [address] Ambulatory Visit Summaryon 0 07-28-2025 Ambulatory Visit [...] (Pantoprazole [address] Tab) rizatriptan (Maxalt COMMUNICATIONS PROGRAMMER 10 mg Tab-Dis) tizanidine (tiZANidine 4 mg Tab) Procedures Performed Excision of intradermal nevus (04/17/2023), Abdominal hysterectomy, Tubal ligation. What to do next Scheduled Follow-Up Appointments Saturday 3:20 PM EDT With: Lopez MARTÍNEZ MD Where: [facility] General Surgery [address], [address], [address] You Need to Complete the Following [...] 2 times a day Unchanged rizatriptan (Maxalt COMMUNICATIONS PROGRAMMER 10 mg Tab-Dis) 1 Tablets By Mouth [...] signed up for this yet, please contact [employer] at [phone] to get signed up today. Language Information Language assistance services are available as needed. David [facility] General Surgery Office/Clini c Noteon 07-28-2025 General [...] 5 mcg= 1 tab(s), Oral, Daily [employer]alt COMM[employer]ICATION[employer] PROGRAMMER 10 mg Tab-Dis, 10 mg= 1 tab(s), [...] virus vaccine, inactivated 08/27/2022 Recorded SARS-CoV-2 (COVID-19) [id number] 08/27/2022 Recorded SARS-CoV-2 (COVID-19) mRNA BNT-162b2 vax 11/17/2021 Recorded SARS-CoV-2 (COVID-19) mRNA BNT-162b2 vax 03/23/2021 Recorded SARS-CoV-2 (COVID-19) mRNA BNT-162b2 vax 03/02/2021 Recorded Normal [facility] Comment on above: Result Comment: [...] (Pantoprazole [address] Tab) rizatriptan (Maxalt COMMUNICATIONS PROGRAMMER 10 mg Tab-Dis) tizanidine (tiZANidine 4 mg [...] if questions or concerns Unchanged rizatriptan (Maxalt COMMUNICATIONS PROGRAMMER 10 mg Tab-Dis) 1 Tablets By Mouth [...] signed up for this yet, please contact [employer] at [phone] to get signed up today. Language Information Language assistance services are available as needed. Normal [facility] ECG 12 lead ECGon 07-13-2024 ECG 12 lead ECG [facility] [address] [place] [id number] Electrocardiograph Report Signed Patient: Stephanie Khoury MR#: [id number] : 1975 Acct:[id number] Age/Sex: 48 / F ADM Date: 07/13/24 Loc: ER Room: Type: [facility] ER Attending Dr: Ordering Provider: Stanley Martinez [...] ECGs available Confirmed by FAB PARK MD ([id number]) on 07/15/2024 12:25:41 AM Referred By: Electronically Signed By: FAB PARK MD Transcribed By: MUS Signed By Fab Park Jr, MD 0025 Normal [facility] MRI SHOULDER LT WO CONon [...] TIMOTHY BRAMBILA Date: 2023-02-26 22:11 Normal [facility]on 01-02 SARS-CoV-2 (COVID-19) RNA ALYX+probe Ql (Unsp spec) Not detected Normal NOT DETECTED [facility] Comment on above: Result Comment: When [...] for this test is supported by the Floor Nurse of Health and Human Service's declaration that [...] be used). Performed By: #### C VDTBH ####[facility] [address] [place], [place] [address]OlDr. Zaynab Wall FREE T3on 10-26-2022 FREE T3 2.94 pg/mlL Normal 2.18-3.98 [facility] Comment on above: Performed By: #### T SH, T4, FT3 #### [facility] Laboratory [address] [place] [address] [address] Zaynab Wall T4on 10-26-2022 T4 [Mass/Vol] 6.40 ug/dL Normal 4.80-13.90 [facility] Comment on above: Performed By: #### T SH, T4, FT3 #### [facility] Laboratory [address] [place] [address] [address] Zaynab Wall TSHon 10-26-2022 TSH 0.076 uIU/mL Critically low 0.358-3.740 [facility] Comment on above: Performed By: #### T SH, T4, FT3 #### [facility] Laboratory [address] [place] [address] [address] Zaynab Wall Orders Onlyon 10-19-2022 Orders Only [id number] PengHuber e A 1975 F Date Provider Department Center 10/19/2022 WANG HEREDIA MP ORTHO MPORTHO Family History Family history unknown: Yes Normal [facility] Follow-Upon 10-17-2022 Follow-Up [id number] PengHuber e A 1975 F Date Provider Department Center 10/17/2022 FELIZ ISRAEL MP ORTHO MPORTHO Chart Close Cosign Required by: Feliz Patton MD[[id number]] Family History Family history unknown: Yes Level of Service:07270 [place] OFFICE/OUTPATIENT ESTABLISHED LOW MDM 20-29 MIN (GC) Reason for Visit and Comments: Follow-up [471624] Normal [facility] CARDIAC ADRIANA ADMITon 022 CK [Catalytic activity/Vol] 40 U/L Normal 26-[address] [facility] Comment on above: Performed By: #### C MP, CMADM, TSH ####[facility] [address] [place] [id number]. Zaynab Wall CK.MB [Mass/Vol] 0.60 ng/mL Normal <=3.60 [facility] Comment on above: Performed By: #### C MP, CMADM, TSH ####[facility] [address] [place] [address]Dr. Zaynab Wall HSTROP 5.2 pg/mL Normal 4.0-51.3 [facility] Comment on above: Result Comment: CUT- OFF POINTS HAVE BEEN ESTABLISHED BASED ON THE FOURTH UNIVERSAL DEFINITIONS OF MYOCARDIAL INFARCTION. THE UPPER REFERENCE LIMIT (URL) OF TROPONIN, DEFINED THE 99TH PERCENTILE OF cTnI DISTRIBUTION IN A REFERENCE POPULATION, HAS BEEN CONFIRMED THE DECISION THRESHOLD FOR TN DIAGNOSIS. Performed By: #### C MP, CMADM, TSH ####[facility] [address] [place] [address]Dr. Zaynab Wall VICK 33 ng/mL Normal 9-[address] [facility] Comment on above: Performed By: #### C MP, CMADM, TSH ####[facility] [address] [place] [address]Dr. Zaynab Wall CBC AUTO DIFFon 09-21-2022 BASO # 0.0 103/ul Normal 0.0-0.[address] [facility] Comment on above: Performed By: #### C BC ####[facility] [address] [place] [address]Dr. Zaynab Wall Basophils/100 WBC (Bld) 0.4 % Normal 0.2-2.[address] [facility] Comment on above: Performed By: #### C BC ####[facility] [address] [place] [address]Dr. Zaynab Wall EO # 0.0 103/ul Normal 0.0-0.7 [facility] Comment on above: Performed By: #### C BC ####[facility] [address] [place], [place] [address]Dr. Zaynab Duke Eosinophils/100 WBC (Bld) 0.5 % Critically low 0.9-7.0 [facility] Comment on above: Performed By: #### C BC ####[facility] Empcttmv[address] [place], [place] [address]Dr. Johannaermelinda Duke Erythrocyte distribution width (RBC) [Ratio] 12.4 % Normal 11.0-15.0 [facility] Comment on above: Performed By: #### C BC ####[facility] Ajovctd[address] [place], [place] [address]Dr. Zaynab Wall Hematocrit (Bld) [Volume fraction] 36.0 % Normal 36.0-48.0 [facility] Comment on above: Performed By: #### C BC ####[facility] [address] [place], [place] [address]Dr. Zaynab Wall Hemoglobin (Bld) [Mass/Vol] 11.5 g/dL Critically low 12.0-16.0 [facility] Comment on above: Performed By: #### C BC ####[facility] Takq[address]up[address] [place], [place] [address]Dr. Zaynab Wall IG # 0.02 10e3/ul Normal 0.00-0.03 [facility] Comment on above: Performed By: #### C BC ####[facility] Tryte[address]frbq[address] [place], [place] [address]Dr. Zaynab Wall IG % 0.3 % Normal 0.0-0.5 [facility] Comment on above: Performed By: #### C BC ####[facility] Bugvdbtfax[address] [place], [place] [address]Dr. Zaynab Wall LYMPH # 1.5 103/ul Normal 1.2-3.8 [facility] Comment on above: Performed By: #### C BC ####[facility] [address] [place], [place] [address]DrRyann Wall Lymphocytes/100 WBC (Bld) 19.6 % Critically low 20.5-60.[address] [facility] Comment on above: Performed By: #### C BC ####[facility] [address] [place] [address]DrRyann Wall MANUAL DIFF REQ NO Normal [facility] Comment on above: Performed By: #### C BC ####[facility] [address] [place] [address]DrRyann Wall MCH (RBC) [Entitic mass] 30.6 pg Normal 26.7-34.0 [facility] Comment on above: Performed By: #### C BC ####[facility] [address] [place], [place] [address]DrRyann Wall MCHC (RBC) [Mass/Vol] 31.9 g/dL Normal 29.9-35.2 [facility] Comment on above: Performed By: #### C BC ####[facility] [address] [place], [place] [address]DrRyann Wall MCV (RBC) [Entitic vol] 95.7 fL Normal 81.0-99.0 [facility] Comment on above: Performed By: #### C BC ####[facility] Rc[address] [place], [place] [address]DrRyann Wall MONO # 0.6 103/ul Normal 0.3-0.8 [facility] Comment on above: Performed By: #### C BC ####[facility] Ezpx[address]drk[address] [place], [place] [address]DrRyann Wall Monocytes/100 WBC (Bld) 7.7 % Normal 1.7-12.0 [facility] Comment on above: Performed By: #### C BC ####[facility] [address] [place], [place] [address]DrRyann Wall NEUT # 5.5 103/ul Normal 1.4-6.5 [facility] Comment on above: Performed By: #### C BC ####[facility] Clmxriumne[address] [place], [place] [address]DrRyann Wall Neutrophils/100 WBC (Bld) 71.5 % Normal 43.0-75.[address] [facility] Comment on above: Performed By: #### C BC ####[facility] [address] [place] [address]Dr. Zaynab Wall Platelet mean volume (Bld) [Entitic vol] 11.4 fL Normal 9.5-13.[address] [facility] Comment on above: Performed By: #### C BC ####[facility] [address]fxsezi[address] [place] [address]Dr. Zaynab Wall PLT 83 103/ul Critically low 150-450 [facility] Comment on above: Performed By: #### C BC ####[facility] [address] [place] [address]Dr. Zaynab Wall RBC 3.76 106/ul Critically low 4.20-5.40 [facility] Comment on above: Performed By: #### C BC ####[facility] [address] [place], [place] [address]Dr. Zaynab Wall WBC 7.7 103/ul Normal 4.0-11.[address] [facility] Comment on above: Performed By: #### C BC ####[facility] Uuwnwx[address] [place], [place] [address]Dr. Zaynab Wall ER URINE PROFILEon 2 Bilirubin Ql (U) Negative Normal NEGATIVE [employer] [facility] Comment on above: Performed By: #### E RUR #### [facility] Laboratory [address] [place] [address] Dr. Zaynab Wall Clarity (U) CLEAR Normal CLEAR [facility] Comment on above: Performed By: #### E RUR #### [facility] Laboratory [address] [place] [address] [address] Zaynab Wall Color (U) LT. YELLOW Normal YELLOW [facility] Comment on above: Performed By: #### E RUR #### [facility] Laboratory [address] [place] [address] Dr. Zaynab Wall ERUJANKI A micrscopic examination will be performed if indicated. Normal [facility] Comment on above: Performed By: #### E RUR #### [facility] Laboratory [address] [place] [address] Dr. Zaynab Wall Glucose Ql (U) Negative Normal NEGATIVE [facility] Comment on above: Performed By: #### E RUR #### [facility] Laboratory [address] [place] [address] Dr. Zaynab Wall Hemoglobin Ql (U) Negative Normal NEGATIVE [facility] Comment on above: Performed By: #### E RUR #### [facility] Laboratory [address] [place] [address] Dr. Zaynab Wall Ketones Ql (U) Negative Normal NEGATIVE [facility] Comment on above: Performed By: #### E RUR #### [facility] Laboratory [address] [place] [address] Dr. Zaynab Wall LEUKOCYTES Negative Normal NEGATIVE [facility] Comment on above: Performed By: #### E RUR #### [facility] [address] [place] [address] Dr. Zaynab Wall Nitrite Ql (U) Negative Normal NEGATIVE [facility] Comment on above: Performed By: #### E RUR #### [facility] Laboratory [address] [place] [address] Dr. Zaynab Wall pH (U) 7.0 [pH] Normal 5-[address] [facility] Comment on above: Performed By: #### E RUR #### [facility] Laboratory [address] [place] [address] Dr. Zaynab Wall SPEC GRAVITY 1.015 Normal 1.005-<=1.025 [facility] Comment on above: Performed By: #### E RUR #### [facility] [address] [place] [address] Dr. Zaynab Wall UA PROTEIN Negative Normal NEGATIVE/ TRACE [facility] Comment on above: Performed By: #### E RUR #### [facility] [address] [place] [address] Dr. Zaynab Wall UR MICRO IND NOT INDICATED Normal [facility] Comment on above: Performed By: #### E RUR #### [facility] Laboratory [address] [place] [address] Dr. Zaynab Wall Urobilinogen Qn (U) 1.0 {Jennifer'U}/dL Normal 0.2 - 1.0 [facility] Comment on above: Performed By: #### E RUR #### [facility] Laboratory [address] [place] [address] [address] Zaynab Wall FREE T4on 09-21-2022 Free T4 [Mass/Vol] 0.92 ng/dL Normal 0.76-1.46 [facility] Comment on above: Performed By: #### F T4 ####[facility] [address] [place] [address]Dr. Zaynab Wall PROF 14(COMP METB)on 022 Albumin [Mass/Vol] 3.7 g/dL Normal 3.4-5.0 [facility] Comment on above: Performed By: #### C MP, CMADM, TSH ####[facility] [address] [place] [address]DrRyann Wall Albumin/Globulin [Mass ratio] 1.2 {ratio} Normal [facility] Comment on above: Performed By: #### C MP, CMADM, TSH ####[facility] [address] [place] [address]Dr. Zaynab Wall ALP [Catalytic activity/Vol] 43 U/L Critically low 46-116 [facility] Comment on above: Performed By: #### C MP, CMADM, TSH ####[facility] [address] [place] [address]Dr. Zaynab Wall ALT [Catalytic activity/Vol] 14 U/L Normal 14-59 [facility] Comment on above: Performed By: #### C MP, CMADM, TSH ####[facility] [address] [place] [address]Dr. Zaynab Wall Anion gap [Moles/Vol] 8.0 mmol/L Normal [facility] Comment on above: Performed By: #### C MP, CMADM, TSH ####[facility] [address] [place] [address]Dr. Zaynab Wall AST [Catalytic activity/Vol] 11 U/L Critically low 15-37 [facility] Comment on above: Performed By: #### C LIA JHA, TSH ####[facility] [address] [place] [address]Dr. Zaynab Wall Bilirubin [Mass/Vol] 0.5 mg/dL Normal 0.2-1.[address] [facility] Comment on above: Performed By: #### C LIA JHA, TSH ####[facility] [address] [place] [address]Dr. Zaynab Wall Calcium [Mass/Vol] 9.0 mg/dL Normal 8.5-10.1 [facility] Comment on above: Performed By: #### C LIA JHA, TSH ####[facility] [address] [place] [address]Dr. Zaynab Wall Chloride [Moles/Vol] 104 mmol/L Normal 98-107 [facility] Comment on above: Performed By: #### C LIA JHA, TSH ####[facility] [address] [place] [address]Dr. Zaynab Wall CO2 [Moles/Vol] 30.8 mmol/L Normal 21.0-32.0 [facility] Comment on above: Performed By: #### C LIA JHA, TSH ####[facility] [address] [place] [address]Dr. Zaynab Wall Creatinine [Mass/Vol] 0.73 mg/dL Normal 0.55-1.02 [facility] Comment on above: Performed By: #### C LIA JHA, TSH ####[facility] [address] [place] [address]Dr. Zaynab Wall EGFR-AF ANDORRAN >60 Normal >=60 [facility] Comment on above: Performed By: #### C LIA JHA, TSH ####[facility] [address]qs[address] [place] [address]Dr. Zaynab Wall EGFR-NON AF ANDORRAN >60 Normal >=60 [facility] Comment on above: Performed By: #### C LIA JHA, TSH ####[facility] [address] [place] [address]Dr. Zaynab Wall Globulin (S) [Mass/Vol] 3.0 g/dL Normal [facility] Comment on above: Performed By: #### C MP, CMADM, TSH ####[facility] [address] [place] [address]Dr. Zaynab Wall Glucose [Mass/Vol] 88 mg/dL Normal 74-106 [facility] Comment on above: Performed By: #### C MP, CMADM, TSH ####[facility] [address]ixpv[address] [place] [address]Dr. Zaynab Wall Potassium [Moles/Vol] 4.8 mmol/L Normal 3.5-5.[address] [facility] Comment on above: Performed By: #### C MP, CMADM, TSH ####[facility] [address] [place] [address]Dr. Zaynab Wall Protein [Mass/Vol] 6.7 g/dL Normal 6.4-8.2 [facility] Comment on above: Performed By: #### C MP, CMADM, TSH ####[facility] [address] [place] [address]Dr. Zaynab Wall Sodium [Moles/Vol] 138 mmol/L Normal 136-145 [facility] Comment on above: Performed By: #### C MP, CMADM, TSH ####[facility] [address] [place] [address]Dr. Zaynab Wall Urea nitrogen [Mass/Vol] 10.0 mg/dL Normal 7.0-18.0 [facility] Comment on above: Performed By: #### C MP, CMADM, TSH ####[facility] [address] [place] [address]Dr. Zaynab Wall Urea nitrogen/Creatinin e [Mass ratio] 13.7 mg/mg Normal [facility] Comment on above: Performed By: #### C MP, CMADM, TSH ####[facility] [address] [place] [address]Dr. Zaynab Wall TSHon 09-21-2022 TSH 0.033 uIU/mL Critically low 0.358-3.740 [facility] Comment on above: Performed By: #### C MP, CMADM, TSH ####[facility] [address] [place], [place] [address]TzRyann Wall XR CHEST 1 Von 09-21-2022 XR [...] by: NELLIE WHITE Date: 2022-09-21 10:[address] [facility] Office Visiton 09-05-2022 Follow-up visit [id number] Cecile Khoury 1975 F Date Provider Department Center 09/05/2022 FELIZ ISRAEL [facility] Chart Close Cosign Required by: Feliz Patton MD[[id number]] Family History Family history unknown: Yes Level of Service:57558 [place] OFFICE/OUTPATIENT NEW LOW MDM 30-44 MINUTES (GC) Reason for Visit and Comments: Pain [136] Normal [facility] MRI SHOULDER LT WO CONon MRI [...] by: TIMOTHY BRAMBILA Date: 2022-08-29 12:[address] [facility] XR ARTHRO SHOULDER LTon 08-03 [...] by: TIMOTHY BRAMBILA Date: 2022-08-29 11:[address] [facility] CBC AUTO DIFFon 07-31-2022 BASO # 0.1 103/ul Normal 0.0-0.[address] [facility] Comment on above: Performed By: #### C BC ####[facility] Rfvrxlmmqu2587 [place] [address]Dr. Zaynab Wall Basophils/100 WBC (Bld) 0.5 % Normal 0.2-2.[address] [facility] Comment on above: Performed By: #### C BC ####[facility] Jifrygttdx2881 [place] [address]Dr. Zaynab Wall EO # 0.2 103/ul Normal 0.0-0.7 [facility] Comment on above: Performed By: #### C BC ####[facility] Uunnwqet[address] [place], [place] [address]Dr. Zaynab Wall Eosinophils/100 WBC (Bld) 1.8 % Normal 0.9-7.[address] [facility] Comment on above: Performed By: #### C BC ####[facility] Endcepyhww[address] [place], [place] [address]Dr. Zaynab Wall Erythrocyte distribution width (RBC) [Ratio] 12.2 % Normal 11.0-15.[address] [facility] Comment on above: Performed By: #### C BC ####[facility] Jdwieplcwy[address] [place], [place] [address]Dr. Zaynab Wall Hematocrit (Bld) [Volume fraction] 39.8 % Normal 36.0-48.[address] [facility] Comment on above: Performed By: #### C BC ####[facility] Ciimtldbie[address] [place], [place] [address]Dr. Zaynab Wall Hemoglobin (Bld) [Mass/Vol] 13.0 g/dL Normal 12.0-16.0 [facility] Comment on above: Performed By: #### C BC ####[facility] H[address]zg[address] [place], [place] [address]Dr. Zaynab Wall IG # 0.04 10e3/ul Critically high 0.00-0.03 [facility] Comment on above: Performed By: #### C BC ####[facility] Exyfpvgltt[address] [place], [place] [address]Dr. Zaynab Wall IG % 0.4 % Normal 0.0-0.[address] [facility] Comment on above: Performed By: #### C BC ####[facility] Ybpumjafwq2742 [place] [address]Dr. Zaynab Wall LYMPH # 2.8 103/ul Normal 1.2-3.[address] [facility] Comment on above: Performed By: #### C BC ####[facility] Jvyxtvynhs5960 [place] [address]Dr. Zaynab Wall Lymphocytes/100 WBC (Bld) 24.7 % Normal 20.5-60.[address] [facility] Comment on above: Performed By: #### C BC ####[facility] Pnxgfmqlrh9568 [place] [address]DrRyann Wall MANUAL DIFF REQ NO Normal [facility] Comment on above: Performed By: #### C BC ####[facility] Ktnkxmddev6627 [place] [address]Dr. Zaynab Wall MCH (RBC) [Entitic mass] 31.1 pg Normal 26.7-34.[address] [facility] Comment on above: Performed By: #### C BC ####[facility] Bkrisyxmlr1696 [place] [address]Dr. Zaynab Wall MCHC (RBC) [Mass/Vol] 32.7 g/dL Normal 29.9-35.[address] [facility] Comment on above: Performed By: #### C BC ####[facility] Wwyiv[address]znsr[address], [place] [address]DrRyann Wall MCV (RBC) [Entitic vol] 95.2 fL Normal 81.0-99.[address] [facility] Comment on above: Performed By: #### C BC ####[facility] Qzzxnhfgmk5395 [place] [address]DrRyann Wall MONO # 0.9 103/ul Critically high 0.3-0.8 [facility] Comment on above: Performed By: #### C BC ####[facility] Evkwtpbaxl6[address] [place] [address]DrRyann Wall Monocytes/100 WBC (Bld) 8.2 % Normal 1.7-12.[address] [facility] Comment on above: Performed By: #### C BC ####[facility] Tpkiayixns2696 [place] [address]Dr. Zaynab Wall NEUT # 7.3 103/ul Critically high 1.4-6.5 [facility] Comment on above: Performed By: #### C BC ####[facility] Byjckhirfu5055 [place] [address]Dr. Zaynab Wall Neutrophils/100 WBC (Bld) 64.4 % Normal 43.0-75.[address] [facility] Comment on above: Performed By: #### C BC ####[facility] Uecahxwxcw9119 [place] [address]Dr. Zaynab Wall Platelet mean volume (Bld) [Entitic vol] 10.5 fL Normal 9.5-13.[address] [facility] Comment on above: Performed By: #### C BC ####[facility] Odlbhgfjru4241 [place] [address]Dr. Zaynab Wall PLT 237 103/ul Normal 150-450 [facility] Comment on above: Performed By: #### C BC ####[facility] Alhmxmlsoc0047 [place] [address]Dr. Zaynab Wall RBC 4.18 106/ul Critically low 4.20-5.40 [facility] Comment on above: Performed By: #### C BC ####[facility] Wplgxoxxns7359 [place] [address]Dr. Zaynab Wall WBC 11.4 103/ul Critically high 4.0-11.0 [facility] Comment on above: Performed By: #### C BC ####[facility] Wxsyeifatk2009 [place] [address]Dr. Zaynab Wall CT ABD/PELVIS WO CONon 07-31 [...] KIMI WELSH Date: 2022-07-31 03:46 Normal The [facility] ER URINE PROFILEon 2 Bilirubin Ql (U) Negative Normal NEGATIVE [facility] Comment on above: Performed By: #### E RUR #### [facility] [address] [place] [address] Dr. Zaynab Wall Clarity (U) CLEAR Normal CLEAR [facility] Comment on above: Performed By: #### E RUR #### [facility] [address] [place] [address] Dr. Zaynab Wall Color (U) LT. YELLOW Normal YELLOW The [facility] Comment on above: Performed By: #### E RUR #### [facility] [address] [place] [address] Dr. Zaynab Wall ERUJANKI A micrscopic examination will be performed if indicated. Normal The [facility] Comment on above: Performed By: #### E RUR #### [facility] [address] [place] [address] Dr. Zaynab Wall Glucose Ql (U) Negative Normal NEGATIVE The [facility] Comment on above: Performed By: #### E RUR #### [facility] [address] [place] [address] Dr. Zaynab Wall Hemoglobin Ql (U) Negative Normal NEGATIVE [facility] Comment on above: Performed By: #### E RUR #### [facility] [address] [place] [address] Dr. Zaynab Wall Ketones Ql (U) Negative Normal NEGATIVE [facility] Comment on above: Performed By: #### E RUR #### [facility] [address] [place] [address] Dr. Zaynab Wall LEUKOCYTES Negative Normal NEGATIVE [facility] Comment on above: Performed By: #### E RUR #### [facility] [address] [place] [address] Dr. Zaynab Wall Nitrite Ql (U) Negative Normal NEGATIVE [facility] Comment on above: Performed By: #### E RUR #### [facility] [address] [place] [address] Dr. Zaynab Wall pH (U) 6.0 [pH] Normal 5-[address] [facility] Comment on above: Performed By: #### E RUR #### [facility] [address] [place] [address] Dr. Zaynab Wall SPEC GRAVITY 1.015 Normal 1.005-<=1.025 [facility] Comment on above: Performed By: #### E RUR #### [facility] [address] [place] [address] Dr. Zaynab Wall UA PROTEIN Negative Normal NEGATIVE/ TRACE [facility] Comment on above: Performed By: #### E RUR #### [facility] [address] [place] [address] Dr. Zaynab Wall UR MICRO IND NOT INDICATED Normal [facility] Comment on above: Performed By: #### E RUR #### [facility] [address] [place] [address] Dr. Zaynab Wall Urobilinogen Qn (U) 0.2 {Jennifer'U}/dL Normal 0.2 - 1.[address] [facility] Comment on above: Performed By: #### E RUR #### [facility] [address] [place] [address] Dr. Zaynab Wall PROF CHEM 8 (BAS METB)on 08- 30-2022 Anion gap [Moles/Vol] 8.2 mmol/L Normal [facility] Comment on above: Performed By: #### B MP #### [facility] [address] [place] [address] Dr. Zaynab Wall Calcium [Mass/Vol] 9.1 mg/dL Normal 8.5-10.1 [facility] Comment on above: Performed By: #### B MP #### [facility] [address] [place] [address] Dr. Zaynab Wall Chloride [Moles/Vol] 102 mmol/L Normal 98-107 [facility] Comment on above: Performed By: #### B MP #### [facility] [address] [place] [address] Dr. Zaynab aWll CO2 [Moles/Vol] 31.6 mmol/L Normal 21.0-32.0 [facility] Comment on above: Performed By: #### B MP #### [facility] [address] [place] [address] Dr. Zaynab Wall Creatinine [Mass/Vol] 0.84 mg/dL Normal 0.55-1.[address] [facility] Comment on above: Performed By: #### B MP #### [facility] [address] [place] [address] Dr. Zaynab Wall EGFR-AF ANDORRAN >60 Normal >=60 [facility] Comment on above: Performed By: #### B MP #### [facility] [address] [place] [address] Dr. Zaynab Wall EGFR-NON AF ANDORRAN >60 Normal >=60 [facility] Comment on above: Performed By: #### B MP #### [facility] [address] [place] [address] Dr. Zaynab Wall Glucose [Mass/Vol] 106 mg/dL Normal 74-106 [facility] Comment on above: Performed By: #### B MP #### [facility] [address] [place] [address] Dr. Zaynab Wall Potassium [Moles/Vol] 3.8 mmol/L Normal 3.5-5.1 [facility] Comment on above: Performed By: #### B MP #### [facility] [address] [place] [address] [address] Zaynab Wall Sodium [Moles/Vol] 138 mmol/L Normal 136-145 [facility] Comment on above: Performed By: #### B MP #### [facility] [address] [place] [address] [address] Zaynab Wall Urea nitrogen [Mass/Vol] 15.0 mg/dL Normal 7.0-18.[address] [facility] Comment on above: Performed By: #### B MP #### [facility] [address] [place] [address] [address] Zaynab Wall Urea nitrogen/Creatinin e [Mass ratio] 17.9 mg/mg Normal [facility] Comment on above: Performed By: #### B MP #### [facility] [address] [place] [address] [address] Zaynab Wall XR CHEST 2 Von [...] KIMI WELSH Date: 2022-07-31 03:36 Normal The [facility] PAP ACOG PANEL 3: 30 to 65on 04-26-2022 . . Normal [facility] Comment on above: Result Comment: Perf ormed at: WB Performed By: #### [id number] ####[facility] [address]qnt[address]hhhj[address] [place] [address]DrRyann Wall Age Gdln ACOG Testing 30-[address] [facility] Comment on above: Performed By: #### [id number] ####[facility] Zdyqvietjz[address] [place] [address]Dr. Zaynab Wall Chlamydia, Nuc. Acid Amp Negative Normal Negative [facility] Comment on above: Result Comment: Perf ormed at: =G Performed By: #### [id number] ####[facility] [address] [place], [place] [address]Dr. Zaynab Wall DIAGNOSIS: Comment Normal [facility] Comment on above: Result Comment: NEGA TIVE FOR INTRAEPITHELIAL LESION OR MALIGNANCY. Performed at: WB Performed By: #### [id number] ####[facility] Inxyomvfay[address]697 [place] [address]Dr. Zaynab Wall Gonococcus, Nuc. Acid Amp Negative Normal Negative [facility] Comment on above: Result Comment: Perf ormed at: =G Performed By: #### 4 [id number] ####[facility] [address] [place], [place] [address]Dr. Zaynab Wall HPV Aptima Negative Normal Negative [facility] Comment on above: Result Comment: This nucleic acid amplification test detects fourteen high-risk HPV types (16,18,31,33,35,39,45,51,52,56,58,59,66,68) without differentiation. Performed at: =G Performed By: #### [id number] ####[facility] [address] [place], [place] [address]Dr. Zaynab Wall Methodology: CTIM Normal [facility] Comment on above: Result Comment: The Thin Prep(R) Tong Carrier was unable to read this specimen. Therefore a manual review was performed. Performed at: WB Performed By: #### 4 [id number] ####[place] [address]DrRyann Wall Note: Comment Normal [facility] Comment on above: Result Comment: The Pap smear is a screening test designed to aid in the detection of premalignant and malignant conditions of the uterine cervix. It is not a diagnostic procedure and should not be used as the sole means of detecting cervical cancer. Both false-positive and false-negative reports do occur. . Performed at: WB Performed By: #### [id number] ####[facility] [address] [place], [place] [address]Dr. Zaynab Wall Performed by: Comment Normal [facility] Comment on above: Result Comment: Ashvin Beatty Acid Cleaner (ASCP) Performed at: WB Performed By: #### [id number] ####[facility] Ufqzwdnjgm60[address] [place], [place] [address]GyRyann Wall Specimen adequacy: Comment Normal [facility] Comment on above: Result Comment: Sati sfactory for evaluation. No endocervical component is identified. Performed at: WB Performed By: #### [id number] ####[facility] [address] [place], [place] [address]Ew. Zaynab Wall Vital Signs Date Time Vital Sign Value Performing Clinician Facility 07-13-2024 23:40-0400 Body height 157.48 cm MD Chi Potter Work Phone: [facility] 07-13-2024 23:40-0400 Body temperature 97.7 [degF] MD Chi Potter Work Phone: [facility] 07-13-2024 23:40-0400 Body weight 49.1 kg MD Chi Potter Work Phone: [facility] 07-13-2024 23:40-0400 Diastolic blood pressure 75 mm[Hg] MD Chi Potter Work Phone: [facility] 07-13-2024 23:40-0400 Heart rate 81 /min MD Chi Potter Work Phone: [facility] 07-13-2024 23:40-0400 Respiratory rate 16 /min MD Chi Potter Work Phone: [facility] 07-13-2024 23:40-0400 SaO2% (BldA) [Mass fraction] 100 % MD Chi Potter Work Phone: [facility] 07-13-2024 23:40-0400 Systolic blood pressure 134 mm[Hg] MD Chi Potter Work Phone: [facility] 04-03-2023 15:39-0400 Blood Pressure Location Lopez MARTÍ[facility] 04-03-2023 15:39-0400 Diastolic blood pressure 66 mm[Hg] Lopez MARTÍNEZ [facility] [place] 04-03-2023 15:39-0400 Heart rate 66 /min Lopez NILL [facility] [place] 04-03-2023 15:39-0400 Respiratory rate 16 /min Lopez NILL [facility] [place] 04-03-2023 15:39-0400 Systolic blood pressure 104 mm[Hg] Lopez NILL [facility] [place] 06-21-2022 15:49-0400 Body temperature 97.88 [degF] Nabil Fab [facility] 06-21-2022 15:49-0400 Diastolic blood pressure 91 mm[Hg] Nabil Fab [facility] 06-21-2022 15:49-0400 Heart rate 80 /min Nabil Fab [facility] 06-21-2022 15:49-0400 Respiratory rate 18 /min Nabil Fab [facility] 06-21-2022 15:49-0400 SaO2% (BldA) [Mass fraction] 98 % Nabil Fab [facility] 06-21-2022 15:49-0400 Systolic blood pressure 138 mm[Hg] Nabil Caldera [facility] Encounters Encounter Date Encounter Type Care Provider Facility Start: 08-11-2025 End: 08-11-2025 ambulatory Lopez R NILL Facility:[facility] Start: 08-11-2025 End: 08-11-2025 Patient encounter procedure Lopez R NILL [facility] [place] Start: 07-28-2025 End: 07-28-2025 ambulatory Lopez R NILL [facility] Start: 07-28-2025 End: 07-28-2025 Patient encounter procedure Lopez R NILL [facility] [place] Start: 06-30-2025 End: 06-30-2025 ambulatory Lopez MARTÍNEZ Facility:[facility] Start: 06-30-2025 End: 06-30-2025 Patient encounter procedure Lopez MARTÍNEZ [facility] [place] Start: 07-13-2024 End: 07-14-2024 Emergency department patient visit MD Chi Potter Work Phone: [facility] Work Phone: Start: 04-03-2023 End: 04-03-2023 Patient encounter procedure Lopez MARTÍNEZ [facility] Start: 02-26-2023 End: 02-27-[address] DOCTOR SULLIVAN Facility:[facility] Start: 01-16-2023 End: 01-16-[address] CHI POTTER . Facility:[facility] Start: 10-26-2022 End: 10-27-[address] CHI POTTER . Facility:[facility] Start: 10-20-2022 End: 10-21-2022 ambulatory [facility] Start: 10-19-2022 End: 10-20-2022 ambulatory [facility] Start: 10-17-2022 End: 10-17-2022 ambulatory [facility] Start: 09-21-2022 End: 09-21-2022 ambulatory TREY MACIEL . Facility:[facility] Start: 09-05-2022 End: 09-06-2022 ambulatory [facility] Start: 08-29-2022 End: 08-29-[address] CHI POTTER . Facility:[facility] Start: 07-31-2022 End: 07-31-2022 ambulatory ZITA OCHOA Facility:[facility] Start: 07-04-2022 End: 07-28-[address] CHI POTTER . Facility:[facility] Start: 06-21-2022 End: 06-21-2022 Emergency department patient visit Nabil Caldera [facility] Start: 04-26-2022 Encounter for gynecological examination (general) (routine) without abnormal findings TERE HART [facility] Start: 04-20-2022 End: 04-20-2022 ambulatory [...] Date Care Activity Detail Author Start: 07-13-2024 [facility] Albumin/Globulin ratio [facility] Anion gap measurement [facility] Basophils [#/volume] in Blood by Automated count [facility] Basophils/100 leukoc ytes in Blood by Automated count [facility] Eosinophils/100 leuk ocytes in Blood by Automated count [facility] Erythrocyte distribu tion width [Ratio] by Automated count [facility] Erythrocytes [#/volume] in Blood [facility] Globulin [Mass/volume] in Serum [facility] Hematocrit [Volume F raction] of Blood [facility] Hemoglobin [Mass/vol ume] in Blood [facility] Leukocytes [#/volume ] corrected for nucleated erythrocytes in Blood by Automated coun [facility] Leukocytes [#/volume] in Blood [facility] Lymphocytes [#/volum e] in Blood by Automated count [facility] Lymphocytes/100 leuk ocytes in Blood by Automated count [facility] MCH [Entitic mass] b y Automated count [facility] MCHC [Mass/volume] b y Automated count [facility] MCV [Entitic volume] by Automated count [facility] Monocytes [#/volume] in Blood by Automated count [facility] Monocytes/100 leukoc ytes in Blood by Automated count [facility] Neutrophils [#/volum e] in Blood by Automated count [facility] Neutrophils/100 leuk ocytes in Blood by Automated count [facility] Nucleated erythrocyt es [Presence] in Blood by Automated count [facility] Patient referral [facility] Work Phone: Platelet mean volume [Entitic volume] in Blood by Automated count [facility] Platelets [#/volume] in Blood [facility] Immunizations Immunization Date Immunization Notes Care Provider Fa [facility] 08-27-2022 influenza virus vaccine, unspecified formulation Lopez LANGLEYL [facility] [place] 08-27-2022 SARS-CoV-2 (COVID-19 ) [id number].[id number] Lopez LANGLEYL [facility] [place] 11-17-2021 SARS-CoV-2 (COVID-19 ) mRNA BNT-162b2 vax Lopez LANGLEYL [facility] [place] 03-23-2021 SARS-CoV-2 (COVID-19 ) mRNA BNT-162b2 vax Lopez LANGLEYL [facility] [place] 03-02-2021 SARS-CoV-2 (COVID-19 ) mRNA BNT-162b2 vax Lopez LANGLEYL [facility] Payers Date Payer Category Payer Private Health Insurance [id number] 2025 Unknown [id number] 2024 Self-pay 1975 Unknown [id number] 1976 Unknown [id number] 1976 Unknown [id number] 1976 Unknown [id number] 1976 Unknown [id number] 1976 Unknown [id number] [id number] 1976 Unknown [id number] [id number] 1976 Unknown [id number] [id number] 1976 Unknown [id number] [id number] 1976 Unknown [id number] [id number] 1976 Unknown [id number] [id number] 1976 Unknown [id number] 1959 Medicaid [id number] 1958 Unknown [id number] Medicaid Medicaid [id number] Unknown [employer] [id number] Unknown [id number] Social History Date Type Detail Facility Tobacco smoking status No Smokin g Status Entered [facility] Sex Assigned At Female [facility] Start: 04-03-2023 End: 08-11-2025 Tobacco smoking status Never smoked tobacco (finding) [facility] [place] Tobacco smoking status Never [facility] Start: 1975 Sex Assigned At Female F [facility] Sexual Orientation [facility] Start: 02-20-2019 Sex Female (finding) [facility] NEGATED: Highlighted row [facility] Functional Status Date Assessment Result Facility 04-03-2023 Functional Status N/A [facility] 06-21-2022 Functional Status N/A [facility] Clinical Notes 06-21-2022 to 06-30-2025 Note Date [...] 5 mm raised, 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 Clovis Kruse MD Orthopaedic Surgery PGY-1 [facility] 10/17/22 10:07 AM [facility] 09-05-2022 Note Attestation signed by Feliz [...] some mild improvement. Had MRI completed at [facility] which reportedly demonstrated possible partial thickness tear [...] Williams Kowalski MD Orthopedic Surgery, PGY-5 Pager: [phone] 09/05/22 9:33 AM By using the attestations [...] an additional personal documentation from me. [facility] 06-21-2022 Hospital Discharg e instructions Patient Education 06/21/2022 16:30:19 Muscle Strain, Ssfz-kj-[id number] Muscle Strain A muscle strain is an [...] is not too tight. General instructions Take osqe-mbr-[id number] and prescription medicines only as told by [...] 08/27/2009 Document Revised: 01/14/2020 Document Reviewed: 12/25/2017 [employer] Patient Education 2020 [employer] Follow Up Care 06/21/2022 15:32:56 With:AKIRA ACUNA CNP Address: [address] [place] [address] When:1 to 2 days [facility] Evaluation + Plan note No data available for this section [facility] Evaluation + Plan note Future Appointments Appointment Date:04/17/2023 03:20:00 PM Scheduled Provider:Lopez MARTÍNEZ MD Location:[facility] ([facility] Appointment Type:GS Procedure 30 General Surgery [place] Evaluation + Plan note Future Appointments Appointment Date:07/28/2025 03:20:00 PM Scheduled Provider:Lopez MARTÍNEZ MD Location:[facility] Appointment Type:GS Procedure 30 [facility] General Surgery [place] Evaluation + Plan note Future Appointments Appointment Date:08/11/2025 03:20:00 PM Scheduled Provider:Lopez MARTÍNEZ MD Location:[facility] Appointment Type:GS Established 15 [facility] General Surgery [place] Evaluation note No assessment inform ation available [facility] Work Phone: Hospital Discharge instructions No data available for this section General Surgery Tim Progress note No data available for this section [facility] Summary Purpose Family History No [...] and content) DATE CREATED AUTHOR 10/21/2022 [facility] DATE CREATED AUTHOR AUTHOR'S ORGANIZ ATION 03/16/2023 [facility] DATE CREATED AUTHOR AUTHOR'S ORGANIZ ATION 08/18/2024 [facility] DATE CREATED AUTHOR AUTHOR'S ORGANIZ ATION 08/10/2025 [facility] DATE CREATED AUTHOR AUTHOR'S ORGANIZ ATION 08/14/2025 Rush Manjit [facility] Goals (unrecognized section and content) Goals [...] BE BASED ON THE PRIMARY CLINICAL RECORDS. [facility]. provides no warranty or guarantee of the accuracy or completeness of information in this document.
== END 2025-09-14 15:13 | disposition home or self-care (01) ==
LOC: PST 15:12
PROVIDERS: PCP Family Medicine; Visit Provider Surgery
DX: Z01.818 Encounter for other preprocedural examination (principal); R19.5 Other fecal abnormalities

== ENCOUNTER 2025-09-15 07:00 | Day surgery (SDC) | payer BC, SELFPAY ==
--- NOTE | 2025-09-15 | OP_ITS ---
OPERATION DATE: 09/15/2025 PREOPERATIVE DIAGNOSIS: Colorectal screening. POSTOPERATIVE DIAGNOSIS: Redundant colon, fair prep. PROCEDURE: Colonoscopy to cecum. SURGEON: Lopez Hernandez M.D. ANESTHESIA: Monitored anesthesia care. ESTIMATED BLOOD LOSS: Zero. INDICATIONS AND CONSENT: Patient is a 49-year-old female, presents for colorectal screening. Indications, risks, benefits, alternatives of proceeding with colonoscopy were explained extensively to the patient, including the risks of bleeding, colon perforation or anesthetic complications. All of her questions were answered. Informed consent was obtained. PROCEDURE: Patient brought to the operating room, placed in the left lateral decubitus position. Monitored anesthesia care was provided. Rectal exam was performed which showed no masses or blood. The scope was inserted into the anal canal. Under direct visualization was advanced. It was advanced to the cecum where cecal markings were clearly identified. She was noted to be a fair prep with a large amount of vegetable matter and some green liquid obscuring some of the surface that was able to be partially irrigated clear. Upon withdrawal of the scope, mucosal surfaces were carefully examined. There were no mass lesions or polyps. No inflammatory changes or ulcerations. No significant diverticulosis. The scope was retroflexed in the anal canal. There was no significant hemorrhoidal disease. The scope was then withdrawn. Patient tolerated procedure well, was sent to recovery room in good condition. Follow up screening colonoscopy should be 10 years. CC: Luisito Potter M.D. DANIEL
--- OUTSIDE RECORDS SUMMARY | 2025-09-15 07:03 | XMS_ITS | CCD ---
Author Organization [facility] Care Team Providers Care Neurobiologist Name Role Phone Chi Potter Primary Care [...] Unavailable MD Chi Potter Primary Care Provider [phone] DO Stanley Martinez Emergency Provider [phone] Chi Potter Primary Care Unavailable Stanley Martinez [...] [ciprofloxacin] Drug Allergy 1 Vomiting (disorder) [facility] (1 source) diphenhydrAMINE; Translations: [DIPHENHYDRAMINE HCL] Drug Allergy 2 [facility]ository (1 source) Ciprofloxacin Drug Allergy 6 [facility] (2 sources) diphenhydrAMINE; Translations: [Benadryl] Drug Allergy 2 [facility] (5 sources) diphenhydrAMINE; Translations: [diphenhydramine] Drug Allergy 2 Unknown [facility] [place] (1 source) Ciprofloxacin Drug Allergy 4 [facility] Repository Medications Current Medications Medication Drug [...] day(s), # 9 tab(s), Refills(s) 0, Pharmacy: [facility]/pharmacy #[id number], 155, cm, 06/21/22 15:51:00 [...] take 1 tablet by mouth once Maxalt METHODS TIME ANALYST 10 mg Tab-Dis 10 mg = 1 [...] 07-31-2022 Episodic Other aftercare (1 source) Other long term care administrator (current) drug therapy; Translations: [OTH MAINTENANCE ADVISOR CURRENT DRUG THERAPY] Onset: 08-02-2022 Episodic Other [...] (Pantoprazole [address] Tab) rizatriptan (Maxalt METHODS TIME ANALYST 10 mg Tab-Dis) tizanidine (tiZANidine 4 mg [...] if questions or concerns Unchanged rizatriptan (Maxalt METHODS TIME ANALYST 10 mg Tab-Dis) 1 Tablets By Mouth [...] signed up for this yet, please contact [employer] bewarket at [phone] to get signed up today. Language Information Language assistance services are available as needed. David [facility] Ambulatory Visit Summary Ambulatory Visit Summary [...] (Pantoprazole [address] Tab) rizatriptan (Maxalt METHODS TIME ANALYST 10 mg Tab-Dis) tizanidine (tiZANidine 4 mg [...] if questions or concerns Unchanged rizatriptan (Maxalt METHODS TIME ANALYST 10 mg Tab-Dis) 1 Tablets By Mouth [...] signed up for this yet, please contact [employer] at [phone] to get signed up today. Language Information Language assistance services are available as needed. Daivd [facility] General Surgery Office/Clini c Noteon 08-11-2025 [...] 5 mcg= 1 tab(s), Oral, TID Maxalt METHODS TIME ANALYST 10 mg Tab-Dis, 10 mg= 1 tab(s), Oral, Once Metoprolol tartrate 25 mg Tab, 25 mg= 1 tab(s), Oral, BID Pantoprazole [address] Tab, 40 mg= 1 tab(s), Oral, BID tiZANidine 4 mg Tab, 8 mg= 2 tab(s), Oral, Bedtime Allergies Benadryl (unknown) ciprofloxacin (Vomiting) Social History Alcohol - Denies Alcohol Use, 06/21/2022 Ne (more content not included)... Normal [facility] Comment on above: Result Comment: Elec tronically Signed By: TANYA CANTU, Lopez Jay\.br\Date and Time Signed: 08/11/25 15:43 EDT Surgical Pathology Reporton 08-09-2025 Surgical Pathology Report [facility] [address] [place] [address]- Surgical Pathology Report Collected Date/Time: 07/28/2025 15:57 [...] characteristics were determined by the Laboratory of [facility] Surgical Pathology. They have not been [...] recognition technology and might contain unintended computerized outside operator errors. Microscopic examination performed unless gross only specified. Quality was accessed and acceptable. Normal [facility] Comment on above: Performed By: #### [id number] #### [facility] Laboratory [address] [place] [address] Ambulatory Visit Summaryon 0 07-28-2025 Ambulatory Visit [...] (Pantoprazole [address] Tab) rizatriptan (Maxalt METHODS TIME ANALYST 10 mg Tab-Dis) tizanidine (tiZANidine 4 mg Tab) Procedures Performed Excision of intradermal nevus (04/17/2023), Abdominal hysterectomy, Tubal ligation. What to do next Scheduled Follow-Up Appointments Saturday 3:20 PM EDT With: Lopez MARTÍNEZ MD Where: [facility] General Surgery [address], [address], [address] You Need to Complete the Following [...] 2 times a day Unchanged rizatriptan (Maxalt METHODS TIME ANALYST 10 mg Tab-Dis) 1 Tablets By Mouth [...] signed up for this yet, please contact [employer] at [phone] to get signed up today. Language Information Language assistance services are available as needed. David [facility] General Surgery Office/Clini c Noteon 07-28-2025 [...] 5 mcg= 1 tab(s), Oral, Daily Maxalt METHODS TIME ANALYST 10 mg Tab-Dis, 10 mg= 1 tab(s), [...] virus vaccine, inactivated 08/27/2022 Recorded SARS-CoV-2 (COVID-19) [id number] 08/27/2022 Recorded SARS-CoV-2 (COVID-19) mRNA BNT-162b2 vax 11/17/2021 Recorded SARS-CoV-2 (COVID-19) mRNA BNT-162b2 vax 03/23/2021 Recorded SARS-CoV-2 (COVID-19) mRNA BNT-162b2 vax 03/02/[address] [facility] Comment on above: Result Comment: Elec [...] (Pantoprazole [address] Tab) rizatriptan (Maxalt METHODS TIME ANALYST 10 mg Tab-Dis) tizanidine (tiZANidine 4 mg [...] if questions or concerns Unchanged rizatriptan (Maxalt METHODS TIME ANALYST 10 mg Tab-Dis) 1 Tablets By Mouth [...] signed up for this yet, please contact [employer] at [phone] to get signed up today. Language Information Language assistance services are available as needed. Normal [facility] ECG 12 lead ECGon 07-13-2024 ECG 12 lead ECG [facility] [address] [place] [id number] Electrocardiograph Report Signed Patient: Stephanie Khoury MR#: [id number] : 1975 Acct:[id number] Age/Sex: 48 / F ADM Date: 07/13/24 Loc: ER Room: Type: [facility] ER Attending Dr: Ordering Provider: [...] ECGs available Confirmed by FAB PARK MD ([id number]) on 07/15/2024 12:25:41 AM Referred By: Electronically Signed By: FAB PARK MD Transcribed By: MUS Signed By Fab Park Jr, MD [id number] Normal [facility] MRI SHOULDER LT WO [...] TIMOTHY BRAMBILA Date: 2023-02-26 22:11 Normal [facility] Covid-19 PCR ([facility]on 01-02 SARS-CoV-2 (COVID-19) RNA ALYX+probe Ql (Unsp spec) Not detected Normal NOT DETECTED [facility] Comment on above: Result Comment: When [...] for this test is supported by the [employer] Operator of Health and Human Service's declaration that [...] be used). Performed By: #### C VDTBH ####[facility] [address] [place], [place] [address]DiDr. Zaynab Wall FREE T3on 10-26-2022 FREE T3 2.94 pg/mlL Normal 2.18-3.98 [facility] Comment on above: Performed By: #### T SH, T4, FT3 #### [facility] [address] [place] [address] [address] Zaynab Wall T4on 10-26-2022 T4 [Mass/Vol] 6.40 ug/dL Normal 4.80-13.90 The [facility] Comment on above: Performed By: #### T SH, T4, FT3 #### [facility] [address] [address] [address] Zaynab Wall TSHon 10-26-2022 TSH 0.076 uIU/mL Critically low 0.358-3.740 The [facility] Comment on above: Performed By: #### T SH, T4, FT3 #### [facility] [address] [address] [address] Zaynab Wall Orders Onlyon 10-19-2022 Orders Only [id number] PengHuber e A 1975 F Date Provider Department Center 10/19/2022 WANG HEREDIA MP ORTHO MPORTHO Family History Family history unknown: Yes Normal [facility] Follow-Upon 10-17-2022 Follow-Up [id number] PengHuber e A 1975 F Date Provider Department Center 10/17/2022 FELIZ ISRAEL MP ORTHO MPORTHO Chart Close Cosign Required by: Feliz Patton MD[[id number]] Family History Family history unknown: Yes Level of Service:01551 [place] OFFICE/OUTPATIENT ESTABLISHED LOW MDM 20-29 MIN (GC) Reason for Visit and Comments: Follow-up [997741] Normal [facility] CARDIAC ADRIANA ADMITon 022 CK [Catalytic activity/Vol] 40 U/L Normal 26-192 [facility] Comment on above: Performed By: #### C MP, CMADM, TSH ####[facility] [address] [place] [id number]. Zaynab Wall CK.MB [Mass/Vol] 0.60 ng/mL Normal <=3.60 [facility] Comment on above: Performed By: #### C MP, CMADM, TSH ####[facility] [address] [place] [address]Dr. Zaynab Wall HSTROP 5.2 pg/mL Normal 4.0-51.3 [facility] Comment on above: Result Comment: CUT- OFF POINTS HAVE BEEN ESTABLISHED BASED ON THE FOURTH UNIVERSAL DEFINITIONS OF MYOCARDIAL INFARCTION. THE UPPER REFERENCE LIMIT (URL) OF TROPONIN, DEFINED THE 99TH PERCENTILE OF cTnI DISTRIBUTION IN A REFERENCE POPULATION, HAS BEEN CONFIRMED THE DECISION THRESHOLD FOR MN DIAGNOSIS. Performed By: #### C MP, CMADM, TSH ####[facility] [address] [place] [address]Dr. Zaynab Wall VICK 33 ng/mL Normal 9-82 [facility] Comment on above: Performed By: #### C MP, CMADM, TSH ####[facility] [address] [place] [id number]. Zaynab Wall CBC AUTO DIFFon 09-21-2022 BASO # 0.0 103/ul Normal 0.0-0.1 [facility] Comment on above: Performed By: #### C BC ####[facility] [address] [place] [address]Dr. Zaynab Wall Basophils/100 WBC (Bld) 0.4 % Normal 0.2-2.0 [facility] Comment on above: Performed By: #### C BC ####[facility] [address] [place] [address]Dr. Zaynab Wall EO # 0.0 103/ul Normal 0.0-0.7 [facility] Comment on above: Performed By: #### C BC ####[facility] [address] [place], [place] [address]Dr. Zaynab Duke Eosinophils/100 WBC (Bld) 0.5 % Critically low 0.9-7.0 [facility] Comment on above: Performed By: #### C BC ####[facility] Qx[address] [place], [place] [address]Dr. Johannaermelinda Duke Erythrocyte distribution width (RBC) [Ratio] 12.4 % Normal 11.0-15.0 [facility] Comment on above: Performed By: #### C BC ####[facility] [address] [place], [place] [address]Dr. Zaynab Wall Hematocrit (Bld) [Volume fraction] 36.0 % Normal 36.0-48.0 [facility] Comment on above: Performed By: #### C BC ####[facility] [address] [place], [place] [address]Dr. Zaynab Wall Hemoglobin (Bld) [Mass/Vol] 11.5 g/dL Critically low 12.0-16.0 [facility] Comment on above: Performed By: #### C BC ####[facility] Y[address] [place], [place] [address]Dr. Zaynab Wall IG # 0.02 10e3/ul Normal 0.00-0.03 [facility] Comment on above: Performed By: #### C BC ####[facility] U[address] [place], [place] [address]Dr. Zaynab Wall IG % 0.3 % Normal 0.0-0.5 [facility] Comment on above: Performed By: #### C BC ####[facility] [address] [place], [place] [address]Dr. Zaynab Wall LYMPH # 1.5 103/ul Normal 1.2-3.8 [facility] Comment on above: Performed By: #### C BC ####[facility] [address] [place], [place] [address]DrRyann Wall Lymphocytes/100 WBC (Bld) 19.6 % Critically low 20.5-60.0 [facility] Comment on above: Performed By: #### C BC ####[facility] [address] [place] [address]DrRyann Wall MANUAL DIFF REQ NO Normal [facility] Comment on above: Performed By: #### C BC ####[facility] [address] [place] [address]DrRyann Wall MCH (RBC) [Entitic mass] 30.6 pg Normal 26.7-34.0 [facility] Comment on above: Performed By: #### C BC ####[facility] [address] [place], [place] [address]DrRyann Wall MCHC (RBC) [Mass/Vol] 31.9 g/dL Normal 29.9-35.2 [facility] Comment on above: Performed By: #### C BC ####[facility] [address] [place], [place] [address]DrRyann Wall MCV (RBC) [Entitic vol] 95.7 fL Normal 81.0-99.0 [facility] Comment on above: Performed By: #### C BC ####[facility] [address] [place], [place] [address]DrRyann Wall MONO # 0.6 103/ul Normal 0.3-0.8 [facility] Comment on above: Performed By: #### C BC ####[facility] [address] [place], [place] [address]DrRyann Wall Monocytes/100 WBC (Bld) 7.7 % Normal 1.7-12.0 [facility] Comment on above: Performed By: #### C BC ####[facility] [address] [place], [place] [address]DrRyann Wall NEUT # 5.5 103/ul Normal 1.4-6.5 [facility] Comment on above: Performed By: #### C BC ####[facility] On[address] [place], [place] [address]DrRyann Wall Neutrophils/100 WBC (Bld) 71.5 % Normal 43.0-75.0 [facility] Comment on above: Performed By: #### C BC ####[facility] [address] [place] [address]Dr. Zaynab Wall Platelet mean volume (Bld) [Entitic vol] 11.4 fL Normal 9.5-13.5 [facility] Comment on above: Performed By: #### C BC ####[facility] [address] [place] [address]Dr. Zaynab Wall PLT 83 103/ul Critically low 150-450 [facility] Comment on above: Performed By: #### C BC ####[facility] [address] [place] [address]Dr. Zaynab Wall RBC 3.76 106/ul Critically low 4.20-5.40 [facility] Comment on above: Performed By: #### C BC ####[facility] [address] [place], [place] [address]Dr. Zaynab Wall WBC 7.7 103/ul Normal 4.0-11.0 [facility] Comment on above: Performed By: #### C BC ####[facility] [address] [place], [place] [address]Dr. Zaynab Wall ER URINE PROFILEon 2 Bilirubin Ql (U) Negative Normal NEGATIVE [facility] Comment on above: Performed By: #### E RUR #### [facility] [address] [place] [address] Dr. Zaynab Wall Clarity (U) CLEAR Normal CLEAR [facility] Comment on above: Performed By: #### E RUR #### [facility] [address] [address] [address] Zaynab Wall Color (U) LT. YELLOW Normal YELLOW [facility] Comment on above: Performed By: #### E RUR #### [facility] [address] [place] [address] Dr. Zaynab Wall ERUJANKI A micrscopic examination will be performed if indicated. Normal [facility] Comment on above: Performed By: #### E RUR #### [facility] [address] [place] [address] Dr. Zaynab Wall Glucose Ql (U) Negative Normal NEGATIVE [facility] Comment on above: Performed By: #### E RUR #### [facility] [address] [place] [address] Dr. Zaynab Wall Hemoglobin Ql (U) Negative Normal NEGATIVE [facility] Comment on above: Performed By: #### E RUR #### [facility] [address] [place] [address] Dr. Zaynab Wall Ketones Ql (U) Negative Normal NEGATIVE [facility] Comment on above: Performed By: #### E RUR #### [facility] [address] [place] [address] Dr. Zaynab Wall LEUKOCYTES Negative Normal NEGATIVE [facility] Comment on above: Performed By: #### E RUR #### [facility] [address] [place] [address] Dr. Zaynab Wall Nitrite Ql (U) Negative Normal NEGATIVE [facility] Comment on above: Performed By: #### E RUR #### [facility] [address] [place] [address] Dr. Zaynab Wall pH (U) 7.0 [pH] Normal 5-9 [facility] Comment on above: Performed By: #### E RUR #### [facility] [address] [place] [address] Dr. Zaynab Wall SPEC GRAVITY 1.015 Normal 1.005-<=1.025 [facility] Comment on above: Performed By: #### E RUR #### [facility] [address] [place] [address] Dr. Zaynab Wall UA PROTEIN Negative Normal NEGATIVE/ TRACE [facility] Comment on above: Performed By: #### E RUR #### [facility] [address] [place] [address] Dr. Zaynab Wall UR MICRO IND NOT INDICATED Normal [facility] Comment on above: Performed By: #### E RUR #### [facility] [address] [place] [address] Dr. Zaynab Wall Urobilinogen Qn (U) 1.0 {Jennifer'U}/dL Normal 0.2 - 1.0 [facility] Comment on above: Performed By: #### E RUR #### [facility] [address] [address] [address] Zaynab Wall FREE T4on 09-21-2022 Free T4 [Mass/Vol] 0.92 ng/dL Normal 0.76-1.[address] [facility] Comment on above: Performed By: #### F T4 ####[facility] [address] [place] [address]Dr. Zaynab Wall PROF 14(COMP METB)on 022 Albumin [Mass/Vol] 3.7 g/dL Normal 3.4-5.0 [facility] Comment on above: Performed By: #### C MP, CMADM, TSH ####[facility] [address] [place] [address]DrRyann Wall Albumin/Globulin [Mass ratio] 1.2 {ratio} Normal [facility] Comment on above: Performed By: #### C MP, CMADM, TSH ####[facility] [address] [place] [address]Dr. Zaynab Wall ALP [Catalytic activity/Vol] 43 U/L Critically low 46-116 [facility] Comment on above: Performed By: #### C MP, CMADM, TSH ####[facility] [address] [place] [address]Dr. Zaynab Wall ALT [Catalytic activity/Vol] 14 U/L Normal 14-59 [facility] Comment on above: Performed By: #### C MP, CMADM, TSH ####[facility] [address] [place] [address]Dr. Zaynab Wall Anion gap [Moles/Vol] 8.0 mmol/L Normal [facility] Comment on above: Performed By: #### C MP, CMADM, TSH ####[facility] [address] [place] [address]Dr. Zaynab Wall AST [Catalytic activity/Vol] 11 U/L Critically low 15-37 [facility] Comment on above: Performed By: #### C LIA JHA, TSH ####[facility] [address] [place] [address]Dr. Zaynab Wall Bilirubin [Mass/Vol] 0.5 mg/dL Normal 0.2-1.0 [facility] Comment on above: Performed By: #### C LIA JHA, TSH ####[facility] [address] [place] [address]Dr. Zaynab Wall Calcium [Mass/Vol] 9.0 mg/dL Normal 8.5-10.[address] [facility] Comment on above: Performed By: #### C LIA JHA, TSH ####[facility] [address] [place] [address]Dr. Zaynab Wall Chloride [Moles/Vol] 104 mmol/L Normal 98-107 [facility] Comment on above: Performed By: #### C LIA JHA, TSH ####[facility] [address] [place] [address]Dr. Zaynab Wall CO2 [Moles/Vol] 30.8 mmol/L Normal 21.0-32.0 [facility] Comment on above: Performed By: #### C LIA JHA, TSH ####[facility] [address] [place] [address]Dr. Zaynab Wall Creatinine [Mass/Vol] 0.73 mg/dL Normal 0.55-1.02 [facility] Comment on above: Performed By: #### C LIA JHA, TSH ####[facility] [address] [place] [address]Dr. Zaynab Wall EGFR-AF GIBRALTARIAN >60 Normal >=60 [facility] Comment on above: Performed By: #### C LIA JHA, TSH ####[facility] [address] [place] [address]Dr. Zaynab Wall EGFR-NON AF GIBRALTARIAN >60 Normal >=60 [facility] Comment on above: Performed By: #### C LIA JHA, TSH ####[facility] [address] [place] [address]Dr. Zaynab Wall Globulin (S) [Mass/Vol] 3.0 g/dL Normal [facility] Comment on above: Performed By: #### C MP, CMADM, TSH ####[facility] [address] [place] [address]Dr. Zaynab Wall Glucose [Mass/Vol] 88 mg/dL Normal 74-[address] [facility] Comment on above: Performed By: #### C MP, CMADM, TSH ####[facility] [address] [place] [address]Dr. Zaynab Wall Potassium [Moles/Vol] 4.8 mmol/L Normal 3.5-5.1 [facility] Comment on above: Performed By: #### C MP, CMADM, TSH ####[facility] [address] [place] [address]Dr. Zaynab Wall Protein [Mass/Vol] 6.7 g/dL Normal 6.4-8.[address] [facility] Comment on above: Performed By: #### C MP, CMADM, TSH ####[facility] [address] [place] [address]Dr. Zaynab Wall Sodium [Moles/Vol] 138 mmol/L Normal 136-[address] [facility] Comment on above: Performed By: #### C MP, CMADM, TSH ####[facility] [address] [place] [address]Dr. Zaynab Wall Urea nitrogen [Mass/Vol] 10.0 mg/dL Normal 7.0-18.0 [facility] Comment on above: Performed By: #### C MP, CMADM, TSH ####[facility] [address] [place] [address]Dr. Zaynab Wall Urea nitrogen/Creatinin e [Mass ratio] 13.7 mg/mg Normal [facility] Comment on above: Performed By: #### C MP, CMADM, TSH ####[facility] [address] [place] [address]Dr. Zaynab Wall TSHon 09-21-2022 TSH 0.033 uIU/mL Critically low 0.358-3.740 [facility] Comment on above: Performed By: #### C MP, CMADM, TSH ####[facility] [address] [place], [place] [address]YeRyann Wall XR CHEST 1 Von 09-21-2022 XR [...] by: NELLIE WHITE Date: 2022-09-21 10:31 Normal [facility] Office Visiton 09-05-2022 Follow-up visit [id number] Cecile Khoury 1975 F Date Provider Department Center 09/05/2022 FELIZ ISRAEL MP [facility] Chart Close Cosign Required by: Feliz Patton MD[[id number]] Family History Family history unknown: Yes Level of Service:00510 [place] OFFICE/OUTPATIENT NEW LOW MDM 30-44 MINUTES (GC) Reason for Visit and Comments: Pain [136] Normal [facility] MRI SHOULDER LT WO CONon MRI [...] by: TIMOTHY BRAMBILA Date: 2022-08-29 12:09 Normal [facility] XR ARTHRO SHOULDER LTon 08-03 XR ARTHRO [...] by: TIMOTHY BRAMBILA Date: 2022-08-29 11:09 Normal [facility] CBC AUTO DIFFon 07-31-2022 BASO # 0.1 103/ul Normal 0.0-0.1 [facility] Comment on above: Performed By: #### C BC ####[facility] [address] [place] [address]Dr. Zaynab Wall Basophils/100 WBC (Bld) 0.5 % Normal 0.2-2.0 [facility] Comment on above: Performed By: #### C BC ####[facility] [address] [place] [address]Dr. Zaynab Wall EO # 0.2 103/ul Normal 0.0-0.7 [facility] Comment on above: Performed By: #### C BC ####[facility] [address] [place], [place] [address]Dr. Zaynab Wall Eosinophils/100 WBC (Bld) 1.8 % Normal 0.9-7.0 [facility] Comment on above: Performed By: #### C BC ####[facility] [address] [place], [place] [address]Dr. Zaynab Wall Erythrocyte distribution width (RBC) [Ratio] 12.2 % Normal 11.0-15.0 [facility] Comment on above: Performed By: #### C BC ####[facility] [address] [place], [place] [address]Dr. Zaynab Wall Hematocrit (Bld) [Volume fraction] 39.8 % Normal 36.0-48.0 [facility] Comment on above: Performed By: #### C BC ####[facility] [address] [place], [place] [address]Dr. Zaynab Wall Hemoglobin (Bld) [Mass/Vol] 13.0 g/dL Normal 12.0-16.0 [facility] Comment on above: Performed By: #### C BC ####[facility] [address] [place], [place] [address]Dr. Zaynab Wall IG # 0.04 10e3/ul Critically high 0.00-0.03 [facility] Comment on above: Performed By: #### C BC ####[facility] [address] [place], [place] [address]Dr. Zaynab Wall IG % 0.4 % Normal 0.0-0.5 [facility] Comment on above: Performed By: #### C BC ####[facility] [address] [place] [address]Dr. Zaynab Wall LYMPH # 2.8 103/ul Normal 1.2-3.8 [facility] Comment on above: Performed By: #### C BC ####[facility] [address] [place] [id number]. Zaynab Wall Lymphocytes/100 WBC (Bld) 24.7 % Normal 20.5-60.0 [facility] Comment on above: Performed By: #### C BC ####[facility] [address] [place] [address]DrRyann Wall MANUAL DIFF REQ NO Normal [facility] Comment on above: Performed By: #### C BC ####[facility] [address] [place] [address]Dr. Zaynab Wall MCH (RBC) [Entitic mass] 31.1 pg Normal 26.7-34.0 [facility] Comment on above: Performed By: #### C BC ####[facility] [address] [place] [id number]. Zaynab Wall MCHC (RBC) [Mass/Vol] 32.7 g/dL Normal 29.9-35.2 [facility] Comment on above: Performed By: #### C BC ####[facility] Ube[address]pfrov[address] [place] [address] [place], [place] [id number] Wall MCV (RBC) [Entitic vol] 95.2 fL Normal 81.0-99.0 [facility] Comment on above: Performed By: #### C BC ####[facility] [id number] [place] [id number] Wall MONO # 0.9 103/ul Critically high 0.3-0.8 [facility] Comment on above: Performed By: #### C BC ####[facility] [address] [place] [id number] Wall Monocytes/100 WBC (Bld) 8.2 % Normal 1.7-12.0 [facility] Comment on above: Performed By: #### C BC ####[facility] [address] [place] [id number]. Zaynab Wall NEUT # 7.3 103/ul Critically high 1.4-6.5 [facility] Comment on above: Performed By: #### C BC ####[facility] [address] [place] [id number]. Zaynab Wall Neutrophils/100 WBC (Bld) 64.4 % Normal 43.0-75.0 [facility] Comment on above: Performed By: #### C BC ####[facility] [address] [place] [address]Dr. Zaynab Wall Platelet mean volume (Bld) [Entitic vol] 10.5 fL Normal 9.5-13.5 [facility] Comment on above: Performed By: #### C BC ####[facility] [address] [place] [address]Dr. Zaynab Wall PLT 237 103/ul Normal 150-450 [facility] Comment on above: Performed By: #### C BC ####[facility] [address] [place] [id number]. Zaynab Wall RBC 4.18 106/ul Critically low 4.20-5.40 [facility] Comment on above: Performed By: #### C BC ####[facility] [address]mb[address] [place] [id number]. Zaynab Wall WBC 11.4 103/ul Critically high 4.0-11.0 [facility] Comment on above: Performed By: #### C BC ####[facility] A[address] [place] [id number]. Zaynab Wall CT ABD/PELVIS WO CONon 07-31 [...] KIMI WELSH Date: 2022-07-31 03:46 Normal [facility] ER URINE PROFILEon 2 Bilirubin Ql (U) Negative Normal NEGATIVE [facility] Comment on above: Performed By: #### E RUR #### [facility] [address] [place] [address] Dr. Zaynab Wall Clarity (U) CLEAR Normal CLEAR [facility] Comment on above: Performed By: #### E RUR #### [facility] [address] [place] [address] Dr. Zaynab Wall Color (U) LT. YELLOW Normal YELLOW [facility] Comment on above: Performed By: #### E RUR #### [facility] [address] [place] [address] Dr. Zaynab Wall ERUJANKI A micrscopic examination will be performed if indicated. Normal [facility] Comment on above: Performed By: #### E RUR #### [facility] [address] [place] [address] Dr. Zaynab Wall Glucose Ql (U) Negative Normal NEGATIVE [facility] Comment on above: Performed By: #### E RUR #### [facility] [address] [place] [address] Dr. Zaynab Wall Hemoglobin Ql (U) Negative Normal NEGATIVE [facility] Comment on above: Performed By: #### E RUR #### [facility] [address] [place] [address] Dr. Zaynab Wall Ketones Ql (U) Negative Normal NEGATIVE [facility] Comment on above: Performed By: #### E RUR #### [facility] [address] [place] [address] Dr. Zaynab Wall LEUKOCYTES Negative Normal NEGATIVE [facility] Comment on above: Performed By: #### E RUR #### [facility] [address] [place] [address] Dr. Zaynab Wall Nitrite Ql (U) Negative Normal NEGATIVE [facility] Comment on above: Performed By: #### E RUR #### [facility] [address] [place] [address] Dr. Zaynab Wall pH (U) 6.0 [pH] Normal 5-9 [facility] Comment on above: Performed By: #### E RUR #### [facility] [address] [place] [address] Dr. Zaynab Wall SPEC GRAVITY 1.015 Normal 1.005-<=1.025 [facility] Comment on above: Performed By: #### E RUR #### [facility] [address] [place] [address] Dr. Zaynab Wall UA PROTEIN Negative Normal NEGATIVE/ TRACE [facility] Comment on above: Performed By: #### E RUR #### [facility] [address] [place] [address] Dr. Zaynab Wall UR MICRO IND NOT INDICATED Normal [facility] Comment on above: Performed By: #### E RUR #### [facility] [address] [place] [address] Dr. Zaynab Wall Urobilinogen Qn (U) 0.2 {Jennifer'U}/dL Normal 0.2 - 1.0 [facility] Comment on above: Performed By: #### E RUR #### [facility] [address] [place] [address] Dr. Zaynab Wall PROF CHEM 8 (BAS METB)on 08- 30-2022 Anion gap [Moles/Vol] 8.2 mmol/L Normal [facility] Comment on above: Performed By: #### B MP #### [facility] [address] [place] [address] Dr. Zaynab Wall Calcium [Mass/Vol] 9.1 mg/dL Normal 8.5-10.[address] [facility] Comment on above: Performed By: #### B MP #### [facility] [address] [place] [address] Dr. Zaynab Wall Chloride [Moles/Vol] 102 mmol/L Normal 98-107 [facility] Comment on above: Performed By: #### B MP #### [facility] [address] [place] [address] Dr. Zaynab Wall CO2 [Moles/Vol] 31.6 mmol/L Normal 21.0-32.0 [facility] Comment on above: Performed By: #### B MP #### [facility] [address] [place] [address] Dr. Zaynab aWll Creatinine [Mass/Vol] 0.84 mg/dL Normal 0.55-1.02 [facility] Comment on above: Performed By: #### B MP #### [facility] [address] [place] [address] Dr. Zaynab Wall EGFR-AF GIBRALTARIAN >60 Normal >=60 [facility] Comment on above: Performed By: #### B MP #### [facility] [address] [place] [address] Dr. Zaynab Wall EGFR-NON AF GIBRALTARIAN >60 Normal >=60 [facility] Comment on above: Performed By: #### B MP #### [facility] [address] [place] [address] Dr. Zaynab Wall Glucose [Mass/Vol] 106 mg/dL Normal 74-[address] [facility] Comment on above: Performed By: #### B MP #### [facility] [address] [place] [address] Dr. Zaynab Wall Potassium [Moles/Vol] 3.8 mmol/L Normal 3.5-5.1 [facility] Comment on above: Performed By: #### B MP #### [facility] [address] [address] [address] Zaynab Wall Sodium [Moles/Vol] 138 mmol/L Normal 136-145 [facility] Comment on above: Performed By: #### B MP #### [facility] [address] [address] [address] Zaynab Wall Urea nitrogen [Mass/Vol] 15.0 mg/dL Normal 7.0-18.0 [facility] Comment on above: Performed By: #### B MP #### [facility] [address] [address] [address] Zaynab Wall Urea nitrogen/Creatinin e [Mass ratio] 17.9 mg/mg Normal [facility] Comment on above: Performed By: #### B MP #### [facility] [address] [address] [address] Zaynab Wall XR CHEST 2 Von [...] KIMI WELSH Date: 2022-07-31 03:36 Normal [facility] PAP ACOG PANEL 3: 30 to 65on 04-26-2022 . . Normal [facility] Comment on above: Result Comment: Perf ormed at: WB Performed By: #### [id number] ####[facility] [address] [place] [address]DrRyann Wall Age Gdln ACOG Testing 30-65 Normal [facility] Comment on above: Performed By: #### [id number] ####[facility] [address] [place] [address]Dr. Zaynab Wall Chlamydia, Nuc. Acid Amp Negative Normal Negative [facility] Comment on above: Result Comment: Perf ormed at: =G Performed By: #### [id number] ####[facility] [address] [place], [place] [address]Dr. Zaynab Wall DIAGNOSIS: Comment Normal [facility] Comment on above: Result Comment: NEGA TIVE FOR INTRAEPITHELIAL LESION OR MALIGNANCY. Performed at: WB Performed By: #### [id number] ####[facility] [address] [place] [address]Dr. Zaynab Wall Gonococcus, Nuc. Acid Amp Negative Normal Negative [facility] Comment on above: Result Comment: Perf ormed at: =G Performed By: #### [id number] ####[facility] [address] [place], [place] [address]Dr. Zaynab Wall HPV Aptima Negative Normal Negative [facility] Comment on above: Result Comment: This nucleic acid amplification test detects fourteen high-risk HPV types (16,18,31,33,35,39,45,51,52,56,58,59,66,68) without differentiation. Performed at: =G Performed By: #### [id number] ####[facility] [address] [place], [place] [address]Dr. Zaynab Wall Methodology: CTIM Normal [facility] Comment on above: Result Comment: The Thin Prep(R) Checkman was unable to read this specimen. Therefore a manual review was performed. Performed at: WB Performed By: #### [id number] ####[place] [address]DrRyann Wall Note: Comment Normal [facility] Comment on above: Result Comment: The Pap smear is a screening test designed to aid in the detection of premalignant and malignant conditions of the uterine cervix. It is not a diagnostic procedure and should not be used as the sole means of detecting cervical cancer. Both false-positive and false-negative reports do occur. . Performed at: WB Performed By: #### [id number] ####[facility] [address] [place], [place] [address]Dr. Zaynab Wall Performed by: Comment Normal [facility] Comment on above: Result Comment: Ashvin Beatty Remote Sensing Scientist (ASCP) Performed at: WB Performed By: #### [id number] ####[facility] [address] [place], [place] [address]FbRyann Wall Specimen adequacy: Comment Normal [facility] Comment on above: Result Comment: Sati sfactory for evaluation. No endocervical component is identified. Performed at: WB Performed By: #### [id number] ####[facility] [address] [place], [place] [address]Sz. Zaynab Wall Vital Signs Date Time Vital Sign Value Performing Clinician Facility 07-13-2024 23:40-0400 Body height 157.48 cm MD Chi Potter Work Phone: [facility] 07-13-2024 23:40-0400 Body temperature 97.7 [degF] MD Chi Potter Work Phone: [facility] 07-13-2024 23:40-0400 Body weight 49.1 kg MD Chi Potter Work Phone: [facility] 07-13-2024 23:40-0400 Diastolic blood pressure 75 mm[Hg] MD Chi Potter Work Phone: [facility] 07-13-2024 23:40-0400 Heart rate 81 /min MD Chi Potter Work Phone: [facility] 07-13-2024 23:40-0400 Respiratory rate 16 /min MD Chi Potter Work Phone: [facility] 07-13-2024 23:40-0400 SaO2% (BldA) [Mass fraction] 100 % MD Chi Potter Work Phone: [facility] 07-13-2024 23:40-0400 Systolic blood pressure 134 mm[Hg] MD Chi Potter Work Phone: [facility] 04-03-2023 15:39-0400 Blood Pressure Location Lopez MARTÍNEZ [facility] 04-03-2023 15:39-0400 Diastolic blood pressure 66 mm[Hg] Lopez MARTÍNEZ [facility] [place] 04-03-2023 15:39-0400 Heart rate 66 /min Lopez NILL [facility] [place] 04-03-2023 15:39-0400 Respiratory rate 16 /min Lopez NILL [facility] [place] 04-03-2023 15:39-0400 Systolic blood pressure 104 mm[Hg] Lopez NILL [facility] [place] 06-21-2022 15:49-0400 Body temperature 97.88 [degF] Nabil Fab [facility] 06-21-2022 15:49-0400 Diastolic blood pressure 91 mm[Hg] Nabil Fab [facility] 06-21-2022 15:49-0400 Heart rate 80 /min Nabil Fab [facility] 06-21-2022 15:49-0400 Respiratory rate 18 /min Nabil Fab [facility] 06-21-2022 15:49-0400 SaO2% (BldA) [Mass fraction] 98 % Nabil Fab [facility] 06-21-2022 15:49-0400 Systolic blood pressure 138 mm[Hg] Nabil Caldera [facility] Encounters Encounter Date Encounter Type Care Provider Facility Start: 08-11-2025 End: 08-11-2025 ambulatory Lopez R NILL Facility:[facility] Start: 08-11-2025 End: 08-11-2025 Patient encounter procedure Lopez R NILL [facility] [place] Start: 07-28-2025 End: 07-28-2025 ambulatory Lopez R NILL Facility:[facility] Start: 07-28-2025 End: 07-28-2025 Patient encounter procedure Lopez R NILL [facility] [place] Start: 06-30-2025 End: 06-30-2025 ambulatory Lopez MARTÍNEZ Facility:[facility] Start: 06-30-2025 End: 06-30-2025 Patient encounter procedure Lopez MARTÍNEZ [facility] [place] Start: 07-13-2024 End: 07-14-2024 Emergency department patient visit MD Chi Potter Work Phone: [facility] Work Phone: Start: 04-03-2023 End: 04-03-2023 Patient encounter procedure Lopez MARTÍNEZ [facility] Start: 02-26-2023 End: 02-27-[address] DOCTOR SULLIVAN Facility:[facility] Start: 01-16-2023 End: 01-16-[address] CHI POTTER . Facility:[facility] Start: 10-26-2022 End: 10-27-[address] CHI POTTER . Facility:[facility] Start: 10-20-2022 End: 10-21-2022 ambulatory [facility] Start: 10-19-2022 End: 10-20-2022 ambulatory [facility] Start: 10-17-2022 End: 10-17-2022 ambulatory [facility] Start: 09-21-2022 End: 09-21-2022 ambulatory TREY MACIEL . Facility:[facility] Start: 09-05-2022 End: 09-06-2022 ambulatory [facility] Start: 08-29-2022 End: 08-29-[address] CHI POTTER . Facility:[facility] Start: 07-31-2022 End: 07-31-2022 ambulatory ZITA OCHOA Facility:[facility] Start: 07-04-2022 End: 07-28-[address] CHI POTTER . Facility:[facility] Start: 06-21-2022 End: 06-21-2022 Emergency department patient visit Nabil Caldera [facility] Start: 04-26-2022 Encounter for gynecological examination (general) (routine) without abnormal findings TERE HART [facility] Start: 04-20-2022 End: 04-20-2022 ambulatory TERE HART Facility:[facility] Start: 04-20-2022 End: 04-20-2022 Encounter for gynecological examination (general) (routine) without abnormal findings TEER HART Facility:[facility] Procedures Date Procedure Procedure Detail Performing Clinician Start: 04-17-2023 Excision of intrader mal nevus Lopez TANYA Abdominal hysterectomy Jimmy romeo TANYA Ligation of fallopian tube Jordan ferrera TANYA Plan of Treatment Date Care Activity Detail Author Start: 07-13-2024 [facility] Albumin/Globulin ratio [facility] Anion gap measurement [facility] Basophils [#/volume] in Blood by Automated count [facility] Basophils/100 leukoc ytes in Blood by Automated count [facility] Eosinophils/100 leuk ocytes in Blood by Automated count [facility] Erythrocyte distribu tion width [Ratio] by Automated count [facility] Erythrocytes [#/volume] in Blood [facility] Globulin [Mass/volume] in Serum [facility] Hematocrit [Volume F raction] of Blood [facility] Hemoglobin [Mass/vol ume] in Blood [facility] Leukocytes [#/volume ] corrected for nucleated erythrocytes in Blood by Automated coun [facility] Leukocytes [#/volume] in Blood [facility] Lymphocytes [#/volum e] in Blood by Automated count [facility] Lymphocytes/100 leuk ocytes in Blood by Automated count [facility] MCH [Entitic mass] b y Automated count [facility] MCHC [Mass/volume] b y Automated count [facility] MCV [Entitic volume] by Automated count [facility] Monocytes [#/volume] in Blood by Automated count [facility] Monocytes/100 leukoc ytes in Blood by Automated count [facility] Neutrophils [#/volum e] in Blood by Automated count [facility] Neutrophils/100 leuk ocytes in Blood by Automated count [facility] Nucleated erythrocyt es [Presence] in Blood by Automated count [facility] Patient referral [facility] Work Phone: Platelet mean volume [Entitic volume] in Blood by Automated count [facility] Platelets [#/volume] in Blood [facility] Immunizations Immunization Date Immunization Notes Care Provider Fa [facility] 08-27-2022 influenza virus vaccine, unspecified formulation Lopez LANGLEYL [facility] [place] 08-27-2022 SARS-CoV-2 (COVID-19 ) [id number] Lopez LANGLEYL [facility] [place] 11-17-2021 SARS-CoV-2 (COVID-19 ) mRNA BNT-162b2 vax Lopez LANGLEYL [facility] [place] 03-23-2021 SARS-CoV-2 (COVID-19 ) mRNA BNT-162b2 vax Lopez LANGLEYL [facility] [place] 03-02-2021 SARS-CoV-2 (COVID-19 ) mRNA BNT-162b2 vax Lopez LANGLEYL [facility] Payers Date Payer Category Payer Private Health Insurance [id number] 2025 Unknown [id number] 2024 Self-pay 1976 Unknown [id number] 1976 Unknown [id number] 1976 Unknown [id number] 1976 Unknown [id number] 1976 Unknown [id number] 1976 Unknown [id number] 1976 Unknown [id number] 1976 Unknown [id number] 1976 Unknown [id number] 1976 Unknown [id number] 1976 Unknown [id number] [id number] 1976 Unknown [id number] 1959 Medicaid [id number] 1959 Unknown [id number] Medicaid Medicaid [id number] Unknown [employer] [id number] Unknown [id number] Social History Date Type Detail Facility Tobacco smoking status No Smokin g Status Entered [facility] Sex Assigned At Female [facility] Start: 04-03-2023 End: 08-11-2025 Tobacco smoking status Never smoked tobacco (finding) [facility] [place] Tobacco smoking status Never [facility] Start: 1975 Sex Assigned At Female F [facility] Sexual Orientation [facility] Start: 02-20-2019 Sex Female (finding) [facility] NEGATED: Highlighted row [facility] Functional Status Date Assessment Result Facility 04-03-2023 Functional Status N/A [facility] 06-21-2022 Functional Status N/A [facility] Clinical Notes 06-21-2022 to 06-30-2025 [...] 5 mm raised, ugalde lesion with irregular wirer surface, no ulceration or scab; nontender; no [...] 5 mcg= 1 tab(s), Oral, Daily Maxalt METHODS TIME ANALYST 10 mg Tab-Dis, 10 mg= 1 tab(s), [...] virus vaccine, inactivated 08/27/2022 Recorded SARS-CoV-2 (COVID-19) [id number] 08/27/2022 Recorded SARS-CoV-2 (COVID-19) mRNA BNT-162b2 vax 11/17/2021 Recorded SARS-CoV-2 (COVID-19) mRNA BNT-162b2 vax 03/23/2021 Recorded SARS-CoV-2 (COVID-19) mRNA BNT-162b2 vax 03/02/2021 Recorded [facility] Comment on above: Result Comment: Elec tronically Signed By: TANYA CANTU, Lopez Ruiz\Date and Time Signed: 06/30/25 15:30 EDT 10-17-2022 Note Attestation signed by eFliz Patton MD at 10/17/2022 12:39 PM I [...] strength. Clovis Kruse MD Orthopaedic Surgery PGY-1 [facility] 10/17/22 10:07 AM [facility] 09-05-2022 Note Attestation signed by Feliz [...] some mild improvement. Had MRI completed at [place] which reportedly demonstrated possible partial thickness tear [...] to verify the correct patient, procedure, equipment, software support analyst and site/side marked as required. Patient was prepped and draped in the usual sterile fashion. Williams Kowalski MD Orthopedic Surgery, PGY-5 Pager: [phone] 09/05/22 9:33 AM By using the attestations [...] be an additional personal documentation from me. [facility] 06-21-2022 Hospital Discharg e instructions Patient Education 06/21/2022 16:30:19 Muscle Strain, Wyij-fo-Fhfw Muscle Strain A muscle strain is an [...] is not too tight. General instructions Take lvse-ufc-mdieloj and prescription medicines only as told by [...] 08/27/2009 Document Revised: 01/14/2020 Document Reviewed: 12/25/2017 [employer] Patient Education 2020 [employer] Follow Up Care 06/21/2022 15:32:56 With:AKIRA ACUNA CNP Address: [address] [place] [address] When:1 to 2 days [facility] Evaluation + Plan note No data available for this section [facility] Evaluation + Plan note Future Appointments Appointment Date:04/17/2023 03:20:00 PM Scheduled Provider:Lopez MARTÍNEZ MD Location:[facility] Appointment Type:GS Procedure 30 [facility] [place] Evaluation + Plan note Future Appointments Appointment Date:07/28/2025 03:20:00 PM Scheduled Provider:Lopez MARTÍNEZ MD Location:[facility] Appointment Type:GS Procedure 30 [facility] [place] Evaluation + Plan note Future Appointments Appointment Date:08/11/2025 03:20:00 PM Scheduled Provider:Lopez MARTÍNEZ MD Location:[facility] Appointment Type:GS Established 15 [facility] [place] Evaluation note No assessment inform ation available [facility] Work Phone: Hospital Discharge instructions No data available for this section General Surgery Tim Progress note No data available for this section [facility] Summary Purpose Family History No Family [...] and content) DATE CREATED AUTHOR 10/21/2022 [facility] DATE CREATED AUTHOR AUTHOR'S ORGANIZ ATION 03/16/2023 [facility] [place] DATE CREATED AUTHOR AUTHOR'S ORGANIZ ATION 08/18/2024 [facility] DATE CREATED AUTHOR AUTHOR'S ORGANIZ ATION 08/10/2025 [facility] DATE CREATED AUTHOR AUTHOR'S ORGANIZ ATION 08/14/2025 Rush Manjit [facility] Goals (unrecognized section and content) Goals may [...] BE BASED ON THE PRIMARY CLINICAL RECORDS. [facility] [employer] [facility]. provides no warranty or guarantee of the accuracy or completeness of information in this document.
[2025-09-15 07:14] VITALS: BP 105/72; PULSE 83; TEMP 36.5; O2SAT 100; BMI 17.9
[2025-09-15 09:04] VITALS: BP 90/51; PULSE 80; TEMP 36.3; O2SAT 100
[2025-09-15 09:19] VITALS: BP 107/78; PULSE 80; O2SAT 100
[2025-09-15 09:35] VITALS: BP 120/69; PULSE 76; O2SAT 100
== END 2025-09-15 09:35 | disposition home or self-care (01) ==
LOC: SURGOUT 07:01
PROVIDERS: PCP Family Medicine; Visit Provider Surgery
PROC: (CPT 811; principal; 2025-09-15 08:25)
DX: Z12.11 Encounter for screening for malignant neoplasm of colon (principal); R19.5 Other fecal abnormalities; Q43.8 Other specified congenital malformations of intestine; Z90.710 Acquired absence of both cervix and uterus; Z98.51 Tubal ligation status; J45.909 Unspecified asthma, uncomplicated; I49.9 Cardiac arrhythmia, unspecified; H91.90 Unspecified hearing loss, unspecified ear; E03.9 Hypothyroidism, unspecified; K21.9 Gastro-esophageal reflux disease without esophagitis; F41.9 Anxiety disorder, unspecified; F32.A Depression, unspecified
CPT/HCPCS: 45378; J2704

== ENCOUNTER 2025-09-27 15:20 | Outpatient (OUT) | payer BC, SELFPAY ==
--- OUTSIDE RECORDS SUMMARY | 2025-09-27 15:25 | XMS_ITS | Clinical Summary ---
Author Organization [facility] [facility] tem Address [id number] [address] [place] [address] Care Team Providers Care Eeg Technician Name Role Phone Luisito Potter MD Primary Care Provider + Allergies Active AllergyReactionsCriticalityNoted CxevGjxeggrrNbxvssxdpjicw10/17/2021 Medications * This document contains information received from the source organization and may not represent a complete record from that organization. MedicationSigDispense QuantityRefillsLast FilledStart DateEnd DateStatus ALBUTEROL, BULK, MISC by miscellaneous route.Active levothyroxine (SYNTHROID, LEVOTHROID) 100 MCG tablet Take 100 mcg by mouth daily.Active liothyronine (CYTOMEL) 5 MCG tablet Take 10 mcg by mouth daily.Active pantoprazole (PROTONIX) 40 mg EC tablet Take 40 mg by mouth daily.Active albuterol (PROVENTIL HFA;VENTOLIN HFA) 90 mcg/actuation inhaler Inhale 2 puffs every 6 (six) hours as needed for wheezing.Active ibuprofen (MOTRIN) 800 mg tablet Take 1 tablet (800 mg total) by mouth 3 (three) times a day. 21 tablet 11/11/2022ctive cyclobenzaprine (FLEXERIL) 10 mg tablet Take 1 tablet (10 mg total) by mouth 2 (two) times a day as needed for muscle spasms. 10 tablet 3Active Active Problems ProblemNoted DateDiagnosed DateMajor depressive disorder, single episode, mild 07/25/2017 Immunizations ImmunizationAdministration DatesNext BxzPdhs2701/18/2021 Family History Medical HistoryRelationNameCommentsDepressionMotherRelationNameStatusComments Mother Social History Tobacco UseTypesPacks/DayYears UsedDateSmoking Tobacco: NeverSmokeless Tobacco: NeverAlcohol UseStandard Drinks/WeekCommentsNo0 (1 standard drink = 0.6 oz pure alcohol)ChildcareAnswerDate WfvtbusrLvgqcqqptIppeami50/12/2019EmploymentAnswer Date ImtrstrpYjcouftzznLleaxei67/12/2019Hunger ScreeningAnswerDate Recorded Within the past 12 months we worried whether our food would run out before we got money to buy more.Never True11/11/2022Within the past 12 months the food we bought just didn't last and we didn't have money to get more.Never True 11/11/2022urpose - LifeAnswerDate RecordedPurpose and direction in lifeUnknown 1CommentsNoSex and Gender InformationValueDate RecordedSex Assigned at BirthNot on fileLegal PkbPljxuf13/06/2015 12:07 PM EDTGender IdentityNot on fileSexual OrientationNot on file Last Filed Vital Signs Vital SignReadingTime TakenCommentsBlood Jcsycvlo559/64002/12/2023 3:20 PM EDT Wpidq5333/14/2023 3:20 PM CAODzyvxjwpnua80.9 ??C (98.4 ??F)02/12/2023 1:57 PM EDTRespiratory Zass667502/12/2023 3:20 PM EDTOxygen Auhifplryb95%02/12/2023 3:20 PM EDTInhaled Oxygen Concentration--Uyotgr60.7 kg (103 lb)02/12/2023 1:57 PM EDT Dvpnja657.9 cm (5' 1 )02/12/2023 1:57 PM EDTBody Mass Index19.46002/12/2023 1:57 PM EDT Plan of Treatment Health MaintenanceDue DateLast DoneCommentsDepression Yjvvefswd52/02/1989Tobacco Ftjgiqgsr47/02/1989Adult BMI Iympszbtj93/14//OVID-19 Vaccine ( season), 11/17/2021, 03/23/2021, Additional history existsInfluenza Bbyiutv10/01/128199/, 08/25/2021, 09/28/2020, Additional history existsDTaP,Tdap and Td Vaccines (4 - Td or Tdap)/, 08/11/2015, 07/01/2007 Medical Devices Not on file Insurance Care Teams Team MemberRelationshipSpecialtyStart DateEnd Date Luisito Potter MD [facility]06/19/17
--- OUTSIDE RECORDS SUMMARY | 2025-09-27 15:25 | XMS_ITS | Patient Health Record ---
Author Organization [facility] [place] Address [address] [place] [address] Care Team Providers Care Shot Man Name Role Phone Flaco Lyon Primary Care Provider Allergies Allergen (clinical drug ingredient) Drug/Non Drug Allergy documented on EMR Reaction Allergy Type Onset Date Status diphenhydramine Benadryl excessive sleepiness Drug Aller gy ActiveciprofloxacinCipronauseaDrug AllergyActive Results Component Value Reference Range Notes CBC AUTO DIFF Reviewed date:07/21/2025 05:06:23 PM Interpretation: Performing Lab: Notes/Report: [facility] , White Blood Count 5.8 4.0-11.0 10 3/uL Red Blood Count4.144.20-5.40 10 6/eUJsornogevt17.812.0-16.0 g/bJWidxopdirq55.1 36.0-48.0 %Mean Corpuscular Rdrhas43.081.0-99.0 fLMean Corpuscular Hemoglobin 30.926.7-34.0 pgMean Corpuscular HGB Conc33.629.9-35.2 g/dLRed Cell Distribution Width11.911.0-15.0 %Platelet Sumuk979124-631 10 3/uLMean Platelet Exmmqf02.69.5- 13.5 fLNeutrophils Percent Auto43.643.0-75.0 %Lymphocytes Percent Auto45.920.5- 60.0 %Monocytes Percent Auto7.21.7-12.0 %Eosinophils Percent Auto2.20.9-7.0 % Basophils Percent Auto0.90.2-2.0 %Immature Granulocytes Pct Auto0.20.0-0.5 % Neutrophils Absolute Auto2.61.4-6.5 10 3/uLLymphocytes Absolute Auto2.71.2-3.8 10 3/uLMonocytes Absolute Auto0.40.3-0.8 10 3/uLEosinophils Absolute Auto0.10.0- 0.7 10 3/uLBasophils Absolute Auto0.10.0-0.1 10 3/uLImmature Granulocytes Abs Auto0.010.00-0.03 10 3/uLPerforming Lab:see note - [facility] LB GLYCOHEMOGLOBIN A1C Reviewed date:07/21/2025 05:06:23 PM Interpretation: Performing Lab: Notes/Report: [facility] ,Glycohemoglobin A1C5.14.5-6.2 % > 7.0 ADA THERAPEUTIC TARGET < 7.0 ACTION SUGGESTED ADA RECOMMENDED LIMIT 4.0 - 6.0 Estimated Average Bbzvyol884Oedalwvmsk Lab:see note - [facility] LB LIPID PROFILE Reviewed date:07/21/2025 05:06:23 PM Interpretation: Performing Lab: Notes/Report: [facility] ,Dvdcpcqahpyag418<=150 mg/lDVihuubpnfcb899<=200 mg/dLHDL Pxtxhgsklas3315-21 mg/dL > or =60 mg/dl - LOW CARDIOVASCULAR RISK <40 mg/dl - HIGH CARDIOVASCULAR RISK LDL Cholesterol Ococxtyelv93.8 160-189 mg/dl HIGH >190 mg/dl VERY HIGH 100-129 mg/dl NEAR OR ABOVE OPTIMAL 130-159 mg/dl BORDERLINE HIGH <100 mg/dl OPTIMAL VLDL EMMDMQKGSWR75.2Chol HDL Ratio3.0 3.3 - 4.4 LOW RISK >11.0 HIGH RISK 4.4 - 7.1 AVERAGE RISK 7.1 - 11.0 MODERATE RISK Performing Lab:see [facility] LBPROF 14(COMP METB) Reviewed date:07/21/2025 05:06:23 PM Interpretation: Performing Lab: Notes/Report: [facility] ,Htqyba566763-057 mmol/LPotassium4.03.5-5.1 mmol/YAptpehkh25223-883 mmol/LCarbon Djaokoj63.021.0-32.0 mmol/LAnion Gap14.0Agrswdp6874-272 mg/dLBlood Urea Nitrogen 6.07.0-18.0 mg/dLCreatinine0.760.55-1.02 mg/dLEstimated GFR ( Yenny>60 >=60 mL/min/1.73m 2Estimated GFR (Non- Tessa>60>=60 mL/min/1.73m 2BUN Creatinine Ratio7.8Lcitiuo7.78.5-10.1 mg/dLBilirubin Total0.40.2-1.0 mg/dL Aspartate Amino Rixdmpzxvrv8534-90 U/LAlanine Enixuogjvflopcde8019-22 U/L Alkaline Xiayvrnjusz4977-009 U/LTotal Protein7.86.4-8.2 g/dLAlbumin Level4.43.4- 5.0 g/dLGlobulin3.4Albumin Globulin Ratio1.3Performing Lab:see noteML - [facility] LBCBC AUTO DIFF Reviewed date:11/15/2024 08:11:50 PM Interpretation: Performing Lab: Notes/Report: [facility] ,White Blood Count7.34.0-11.0 10 3/uLRed Blood Count4.174.20-5.40 10 6/uL Vqxpyqdmbs24.312.0-16.0 g/dPRctcjmthlc35.936.0-48.0 %Mean Corpuscular Xqxcyz42.1 81.0-99.0 fLMean Corpuscular Kumncvrgub88.926.7-34.0 pgMean Corpuscular HGB Conc 32.529.9-35.2 g/dLRed Cell Distribution Width11.911.0-15.0 %Platelet Xvbum862 150-450 10 3/uLMean Platelet Gprxjv57.29.5-13.5 fLNeutrophils Percent Auto54.1 43.0-75.0 %Lymphocytes Percent Auto34.020.5-60.0 %Monocytes Percent Auto9.71.7- 12.0 %Eosinophils Percent Auto1.40.9-7.0 %Basophils Percent Auto0.80.2-2.0 % Immature Granulocytes Pct Auto0.00.0-0.5 %Neutrophils Absolute Auto4.01.4-6.5 10 3/uLLymphocytes Absolute Auto2.51.2-3.8 10 3/uLMonocytes Absolute Auto0.70.3-0.8 10 3/uLEosinophils Absolute Auto0.10.0-0.7 10 3/uLBasophils Absolute Auto0.10.0- 0.1 10 3/uLImmature Granulocytes Abs Auto0.000.00-0.03 10 3/uLPerforming Lab:see noteML - [facility] LBPROF 14(COMP METB) Reviewed date:11/15/2024 08:11:50 PM Interpretation: Performing Lab: Notes/Report: [facility] ,Ejbawv064638-237 mmol/LPotassium4.03.5-5.1 mmol/VLrjsyiue43299-958 mmol/LCarbon Jrsdwrq84.921.0-32.0 mmol/LAnion Gap8.0Zwgrpcd5611-593 mg/dLBlood Urea Nitrogen 13.07.0-18.0 mg/dLCreatinine1.010.55-1.02 mg/dLEstimated GFR ( Yenny>60 >=60 mL/min/1.73m 2Estimated GFR (Non- Ame59>=60 mL/min/1.73m 2BUN Creatinine Ratio12.8Qyiiygu3.88.5-10.1 mg/dLBilirubin Total0.30.2-1.0 mg/dL Aspartate Amino Zihdzdrmurn4423-99 U/LAlanine Vxwnogbdtcfjqrbd2539-06 U/L Alkaline Qohpkszfuvn2398-717 U/LTotal Protein7.76.4-8.2 g/dLAlbumin Level4.33.4- 5.0 g/dLGlobulin3.4Albumin Globulin Ratio1.3Performing Lab:see noteML - [facility] LBTroponin I High Sensitivity Reviewed date:11/15/2024 08:11:50 PM Interpretation: Performing Lab: Notes/Report: [facility] ,Troponin I High Sensitivity<4.04.0-51.3 pg/mL HAS BEEN CONFIRMED THE DECISION THRESHOLD FOR PR NOTE: HIGH-SENSITIVITY TROPONIN ASSAY IS NOT INTENDED TO BE 99TH PERCENTILE = 51.4 PG/ML USED IN ISOLATION BUT SHOULD BE INTERPRETED IN CONJUNCTION DIAGNOSIS. REFERENCE LIMIT (URL) OF TROPONIN, DEFINED THE 99TH PERCENTILE OF cTnI DISTRIBUTION IN A REFERENCE POPULATION, UNIVERSAL DEFINITION OF MYOCARDIAL INFARCTION. THE UPPER CUT-OFF POINTS HAVE BEEN ESTABLISHED BASED ON THE FOURTH WITH OTHER DIAGNOSTIC AND CLINICAL INFORMATION. Performing Lab:see [facility] - [facility] LBHCG Qualitative* Reviewed date:11/15/2024 08:11:50 PM Interpretation: Performing Lab: Notes/Report: [facility] ,[facility] QualitativeNEGATIVENEGATIVEPerforming Lab:see note - [facility] LBECG 12 lead Reviewed date:11/17/2024 12:20:35 PM Interpretation: Performing Lab: Notes/Report: Source Facility: [facility]-[address] [place] [address] Electrocardiograph Report Signed Patient: STEPHANIE KHOURY MR#: [id number] : 1975 Acct:[id number] Age/Sex: 48 / F ADM Date: 11/14/24 Loc: ER Attending Dr: Ordering Physician: Anali Morrissey Date of Service: 11/14/24 Procedure(s): ECG 12 lead Accession Number(s): [id number] cc: [facility] Test Date: 2024-11-14 Pat Name: STEPHANIE KHOURY Department: Room: - Gender: Female Back Seam Stitcher: : 1975 Requested By: CHI LYON Order Number: [id number] Reading MD: CHI LYON Measurements Intervals [place] Rate: 63 P: 74 KS: 150 QRS: 88 QRSD: 82 T: 59 QT: 388 QTc: 396 Interpretive Statements 1100 Sinus rhythm 9110 normal ECG Compared to ECG 09/21/2022 09:24:54 No significant changes Electronically Signed On 11-17-2024 6:58:02 EST by CHI LYON Dictated By: Chi Lyon M.D. Signed By: 11/17/24 0658 DD/ 30 TD/TT: Watch Train Inspector:Troponin I High Sensitivity Reviewed date:11/15/2024 08:11:50 PM Interpretation: Performing Lab: Notes/Report: [facility] ,Troponin I High Sensitivity<4.04.0-51.3 pg/mL UNIVERSAL DEFINITION OF MYOCARDIAL INFARCTION. THE UPPER USED IN ISOLATION BUT SHOULD BE INTERPRETED IN CONJUNCTION 99TH PERCENTILE = 51.4 PG/ML HAS BEEN CONFIRMED THE DECISION THRESHOLD FOR PR PERCENTILE OF cTnI DISTRIBUTION IN A REFERENCE POPULATION, NOTE: HIGH-SENSITIVITY TROPONIN ASSAY IS NOT INTENDED TO BE WITH OTHER DIAGNOSTIC AND CLINICAL INFORMATION. DIAGNOSIS. REFERENCE LIMIT (URL) OF TROPONIN, DEFINED THE 99TH CUT-OFF POINTS HAVE BEEN ESTABLISHED BASED ON THE FOURTH Performing Lab:see noteML - [facility] LBXR chest 1V Reviewed date:11/15/2024 08:11:50 PM Interpretation: Performing Lab: Notes/Report: Source Facility: [facility]-[address] [place] [address] XRay Report Signed Patient: STEPHANIE HKOURY MR#: [id number] : 1975 Acct:[id number] Age/Sex: 48 / F ADM Date: 11/14/24 Loc: ER Attending Dr: Ordering Physician: Anali Morrissey Date of Service: 11/14/24 Procedure(s): XR chest 1V Accession Number(s): [id number] cc: Chi Lyon M.D.; Anali Morrissey [place] [address] Patient Name: STEPHANIE KHOURY MRN: [id number] date: 1975 Sex: F Assigned Patient Location: ER Current Patient Location: Accession/Order Number: [id number] Exam Date: 11/14/2024 22:56 Report Date: 11/15/2024 [...] Signed By: 11/15/24 0131 DD/ 0128 TD/TT: Watch Train Inspector:ARNEL T3 Reviewed date:07/21/2025 05:06:23 PM Interpretation: Performing Lab: Notes/Report: [facility] ,Free T31.732.18-3.98 pg/mLPerforming Lab:see noteML - [facility] LB T4 Reviewed date:07/21/2025 05:06:23 PM Interpretation: Performing Lab: Notes/Report: [facility] ,T4 Thyroxine5.204.80-13.90 ug/dLPerforming Lab:see note [facility] Reviewed date:07/21/2025 05:06:23 PM Interpretation: Performing Lab: Notes/Report: [facility] ,Thyroid Stimulating Hormone2.0180.358-3.740 uIU/mLPerforming Lab:see note - [facility] LBOccult Blood* Reviewed date:07/27/2025 08:05:10 PM Interpretation: Performing Lab: Notes/Report: [facility] ,Occult BloodPositivePerforming Lab:see note - [facility] LBFREE T3 Reviewed date:08/18/2025 05:58:38 PM Interpretation: Performing Lab: Notes/Report: [facility] ,Free T34.362.18-3.98 pg/mLPerforming Lab:see noteML - [facility] LB T4 Reviewed date:08/18/2025 05:58:38 PM Interpretation: Performing Lab: Notes/Report: [facility] ,T4 Thyroxine6.204.80-13.90 ug/dLPerforming Lab:see note - [facility] LBTSH Reviewed date:08/18/2025 05:58:38 PM Interpretation: Performing Lab: Notes/Report: [facility] ,Thyroid Stimulating Hormone0.0180.358-3.740 uIU/mLPerforming Lab:see note - [facility] LBColonoscopy* Reviewed date:09/17/2025 10:10:49 AM Interpretation:Normal Performing Lab: Notes/Report: Normal Reason For Referral Diagnosis 1 Nevus (D22.9) Referral Organization [facility] Referring Provider First Name Flaco Referring Provider Last Name Abbey Referring Provider [facility] gaudencio Referred Provider Lopez Hernandez Referred Provider [facility] Surg cayden Referral Priority Routine Diagnosis 1 Positive occult stoo l blood test (R19.5) Referral Organization [facility] Referring Provider First Name Flaco Referring Provider Last Name Abbey [facility] Lopez Hernandez Referred Provider Specialty General Surg cayden Referral Priority Routine Medications Medication SIG (Take, Route, Frequency, Duration) Notes Start Date End Date Status Iron (Ferrous Sulfate) 325 (65 Fe) MG 1 tablet O rally bid; Duration: 30 days 4ActiveDiclofenac Sodium 75 MG1 tablet as needed Orally Twice a day 4ActiveCetirizine HCl 10 MG1 tablet Orally Once a day; Duration: 90 aapmAbxkaxUexrtqwmzj-POUG-Opvbuymj 50-300-40 MG1 capsule as needed Orally every 6 hrs; Duration: 30 daysPRNActiveBreo Ellipta 100-25 MCG/ACT1 puff Inhalation Once a dayActiveMetoprolol Tartrate 25 MG1 tablet with food Orally Twice a day; Duration: 30 daysActiveAlbuterol Sulfate HFA 108 (90 Base) MCG/ACTINHALE 1 PUFF EVERY 4 HOURS NEEDED; Duration: 33ActiveHyoscyamine Sulfate 0.125 MG1-2 tabs SL SL every 4 hrs PRN abd pain5ActivetiZANidine HCl 4 MG2 tablets Orally at qzcqizp62/08/2023ActiveOndansetron 4 MG1 tablet on the tongue and allow to dissolve Orally qid15ActivePantoprazole Sodium 40 mgTAKE ONE TABLET BY MOUTH TWICE A DAY; Duration: 30ActiveMaxalt-BATTERY CONTAINER TESTER 10 MG1 tablet Orally Once a day; Duration: 30 daysPRNActiveLiothyronine Sodium 5 MCG3 tablets Orally on odd days and 2 tablets on even days; Duration: 30 daysActiveLevothyroxine Sodium 100 MCGTAKE 1/2 TABLET BY MOUTH ONCE DAILY IN THE MORNING ON AN EMPTY STOMACH FOR 30 DAYS; Duration: 30Active Immunizations Vaccine Route Administration Date Status Comme nts Flu, Flucelvax (2230-3825) (02210) 6 mos +, single-dose syringe IM Intramuscular 09/06/2023 Administered Social History Tobacco Use: Social History Observation Description Date Details (start date - stop date) Never Smoker NA - NA Tobacco Use/Smoking Question Answer Notes Patient is a nonsmoker Alcohol Screen (Audit-C) Question Answer Notes Did you have a drink containing alcohol in the p ast year? No Zdgooc9JcadgldlcwbzdcLgtanebrGEOOQ-T (Standard) Question Answer Notes Did you have a drink containing alcohol in the p ast year? No Sykduk6IoklmnykyonenkKtwyfsme Problems Problem Type SNOMED Code ICD Code Onset Dates Problem Status W/U Status Risk Notes Problem Localized, primary o steoarthritis of the shoulder region (370057888) Primary osteoarthritis, right shoulder (M19.011) ActiveconfirmedProblemGastro-esophageal reflux disease without esophagitis (145240906)Gastro-esophageal reflux disease without esophagitis (K21.9)Active confirmedProblemEruptive melanocytic nevi (032039132)Melanocytic nevi, unspecified (D22.9)ActiveconfirmedProblemAcute frontal sinusitis (51672412)Acute recurrent frontal sinusitis (J01.11)ActiveconfirmedProblemCervical spondylosis without myelopathy (288915954)Spondylosis without myelopathy or radiculopathy, cervical region (M47.812)ActiveconfirmedProblemDisorder of tendon of left shoulder region (disorder) (04476025867154268)Other specified disorders of tendon, left shoulder (M67.814)ActiveconfirmedProblemPalpitations (74542228) Palpitations (R00.2)ActiveconfirmedProblemRight upper quadrant abdominal mass (44001202816874984)Right upper quadrant abdominal swelling, mass and lump (R19.01)ActiveconfirmedProblemParesthesia (finding) (88352234)Paresthesia of skin (R20.2)ActiveconfirmedProblemAsthma (731242384)Asthma (J45.909)Active confirmedProblemHypothyroidism (02164230)Hypothyroidism (E03.9)Activeconfirmed ProblemAnxiety (08842041)Anxiety (F41.9)ActiveconfirmedProblemDepression (583851534)Depression (F32.9)ActiveconfirmedProblemVertigo (778658640)Vertigo (R42)ActiveconfirmedProblemInsomnia (977186099)Insomnia (G47.00)Activeconfirmed ProblemEczema (38602302)Eczema (L30.9)ActiveconfirmedProblemMigraine (21070319) Migraine (G43.909)ActiveconfirmedProblemSinus tachycardia (47419980)Sinus tachycardia (R00.0)ActiveconfirmedProblemHearing loss (99453896)Hearing loss (H91.90)ActiveconfirmedProblemConstipation (16514829)Constipation (K59.00)Active confirmedProblemAcute pharyngitis (533614573)Acute pharyngitis (J02.9)Active confirmedProblemSupraspinatus tendinitis (730897388)Supraspinatus tendinitis, right (M75.91)ActiveconfirmedProblemDysphagia (57460143)Dysphagia (R13.10)Active confirmedProblemSpasm of back muscles (317896792)Back muscle spasm (M62.830) ActiveconfirmedProblemTrochanteric bursitis (0829431)Trochanteric bursitis (M70.60)ActiveconfirmedProblemMetatarsalgia (62741466)Metatarsalgia (M77.40) ActiveconfirmedProblemThrush (27125318)Thrush (B37.0)ActiveconfirmedProblem Herpes zoster (1378577)Herpes zoster (B02.9)ActiveconfirmedProblemGynecologic examination (99334500)Encounter for gynecological examination (Z01.419)Active confirmedProblemNevus (9391814471)Nevus (D22.9)ActiveconfirmedProblemAbdominal pain (27219337)Right flank discomfort (R10.9)ActiveconfirmedProblemAcute urinary tract infection (435784205)Acute UTI (N39.0)ActiveconfirmedProblemSpasm (41306737)Trapezius muscle spasm (M62.838)ActiveconfirmedProblemShoulder impingement syndrome (190544583)Shoulder impingement syndrome (M75.40)Active confirmedProblemIrritable bowel syndrome characterized by constipation (373435761)Irritable bowel syndrome with constipation (K58.1)Activeconfirmed ProblemLow back pain (162985948)Low back pain, unspecified (M54.50)Active confirmed Vital Signs Blood pressure diastolic 82 mm Hg 09/09/2025 Uajcfp25 in09/09/2025lood pressure eaxkhykw920 mm Hg09/09/20256130Szkoiy477.0 lbs 09/09/2025BMI18.89 kg/m209/09/2025 Encounters Encounter Location Date Provider Diagnosis [address] [address] 10/02/[address] [facility] [place] [address] [facility] [place] [address]/27/2024oug HoyMigraine G43.909[place] [address] [place] [address]/20/2025Doug HoyHypothyroidism E03.9 ; Fatigue R53.83 ; Screening for colon cancer Z12.11 and Wellness examination Z [address] [address] 07/21/2025Doug HoyHypothyroidism E03.9BNic[address] [address] [place] [address]/Doug HoyPositive occult stool blood test R19.5B[address] [address]Doug HoyHypothyroidism E03.9B[address] [address]/Doug HoyMigraine G43.909 and Thrush B37.0[place] [address] [address] [facility] [place] [address]/Doug HoyNevus D22.9 and Migraine G43.909[place] [address] [place] [address]/08/2025Doug Hoy Gastroenteritis K52.9 Assessments Encounter Date Diagnosis (ICD Code) Assessment Notes Treatment Notes Treatment Clinical Notes Section Notes 01/26/2025 Migraine (ICD-10 - G43.909) injections -off work today01/26/2025Thrush (ICD-10 - B37.0)uokhsugk28/16/2025 Nevus (ICD-10 - D22.9)06/16/2025Migraine (ICD-10 - G43.909)feels lkie tyoical - 09/09/2025Gastroenteritis (ICD-10 - K52.9)Get plenty of rest. Stay hydrated by sucking on ice chips or taking small sips of water. You can also try drinking clear soda, clear broths or noncaffeinated sports drinks. Stop eating solid foods for a few hours to let your stomach settle. East back into eating by eating bland, nlcg-dp-wedjpz foods like crackers, toast, gelatin, bananas, rice and chicken. Try to avoid foods/substances including dairy products, caffeine, alcohol, nicotine and fatty or highly seasoned foods. Medications such as i buprofen or tylenol can make your stomach more upset, so use sparingly if at all. Also avoid oqmi-jwc-sqoofjf anti-diarrheal medications because it can make it harder for your body to eliminate the virus.11/27/2024Migraine (ICD-10 - G43.909)07/21/2025Hypothyroidism (ICD-10 - E03.9)07/21/2025Fatigue (ICD-10 - R53.83)07/21/2025Hypothyroidism (ICD-10 - E03.9)07/27/2025Positive occult stool blood test (ICD-10 - R19.5)08/18/2025Hypothyroidism (ICD-10 - E03.9)07/21/2025 Screening for colon cancer (ICD-10 - Z12.11)07/21/2025Wellness examination (ICD- 10 - Z01.89) Plan Of Treatment Pending Test [...] Start Date Coverage End Date [employer] [address] [place] [address] [id number] Mariely Khoury - patient is the insured Medications Administered Medication Instructions Date of Administration Dosage Notes Kenalog-40 480 ud78Jihdaqxon Jvscfaxfgpaj25/25/548937 mgKetorolac Tromethamine 560 bvFqbaytdnf38/25/111315 mgPromethazine 25mg525 mg Promethazine 25mg525 mg Medical (General) History Medical History History [...] F41.9 Hypothyroidism E03.9 Surgical History Surgery Date(Month/Year) Dr. Mary May 09/15/25 Hysterectomy/Tubal Hospitalization History Reason Date(Month/Year) see above
--- OUTSIDE RECORDS SUMMARY | 2025-09-27 15:25 | XMS_ITS | Clinical Summary ---
Author Organization [facility] Address [address] [place] [address] Care Team Providers Care Liability Claims Representative Name Role Phone Luisito Potter MD Primary Care Provider [phone] Allergies Active AllergyReactionsCriticalityNoted DateCommentsDiphenhydramine Hcl 7384SxwqfskfyjgsfPmrqk49/17/2021 Medications MedicationSigDispense QuantityRefillsLast FilledStart DateEnd DateStatus pantoprazole (ProtoNix) 40 mg EC tablet Take 40 mg by mouth in the morning.Active liothyronine (Cytomel) 5 mcg tablet Take 10 mcg by mouth in the morning.Active levothyroxine (Synthroid, Levoxyl) 100 mcg tablet Take 100 mcg by mouth in the morning.Active albuterol 90 mcg/actuation inhaler Inhale 2 puffs every 6 (six) hours if needed.Active ALBUTEROL SULFATE, BULK, MISC Active rizatriptan (Maxalt) 10 mg tablet Take 10 mg by mouth 1 (one) time if needed for migraine. May repeat in 2 hours if unresolved. Do not exceed 30 mg in 24 hours.Active metoprolol tartrate (Lopressor) 25 mg tablet 10/16/2022ctive Social History Tobacco UseTypesPacks/DayYears UsedDateSmoking Tobacco: NeverSmokeless Tobacco: Never Tobacco Cessation:Counseling Given: Not Answered PHQ-2AnswerDate RecordedPatient Health Questionnaire-2 Ycxpe86612/17/2021UT Safety & EnvironmentAnswerDate RecordedFear of Current or Ex-PartnerNot on file 01/23/2024Emotionally AbusedNot on file01/23/2024hysically AbusedNot on file 01/23/2024Sexually AbusedNot on file01/23/2024hysically or Sexually AbusedNot on file01/23/2024CommentsUnknownSex and Gender InformationValueDate RecordedSex Assigned at JbbmhAnblvw24/05/2022 8:18 AM EDTLegal SexFemale 05/30/2022 11:52 PM EDTGender ZpnwjvrcEpjsta27/05/2022 8:18 AM EDTSexual OrientationHeterosexual or Gtyryemt70/05/2022 8:18 AM EDT Last Filed Vital Signs Vital SignReadingTime TakenCommentsBlood Pressure--Pulse--Temperature-- Respiratory Rate--Oxygen Saturation--Inhaled Oxygen Concentration--Myhgwn66.7 kg (103 lb)10/17/2022 9:28 AM RTYWbdjxr690.5 cm (5' 2 )10/17/2022 9:28 AM ESTBody Mass Index18.8410/17/2022 9:28 AM EST Plan of Treatment Health MaintenanceDue DateLast DoneCommentsCT Mdvuyaiyrjox73/02/1977Colonoscopy 1976Colorectal Cancer Jdxqusoqi30/02/1977FIT-DNA2275DZA93 1976 FOBT5353Rutmmifqolktt10/02/1977Depression Fvqgggqbq18/02/1989Pneumococcal Vaccine: Pediatrics (0 to 5 Years) and At-Risk Patients (6 to 64 Years) (1 of 2 - PCV)1995Pap Smear1997Cervical Cancer Kchnnrots78/02/2007HPV/Cotest 12/03/20060533Kqpfvxvyi97/02/2017COVID-19 Vaccine ( season)2025 08/27/2022, 11/17/2021, 03/23/2021, Additional history existsInfluenza Vaccine (#1)5008/27/2022, 08/25/2021, 09/28/2020, Additional history exists Zoster Vaccines (1 of 2)7Adult Zyxxvth60/, 08/11/2015, 07/01/2007Hepatitis B RiyfrfrhYouvcevvd74/28/2008, 09/26/2007, 07/01/2007HIB VaccinesAged OutNo longer eligible based on patient's age to complete this topic HPV VaccinesAged OutNo longer eligible based on patient's age to complete this topicIPV VaccinesAged OutNo longer eligible based on patient's age to complete this topicMeningococcal B VaccineAged OutNo longer eligible based on patient's age to complete this topicMeningococcal VaccineAged OutNo longer eligible based on patient's age to complete this topicRotavirus VaccinesAged OutNo longer eligible based on patient's age to complete this topic Insurance Care Teams Team MemberRelationshipSpecialtyStart DateEnd Date Luisito Potter MD [address] [place] [address] [facility] - Vmbfmuy58/16/22
--- OUTSIDE RECORDS SUMMARY | 2025-09-27 15:25 | XMS_ITS | Clinical Summary ---
Author Organization [facility] Address [address], [address] [place] [address] Care Team Providers Care Precision Filer Hand Name Role Phone Unavailable Primary Care Provider Unavailabl e Allergies Active AllergyReactionsCriticalityNoted KbdnZbizawmuCnncyouxbjvsh77/17/2021 Medications MedicationSigDispense QuantityRefillsLast FilledStart DateEnd DateStatus albuterol sulfate HFA (PROVENTIL;VENTOLIN;PROAIR) 108 (90 Base) MCG/ACT inhaler Inhale 2 puffs into the lungs every 6 hours as neededActive levothyroxine (SYNTHROID) 100 MCG tablet Take 1 tablet by mouth dailyActive pantoprazole (PROTONIX) 40 MG tablet Take 1 tablet by mouth dailyActive liothyronine (CYTOMEL) 5 MCG tablet Take 1 tablet by mouth dailyActive cyclobenzaprine (FLEXERIL) 10 MG tablet Take 1 tablet by mouth 2 times daily as yukgaf7902/12/2023ctive metoprolol tartrate (LOPRESSOR) 25 MG tablet Take 1 tablet by mouth 2 times dailyActive cetirizine (ZYRTEC) 10 MG tablet Take 1 tablet by mouth dailyActive Social History Tobacco UseTypesPacks/DayYears UsedDateSmoking Tobacco: NeverSmokeless Tobacco: Never Tobacco Cessation:Counseling Given: Not Answered Alcohol UseStandard Drinks/WeekCommentsNot Currently0 (1 standard drink = 0.6 oz pure alcohol)CommentsNoSex and Gender InformationValueDate RecordedSex Assigned at BirthNot on fileLegal WleUeyxgv15/10/2013 9:01 AM ESTGender Identity Not on fileSexual OrientationNot on file Last Filed Vital Signs Vital SignReadingTime TakenCommentsBlood Etldwsqs686/7105 5:58 PM EDT Mkdge1079 5:00 PM CCQLfevbcgwxeu00.6 ??C (97.9 ??F)04/22/2023 5:00 PM EDTRespiratory Rsgo984304/22/2023 5:00 PM EDTOxygen Jgzayxhphk663%04/22/2023 5:58 PM EDTInhaled Oxygen Concentration--Weight--Height--Body Mass Index-- Plan of Treatment Health MaintenanceDue DateLast DoneCommentsFlu vaccine (#1)/ COVID-19 Vaccine ( season)/, 11/17/2021, 03/23/2021, Additional history existsDTaP/Tdap/Td vaccine (2 - Td or Tdap) olio vaccineAged OutNo longer eligible based on patient's age to complete this topic Insurance
[2025-09-27 16:11] LABS: Free T3 3.03 pg/mL (2.18-3.98); Thyroid Stimulating Hormone 0.035 uIU/mL (0.358-3.740)
== END 2025-09-27 15:21 | disposition home or self-care (01) ==
PROVIDERS: PCP Family Medicine; Visit Provider Family Medicine
DX: E03.9 Hypothyroidism, unspecified (principal)
CPT/HCPCS: 36415; 84436; 84443; 84481